=== PATIENT | male | born 1945 | race Caucasian/White ===

== ENCOUNTER → 2023-08-07 12:47 | Outpatient (REF) | payer MEDICARE, SELFPAY ==
[2023-08-07 13:16] LABS: % Basophils 0.2 % (0-2); % Eosinophils 1.9 % (0-6); % Immature Granulocytes 0.6 % (0-0.5); % Lymphocytes 17.3 % (20.5-51.1); % Monocytes 16.7 % (1.7-9.3); % Neutrophils 63.3 % (42.2-75.2); Absolute Eosinophils 0.1 10^3/uL (0-0.7); Absolute Lymphocytes 0.8 10^3/uL (1.2-3.4); Absolute Monocytes 0.8 10^3/uL (0.1-0.6); Hematocrit 38.9 % (39.0-52.0); Hemoglobin 12.4 g/dL (13.0-18.0); Mean Corp Hgb Conc. 31.9 g/dL (33.0-37.0); Mean Corpuscular Hgb 27.9 pg (27.0-31.0); Mean Corpuscular Volume 87.4 fL (80.0-94.0); Mean Platelet Volume 10.9 fL (7.4-10.4); Nucleated Red Blood Cells % 0 % (-); Platelet Count 174 10^3/uL (130-400); Red Blood Cell Count 4.45 10^6/uL (4.70-6.10); Red Cell Dist. Width 15.9 % (11.5-14.5); White Blood Cell Count 4.8 10^3/uL (4.8-10.8)
[2023-08-07 13:26] LABS: INR 4.07; PT 40.2 Sec (11.4-14.6)
[2023-08-07 14:03] LABS: Urine Albumin Negative (Neg - Trace); Urine Bilirubin Negative (Negative); Urine Character Clear (Clear); Urine Color Yellow; Urine Glucose Negative (Negative); Urine Ketone Negative (Negative); Urine Leukocyte Negative (Negative); Urine Nitrite Negative (Negative); Urine Occult Blood Negative (Negative); Urine Urobilinogen Negative (Neg - 1+)
[2023-08-07 14:13] LABS: Urine Mucus Few; Urine Squamous Cell 0-2 /LPF (Few)
[2023-08-07 14:14] LABS: Urine Bacteria Few (Negative); Urine Red Blood Cell 0-2 /HPF (0-2); Urine White Cell 0-2 /HPF (0-5); Urine Yeast Few (Negative)
[2023-08-07 14:50] LABS: Glycohemoglobin (HgbA1c) 6.3 % (4.0-5.6)
[2023-08-07 15:11] LABS: ALT (SGPT) 44 U/L (0-50); AST (SGOT) 74 U/L (17-59); Alkaline Phosphatase 162 U/L (38-126); Blood Urea Nitrogen 11 mg/dl (9-20); Calcium 8.6 mg/dl (8.4-10.2); Carbon Dioxide 29 mmol/L (22-30); Chloride 105 mmol/L (98-107); Glucose 92 mg/dl (70-99); HDL Cholesterol 51 mg/dl; LDL Cholesterol, Calculated 48 mg/dl; Potassium 4.4 mmol/L (3.5-5.1); Sodium 140 mmol/L (135-145); Total Bilirubin 0.5 mg/dl (0.2-1.3); Total Cholesterol 134 mg/dl (50-199); Total Protein 6.9 g/dl (6.3-8.2); Triglyceride 176 mg/dl (10-149); Very Low Density Lipoprotein 35 mg/dl (0-30); eGFR > 60.00
[2023-08-08 17:14] LABS: Syphilis/T. pallidum Ab Reflex Negative (Negative)
[2023-08-09 15:22] LABS: CD4 % of Cells Analyzed 35 % (35-68); CD4 Absolute Count 282 cells/uL (490-1600)
[2023-08-10 00:34] LABS: HIV-1 Quan NAAT Interpretation Not Detected (Not Detected); HIV-1 Quant NAAT (copies/ml) Not Detected cpy/mL; HIV-1 Quant NAAT (log copy/mL) Not Detected log cpy/mL
== END ==
LOC: REG 12:47
PROVIDERS: ATTENDING PHYSICIAN Internal Medicine Cardiovascular Disease; FAMILY PHYSICIAN Family Medicine; OTHER PHYSICIAN Student in an Organized Health Care Education/Training Program
DX: I48.91 Unspecified atrial fibrillation (principal); I48.0 Paroxysmal atrial fibrillation; B20 Human immunodeficiency virus [HIV] disease; Z00.00 Encounter for general adult medical examination without abnormal findings; E78.2 Mixed hyperlipidemia; R73.01 Impaired fasting glucose
CPT/HCPCS: 36415; 80053; 80061; 81003; 81015; 83036; 85025; 85610; 86361; 86780; 87536

== ENCOUNTER → 2023-08-14 09:16 | Outpatient (REF) | payer MEDICARE, SELFPAY ==
[2023-08-14 09:59] LABS: PT 23.8 Sec (11.4-14.6)
[2023-08-16 18:29] LABS: CD4 % of Cells Analyzed 23 % (35-68); CD4 Absolute Count 242 cells/uL (490-1600)
== END ==
LOC: REG 09:16
PROVIDERS: ATTENDING PHYSICIAN Internal Medicine Cardiovascular Disease; FAMILY PHYSICIAN Family Medicine; REFERRING PHYSICIAN Student in an Organized Health Care Education/Training Program
DX: I48.91 Unspecified atrial fibrillation (principal); I48.0 Paroxysmal atrial fibrillation; B20 Human immunodeficiency virus [HIV] disease
CPT/HCPCS: 36415; 85610; 86361

== ENCOUNTER → 2023-08-26 13:54 | Outpatient (REF) | payer MEDICARE, SELFPAY ==
[2023-08-26 14:43] LABS: INR 3.08; PT 31.8 Sec (11.4-14.6)
== END ==
LOC: REG 13:54
PROVIDERS: ATTENDING PHYSICIAN Internal Medicine Cardiovascular Disease; FAMILY PHYSICIAN Family Medicine
DX: I48.91 Unspecified atrial fibrillation (principal); I48.0 Paroxysmal atrial fibrillation
CPT/HCPCS: 36415; 85610

== ENCOUNTER 2023-09-08 21:21 | Inpatient (IN) | payer MEDICARE, SELFPAY ==
[2023-09-08 19:14] VITALS: BP 105/62
[2023-09-08 19:32] VITALS: BMI 18.6
[2023-09-08 19:34] VITALS: BP 111/67
[2023-09-08 20:00] VITALS: BP 106/75
[2023-09-08 20:02] LABS: % Basophils 0.3 % (0-2); % Eosinophils 0.8 % (0-6); % Immature Granulocytes 0.3 % (0-0.5); % Lymphocytes 15.5 % (20.5-51.1); % Monocytes 18.7 % (1.7-9.3); % Neutrophils 64.4 % (42.2-75.2); Absolute Lymphocytes 0.6 10^3/uL (1.2-3.4); Absolute Monocytes 0.7 10^3/uL (0.1-0.6); Absolute Neutrophils 2.4 10^3/uL (1.4-6.5); Hematocrit 34.4 % (39.0-52.0); Mean Corpuscular Hgb 26.8 pg (27.0-31.0); Mean Corpuscular Volume 83.9 fL (80.0-94.0); Mean Platelet Volume 11.2 fL (7.4-10.4); Nucleated Red Blood Cells % 0 % (-); Platelet Count 196 10^3/uL (130-400); Red Cell Dist. Width 16.4 % (11.5-14.5); White Blood Cell Count 3.7 10^3/uL (4.8-10.8)
[2023-09-08 20:18] LABS: COVID-19 Antigen Negative (Negative)
[2023-09-08 20:20] LABS: ALT (SGPT) 37 U/L (0-50); AST (SGOT) 48 U/L (17-59); Albumin 3.4 g/dl (3.5-5.0); Alkaline Phosphatase 151 U/L (38-126); Blood Urea Nitrogen 17 mg/dl (9-20); Calcium 8.5 mg/dl (8.4-10.2); Carbon Dioxide 31 mmol/L (22-30); Chloride 103 mmol/L (98-107); Estimated Creatinine Clearance 92 ml/min; Glucose 97 mg/dl (70-99); Potassium 4.2 mmol/L (3.5-5.1); Sodium 137 mmol/L (135-145); Total Bilirubin 0.4 mg/dl (0.2-1.3); Total Protein 6.5 g/dl (6.3-8.2); eGFR > 60.00
[2023-09-08 20:25] LABS: NT-proBNP 150 pg/ml; Troponin I < 0.012 ng/ml
--- NOTE | 2023-09-08 20:47 | ED.GENMED ---
History of Present Illness
General
Chief Complaint: Breathing Problem
Source: patient
Exam Limitations: none
Time Seen by Provider: 09/08/23 19:28
Nursing documentation reviewed up to this point in time: agreed with
Travel History
Have you had any contact with someone who has COVID-19?: No
Do you have any symptoms of coronavirus? Fever > 100 degrees, chills, cough, shortness of breath, sore throat, loss of taste or smell, muscle aches, or headache?: Yes
Symptoms:: cough and shortness of breath
History of Present Illness
History of Present Illness:
Patient with history of oxygen dependent COPD, presents to ED secondary to increasing shortness of breath with exertion over the past week. Denies chest pain. Denies fever or chills. Denies nausea, vomiting, or diarrhea. Patient also does report
decreased appetite. Denies recent travel. Denies recent surgery. Denies back pain. Denies leg pain or swelling. Patient was admitted to this hospital in June 2023 with similar symptoms, when he improved with treatment including steroids.
Past History
Past History
ED Past Medical History: Arrthythmia (Atrial fibrillation), CAD, COPD, HTN, Hypercholesterolemia and Other (HIV, cavitary pneumonia, AVINASH)
ED Past Surgical History: Cardiac
Social History
Tobacco: Former smoker
Alcohol: None
Drug: None
Living: with roommate
Employment: Retired
Review of Systems
Review of Systems
Allergies reviewed?: Yes
All Other Systems: ROS reviewed and negative except as documented in HPI and ROS
Constitutional: Reports no symptoms; Denies fever
EENT: Reports no symptoms
Respiratory: Reports cough and trouble breathing
Cardiac: Reports no symptoms
ABD/GI: Reports no symptoms
: Reports no symptoms
Musculoskeletal: Reports no symptoms
Skin: Reports no symptoms
Neurological: Reports no symptoms
Phy Exam
Physical Exam
Physical Exam:
Physical Exam
General: mild distress, not acutely ill. afebrile. thin appearing
Head: nc/at. eomi
Neck: supple. no meningeal signs.
Heart: s1/s2 regular rate and rhythm, no murmur. equal radial pulses.
Lungs: mild respiratory distress. diffuse expiratory wheezing bilaterally
Abdomen: normal bowel sounds. not tender.
Neuro: alert and oriented. no focal neurological deficits
Skin: no rash
Psychiatric: well kept. interactive and cooperative
Extremities: no edema. no calf tenderness.
Scores
Heart Failure Risk
Heart Failure Risk Score: Not Applicable
Course
Orders/Labs/Results
Orders:
Orders
09/08/23 Dinner
Cholesterol Lowering
At Your Request: Full Participation
Cholesterol Lowering: Sodium, 2 Gram
09/08/23 19:23
Electrocardiogram (*1) Urgent
Reason for Study: Shortness of Breath
CXR2 [CR Chest - 2 Views ] Urgent
Comment:
Reason For Exam: shortness of breath and cough
09/08/23 19:49
CMP [Comprehensive Metabolic Panel] Urgent
COVID-19 Antigen Urgent
Source: Nasal Swab
Complete Blood Count/With Diff Urgent
Pro-BNP [NT-proBNP] Urgent
Troponin I Urgent
INF RAPID [Influenza A+B Rapid Molecular] Urgent
JESSICA Source: Nasal Swab
Specimen Description:
09/08/23 20:46
0.9% Sodium Chloride 500 ml [Nss] 500 ml IV BOLUS
Albuterol Nebs [Ventolin Nebules] 2.5 mg INH R NOW STA
Dexamethasone Sod Phosphate [Decadron] 10 mg IV NOW STA
Ipratropium/Albuterol Sulfate [Duoneb] 3 ml INH R NOW STA
09/08/23 20:59
Admit/Transfer Patient As Directed
Co-Sign Provider:
Level of Care: Inpatient admission
Assign to:: Medical/Surgical
Physician / Group: haseeb correia
Diagnosis: acute on chronic copd exac
Reason for Hospitalization: acute on chronic copd exac
Expected length of stay greater than two midnights?: Yes
ELOS- Estimated Length of Stay in days: 4
I certify the patient meets the requirements for IP care: Yes
09/08/23 21:36
Acetaminophen [Tylenol] 650 mg PO Q4HPRN PRN
09/08/23 21:36
VTE Contraindication Routine
VTE Mechanical Device Contraindication: Medical Contraindication
Pharmocologic Contraindication: Medical Contraindication
Comment: pt on coumadin
Activity As Directed
Activity Level: As Tolerated
Vital Signs As Directed
Frequency: Per unit guidelines
Xopenex Reason for Use As Directed
Reason for ordering Xopenex instead of Albuterol: tachycardia
Pulse Ox/spot Check [RESP] Routine
Quantity: 1
Ot Eval And Treat Routine
Pt Eval And Treat Routine
Activity Level: As Tolerated
09/09/23 02:00
Dexamethasone Sod Phosphate [Decadron] 4 mg IV Q6H
09/09/23 05:47
Complete Blood Count/With Diff IN AM
Comprehensive Metabolic Panel IN AM
09/09/23 08:00
Albuterol Nebs [Ventolin Nebules] 2.5 mg INH R QID
Aspirin Low Dose EC [Aspir Low (Enteric Coated)] 81 mg PO DAILY
Azithromycin [Zithromax] 250 mg PO DAILY
Dolutegravir Sodium [Tivicay] 50 mg PO DAILY
Emtricitabine/Tenofovir [Truvada Tablet] 1 tablet PO DAILY
Ethambutol [Myambutol] 400 mg PO BID
Ezetimibe [Zetia] 10 mg PO DAILY
Levalbuterol [Xopenex 1.25 mg Inhalant Solution] 1.25 mg INH R QID
Multivitamin [Theragran] 1 tablet PO DAILY
Pantoprazole [Protonix] 40 mg PO DAILY
Rosuvastatin Calcium [Crestor] 20 mg PO DAILY
rifabutin 0 mg PO BID
09/09/23 18:00
Diltiazem Extended Release [Cardizem Cd] 120 mg PO QPM
09/10/23 06:00
Complete Blood Count/With Diff IN AM
Comprehensive Metabolic Panel IN AM
09/11/23 06:00
Complete Blood Count/With Diff IN AM
Comprehensive Metabolic Panel IN AM
09/12/23 06:00
Complete Blood Count/With Diff IN AM
Comprehensive Metabolic Panel IN AM
Abnormal Lab Results
09/08/23
19:49
WBC 3.7 L 10^3/uL
(4.8-10.8)
RBC 4.10 L 10^6/uL
(4.70-6.10)
Hgb 11.0 L g/dL
(13.0-18.0)
Hct 34.4 L %
(39.0-52.0)
MCH 26.8 L pg
(27.0-31.0)
MCHC 32.0 L g/dL
(33.0-37.0)
RDW 16.4 H %
(11.5-14.5)
MPV 11.2 H fL
(7.4-10.4)
Absolute Lymphs (auto) 0.6 L 10^3/uL
(1.2-3.4)
Absolute Monos (auto) 0.7 H 10^3/uL
(0.1-0.6)
Lymphocytes % 15.5 L %
(20.5-51.1)
Monocytes % 18.7 H %
(1.7-9.3)
Carbon Dioxide 31 H mmol/L
(22-30)
Creatinine 0.6 L mg/dL
(0.7-1.3)
Alkaline Phosphatase 151 H U/L
(38-126)
Albumin 3.4 L g/dl
(3.5-5.0)
09/08/23 19:49
09/08/23 19:49
Vital Signs
Initial and Last Documented VS:
Initial Vital Signs
Temp Pulse Resp BP Pulse Ox
97.6 F 98 30 105/62 97
09/08/23 19:14 09/08/23 19:14 09/08/23 19:14 09/08/23 19:14 09/08/23 19:14
Last Documented Vital Signs
Temp Pulse Resp BP Pulse Ox
97.6 F 109 20 139/64 97
09/09/23 16:59 09/09/23 16:59 09/09/23 16:59 09/09/23 16:59 09/09/23 16:59
MDM/Problems Addressed
MDM/Problems Addressed:
History and exam consistent with likely recurrent COPD exacerbation, with significant wheezing with respiratory distress. Patient will be admitted for further evaluation and treatment, including nebulizer treatment along with IV steroids.
*Critical Care Note
Total Time (30-74mins, 75-104mins- exclusive of procedures): Not Applicable
ED Attending Note
-
Portions of this chart may have been created with voice recognition software.� Occasional wrong word or��sound alike� substitutions may have occurred due to the inherent limitations of voice recognition software.
Discharge Plan
Departure
Patient Disposition: Admit
Date of Disposition: 09/08/23
Time of Disposition: 20:51
Admit to: Telemetry
Presentation/result/management discussed w/ accepting MD/DO: Hospitalist
Discharge Problem:
COPD exacerbation
Interventions
Interventions:
*Risk Screen - Suicide Last Done: 09/08/23 19:14
*General Assessment Last Done: 09/08/23 19:14
*Neglect/Abuse Screening Last Done: 09/08/23 19:14
ED- Fall Risk Assessment Last Done: 09/08/23 19:14
*ED COVID-19 Vaccine History Last Done: 09/08/23 19:14
*Nursing Disposition Last Done: 09/09/23 07:20
ED- Cardiac Assessment Last Done: 09/08/23 23:20
ED- Pulmonary Assessment Last Done: 09/08/23 23:20
Discharge Date and Time
Discharge Date/Time: 09/09/23 16:30
[2023-09-08] MEDS: DUONEB 3 ML INH (20:50)
[2023-09-08] MEDS: DECADRON 10 MG IV (20:50)
[2023-09-08] MEDS: VENTOLIN NEBULES 2.5 MG INH ×2 (20:50→23:48)
[2023-09-08] MEDS: NSS 500 IV (20:50)
[2023-09-08 21:00] VITALS: BP 104/66
--- NOTE | 2023-09-08 21:38 | HPS.HSE ---
Family Physician
-
Family Physician: Colton Farah
Chief Complaint
-
Shortness of breath
History of Present Illness
78-year-old male with history of COPD and chronic hypoxic failure on 2 L oxygen continuously, HIV who lives with the family at home, presented to the hospital with the family complaining of progressive shortness of breath over the last couple of
weeks, worse with eating and exertional activity admitted dry cough denies any fever but feels he is chronically cold and chilly, no chest pain, no urinary or GI symptoms, no sick contacts or recent travel.
Admit compliant with medication. Admit walking to the bathroom usually weak, short of breath mildly, also admits some tachycardia with this symptom.
Workup in the ER basically concerning for COPD exacerbation, given breathing treatment and steroid and overall feels some improvement, her daughter at the bedside.
Medical History
Past Medical History
Past Medical History: Reports Other
Additional Past Medical History:
Past medical history reviewed:
Chronic hypoxic failure secondary to COPD on 2 L oxygen continuously
A-fib anticoagulated with warfarin
COPD
HIV
PVD
Spinal stenosis
Chronic back pain
Coronary artery disease status post stent and bypass
Left foot drop
Hypertension
Cataract
Surgical history:
Coronary disease/bypass
R knee
Colonoscopy and polyp removal
Right inguinal hernia repair
Thoracocentesis
EGD removal of food impaction
Social history: Lives at home with the family, no smoking or alcohol use.
Family history: Reviewed and noncontributory
Past Surgical History: Reports Other
Social History
Unable to obtain full social history at this time due to: Other
Family History
Family History: Other
Allergies / Home Medications
Allergies reflects when Allergies were last updated in [facility] [employer].
Home Medications with original date entered in [employer]
Allergy/Medication List:
Allergies
Allergy/AdvReac Type Severity Reaction Status Date / Time
No Known Allergies Allergy Verified 09/08/23 19:12
Home Medications
azithromycin 250 mg tablet 250 mg PO DAILY 04/06/19
dolutegravir 50 mg tablet (Tivicay) 50 mg PO DAILY Infection 12/19/21
ethambutol 400 mg tablet 400 mg PO BID Anti-inflammatory 12/19/21
ezetimibe 10 mg tablet 10 mg PO DAILY High cholesterol 12/19/21
emtricitabine 200 mg-tenofovir disoproxil fumarate 300 mg tablet 1 tab PO DAILY Infection 11/11/22
rosuvastatin 20 mg tablet (Crestor) 20 mg PO DAILY High cholesterol 11/11/22
pantoprazole 40 mg tablet,delayed release 40 mg PO DAILY #30 tabs 11/13/22
albuterol sulfate 90 mcg/actuation aerosol inhaler 2 puff inhalation R Q4HPRN PRN sob 06/20/23
aspirin 81 mg tablet,delayed release 81 mg PO DAILY Blood Clot Prevention/Tx 06/20/23
diltiazem HCl 120 mg capsule,24 hr,extended release 120 mg PO QPM Blood Pressure 06/20/23
fluticasone fur. 100 mcg-umeclid 62.5 mcg-vilant 25 mcg inhalat.powder (Trelegy Ellipta) 1 inh inhalation R DAILY Lung/Breathing Issues 06/20/23
levalbuterol HCl 1.25 mg/3 mL solution for nebulization 1.25 mg inhalation R QID Lung/Breathing Issues 06/20/23
rifabutin 150 mg capsule 150 mg PO BID Infection 06/20/23
therapeutic multivitamin 1 tab PO DAILY Supplement 06/20/23
warfarin 4 mg tablet 4 mg PO QPM 09/08/23
Review of Systems
-
A 12 point ROS was completed and negative except as noted: Yes
Physical Exam
Vital Signs
Vital Signs
Temp Pulse Resp BP Pulse Ox
97.6 F 98 30 105/62 98
09/08/23 19:14 09/08/23 19:14 09/08/23 19:14 09/08/23 19:14 09/08/23 19:52
Physical exam:
General: Awake, alert and oriented x3, not in distress and holds appropriate conversation. Cachectic,
HEENT: On nasal cannula no active discharge, ecchymosis or bruising, moist lips, tongue and mucous membrane.
Eyes: No discharge or red conjunctiva, no nystagmus, pupils are reactive and equal
Neck:Supple, no JVD no bruit no goiter.
Respiratory: Normal AP contour and diameter, normal chest wall movement, normal respiratory effort, no respiratory distress,
Lungs: Diminished air entry bilaterally with bilateral wheezing and rhonchi, no rales or crackles
Heart: S1, S2 regular, normal rate, no added sound.
Gastrointestinal: Positive bowel sounds, soft, nontender, no guarding or rigidity or organomegaly
Musculoskeletal: , no chest wall abnormality or tenderness. All joints and extremities have good range of motion, no muscle tenderness or any joint swelling or tenderness.
Extremities: No pitting edema, good peripheral pulses, good range of motion
Skin: Warm and dry, no ulceration, normal color.
Neurological: Awake, alert and oriented x3, no facial droop, moves extremities freely speech clear and comprehensive, good muscle tone, normal sensory and motor function
Psychiatric: Normal mood, normal thought and judgment, normal affect,
Physical Exam
General: Other
Laboratory Results
-
09/08/23 19:49
09/08/23 19:49
Laboratory Results
Total Bilirubin 0.4 mg/dl (0.2-1.3) 09/08/23 19:49
AST 48 U/L (17-59) 09/08/23 19:49
ALT 37 U/L (0-50) 09/08/23 19:49
Alkaline Phosphatase 151 U/L (38-126) H 09/08/23 19:49
Troponin I < 0.012 ng/ml 09/08/23 19:49
EKG showed normal sinus rhythm Ankita supraventricular complexes
Rate around 89, NH 192, QTc 418, low voltage criteria.
Chest x-ray:Right upper lobe scarring and likely accompanying right apical cavity/bulla, predominantly stable.
Data Reviewed
-
Diagnostic Radiology: Image Personally Visualized and interpreted, Discussed with Patient and Discussed with Family
Medical Tests (Nuc Med, Echo, EKG etc): Image Personally Visualized and interpreted, Discussed with Patient and Discussed with Family
Lab Data: Labs Reviewed by me, Discussed with Patient and Discussed with Family
Old Records: Reviewed
Impression/Plan
-
IMPRESSION:
Chronic hypoxic failure on 2 L oxygen continuously
78-year-old male with history of advanced COPD and hypoxic failure, presented to the hospital complaining of progressive worsening shortness of breath over the last couple of weeks, concerning for COPD exacerbation.
Acute COPD exacerbation
Chronic neutropenia
Chronic anemia
HIV
Moderate protein caloric malnutrition
Cachexia
A-fib and anticoagulated with warfarin
PLAN:
Managed per COPD protocol
DuoNeb 4 times daily Decadron IV
Oxygen on 2 L continue to use home dose
Monitor vital sign
Continue home medication.
Recheck lab
PT/INR ordered and pending and will decide the dosing of warfarin accordingly
All discussed with the patient and the family
CODE STATUS full code
Dispo prophylaxis warfarin
[2023-09-08 23:25] VITALS: BP 136/71
[2023-09-08 23:38] LABS: PT 24.3 Sec (11.4-14.6)
[2023-09-09] MEDS: DECADRON 4 MG IV ×4 (02:25→20:34)
[2023-09-09 02:28] VITALS: BP 133/66
[2023-09-09 06:30] LABS: % Immature Granulocytes 0.4 % (0-0.5); % Monocytes 3.6 % (1.7-9.3); Absolute Lymphocytes 0.2 10^3/uL (1.2-3.4); Absolute Monocytes 0.1 10^3/uL (0.1-0.6); Absolute Neutrophils 2.4 10^3/uL (1.4-6.5); Mean Corp Hgb Conc. 32.3 g/dL (33.0-37.0); Mean Corpuscular Hgb 26.7 pg (27.0-31.0); Mean Corpuscular Volume 82.7 fL (80.0-94.0); Mean Platelet Volume 11.9 fL (7.4-10.4); Nucleated Red Blood Cells % 0 % (-); Platelet Count 195 10^3/uL (130-400); Red Blood Cell Count 3.75 10^6/uL (4.70-6.10); Red Cell Dist. Width 16.4 % (11.5-14.5); White Blood Cell Count 2.7 10^3/uL (4.8-10.8)
[2023-09-09 06:41] LABS: ALT (SGPT) 36 U/L (0-50); AST (SGOT) 41 U/L (17-59); Albumin 3.2 g/dl (3.5-5.0); Alkaline Phosphatase 155 U/L (38-126); Blood Urea Nitrogen 12 mg/dl (9-20); Calcium 8.1 mg/dl (8.4-10.2); Carbon Dioxide 27 mmol/L (22-30); Chloride 106 mmol/L (98-107); Estimated Creatinine Clearance 92 ml/min; Glucose 151 mg/dl (70-99); Potassium 4.1 mmol/L (3.5-5.1); Sodium 138 mmol/L (135-145); Total Bilirubin 0.3 mg/dl (0.2-1.3); Total Protein 6.2 g/dl (6.3-8.2); eGFR > 60.00
[2023-09-09 07:12] LABS: INR 2.18; PT 24.1 Sec (11.4-14.6)
[2023-09-09] MEDS: PROTONIX 40 MG PO (09:01)
[2023-09-09] MEDS: ZETIA 10 MG PO (09:01)
[2023-09-09] MEDS: ASPIR LOW (ENTERIC COATED) 81 MG PO (09:01)
[2023-09-09] MEDS: MYAMBUTOL 400 MG PO ×2 (09:02→20:38)
[2023-09-09] MEDS: THERAGRAN 1 TABLET PO (09:02)
[2023-09-09] MEDS: CRESTOR 20 MG PO (09:02)
[2023-09-09] MEDS: ZITHROMAX 250 MG PO (09:02)
[2023-09-09] MEDS: TRUVADA TABLET 1 TABLET PO (09:02)
[2023-09-09] MEDS: TIVICAY 50 MG PO (09:03)
[2023-09-09] MEDS: XOPENEX 1.25 MG INHALANT SOLUTION INH ×4 (09:03→20:02)
[2023-09-09] MEDS: SYMBICORT 80/4.5 MCG INHALER 2 PUFF INH ×2 (10:04→20:02)
[2023-09-09] MEDS: SPIRIVA RESPIMAT 2.5 MCG 2 PUFF INH (10:04)
[2023-09-09 10:11] VITALS: BP 155/97
[2023-09-09] MEDS: NON-FORMULARY ITEM 150 MG PO (10:20)
--- NOTE | 2023-09-09 10:50 | CON.PUL ---
Consultation
Consultation Request
Date/Time Consultation Requested: 09/09/2023-9 AM
Date/Time Consultation Performed: 09/09/2023-9:30 AM
Requesting Provider: Hospitalist
Performing Provider: Dr. Apple
Reason for Consultation: Shortness of breath
Medical History
-
Chief Complaint: Shortness of breath
History of Present Illness:
78-year-old male with underlying COPD followed by Dr. Mujica on chronic oxygen 2 L well still has HIV, atrial fibrillation, spinal stenosis and CAD who presented with increasing shortness of breath and pulmonary was consulted for COPD exacerbation
09/09/2023. He continues have significant shortness of breath with minimal exertion. He does not complain of any chest congestion, productive cough, pleurisy, mopped assist, abdominal pain, leg swelling or weakness. He is feeling improved after
nebulizers and steroids.
Past Medical History
Past Medical History: None (COPD on chronic oxygen 2 L. Atrial fibrillation. Chronic warfarin. HIV. PAD. Spinal stenosis. Chronic back pain. Coronary artery disease/CABG. L foot drop. Hypertension. Cataract. Right knee surgery.
Colonoscopy/polyp removal. R inguinal hernia repair. Thoracentesis. EGD [employer])
Social History
Tobacco: Former Smoker (04-[facility]-roni quit 1 year)
Drug: None
Living: With Family
Occupational Exposures: No known asbestos exposure
Environmental Exposures: No known tuberculosis exposure
Family History
Family History: Reviewed & Not Pertinent (Father suicide)
Allergies / Home Medications
Allergies
Allergy/AdvReac Type Severity Reaction Status Date / Time
No Known Allergies Allergy Verified 09/08/23 19:12
Home Medications
Medication Instructions Recorded Confirmed Last Taken Type
azithromycin 250 mg tablet 250 mg PO DAILY 04/06/19 09/08/23 09/08/23 Rx
dolutegravir 50 mg tablet (Tivicay) 50 mg PO DAILY Infection 12/19/21 09/08/23 09/08/23 History
ethambutol 400 mg tablet 400 mg PO BID Anti-inflammatory 12/19/21 09/08/23 09/08/23 History
ezetimibe 10 mg tablet 10 mg PO DAILY High cholesterol 12/19/21 09/08/23 09/08/23 History
emtricitabine 200 mg-tenofovir 1 tab PO DAILY Infection 11/11/22 09/08/23 09/08/23 History
disoproxil fumarate 300 mg tablet
rosuvastatin 20 mg tablet (Crestor) 20 mg PO DAILY High cholesterol 11/11/22 09/08/23 09/08/23 History
pantoprazole 40 mg tablet,delayed 40 mg PO DAILY #30 tabs 11/13/22 09/08/23 09/08/23 Rx
release
albuterol sulfate 90 mcg/actuation 2 puff inhalation R Q4HPRN PRN sob 06/20/23 09/08/23 Unknown History
aerosol inhaler
aspirin 81 mg tablet,delayed 81 mg PO DAILY Blood Clot 06/20/23 09/08/23 09/08/23 History
release Prevention/Tx
diltiazem HCl 120 mg capsule,24 120 mg PO QPM Blood Pressure 06/20/23 09/08/23 09/08/23 History
hr,extended release
fluticasone fur. 100 mcg-umeclid 1 inh inhalation R DAILY 06/20/23 09/08/23 09/08/23 History
62.5 mcg-vilant 25 mcg Lung/Breathing Issues
inhalat.powder (Trelegy Ellipta)
levalbuterol HCl 1.25 mg/3 mL 1.25 mg inhalation R QID 06/20/23 09/08/23 09/08/23 History
solution for nebulization Lung/Breathing Issues
rifabutin 150 mg capsule 150 mg PO BID Infection 06/20/23 09/08/23 09/08/23 History
therapeutic multivitamin 1 tab PO DAILY Supplement 06/20/23 09/08/23 09/08/23 History
warfarin 4 mg tablet 4 mg PO QPM 09/08/23 09/08/23 09/08/23 History
Review of Systems
-
Unable to Obtain full review of systems at this time due to: Other (Per HPI)
Vitals / Labs / Diagnostic Testing
Vital Signs
Temp Pulse Resp BP Pulse Ox
97.7 F 102 22 155/97 96
09/09/23 10:11 09/09/23 10:11 09/09/23 10:11 09/09/23 10:11 09/09/23 10:11
Lab Data
09/09/23 05:47
09/09/23 05:47
Laboratory Results
09/08/23 09/09/23
23:17 05:47
PT 24.3 H 24.1 H
INR 2.20 2.18
Microbiology
09/08/23 19:49 Nasal Swab Influenza Types A & B (MARIAH) - Final
Negative for Influenza A & B, NAAT
Negative results must be combined with clinical observations
and patient history.
Nucleic Acid Amplification test (NAAT)performed on the
[employer] platform.
Diagnostic Testing:
Physical Exam
-
Exam:
Well-nourished and well-developed in no apparent distress
HEENT-atraumatic, normocephalic
Neck-supple, no JVD, no bruit
Heart-regular rate and rhythm-no murmurs, rubs or gallops
Chest with diminished breath sounds, prolonged expiratory time, rare basilar crackle and forced wheezes and rhonchi
Abdomen-soft, nontender, nondistended, no hepatosplenomegaly
Extremities-no cyanosis, clubbing, trace lower extremity edema
Integument-intact, no rashes, lesions or ecchymosis
Neurology-alert and oriented, nonfocal motor and sensory exam
Assessment
-
78-year-old male with underlying COPD followed by Dr. Mujica on chronic oxygen 2 L well still has HIV, atrial fibrillation, spinal stenosis and CAD who presented with increasing shortness of breath and pulmonary was consulted for COPD exacerbation
09/09/2023.
Assessment
COPD with acute exacerbation
Leukopenia
[id number] 10.0
Hyponatremia
Moderate protein calorie malnutrition
Cachexia
Mild hyperglycemia
Hypocalcemia
Conditions present prior to admission:
COPD on chronic oxygen 2 L.
Right apical bleb
History of mycobacterial disease-follows infectious disease-Dr. Castillo at [facility] and Dr. Fan locally
Chronic cough
Pulmonary nodules
Atrial fibrillation-follows Dr. Jhonatan Yip
Chronic warfarin.
HIV.
PAD.
Spinal stenosis.
Chronic back pain.
Coronary artery disease/CABG.
L foot drop.
Spinal stenosis
Hypertension.
Cataract.
Right knee surgery.
Colonoscopy/polyp removal.
R inguinal hernia repair.
Thoracentesis.
EGD [employer]
Plan
Patient requires admission for severe COPD exacerbation and respiratory failure
Supplemental oxygen as needed
Previous ABG in 2014 suggestive hypercapnia
BiPAP if needed
High flow oxygen if appropriate
Xopenex initiated
Spiriva continues
Symbicort continues
Pulmicort nebulizers
Mucolytic's
Decadron 4 mg IV every 6 hours
Incentive spirometry
Acapella
Consider vest if difficulties mobilizing secretions
Consider chest physiotherapy if difficulties mobilizing secretions
Check cultures
Antimycobacterial antibiotics continue as well as azithromycin 250 mg daily, rifabutin, ethambutol
Follows locally with infectious disease as well as [facility]
Monitor leukocytosis
Monitor hemoglobin
Transfuse as needed
Monitor electrolytes and replace as needed
Monitor blood sugars
Insulin supplementation as needed
Smoking cessation counseling-reportedly quit 1 year ago
DVT prophylaxis recommended
GI prophylaxis recommended if on steroids for prolonged period
Nutrition especially in light of protein calorie malnutrition and cachexia
Early mobilization
Reviewed with emergency room nursing
Outpatient pulmonary follow-up.
Patient has appointment to see Dr. Mujica with full PFTs/06/29
Diagnostic data:
Chest x-ray 06/20/2023-stable pleural-parenchymal scarring right upper lobe and 8 cm right apical bleb
Chest x-ray 09/08/2023-right upper lobe scarring
CT chest low-dose 12/05/2022-extensive emphysematous changes, small bilateral pulmonary nodules overall slightly decreased in size
Echocardiogram 11/12/2022-EF 60%, no mitral stenosis, trace mitral regurgitation, no change since 2021
PFT 09/29/2020-FEV1 960 mL - 31%, FVC 3.25-75%, TLC 92%, RV 113%, DLCO 26%, DLCO/VA 32%
Data Reviewed
-
PFT: Report reviewed by me
EKG: Report reviewed by me
Radiology: Report reviewed by me
CT Scan: Report reviewed by me
Medical Tests (Nuc Med, Echo etc): Report reviewed by me
Labs: Labs reviewed by me
Old Records: Reviewed
Total Time Spent with Patient (in minutes): 55
[2023-09-09 11:27] VITALS: BP 128/65; PULSE 98; O2SAT 98
--- NOTE | 2023-09-09 11:37 | PTOTSP ---
pt currently demonstrates ability to complete simple ADLs, functional transfers, ambulation with supervision to no assistance. pt tolerated ambulation in room with 3LO2, required time for recovery. no acute OT needs identified at this time, will
sign off.
--- NOTE | 2023-09-09 14:47 | W.PN.HOSP.TC ---
Today's Communication/Plan
-
continue steroids
pulm evaluation
Assessment / Plan
Assessment / Plan
1. COPD flare up
Chronic hypoxic respiratory failure
-CT chest reviewed and patient has severe emphysematous changes
-Follows up with Dr. Garcia for pulmonology issues
-Minimally hypoxic wheezing on exam
-Maintain on IV Decadron
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
-Already on azithromycin as part of AVINASH treatment
-Continue nebulizer therapy
-wean off oxygen as possible
-Have history of Pseudomonas pneumonia, sputum culture ordered
2. History of AVINASH infection
-Follows up with specialist at [facility]
-Currently on azithromycin/ethambutol/rifabutin, continue all meds
3. HIV
-Controlled on antiretroviral therapy of emtricitabine/tenofovir
-f/us with ID group
-Last CD4 count of 242 in 08/14/23 - trend reviewed and has been down trending
4. Paroxysmal A-fib
-Continue home dose of warfarin, follow-up INR
- INR thearputic today
History of peripheral vascular disease
History of coronary disease s/p bypass
Left foot drop
Essential hypertension
History of right inguinal hernia repair
DVT prophylaxis -warfarin
full code
Anticipated Discharge: 24 - 48 hours
Subjective/Interval History
-
Date of Service: September 09, 2023
Denies excessive shortness of breath, subjectively better
Having cough on deep inspiration
afebrile overnight
Objective Data
-
Labs:
Laboratory Results
09/09/23
05:47
WBC 2.7 L
Hgb 10.0 L
Hct 31.0 L
Plt Count 195
PT 24.1 H
INR 2.18
Sodium 138
Potassium 4.1
Chloride 106
Carbon Dioxide 27
BUN 12
Creatinine 0.4 L
Glucose 151 H
Calcium 8.1 L
Total Bilirubin 0.3
AST 41
ALT 36
Alkaline Phosphatase 155 H
Vital Signs:
Vital Signs
Temp Pulse Resp BP Pulse Ox
97.7 F 102 22 155/97 96
09/09/23 10:11 09/09/23 10:11 09/09/23 10:11 09/09/23 10:11 09/09/23 10:11
Review of Systems
-
Respiratory: Reports Cough, Trouble Breathing and Wheezing
Cardiac: Reports No Symptoms
Abdomen/GI: Reports No Symptoms
Physical Exam
-
General: Respiratory Distress and Appears Chronically Ill
HEENT: Moist Mucous Membranes and Oxygen
Respiratory: Wheezes (wheeze resoled, moving air better since admission)
Cardiac: Regular Rhythm and S1/S2; Negative Murmur
GI: Soft, Nontender and Nondistended
Musculoskeletal: No Edema
Neuro: Awake, Alert and Oriented
Psych: Calm
[2023-09-09 15:38] VITALS: BMI 18.1
[2023-09-09 16:30] VITALS: BP 128/65; PULSE 94; O2SAT 94; BMI 18.1
--- NOTE | 2023-09-09 16:32 | PTCARENOTE ---
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
[2023-09-09 16:59] VITALS: BP 139/64
[2023-09-09] MEDS: CARDIZEM CD 120 MG PO (17:32)
[2023-09-09] MEDS: COUMADIN 4 MG PO (17:33)
[2023-09-09 23:00] VITALS: BP 132/60
[2023-09-10] MEDS: DECADRON 4 MG IV ×4 (01:49→20:03)
[2023-09-10 05:06] VITALS: BMI 18.3
[2023-09-10 07:03] LABS: INR 2.09; PT 23.4 Sec (11.4-14.6)
[2023-09-10 07:06] LABS: Hematocrit 33.1 % (39.0-52.0); Hemoglobin 10.7 g/dL (13.0-18.0); Mean Corp Hgb Conc. 32.3 g/dL (33.0-37.0); Mean Corpuscular Hgb 26.9 pg (27.0-31.0); Mean Corpuscular Volume 83.2 fL (80.0-94.0); Mean Platelet Volume 12.2 fL (7.4-10.4); Platelet Count 222 10^3/uL (130-400); Red Blood Cell Count 3.98 10^6/uL (4.70-6.10); Red Cell Dist. Width 16.4 % (11.5-14.5)
[2023-09-10 07:15] LABS: White Blood Cell Count 2.4 10^3/uL (4.8-10.8)
[2023-09-10 07:20] LABS: ALT (SGPT) 34 U/L (0-50); AST (SGOT) 38 U/L (17-59); Albumin 3.3 g/dl (3.5-5.0); Alkaline Phosphatase 145 U/L (38-126); Blood Urea Nitrogen 14 mg/dl (9-20); Calcium 8.2 mg/dl (8.4-10.2); Carbon Dioxide 31 mmol/L (22-30); Chloride 107 mmol/L (98-107); Estimated Creatinine Clearance 90 ml/min; Glucose 132 mg/dl (70-99); Potassium 4.6 mmol/L (3.5-5.1); Sodium 142 mmol/L (135-145); Total Bilirubin 0.4 mg/dl (0.2-1.3); Total Protein 6.3 g/dl (6.3-8.2); eGFR > 60.00
[2023-09-10 07:26] VITALS: BP 126/65
[2023-09-10] MEDS: XOPENEX 1.25 MG INHALANT SOLUTION INH ×4 (08:11→20:11)
[2023-09-10] MEDS: SYMBICORT 80/4.5 MCG INHALER 2 PUFF INH ×2 (08:11→20:08)
[2023-09-10] MEDS: SPIRIVA RESPIMAT 2.5 MCG 2 PUFF INH (08:11)
[2023-09-10 08:29] LABS: Absolute Neutrophils -Man Diff 1.7 10^3/uL (1.4-6.5); Band Neutrophils 1 % (0-3); Lymphocytes 19 % (20-51); Monocytes 8 % (2-9); Platelets Checked Yes; Segmented Neutrophils 72 % (42-75)
[2023-09-10 08:30] LABS: Normal RBC Morphology No; Poikilocytosis 1+; Total Cells Counted 100
--- NOTE | 2023-09-10 08:33 | W.PN.PUL.V3 ---
Today's Communication / Plan
-
.
No change in high-dose intravenous steroids.
Wean oxygen.
Continue antibiotics.
Mucolytic's
Assessment
-
78-year-old male with underlying COPD followed by Dr. Mujica on chronic oxygen 2 L well still has HIV, atrial fibrillation, spinal stenosis and CAD who presented with increasing shortness of breath and pulmonary was consulted for COPD exacerbation
09/09/2023.
Assessment
COPD with acute exacerbation
Leukopenia
Hmddic-sxeaadcqhl-xfgvefzlsw 10.0
Hyponatremia
Moderate protein calorie malnutrition
Cachexia
Mild hyperglycemia
Hypocalcemia
Conditions present prior to admission:
COPD on chronic oxygen 2 L.
Right apical bleb
History of mycobacterial disease-follows infectious disease-Dr. Castillo at [facility] and Dr. Fan locally
Chronic cough
Pulmonary nodules
Atrial fibrillation-follows Dr. Jhonatan Yip
Chronic warfarin.
HIV.
PAD.
Spinal stenosis.
Chronic back pain.
Coronary artery disease/CABG.
L foot drop.
Spinal stenosis
Hypertension.
Cataract.
Right knee surgery.
Colonoscopy/polyp removal.
R inguinal hernia repair.
Thoracentesis.
EGD Food impactio
Plan
Respiratory status remains tenuous but slowly improved
Supplemental oxygen as needed.
Note, his previous ABG in 2015 suggestive hypercapnia
BiPAP if needed
Aspiration precautions
Xopenex initiated
Spiriva continues
Symbicort continues
Pulmicort nebulizers
Continue mucolytic
Decadron 4 mg IV every 6 hours-no change 4 today
Incentive spirometry
Acapella.
We will consider vest if difficulties mobilizing secretions
We will consider chest physiotherapy if difficulties mobilizing secretions
Check cultures
Antimycobacterial antibiotics continue as well as azithromycin 250 mg daily, rifabutin, ethambutol
Follows locally with infectious disease as well as HUP
Monitor leukocytosis
Monitor hemoglobin
Transfuse as needed
Monitor electrolytes and replace as needed
Followr blood sugars
Insulin supplementation as needed
Smoking cessation counseling-reportedly quit 1 year ago
DVT prophylaxis recommended
GI prophylaxis recommended if on steroids for prolonged period
Nutrition especially in light of protein calorie malnutrition and cachexia
Early mobilization
Reviewed with emergency room nursing
Outpatient pulmonary follow-up recommended
Patient has appointment to see Dr. Mujica with full PFTs/06/29
Diagnostic data:
Chest x-ray 06/20/2023-stable pleural-parenchymal scarring right upper lobe and 8 cm right apical bleb
Chest x-ray 09/08/2023-right upper lobe scarring
CT chest low-dose 12/05/2022-extensive emphysematous changes, small bilateral pulmonary nodules overall slightly decreased in size
Echocardiogram 11/12/2022-EF 60%, no mitral stenosis, trace mitral regurgitation, no change since 2021
PFT 09/29/2020-FEV1 960 mL - 31%, FVC 3.25-75%, TLC 92%, RV 113%, DLCO 26%, DLCO/VA 32%
Subjective Data
-
Date of Service:
Date of Service: September 10, 2023
Chief Complaint: Pulmonary Follow Up and Dyspnea Follow Up
Subjective:
Some shortness of breath with minimal exertion, no chest pain, abdominal pain , minimal cough
Review of Systems
General: Other (per HPI)
Objective Data
Data Reviewed
Vital Signs / I&O:
Vital Signs
Temp Pulse Resp BP Pulse Ox
97.6 F 99 20 126/65 98
09/10/23 07:26 09/10/23 08:14 09/10/23 08:14 09/10/23 07:26 09/10/23 08:14
Intake and Output
09/09/23 09/10/23 09/11/23
06:59 06:59 06:59
Intake Total 120 / 120
Output Total 650 / 650
Balance -530 / -530
SaO2: 98
Nasal Cannula flow liters per minute: 3
Physical Exam
General: Respiratory Distress (n) and Comfortable
HEENT: Normocephalic and Anicteric
Cardiovascular: Regular Rhythm
Respiratory: Wheeze (n), Crackles (n), Rhonchi (n), Non-Labored Respirations, Accessory Resp Muscle Use (n) and Stridor (n)
GI: Soft, Non Distended and Non Tender
Neurology: Awake, Alert and No Motor Deficits
Skin: Warm, Good Color, Cyanosis (n) and Jaundice (n)
Labs/Micro/Reports
Lab Data
09/10/23 06:06
09/10/23 06:06
Laboratory Results
09/10/23
06:06
PT 23.4 H
INR 2.09
Microbiology
09/08/23 19:49 Nasal Swab Influenza Types A & B (MARIAH) - Final
Negative for Influenza A & B, NAAT
Negative results must be combined with clinical observations
and patient history.
Nucleic Acid Amplification test (NAAT)performed on the
Re[employer] platform.
[2023-09-10] MEDS: CRESTOR 20 MG PO (08:43)
[2023-09-10] MEDS: ZETIA 10 MG PO (08:43)
[2023-09-10] MEDS: ASPIR LOW (ENTERIC COATED) 81 MG PO (08:43)
[2023-09-10] MEDS: MYAMBUTOL 400 MG PO ×2 (08:43→20:02)
[2023-09-10] MEDS: PROTONIX 40 MG PO (08:43)
[2023-09-10] MEDS: THERAGRAN 1 TABLET PO (08:43)
[2023-09-10] MEDS: ZITHROMAX 250 MG PO (08:43)
[2023-09-10] MEDS: TRUVADA TABLET 1 TABLET PO (08:44)
[2023-09-10] MEDS: NON-FORMULARY ITEM 300 MG PO (08:44)
[2023-09-10] MEDS: TIVICAY 50 MG PO (08:45)
--- NOTE | 2023-09-10 13:30 | W.PN.HOSP.TC ---
Today's Communication/Plan
-
continue iv steroids
continue prophylactic abx
Assessment / Plan
Assessment / Plan
1. COPD flare up
Chronic hypoxic respiratory failure
-CT chest reviewed and patient has severe emphysematous changes
-Follows up with Dr. Garcia for pulmonology issues
-Minimally hypoxic wheezing on exam
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
-Already on azithromycin as part of AVINASH treatment
-Have history of Pseudomonas pneumonia, sputum culture ordered although no phlegm production.
-continues to wheeze and remains dyspnic, continue steroid therapy
2. History of AVINASH infection
-Follows up with specialist at [facility]
-Currently on azithromycin/ethambutol/rifabutin, continue all meds
3. HIV
-Controlled on antiretroviral therapy of emtricitabine/tenofovir
-f/us with ID group
-Last CD4 count of 242 in 08/14/23 - trend reviewed and has been down trending
4. Paroxysmal A-fib
-Continue home dose of warfarin, follow-up INR
- INR therapeutic today, continue monitoring
History of peripheral vascular disease
History of coronary disease s/p bypass
Left foot drop
Essential hypertension
History of right inguinal hernia repair
DVT prophylaxis -warfarin
full code
Patient daughter updated over the phone.
Anticipated Discharge: 24 - 48 hours
Subjective/Interval History
-
Date of Service: September 10, 2023
Continues to have cough and dyspnea
Oxygen requirement stable
Objective Data
-
Labs:
Laboratory Results
09/10/23
06:06
WBC 2.4 L*
Hgb 10.7 L
Hct 33.1 L
Plt Count 222
PT 23.4 H
INR 2.09
Sodium 142
Potassium 4.6
Chloride 107
Carbon Dioxide 31 H
BUN 14
Creatinine 0.6 L
Glucose 132 H
Calcium 8.2 L
Total Bilirubin 0.4
AST 38
ALT 34
Alkaline Phosphatase 145 H
Vital Signs:
Vital Signs
Temp Pulse Resp BP Pulse Ox
97.6 F 103 20 126/65 98
09/10/23 07:26 09/10/23 11:37 09/10/23 11:37 09/10/23 07:26 09/10/23 11:37
I&O
09/09/23 09/10/23 09/11/23
06:59 06:59 06:59
Intake Total 120 / 120
Output Total 650 / 650
Balance -530 / -530
Review of Systems
-
Respiratory: Reports Cough
Cardiac: Reports No Symptoms
Abdomen/GI: Reports No Symptoms
Physical Exam
-
General: Respiratory Distress, Appears Chronically Ill and Cachectic
HEENT: Moist Mucous Membranes and Oxygen
Respiratory: Wheezes (wheeze resoled, moving air better since admission)
Cardiac: Regular Rhythm and S1/S2; Negative Murmur
GI: Soft, Nontender and Nondistended
Musculoskeletal: No Edema
Neuro: Awake, Alert and Oriented
Psych: Calm
--- NOTE | 2023-09-10 14:10 | CM ---
Patient lives with roommate/friend in a multilevel home with 3 steps to enter, patient has bed and bathroom on the 1st floor, patient is independent with adl's and ambulation, patient as home oxygen at 2 liters from [employer]. Patient has
a prescription plan and patient uses [facility].
PCP: Dr. Farah
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
[2023-09-10 15:44] VITALS: BP 116/68
[2023-09-10 16:54] VITALS: BMI 18.3
[2023-09-10] MEDS: COUMADIN 4 MG PO (17:56)
[2023-09-10] MEDS: CARDIZEM CD 120 MG PO (17:56)
[2023-09-10 23:14] VITALS: BP 131/63
[2023-09-11] MEDS: DECADRON 4 MG IV ×4 (02:51→23:48)
[2023-09-11 06:00] VITALS: BMI 17.8
[2023-09-11 06:58] LABS: % Basophils 0.2 % (0-2); % Immature Granulocytes 1.8 % (0-0.5); % Monocytes 15.3 % (1.7-9.3); % Neutrophils 69.7 % (42.2-75.2); Absolute Immature Granulocytes 0.1 10^3/uL (0-0.05); Absolute Lymphocytes 0.6 10^3/uL (1.2-3.4); Absolute Monocytes 0.7 10^3/uL (0.1-0.6); Absolute Neutrophils 3.1 10^3/uL (1.4-6.5); Hematocrit 35.9 % (39.0-52.0); Hemoglobin 11.3 g/dL (13.0-18.0); INR 2.46; Mean Corp Hgb Conc. 31.5 g/dL (33.0-37.0); Mean Corpuscular Hgb 26.2 pg (27.0-31.0); Mean Corpuscular Volume 83.1 fL (80.0-94.0); Mean Platelet Volume 11.9 fL (7.4-10.4); Nucleated Red Blood Cells % 0 % (-); PT 26.9 Sec (11.4-14.6); Platelet Count 253 10^3/uL (130-400); Red Blood Cell Count 4.32 10^6/uL (4.70-6.10); Red Cell Dist. Width 16.5 % (11.5-14.5); White Blood Cell Count 4.4 10^3/uL (4.8-10.8)
[2023-09-11 07:16] LABS: ALT (SGPT) 38 U/L (0-50); AST (SGOT) 45 U/L (17-59); Albumin 3.4 g/dl (3.5-5.0); Alkaline Phosphatase 120 U/L (38-126); Blood Urea Nitrogen 20 mg/dl (9-20); Calcium 8.4 mg/dl (8.4-10.2); Carbon Dioxide 32 mmol/L (22-30); Chloride 103 mmol/L (98-107); Estimated Creatinine Clearance 88 ml/min; Glucose 126 mg/dl (70-99); Potassium 4.8 mmol/L (3.5-5.1); Sodium 141 mmol/L (135-145); Total Bilirubin 0.3 mg/dl (0.2-1.3); Total Protein 6.5 g/dl (6.3-8.2); eGFR > 60.00
[2023-09-11] MEDS: NON-FORMULARY ITEM 300 MG PO (07:49)
[2023-09-11] MEDS: MYAMBUTOL 400 MG PO ×2 (07:52→20:03)
[2023-09-11] MEDS: ZETIA 10 MG PO (07:52)
[2023-09-11] MEDS: THERAGRAN 1 TABLET PO (07:52)
[2023-09-11] MEDS: TRUVADA TABLET 1 TABLET PO (07:52)
[2023-09-11] MEDS: PROTONIX 40 MG PO (07:52)
[2023-09-11] MEDS: ASPIR LOW (ENTERIC COATED) 81 MG PO (07:52)
[2023-09-11] MEDS: ZITHROMAX 250 MG PO (07:52)
[2023-09-11] MEDS: CRESTOR 20 MG PO (07:52)
[2023-09-11] MEDS: TIVICAY 50 MG PO (08:05)
[2023-09-11] MEDS: SYMBICORT 80/4.5 MCG INHALER 2 PUFF INH ×2 (08:17→19:19)
[2023-09-11] MEDS: XOPENEX 1.25 MG INHALANT SOLUTION INH ×4 (08:17→19:19)
[2023-09-11] MEDS: SPIRIVA RESPIMAT 2.5 MCG 2 PUFF INH (08:17)
[2023-09-11 08:41] VITALS: BP 133/82
--- NOTE | 2023-09-11 09:52 | W.PN.PUL.V3 ---
Today's Communication / Plan
-
Wean oxygen.
Decrease Decadron.
Continue inhalers and nebulizers
Assessment
-
78-year-old male with underlying COPD followed by Dr. Mujica on chronic oxygen 2 L well still has HIV, atrial fibrillation, spinal stenosis and CAD who presented with increasing shortness of breath and pulmonary was consulted for COPD exacerbation
09/09/2023.
Assessment
COPD with acute exacerbation
Leukopenia
Vlkmyn-ubvumyzdaf-jucnelmyxx 10.0
Hyponatremia
Moderate protein calorie malnutrition
Cachexia
Mild hyperglycemia
Hypocalcemia
Conditions present prior to admission:
COPD on chronic oxygen 2 L.
Right apical bleb
History of mycobacterial disease-follows infectious disease-Dr. Castillo at [facility] and Dr. Fan locally
Chronic cough
Pulmonary nodules
Atrial fibrillation-follows Dr. Jhonatan Yip
Chronic warfarin.
HIV.
PAD.
Spinal stenosis.
Chronic back pain.
Coronary artery disease/CABG.
L foot drop.
Spinal stenosis
Hypertension.
Cataract.
Right knee surgery.
Colonoscopy/polyp removal.
R inguinal hernia repair.
Thoracentesis.
EGD Food impactio
Plan
Patient pulmonary status slowly improving
Supplemental oxygen as needed.
Note, his previous ABG in 2014 suggestive hypercapnia
BiPAP if needed
Aspiration precautions.
Continue Xopenex as well as Symbicort and Spiriva in addition to budesonide nebulizers
Continue mucolytic
Decadron 4 mg IV every 6 hours--begin to decrease
Incentive spirometry encouraged
Acapella . Encouraged
We will consider vest if difficulties mobilizing secretions
We will consider chest physiotherapy if difficulties mobilizing secretions
Cultures reviewed
Antimycobacterial antibiotics continue as well as azithromycin 250 mg daily, rifabutin, ethambutol
Follows locally with infectious disease as well as HUP
Follow leukocytosis
Hemoglobin stable
Transfuse as needed
Monitor electrolytes and replace as needed
Follow blood sugars
Insulin supplementation as needed
Smoking cessation counseling-reportedly quit 1 year ago
DVT prophylaxis -on warfarin.
GI prophylaxis-on pantoprazole
Nutrition especially in light of protein calorie malnutrition and cachexia
Early mobilization
Outpatient pulmonary follow-up recommended
Patient has appointment to see Dr. Mujica with full PFTs/06/29
Diagnostic data:
Chest x-ray 06/20/2023-stable pleural-parenchymal scarring right upper lobe and 8 cm right apical bleb
Chest x-ray 09/08/2023-right upper lobe scarring
CT chest low-dose 12/05/2022-extensive emphysematous changes, small bilateral pulmonary nodules overall slightly decreased in size
Echocardiogram 11/12/2022-EF 60%, no mitral stenosis, trace mitral regurgitation, no change since 2021
PFT 09/29/2020-FEV1 960 mL - 31%, FVC 3.25-75%, TLC 92%, RV 113%, DLCO 26%, DLCO/VA 32%
Subjective Data
-
Date of Service:
Date of Service: September 11, 2023
Chief Complaint: Pulmonary Follow Up and Dyspnea Follow Up
Subjective:
Still short of breath and difficulties mobilizing secretions, no chest pain, abdominal pain, overall feeling better
Review of Systems
General: Other ( Per HPI)
Objective Data
Data Reviewed
Vital Signs / I&O:
Vital Signs
Temp Pulse Resp BP Pulse Ox
98.6 F 63 18 133/82 99
09/11/23 08:41 09/11/23 08:41 09/11/23 08:21 09/11/23 08:41 09/11/23 08:41
Intake and Output
09/10/23 09/11/23 09/12/23
06:59 06:59 06:59
Intake Total 120 / 120 1260 / 1260
Output Total 650 / 650 1250 / 1250
Balance -530 / -530 10 / 10
SaO2: 99
Nasal Cannula flow liters per minute: 3
Physical Exam
General: Respiratory Distress (n) and Comfortable
HEENT: Normocephalic and Anicteric
Cardiovascular: Regular Rhythm
Respiratory: Wheeze (n), Crackles (n), Rhonchi (n), Non-Labored Respirations, Accessory Resp Muscle Use (n) and Stridor (n)
GI: Soft, Non Distended and Non Tender
Neurology: Awake, Alert and No Motor Deficits
Skin: Warm, Good Color, Cyanosis (n) and Jaundice (n)
Labs/Micro/Reports
Lab Data
09/11/23 06:18
09/11/23 06:18
Laboratory Results
09/11/23
06:18
PT 26.9 H
INR 2.46
Microbiology
09/08/23 19:49 Nasal Swab Influenza Types A & B (MARIAH) - Final
Negative for Influenza A & B, NAAT
Negative results must be combined with clinical observations
and patient history.
Nucleic Acid Amplification test (NAAT)performed on the
PWA platform.
[2023-09-11 13:59] VITALS: BP 135/65; PULSE 108; O2SAT 97
--- NOTE | 2023-09-11 14:16 | CM ---
Addendum entered by Grace Horn 09/11/23 14:32:
Patient is agreeable to VN, [facility] liaison contacted.
Original Note:
Chart reviewed and physical therapy are recommending home health, options will be reviewed with patient.
Plan; Home when stable.
[2023-09-11] MEDS: DECADRON IV (14:21)
--- NOTE | 2023-09-11 14:45 | W.PN.HOSP.TC ---
Today's Communication/Plan
-
continue steroids one more day
continue neb therapy
Assessment / Plan
Assessment / Plan
1. COPD flare up
Chronic hypoxic respiratory failure
-CT chest reviewed and patient has severe emphysematous changes
-Follows up with Dr. Garcia for pulmonology issues
-Minimally hypoxic wheezing on exam
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
-Already on azithromycin as part of AVINASH treatment
-Have history of Pseudomonas pneumonia, sputum culture ordered although no phlegm production.
-Wheezing improved today. Continue 1 more day of IV steroids
2. History of AVINAHS infection
-Follows up with specialist at [facility]
-Currently on azithromycin/ethambutol/rifabutin, continue all meds
3. HIV
-Controlled on antiretroviral therapy of emtricitabine/tenofovir
-f/us with ID group
-Last CD4 count of 242 in 08/14/23 - trend reviewed and has been down trending
4. Paroxysmal A-fib
-Continue home dose of warfarin, follow-up INR
- INR therapeutic today, continue monitoring
History of peripheral vascular disease
History of coronary disease s/p bypass
Left foot drop
Essential hypertension
History of right inguinal hernia repair
DVT prophylaxis -warfarin
full code
09/10 patient daughter at bedside. care plan discussed.
Anticipated Discharge: Within 24 hours
Subjective/Interval History
-
Date of Service: September 11, 2023
subjectively better
remains hypoxic
Objective Data
-
Labs:
Laboratory Results
09/11/23
06:18
WBC 4.4 L
Hgb 11.3 L
Hct 35.9 L
Plt Count 253
PT 26.9 H
INR 2.46
Sodium 141
Potassium 4.8
Chloride 103
Carbon Dioxide 32 H
BUN 20
Creatinine 0.5 L
Glucose 126 H
Calcium 8.4
Total Bilirubin 0.3
AST 45
ALT 38
Alkaline Phosphatase 120
Vital Signs:
Vital Signs
Temp Pulse Resp BP Pulse Ox
98.6 F 89 18 133/82 98
09/11/23 08:41 09/11/23 11:27 09/11/23 11:27 09/11/23 08:41 09/11/23 11:27
I&O
09/10/23 09/11/23 09/12/23
06:59 06:59 06:59
Intake Total 120 / 120 1260 / 1260
Output Total 650 / 650 1250 / 1250
Balance -530 / -530
Review of Systems
-
Respiratory: Reports No Symptoms
Cardiac: Reports No Symptoms
Abdomen/GI: Reports No Symptoms
Physical Exam
-
General: Respiratory Distress, Appears Chronically Ill and Cachectic
HEENT: Moist Mucous Membranes and Oxygen
Respiratory: Wheezes (wheeze resoled, moving air better since admission)
Cardiac: Regular Rhythm and S1/S2; Negative Murmur
GI: Soft, Nontender and Nondistended
Musculoskeletal: No Edema
Neuro: Awake, Alert and Oriented
Psych: Calm
[2023-09-11 15:00] VITALS: BP 109/66
--- NOTE | 2023-09-11 16:03 | VNURNOTE ---
Home Health Liaison met with patient at 1530 to discuss [facility] nurse/therapy, visits, schedule and homebound status. Patient is agreeable and understands that visits at home will be 2-3 x per week to assess and teach medical management.
[facility] brochure provided with contact information. Patient is aware that [facility] will contact him for start of care in 1-2 days after discharge from .
[facility] referral completed in [facility]
[2023-09-11] MEDS: CARDIZEM CD 120 MG PO (17:10)
[2023-09-11] MEDS: COUMADIN 4 MG PO (17:11)
[2023-09-11 23:03] VITALS: BP 129/72
[2023-09-12 05:59] VITALS: BMI 17.8
[2023-09-12 07:30] LABS: % Basophils 0.2 % (0-2); % Immature Granulocytes 1.9 % (0-0.5); % Lymphocytes 12.2 % (20.5-51.1); % Monocytes 13.9 % (1.7-9.3); % Neutrophils 71.8 % (42.2-75.2); Absolute Immature Granulocytes 0.1 10^3/uL (0-0.05); Absolute Lymphocytes 0.6 10^3/uL (1.2-3.4); Absolute Monocytes 0.7 10^3/uL (0.1-0.6); Absolute Neutrophils 3.7 10^3/uL (1.4-6.5); Hematocrit 32.9 % (39.0-52.0); Hemoglobin 10.7 g/dL (13.0-18.0); Mean Corp Hgb Conc. 32.5 g/dL (33.0-37.0); Mean Corpuscular Hgb 26.7 pg (27.0-31.0); Mean Platelet Volume 11.7 fL (7.4-10.4); Nucleated Red Blood Cells % 0 % (-); Platelet Count 247 10^3/uL (130-400); Red Blood Cell Count 4.01 10^6/uL (4.70-6.10); Red Cell Dist. Width 16.5 % (11.5-14.5); White Blood Cell Count 5.2 10^3/uL (4.8-10.8)
[2023-09-12] MEDS: XOPENEX 1.25 MG INHALANT SOLUTION INH ×4 (07:54→20:42)
[2023-09-12] MEDS: SYMBICORT 80/4.5 MCG INHALER 2 PUFF INH ×2 (07:54→20:41)
[2023-09-12] MEDS: SPIRIVA RESPIMAT 2.5 MCG 2 PUFF INH (07:54)
[2023-09-12] MEDS: MYAMBUTOL 400 MG PO ×2 (07:54→20:36)
[2023-09-12] MEDS: ZETIA 10 MG PO (07:54)
[2023-09-12 07:55] VITALS: BP 129/66
[2023-09-12] MEDS: NON-FORMULARY ITEM 300 MG PO (07:55)
[2023-09-12] MEDS: ASPIR LOW (ENTERIC COATED) 81 MG PO (07:57)
[2023-09-12] MEDS: CRESTOR 20 MG PO (07:57)
[2023-09-12] MEDS: ZITHROMAX 250 MG PO (07:57)
[2023-09-12] MEDS: PROTONIX 40 MG PO (07:57)
[2023-09-12 07:58] LABS: INR 3.32; PT 33.7 Sec (11.4-14.6)
[2023-09-12] MEDS: THERAGRAN 1 TABLET PO (07:58)
[2023-09-12] MEDS: DECADRON 4 MG IV ×2 (07:58→16:12)
[2023-09-12] MEDS: TRUVADA TABLET 1 TABLET PO (07:58)
--- NOTE | 2023-09-12 08:07 | W.PN.PUL.V3 ---
Today's Communication / Plan
-
Wean oxygen
Increase activity
Decrease Decadron
Continue antibiotics
Assessment
-
78-year-old male with underlying COPD followed by Dr. Mujica on chronic oxygen 2 L well still has HIV, atrial fibrillation, spinal stenosis and CAD who presented with increasing shortness of breath and pulmonary was consulted for COPD exacerbation
09/09/2023.
Assessment
COPD with acute exacerbation
Leukopenia
Ydghii-cuzkcmenvc-nrehzszrlv 10.0
Hyponatremia
Moderate protein calorie malnutrition
Cachexia
Mild hyperglycemia
Hypocalcemia
Conditions present prior to admission:
COPD on chronic oxygen 2 L.
Right apical bleb
History of mycobacterial disease-follows infectious disease-Dr. Castillo at [facility] and Dr. Fan locally
Chronic cough
Pulmonary nodules
Atrial fibrillation-follows Dr. Jhonatan Yip
Chronic warfarin.
HIV.
PAD.
Spinal stenosis.
Chronic back pain.
Coronary artery disease/CABG.
L foot drop.
Spinal stenosis
Hypertension.
Cataract.
Right knee surgery.
Colonoscopy/polyp removal.
R inguinal hernia repair.
Thoracentesis.
EGD Food impact[employer]
Plan
Pulmonary status very slowly improving
Continue supplemental oxygen as needed-attempt to wean daily and assess oxygen needs with exertion
Note: ABG in 2015 suggestive hypercapnia
BiPAP if needed-has not needed
Aspiration precautions.
Continue Xopenex as well as Symbicort and Spiriva in addition to budesonide nebulizers
Continue mucolytic
Decadron 4 mg IV every 8 hours-May be able to switch to prednisone in the next 24 hours
Incentive spirometry encouraged
Acapella also encouraged
We will consider vest if difficulties mobilizing secretions
Cultures reviewed
Antimycobacterial antibiotics continue as well as azithromycin 250 mg daily, rifabutin, ethambutol
Follows locally with infectious disease as well as HUP
Monitor leukocytosis
Hemoglobin remains stable
Transfuse as needed
Follow electrolytes and replace as needed
Monitor blood sugars
Insulin supplementation as needed
Smoking cessation counseling-reportedly quit 1 year ago
DVT prophylaxis -on warfarin.
GI prophylaxis-on pantoprazole
Nutrition especially in light of protein calorie malnutrition and cachexia
Early mobilization
Dr. Apple reviewed with nursing, Dr. Cr and daughter Izzy-updated 09/12/2023
Outpatient pulmonary follow-up recommended
Patient has appointment to see Dr. Mujica with full PFTs/06/29
Diagnostic data:
Chest x-ray 06/20/2023-stable pleural-parenchymal scarring right upper lobe and 8 cm right apical bleb
Chest x-ray 09/08/2023-right upper lobe scarring
CT chest low-dose 12/05/2022-extensive emphysematous changes, small bilateral pulmonary nodules overall slightly decreased in size
Echocardiogram 11/12/2022-EF 60%, no mitral stenosis, trace mitral regurgitation, no change since 2021
PFT 09/29/2020-FEV1 960 mL - 31%, FVC 3.25-75%, TLC 92%, RV 113%, DLCO 26%, DLCO/VA 32%
Subjective Data
-
Date of Service:
Date of Service: September 12, 2023
Chief Complaint: Pulmonary Follow Up and Dyspnea Follow Up
Subjective:
Still with some wheezing, overall improved, less dyspnea on exertion, recovers faster, no chest pain, productive cough or abdominal pain
Review of Systems
General: Other (Per HPI)
Objective Data
Data Reviewed
Vital Signs / I&O:
Vital Signs
Temp Pulse Resp BP Pulse Ox
97.6 F 83 16 129/66 99
09/12/23 07:55 09/12/23 07:57 09/12/23 07:57 09/12/23 07:55 09/12/23 07:57
Intake and Output
09/11/23 09/12/23 09/13/23
06:59 06:59 06:59
Intake Total 1260 / 1260 840 / 840
Output Total 1250 / 1250 800 / 800
Balance 10 40 / 40
SaO2: 99
Nasal Cannula flow liters per minute: 2
Physical Exam
General: Respiratory Distress (n) and Comfortable
HEENT: Normocephalic and Anicteric
Cardiovascular: Regular Rhythm
Respiratory: Wheeze (n), Crackles (n), Rhonchi (n), Non-Labored Respirations, Accessory Resp Muscle Use (n) and Stridor (n)
GI: Soft, Non Distended and Non Tender
Neurology: Awake, Alert and No Motor Deficits
Skin: Warm, Good Color, Cyanosis (n) and Jaundice (n)
Labs/Micro/Reports
Lab Data
09/12/23 07:13
Laboratory Results
09/12/23
07:13
PT 33.7 H
INR 3.32
Microbiology
09/11/23 17:22 Sputum Gram Stain - Preliminary
[2023-09-12 08:09] LABS: ALT (SGPT) 77 U/L (0-50); AST (SGOT) 64 U/L (17-59); Albumin 3.3 g/dl (3.5-5.0); Alkaline Phosphatase 112 U/L (38-126); Blood Urea Nitrogen 25 mg/dl (9-20); Calcium 8.4 mg/dl (8.4-10.2); Carbon Dioxide 31 mmol/L (22-30); Chloride 104 mmol/L (98-107); Estimated Creatinine Clearance 88 ml/min; Glucose 111 mg/dl (70-99); Sodium 139 mmol/L (135-145); Total Bilirubin 0.4 mg/dl (0.2-1.3); Total Protein 6.2 g/dl (6.3-8.2); eGFR > 60.00
[2023-09-12] MEDS: TIVICAY 50 MG PO (08:18)
[2023-09-12 08:19] LABS: Potassium 4.4 mmol/L (3.5-5.1)
--- NOTE | 2023-09-12 10:40 | W.PN.HOSP.TC ---
Today's Communication/Plan
-
see note
Assessment / Plan
Assessment / Plan
1. COPD flare up
Chronic hypoxic respiratory failure
-CT chest reviewed and patient has severe emphysematous changes
-Follows up with Dr. Garcia for pulmonology issues
-Minimally hypoxic wheezing on exam
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
-Already on azithromycin as part of AVINASH treatment
-Have history of Pseudomonas pneumonia, sputum culture ordered although no phlegm production.
-continues to remain dyspnic with minimum activity, have persistent wheezing on exam. continue steroids
2. History of AVINASH infection
-Follows up with specialist at [facility]
-Currently on azithromycin/ethambutol/rifabutin, continue all meds
3. HIV
-Controlled on antiretroviral therapy of emtricitabine/tenofovir
-f/us with ID group
-Last CD4 count of 242 in 08/14/23 - trend reviewed and has been down trending
4. Paroxysmal A-fib
-Continue home dose of warfarin, follow-up INR
- INR supratherapeutic today, hold warfarin dose.
History of peripheral vascular disease
History of coronary disease s/p bypass
Left foot drop
Essential hypertension
History of right inguinal hernia repair
DVT prophylaxis -warfarin
full code
09/10 patient daughter at bedside. care plan discussed.
09/11 discussed care with pulmonology
Anticipated Discharge: 24 - 48 hours
Subjective/Interval History
-
Date of Service: September 12, 2023
still have ongoing dyspnea and exacerbated by minimum activity
o2 requirement remains stable
Objective Data
-
Labs:
Laboratory Results
09/12/23
07:13
WBC 5.2
Hgb 10.7 L
Hct 32.9 L
Plt Count 247
PT 33.7 H
INR 3.32
Sodium 139
Potassium 4.4
Chloride 104
Carbon Dioxide 31 H
BUN 25 H
Creatinine 0.5 L
Glucose 111 H
Calcium 8.4
Total Bilirubin 0.4
AST 64 H
ALT 77 H
Alkaline Phosphatase 112
Vital Signs:
Vital Signs
Temp Pulse Resp BP Pulse Ox
97.6 F 83 16 129/66 99
09/12/23 07:55 09/12/23 07:57 09/12/23 07:57 09/12/23 07:55 09/12/23 08:07
I&O
09/11/23 09/12/23 09/13/23
06:59 06:59 06:59
Intake Total 1260 / 1260 840 / 840
Output Total 1250 / 1250 800 / 800
Balance 10 40 / 40
Review of Systems
-
Respiratory: Reports Cough and Trouble Breathing; Denies Hemoptysis or Wheezing
Cardiac: Reports No Symptoms
Abdomen/GI: Reports No Symptoms
Physical Exam
-
General: Appears Chronically Ill and Cachectic
HEENT: Moist Mucous Membranes and Oxygen
Respiratory: Wheezes (wheeze resoled, moving air better since admission)
Cardiac: Regular Rhythm and S1/S2; Negative Murmur
GI: Soft, Nontender and Nondistended
Musculoskeletal: No Edema
Neuro: Awake, Alert and Oriented
Psych: Calm
--- NOTE | 2023-09-12 11:44 | CM ---
Home with [facility], [facility] liaison contacted.
Plan; Home no needs.
[2023-09-12 15:00] VITALS: BP 120/68
[2023-09-12] MEDS: CARDIZEM CD 120 MG PO (16:12)
[2023-09-12 22:56] VITALS: BP 114/62
[2023-09-13] MEDS: DECADRON 4 MG IV ×2 (00:22→09:55)
[2023-09-13 06:00] VITALS: BMI 17.6
[2023-09-13 06:25] LABS: INR 2.61; PT 27.9 Sec (11.4-14.6)
[2023-09-13 06:44] LABS: Blood Urea Nitrogen 22 mg/dl (9-20); Calcium 8.7 mg/dl (8.4-10.2); Carbon Dioxide 31 mmol/L (22-30); Chloride 102 mmol/L (98-107); Estimated Creatinine Clearance 87 ml/min; Glucose 129 mg/dl (70-99); Sodium 139 mmol/L (135-145); eGFR > 60.00
[2023-09-13 07:00] VITALS: BP 116/55
[2023-09-13] MEDS: XOPENEX 1.25 MG INHALANT SOLUTION INH ×4 (08:16→20:35)
[2023-09-13] MEDS: SYMBICORT 80/4.5 MCG INHALER 2 PUFF INH ×2 (08:16→20:35)
[2023-09-13] MEDS: SPIRIVA RESPIMAT 2.5 MCG 2 PUFF INH (08:17)
[2023-09-13] MEDS: TIVICAY 50 MG PO (09:53)
[2023-09-13] MEDS: NON-FORMULARY ITEM 300 MG PO (09:53)
[2023-09-13] MEDS: ASPIR LOW (ENTERIC COATED) 81 MG PO (09:54)
[2023-09-13] MEDS: MYAMBUTOL 400 MG PO ×2 (09:54→19:40)
[2023-09-13] MEDS: PROTONIX 40 MG PO (09:54)
[2023-09-13] MEDS: TRUVADA TABLET 1 TABLET PO (09:54)
[2023-09-13] MEDS: ZETIA 10 MG PO (09:54)
[2023-09-13] MEDS: THERAGRAN 1 TABLET PO (09:55)
[2023-09-13] MEDS: CRESTOR 20 MG PO (09:55)
--- NOTE | 2023-09-13 11:32 | W.PN.HOSP.TC ---
Today's Communication/Plan
-
continue steroids
continue IS
Assessment / Plan
Assessment / Plan
1. COPD flare up
Chronic hypoxic respiratory failure
-CT chest reviewed and patient has severe emphysematous changes
-Follows up with Dr. Garcia for pulmonology issues
-Minimally hypoxic wheezing on exam
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
-Already on azithromycin as part of AVINASH treatment
-Have history of Pseudomonas pneumonia, sputum culture ordered although no phlegm production.
-Continues to remain dyspneic with wheezing on exam. Will have to continue IV steroids.
2. History of AVINASH infection
-Follows up with specialist at [facility]
-Currently on azithromycin/ethambutol/rifabutin, continue all meds
3. HIV
-Controlled on antiretroviral therapy of emtricitabine/tenofovir
-f/us with ID group
-Last CD4 count of 242 in 08/14/23 - trend reviewed and has been down trending
4. Paroxysmal A-fib
-Continue home dose of warfarin, follow-up INR
-INR therapeutic again today. Resume back on warfarin 4 mg from evening.
History of peripheral vascular disease
History of coronary disease s/p bypass
Left foot drop
Essential hypertension
History of right inguinal hernia repair
DVT prophylaxis -warfarin
full code
09/10 patient daughter at bedside. care plan discussed.
09/11 discussed care with pulmonology
09/12 Discussed with patient daughter at length with patient have significant Pulmonary pathology and will require longer course of IV steroid.
Anticipated Discharge: 24 - 48 hours
Subjective/Interval History
-
Date of Service: September 13, 2023
Continues to have wheezing and some dyspnea
Oxygen requirement stable
Objective Data
-
Labs:
Laboratory Results
09/13/23
05:11
PT 27.9 H
INR 2.61
Sodium 139
Potassium 5.0
Chloride 102
Carbon Dioxide 31 H
BUN 22 H
Creatinine 0.6 L
Glucose 129 H
Calcium 8.7
Vital Signs:
Vital Signs
Temp Pulse Resp BP Pulse Ox
97.5 F 83 18 116/55 98
09/13/23 07:00 09/13/23 08:21 09/13/23 08:21 09/13/23 07:00 09/13/23 08:21
I&O
09/12/23 09/13/23 09/14/23
06:59 06:59 07:59
Intake Total 840 / 840 1440 / 1440
Output Total 800 / 800 1550 / 1550
Balance 40 / 40 -110 / -110
Review of Systems
-
Respiratory: Reports No Symptoms
Cardiac: Reports No Symptoms
Abdomen/GI: Reports No Symptoms
Physical Exam
-
General: Appears Chronically Ill and Cachectic
HEENT: Moist Mucous Membranes and Oxygen
Respiratory: Wheezes (wheeze resoled, moving air better since admission)
Cardiac: Regular Rhythm and S1/S2; Negative Murmur
GI: Soft, Nontender and Nondistended
Musculoskeletal: No Edema
Neuro: Awake, Alert and Oriented
Psych: Calm
--- NOTE | 2023-09-13 12:23 | W.PN.PUL3 ---
Today's Communication / Plan
-
Wean IV steroids to prednisone
On baseline O2 requirements
PT eval for ambulation by patient request
Outpatient pulmonary FU recommended
Assessment
-
78-year-old male with underlying COPD followed by Dr. Mujica on chronic oxygen 2 L well still has HIV, atrial fibrillation, spinal stenosis and CAD who presented with increasing shortness of breath and pulmonary was consulted for COPD exacerbation
09/09/2023.
COPD with acute exacerbation
Leukopenia
Hawnle-wapcigsidm-innkbyvgao 10.0
Hyponatremia
Moderate protein calorie malnutrition
Cachexia
Mild hyperglycemia
Hypocalcemia
Conditions present prior to admission:
COPD on chronic oxygen 2 L.
Right apical bleb
History of mycobacterial disease-follows infectious disease-Dr. Castillo at [facility] and Dr. Fan locally
Chronic cough
Pulmonary nodules
Atrial fibrillation-follows Dr. Jhonatan Yip
Chronic warfarin.
HIV.
PAD.
Spinal stenosis.
Chronic back pain.
Coronary artery disease/CABG.
L foot drop.
Spinal stenosis
Hypertension.
Cataract.
Right knee surgery.
Colonoscopy/polyp removal.
R inguinal hernia repair.
Thoracentesis.
EGD Food impactio
Plan
98% on 2L, chronic use of 2L with exertion
Pulmonary status very slowly improving
Continue supplemental oxygen as needed-attempt to wean daily and assess oxygen needs with exertion
Note: ABG in 2015 suggestive hypercapnia
BiPAP if needed-has not needed
Aspiration precautions.
Continue Xopenex as well as Symbicort and Spiriva in addition to budesonide nebulizers
Continue mucolytic
Decadron 4 mg IV every 8 hours-transition to PO prednisone today
Incentive spirometry encouraged
Acapella also encouraged
We will consider vest if difficulties mobilizing secretions
Cultures reviewed
Antimycobacterial antibiotics continue as well as azithromycin 250 mg daily, rifabutin, ethambutol
Follows locally with infectious disease as well as [facility]
Monitor leukocytosis
Hemoglobin remains stable
Transfuse as needed
Follow electrolytes and replace as needed
Monitor blood sugars
Insulin supplementation as needed
Smoking cessation counseling-reportedly quit 1 year ago
DVT prophylaxis -on warfarin.
GI prophylaxis-on pantoprazole
Nutrition especially in light of protein calorie malnutrition and cachexia
Early mobilization/PT consulted
Dr. Apple reviewed with nursing, Dr. Cr and daughter Izzy-updated 09/12/2023
Outpatient pulmonary follow-up recommended
Patient has appointment to see Dr. Mujica with full PFTs 10/17/23
Diagnostic data:
Chest x-ray 06/20/2023-stable pleural-parenchymal scarring right upper lobe and 8 cm right apical bleb
Chest x-ray 09/08/2023-right upper lobe scarring
CT chest low-dose 12/05/2022-extensive emphysematous changes, small bilateral pulmonary nodules overall slightly decreased in size
Echocardiogram 11/12/2022-EF 60%, no mitral stenosis, trace mitral regurgitation, no change since 2021
PFT 09/29/2020-FEV1 960 mL - 31%, FVC 3.25-75%, TLC 92%, RV 113%, DLCO 26%, DLCO/VA 32%
Subjective Data
-
Date of Service:
Date of Service: September 13, 2023
Chief Complaint: Pulmonary Follow Up and Dyspnea Follow Up
Subjective:
doing better, unable to walk without difficulty due to balance issue
remains on 2L NC
no new complaints
Objective Data
Data Reviewed
Vital Signs / I&O / Oxygen:
Vital Signs
Temp Pulse Resp BP Pulse Ox
97.5 F 86 16 116/55 98
09/13/23 07:00 09/13/23 11:57 09/13/23 11:57 09/13/23 07:00 09/13/23 08:21
Intake and Output
09/12/23 09/13/23 09/14/23
06:59 06:59 07:59
Intake Total 840 / 840 1440 / 1440
Output Total 800 / 800 1550 / 1550
Balance 40 / 40 -110 / -110
SaO2 98
Nasal Cannula flow liters per 2
minute
Physical Exam
General: Respiratory Distress (n), Comfortable and Other (thin, chronically ill appearing)
HEENT: Normocephalic and Anicteric
Cardiovascular: S1-S2 and Regular Rhythm
Respiratory: Clear, Wheeze (n), Crackles (n), Rhonchi (n), Non-Labored Respirations, Accessory Resp Muscle Use (n) and Stridor (n)
GI: Soft, Non Distended and Non Tender
Neurology: Awake, Alert, Oriented, AO x 3 and No Motor Deficits
Skin: Warm, Good Color, Cyanosis (n), Jaundice (n) and Bruising
Labs/Micro/Reports
Lab Data
09/12/23 07:13
09/13/23 05:11
Laboratory Results
09/13/23
05:11
PT 27.9 H
INR 2.61
Microbiology
09/11/23 17:22 Sputum Respiratory Culture - Final
Klebsiella pneumoniae
09/11/23 17:22 Sputum Gram Stain - Final
[2023-09-13 15:00] VITALS: BP 136/75
[2023-09-13 15:49] VITALS: BP 114/74; PULSE 109; O2SAT 98
[2023-09-13] MEDS: CARDIZEM CD 120 MG PO (18:32)
[2023-09-13] MEDS: COUMADIN 4 MG PO (18:32)
[2023-09-13 23:54] VITALS: BP 115/73
[2023-09-14 06:00] VITALS: BMI 17.7
[2023-09-14 06:22] LABS: INR 2.04; PT 22.9 Sec (11.4-14.6)
[2023-09-14 06:47] LABS: Blood Urea Nitrogen 26 mg/dl (9-20); Calcium 8.2 mg/dl (8.4-10.2); Carbon Dioxide 30 mmol/L (22-30); Chloride 105 mmol/L (98-107); Estimated Creatinine Clearance 87 ml/min; Glucose 86 mg/dl (70-99); Potassium 4.2 mmol/L (3.5-5.1); Sodium 136 mmol/L (135-145); eGFR > 60.00
[2023-09-14 07:00] VITALS: BP 121/80
[2023-09-14] MEDS: SPIRIVA RESPIMAT 2.5 MCG 2 PUFF INH (07:49)
[2023-09-14] MEDS: XOPENEX 1.25 MG INHALANT SOLUTION INH ×4 (07:49→20:02)
[2023-09-14] MEDS: SYMBICORT 80/4.5 MCG INHALER 2 PUFF INH ×2 (07:49→20:02)
[2023-09-14] MEDS: ZETIA 10 MG PO (08:39)
[2023-09-14] MEDS: DELTASONE 50 MG PO (08:39)
[2023-09-14] MEDS: THERAGRAN 1 TABLET PO (08:39)
[2023-09-14] MEDS: CRESTOR 20 MG PO (08:39)
[2023-09-14] MEDS: PROTONIX 40 MG PO (08:39)
[2023-09-14] MEDS: MYAMBUTOL 400 MG PO ×2 (08:39→21:39)
[2023-09-14] MEDS: NON-FORMULARY ITEM 300 MG PO (08:39)
[2023-09-14] MEDS: ASPIR LOW (ENTERIC COATED) 81 MG PO (08:39)
[2023-09-14] MEDS: TRUVADA TABLET 1 TABLET PO (09:25)
[2023-09-14] MEDS: TIVICAY 50 MG PO (09:25)
[2023-09-14] MEDS: ROCEPHIN 1000 MG IV (10:05)
[2023-09-14] MEDS: STERILE WATER FOR INJECTION 10 ML IV (10:05)
--- NOTE | 2023-09-14 12:30 | W.PN.PUL3 ---
Addendum entered and electronically signed by Lucy Rojo, DO 09/14/23 14:17:
Abx added for Kleb in sputum, can continue for 7 days
This can be transitioned to Augmentin
Original Note:
Today's Communication / Plan
-
Transitioned to prednisone, continue taper at discharge
Currently on baseline O2 amounts
He still feels too SOB to move around at home
Hopefully discharge planning in next 24 hours
OP pulm FU recommended
Assessment
-
78-year-old male with underlying COPD followed by Dr. Mujica on chronic oxygen 2 L well still has HIV, atrial fibrillation, spinal stenosis and CAD who presented with increasing shortness of breath and pulmonary was consulted for COPD exacerbation
09/09/2023.
COPD with acute exacerbation
Leukopenia
Dvuneo-pibrjwdyqn-fvfidrgicx 10.0
Hyponatremia
Moderate protein calorie malnutrition
Cachexia
Mild hyperglycemia
Hypocalcemia
Conditions present prior to admission:
COPD on chronic oxygen 2 L.
Right apical bleb
History of mycobacterial disease-follows infectious disease-Dr. Castillo at [facility] and Dr. Fan locally
Chronic cough
Pulmonary nodules
Atrial fibrillation-follows Dr. Jhonatan Yip
Chronic warfarin.
HIV.
PAD.
Spinal stenosis.
Chronic back pain.
Coronary artery disease/CABG.
L foot drop.
Spinal stenosis
Hypertension.
Cataract.
Right knee surgery.
Colonoscopy/polyp removal.
R inguinal hernia repair.
Thoracentesis.
EGD Food impactio
Plan
98% on 2L, chronic use of 2L with exertion
Pulmonary status very slowly improving
Continue supplemental oxygen as needed-attempt to wean daily and assess oxygen needs with exertion
Note: ABG in 2014 suggestive hypercapnia
BiPAP if needed-has not needed
Aspiration precautions.
Continue Xopenex as well as Symbicort and Spiriva in addition to budesonide nebulizers
Continue mucolytic
Decadron 4 mg IV every 8 hours-transition to PO prednisone today
Incentive spirometry encouraged
Acapella also encouraged
We will consider vest if difficulties mobilizing secretions
Cultures reviewed
Antimycobacterial antibiotics continue as well as azithromycin 250 mg daily, rifabutin, ethambutol
Follows locally with infectious disease as well as [facility]
Monitor leukocytosis
Hemoglobin remains stable
Transfuse as needed
Follow electrolytes and replace as needed
Monitor blood sugars
Insulin supplementation as needed
Smoking cessation counseling-reportedly quit 1 year ago
DVT prophylaxis -on warfarin.
GI prophylaxis-on pantoprazole
Nutrition especially in light of protein calorie malnutrition and cachexia
Early mobilization/PT consulted
Dr. Apple reviewed with nursing, Dr. Cr and daughter Izzy-updated 09/12/2023
Outpatient pulmonary follow-up recommended
Patient has appointment to see Dr. Mujica with full PFTs 10/17/23
Diagnostic data:
Chest x-ray 06/20/2023-stable pleural-parenchymal scarring right upper lobe and 8 cm right apical bleb
Chest x-ray 09/08/2023-right upper lobe scarring
CT chest low-dose 12/05/2022-extensive emphysematous changes, small bilateral pulmonary nodules overall slightly decreased in size
Echocardiogram 11/12/2022-EF 60%, no mitral stenosis, trace mitral regurgitation, no change since 2021
PFT 09/29/2020-FEV1 960 mL - 31%, FVC 3.25-75%, TLC 92%, RV 113%, DLCO 26%, DLCO/VA 32%
Subjective Data
-
Date of Service:
Date of Service: September 14, 2023
Chief Complaint: Pulmonary Follow Up and Dyspnea Follow Up
Subjective:
still sob not ready to go home
remains on O2
daughter at bedside
Objective Data
Data Reviewed
Vital Signs / I&O / Oxygen:
Vital Signs
Temp Pulse Resp BP Pulse Ox
97.3 F 90 16 121/80 99
09/14/23 07:00 09/14/23 11:12 09/14/23 11:12 09/14/23 07:00 09/14/23 08:10
Intake and Output
09/13/23 09/14/23 09/15/23
05:59 06:59 06:59
Intake Total
Output Total
Balance
SaO2 99
Nasal Cannula flow liters per 3
minute
Physical Exam
General: Respiratory Distress (n), Comfortable and Other (thin, chronically ill appearing)
HEENT: Normocephalic and Anicteric
Cardiovascular: S1-S2 and Regular Rhythm
Respiratory: Clear, Wheeze (n), Crackles (n), Rhonchi (n), Non-Labored Respirations, Accessory Resp Muscle Use (n) and Stridor (n)
GI: Soft, Non Distended and Non Tender
Neurology: Awake, Alert, Oriented, AO x 3 and No Motor Deficits
Skin: Warm, Good Color, Cyanosis (n), Jaundice (n) and Bruising
Labs/Micro/Reports
Lab Data
09/12/23 07:13
09/14/23 05:17
Laboratory Results
09/14/23
05:17
PT 22.9 H
INR 2.04
Microbiology
09/11/23 17:22 Sputum Respiratory Culture - Final
Klebsiella pneumoniae
09/11/23 17:22 Sputum Gram Stain - Final
--- NOTE | 2023-09-14 12:51 | W.PN.HOSP.TC ---
Today's Communication/Plan
-
add rocpehin for kleb pna
on oral steroids
Assessment / Plan
Assessment / Plan
1. COPD flare up
Chronic hypoxic respiratory failure
-CT chest reviewed and patient has severe emphysematous changes
-Follows up with Dr. Garcia for pulmonology issues
-Minimally hypoxic wheezing on exam
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
-Already on azithromycin as part of AVINASH treatment
-Have history of Pseudomonas pneumonia, sputum culture ordered although no phlegm production.
-Continues to remain dyspneic with wheezing on exam. Will have to continue IV steroids.
2. Klebsiella Pneumonia
-resp culture growing klebsiella pneumonia
-started on rocephin based on susceptibility
3. History of AVINASH infection
-Follows up with specialist at [facility]
-Currently on azithromycin/ethambutol/rifabutin, continue all meds
4. HIV
-Controlled on antiretroviral therapy of emtricitabine/tenofovir
-f/us with ID group
-Last CD4 count of 242 in 08/14/23 - trend reviewed and has been down trending
4. Paroxysmal A-fib
-Continue home dose of warfarin, follow-up INR
-INR therapeutic again today. Resume back on warfarin 4 mg.
History of peripheral vascular disease
History of coronary disease s/p bypass
Left foot drop
Essential hypertension
History of right inguinal hernia repair
DVT prophylaxis -warfarin
full code
09/10 patient daughter at bedside. care plan discussed.
09/11 discussed care with pulmonology
09/12 Discussed with patient daughter at length with patient have significant Pulmonary pathology and will require longer course of IV steroid.
Anticipated Discharge: 24 - 48 hours
Subjective/Interval History
-
Date of Service: September 14, 2023
no complains overnight
no other issues
Objective Data
-
Labs:
Laboratory Results
09/14/23
05:17
PT 22.9 H
INR 2.04
Sodium 136
Potassium 4.2
Chloride 105
Carbon Dioxide 30
BUN 26 H
Creatinine 0.6 L
Glucose 86
Calcium 8.2 L
Vital Signs:
Vital Signs
Temp Pulse Resp BP Pulse Ox
97.3 F 90 16 121/80 99
09/14/23 07:00 09/14/23 11:12 09/14/23 11:12 09/14/23 07:00 09/14/23 08:10
I&O
09/13/23 09/14/23 09/15/23
05:59 06:59 06:59
Intake Total
Output Total
Balance
Review of Systems
-
Respiratory: Reports No Symptoms
Cardiac: Reports No Symptoms
Abdomen/GI: Reports No Symptoms
Physical Exam
-
General: Appears Chronically Ill and Cachectic
HEENT: Moist Mucous Membranes and Oxygen
Respiratory: Wheezes (wheeze resoled, moving air better since admission)
Cardiac: Regular Rhythm and S1/S2; Negative Murmur
GI: Soft, Nontender and Nondistended
Musculoskeletal: No Edema
Neuro: Awake, Alert and Oriented
Psych: Calm
[2023-09-14 15:00] VITALS: BP 119/71
[2023-09-14 17:37] VITALS: BP 121/84
[2023-09-14] MEDS: CARDIZEM CD 120 MG PO (17:47)
[2023-09-14] MEDS: COUMADIN 4 MG PO (18:07)
[2023-09-14 23:33] VITALS: BP 108/63
[2023-09-15 06:00] VITALS: BMI 17.5
[2023-09-15] MEDS: XOPENEX 1.25 MG INHALANT SOLUTION INH ×3 (07:48→15:31)
[2023-09-15] MEDS: SPIRIVA RESPIMAT 2.5 MCG 2 PUFF INH (07:48)
[2023-09-15] MEDS: SYMBICORT 80/4.5 MCG INHALER 2 PUFF INH (07:48)
[2023-09-15 08:20] LABS: INR 2.61; PT 27.8 Sec (11.4-14.6)
[2023-09-15 08:30] VITALS: BP 99/58
--- NOTE | 2023-09-15 08:31 | W.PN.PUL3 ---
Today's Communication / Plan
-
Continue PO prednisone taper - reduce by 10mg every 3rd day until off
DC on home dose of O2
Complete 7-10 day course of ABx
DC home on Trelegy 100mcg with prn levalbuterol
Patient is being prepared for discharge home today. Pulmonary service will now sign off. Pt has outpatient follow up with our office on 10/17/[address] Mujica. Please re-consult if there are any additional questions/concerns, or if respiratory
status deteriorates.
Assessment
-
78-year-old male with underlying COPD followed by Dr. Mujica on chronic oxygen 2 L well still has HIV, atrial fibrillation, spinal stenosis and CAD who presented with increasing shortness of breath and pulmonary was consulted for COPD exacerbation
09/09/2023.
COPD with acute exacerbation
Leukopenia - now resolved
Ohnyjt-rhiwmbyqhd-uidromvfbh 10.0
Hyponatremia - now resolved
Moderate protein calorie malnutrition
Cachexia
Hyperglycemia - now normalized
Hypocalcemia - normal corrected albumin
Conditions present prior to admission:
COPD on chronic oxygen 2 L.
Right apical bullae
History of mycobacterial disease-follows infectious disease-Dr. Castillo at [facility] and Dr. Fan locally
Chronic cough
Pulmonary nodules
Atrial fibrillation-follows Dr. Jhonatan Yip
Chronic warfarin use
HIV.
PAD.
Spinal stenosis.
Chronic back pain.
Coronary artery disease/CABG.
L foot drop.
Spinal stenosis
Hypertension.
Cataract.
Right knee surgery.
Colonoscopy/polyp removal.
R inguinal hernia repair.
Thoracentesis.
Hx of food impaction
Plan
Chronic use of 2L with exertion --> when I walked into his room today his oxygen was off his face and he was breathing comfortably
He has not been walking around much as he 'is not allowed to;' PT is recommending home PT
Pulmonary status continuing to slowly improve
Continue supplemental oxygen as needed and titrate to keep SpO2 >88% and <96%
Note: ABG in 2015 suggestive hypercapnia
BiPAP if needed-has not needed
Aspiration precautions.
Continue Xopenex as well as Symbicort and Spiriva
Continue mucolytic
Decadron 4 mg IV every 8 hours- today is day #2 of PO prednisone --> continue 50mg daily and reduce by 10mg every 3rd day until off
Incentive spirometry encouraged
Acapella also encouraged
We will consider vest if difficulties mobilizing secretions
Cultures reviewed --> SCx grew K pneumonia, R to ampicillin --> unclear if this is colonization vs pathological; considering his initial complaint was worsening SOB with aches and pains, will Tx with ABx - complete 7-10 day course of ABx - today is
day #2 of rocephin. Ok to DC home on either cefdinir vs Augmentin to complete ABx course
Antimycobacterial antibiotics - continue rifabutin & ethambutol --> resume azithromycin 250 mg daily on discharge
Follows locally with infectious disease as well as [facility] - next ID appt is on 09/30/2023.
Trend leukocytosis
Hemoglobin remains stable
Transfuse as needed to keep Hb >7g/dL
Follow electrolytes and replace as needed with K>4, Mg>2
Monitor blood sugars with goal BG 140-180mg/dL
Insulin supplementation as needed
Smoking cessation counseling-reportedly quit 1 year ago
DVT prophylaxis -on warfarin.
GI prophylaxis- n/a (he does take pantoprazole as a home med but this is not for GI ppx)
Nutrition especially in light of protein calorie malnutrition and cachexia
Early mobilization/PT consulted --> rec'd home PT
Outpatient pulmonary follow-up recommended
Patient has appointment to see Dr. Mujica with full PFTs 10/17/23
Patient is being prepared for discharge home today. Pulmonary service will now sign off. Thank you for allowing us to be involved in the care of this patient. Please re-consult if there are any additional questions/concerns, or if respiratory
status deteriorates.
Diagnostic data:
Chest x-ray 06/20/2023-stable pleural-parenchymal scarring right upper lobe and 8 cm right apical bleb
Chest x-ray 09/08/2023-right upper lobe scarring
CT chest low-dose 12/05/2022-extensive emphysematous changes, small bilateral pulmonary nodules overall slightly decreased in size
Echocardiogram 11/12/2022-EF 60%, no mitral stenosis, trace mitral regurgitation, no change since 2021
PFT 09/29/2020-FEV1 960 mL - 31%, FVC 3.25-75%, TLC 92%, RV 113%, DLCO 26%, DLCO/VA 32%
Subjective Data
-
Date of Service:
Date of Service: September 15, 2023
Chief Complaint: Pulmonary Follow Up and Dyspnea Follow Up
Subjective:
Seen this morning. He is doing well, on room air when I walked into the room. Says shortness of breath is same today as yesterday. Denies a cough currently, albeit he does have a chronic cough. He is eager to go home but wants to make sure that
the levalbuterol will be available to him once he is discharged. He denies chest pain, headache, abdominal pain, fevers or chills.
Review of Systems
General: Other (12 point ROS performed and is negative unless mentioned above.)
Objective Data
Data Reviewed
Vital Signs / I&O / Oxygen:
Vital Signs
Temp Pulse Resp BP Pulse Ox
97.5 F 87 20 99/58 98
09/15/23 08:30 09/15/23 08:30 09/15/23 08:30 09/15/23 08:30 09/15/23 08:30
Intake and Output
03/10/24 03/11/24 03/12/24
06:59 06:59 06:59
Intake Total 960 / 960
Output Total 1325 / 1325
Balance -365 / -365
SaO2 98
Nasal Cannula flow liters per 2
minute
Physical Exam
General: Respiratory Distress (n), Comfortable and Other (thin, chronically ill appearing)
HEENT: Normocephalic and Anicteric
Cardiovascular: S1-S2, Peripheral Edema (negative) and Other (Distant heart sounds)
Respiratory: Wheeze (heard faintly in middle lung schrader to uppe rlobes b/l), Crackles (RUL), Rhonchi (n), Non-Labored Respirations and Accessory Resp Muscle Use (n)
GI: Soft, Non Distended and Non Tender
Neurology: AO x 3 and No Motor Deficits
Skin: Warm, Dry, Cyanosis (n) and Jaundice (n)
Labs/Micro/Reports
Lab Data
09/12/23 07:13
09/15/23 06:18
Laboratory Results
09/15/23
06:18
PT 27.8 H
INR 2.61
Microbiology
09/11/23 17:22 Sputum Respiratory Culture - Final
Klebsiella pneumoniae
09/11/23 17:22 Sputum Gram Stain - Final
[2023-09-15 08:54] LABS: Blood Urea Nitrogen 21 mg/dl (9-20); Calcium 8.2 mg/dl (8.4-10.2); Carbon Dioxide 32 mmol/L (22-30); Chloride 105 mmol/L (98-107); Estimated Creatinine Clearance 74 ml/min; Glucose 83 mg/dl (70-99); Potassium 4.1 mmol/L (3.5-5.1); Sodium 137 mmol/L (135-145); eGFR > 60.00
[2023-09-15] MEDS: ZETIA 10 MG PO (09:22)
[2023-09-15] MEDS: ASPIR LOW (ENTERIC COATED) 81 MG PO (09:22)
[2023-09-15] MEDS: TRUVADA TABLET 1 TABLET PO (09:22)
[2023-09-15] MEDS: PROTONIX 40 MG PO (09:23)
[2023-09-15] MEDS: THERAGRAN 1 TABLET PO (09:23)
[2023-09-15] MEDS: CRESTOR 20 MG PO (09:23)
[2023-09-15] MEDS: DELTASONE 50 MG PO (09:23)
[2023-09-15] MEDS: MYAMBUTOL 400 MG PO (09:23)
[2023-09-15] MEDS: NON-FORMULARY ITEM 300 MG PO (09:25)
[2023-09-15] MEDS: STERILE WATER FOR INJECTION 10 ML IV (09:26)
[2023-09-15] MEDS: ROCEPHIN 1000 MG IV (09:26)
[2023-09-15] MEDS: TIVICAY 50 MG PO (10:43)
--- NOTE | 2023-09-15 12:00 | CM ---
Addendum entered by Grace Horn 09/15/23 14:54:
Patient has been provided with contact information to [facility].
Original Note:
assistant manager trainee reviewed patient's chart and met with patient and per respiratory therapy, patient is unable to obtain his Levalbuterol. assistant manager trainee reached out to patient's pharmacy [facility] and spoke with pharmacist and she stated that they were
having difficulty with prescriptions since Medicare was hacked 2 weeks ago but they will be able to provided 1 box which will last patient 6 days, patient will need to follow up again with his pharmacy.
Plan; Patient to return to home with VN, patient has his own oxygen in home.
--- NOTE | 2023-09-15 12:50 | W.PN.HOSP.TC ---
Addendum entered and electronically signed by Erik Mortensen MD 09/16/23 16:31:
[id number]
Original Note:
Today's Communication/Plan
-
Complete course of antibiotics with Augmentin for 5 additional days to complete 7-day course of treatment; can resume azithromycin as was prior already scheduled for AVINASH after completion of Augmentin
Prednisone taper
F/u CBC, BMP, INR outpatient
F/u Pulm, PCP, ID outpatient
Assessment / Plan
Assessment / Plan
1. COPD flare up
Chronic hypoxic respiratory failure
-2/2 to Klebsiella Pneumonia
-CT chest reviewed and patient has severe emphysematous changes
-Follows up with Dr. Mujica for pulmonology issues
-wheezing much improved on exam
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
-Already on azithromycin as part of AVINASH treatment
-Have history of Pseudomonas pneumonia, sputum culture ordered although no phlegm production.
-Continues to remain dyspneic with wheezing on exam. Will have to continue IV steroids.
-Pred taper on DC
-Zopinex already Rxed on dc
-cont Trelegy Ellipta discharge
2. Klebsiella Pneumonia
-resp culture growing klebsiella pneumonia
-Started on Rocephin, transition to Augmentin to complete 7-day antibiotic course
3. History of AVINASH infection
-Follows up with specialist at [facility]
-Currently on azithromycin/ethambutol/rifabutin, continue all meds; resume azithromycin once completed Augmentin course if used everyday for AVINASH
4. HIV
-Controlled on antiretroviral therapy of emtricitabine/tenofovir
-f/us with ID group
-Last CD4 count of 242 in 08/14/23 - trend reviewed and has been down trending
-F/u ID outpatient
4. Paroxysmal A-fib
-Continue home dose of warfarin, follow-up INR
-Resume back on warfarin 4 mg.
-F/u INR outpatient
History of peripheral vascular disease
History of coronary disease s/p bypass
Left foot drop
Essential hypertension
History of right inguinal hernia repair
DVT prophylaxis -warfarin
full code
More than 30 minutes spent in discharge including
Final examination of the patient
Summarizing hospital stay
Instructions for continuing care to all relevant caregivers
Preparation of discharge records, prescriptions, and referral forms
Total time spent (35 in minutes):
Anticipated Discharge: Today
Subjective/Interval History
-
Date of Service: September 15, 2023
Feels better today
Objective Data
-
Labs:
Laboratory Results
09/15/23
06:18
PT 27.8 H
INR 2.61
Sodium 137
Potassium 4.1
Chloride 105
Carbon Dioxide 32 H
BUN 21 H
Creatinine 0.7
Glucose 83
Calcium 8.2 L
Vital Signs:
Vital Signs
Temp Pulse Resp BP Pulse Ox
97.5 F 108 18 99/58 98
09/15/23 08:30 09/15/23 11:18 09/15/23 11:18 09/15/23 08:30 09/15/23 11:18
I&O
09/14/23 09/15/23 09/16/23
06:59 06:59 06:59
Intake Total 960 / 960
Output Total 1325 / 1325
Balance -365 / -365
Review of Systems
-
Respiratory: Reports No Symptoms
Cardiac: Reports No Symptoms
Abdomen/GI: Reports No Symptoms
Physical Exam
-
General: Appears Chronically Ill and Cachectic
HEENT: Moist Mucous Membranes and Oxygen
Respiratory: Wheezes (Mild, back to baseline)
Cardiac: Regular Rhythm and S1/S2; Negative Murmur
GI: Soft, Nontender and Nondistended
Musculoskeletal: No Edema
Neuro: Awake, Alert and Oriented
Psych: Calm
Data Reviewed
-
Total Time Spent with Patient (in minutes): 42
Diagnostic Radiology: Image personally visualized and interpreted and Report Reviewed by me
Labs: Labs Reviewed by me
--- NOTE | 2023-09-15 12:59 | W.DS.TRANS ---
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
-
Discharge Instructions:
Sleep Apnea Risk Intermediate
Discharge Diagnosis/Procedures COPD flare up, Klebsiella pneumonia
Diet Low Cholesterol,Low Fat
Activity As tolerated
Driving Restrictions As prior to admission
Bathing Restrictions OK to Shower
Blood Work INR in 1-2 days and then as scheduled. F/u CBC
and BMP in 5 days with pcp
Instructions:
Stand-Alone Forms:
Changes to Home Medications: Yes
Discharge Medications:
DC Medications w/original date entered in [facility]
azithromycin 250 mg tablet 250 mg PO DAILY 04/06/19
dolutegravir 50 mg tablet (Tivicay) 50 mg PO DAILY Infection 12/19/21
ethambutol 400 mg tablet 400 mg PO BID Anti-inflammatory 12/19/21
ezetimibe 10 mg tablet 10 mg PO DAILY High cholesterol 12/19/21
emtricitabine 200 mg-tenofovir disoproxil fumarate 300 mg tablet 1 tab PO DAILY Infection 11/11/22
rosuvastatin 20 mg tablet (Crestor) 20 mg PO DAILY High cholesterol 11/11/22
pantoprazole 40 mg tablet,delayed release 40 mg PO DAILY #30 tabs 11/13/22
albuterol sulfate 90 mcg/actuation aerosol inhaler 2 puff inhalation R Q4HPRN PRN sob 06/20/23
aspirin 81 mg tablet,delayed release 81 mg PO DAILY Blood Clot Prevention/Tx 06/20/23
diltiazem HCl 120 mg capsule,24 hr,extended release 120 mg PO QPM Blood Pressure 06/20/23
fluticasone fur. 100 mcg-umeclid 62.5 mcg-vilant 25 mcg inhalat.powder (Trelegy Ellipta) 1 inh inhalation R DAILY Lung/Breathing Issues 06/20/23
rifabutin 150 mg capsule 150 mg PO BID Infection 06/20/23
therapeutic multivitamin 1 tab PO DAILY Supplement 06/20/23
warfarin 4 mg tablet 4 mg PO QPM Blood Clot Prevention/Tx 09/08/23
amoxicillin 875 mg-potassium clavulanate 125 mg tablet 1 tab PO BID 5 days #10 tabs 09/15/23
levalbuterol HCl 1.25 mg/3 mL solution for nebulization 1.25 mg (3 mL) inhalation R QID Lung/Breathing Issues #90 mL 09/15/23
prednisone 10 mg tablet See Rx Instructions .Route .COMPLEX #45 tabs 09/15/23
Home Medication Changes
amoxicillin 875 mg-potassium clavulanate 125 mg tablet 1 tab PO BID 5 days #10 tabs 09/15/23
levalbuterol HCl 1.25 mg/3 mL solution for nebulization 1.25 mg (3 mL) inhalation R QID Lung/Breathing Issues #90 mL 09/15/23
prednisone 10 mg tablet See Rx Instructions .Route .COMPLEX #45 tabs 09/15/23
Pending Results: No
[2023-09-15 16:00] VITALS: BP 118/73
== END 2023-09-15 17:22 | disposition home or self-care (01) | DRG 190 ==
LOC: 4 WEST ACU 21:21
PROVIDERS: Clinical Nurse Specialist Family Health; Emergency Medicine; Hospitalist; ADMITTING PHYSICIAN Internal Medicine; ATTENDING PHYSICIAN Internal Medicine; CONSULT PHYSICIAN Internal Medicine Critical Care Medicine; EMERGENCY PHYSICIAN Emergency Medicine; FAMILY PHYSICIAN Family Medicine
DX: J44.1 Chronic obstructive pulmonary disease with (acute) exacerbation (principal); J15.0 Pneumonia due to Klebsiella pneumoniae; B20 Human immunodeficiency virus [HIV] disease; R64 Cachexia; E44.0 Moderate protein-calorie malnutrition; J96.11 Chronic respiratory failure with hypoxia; E87.1 Hypo-osmolality and hyponatremia; Z68.1 Body mass index [BMI] 19.9 or less, adult; Z87.891 Personal history of nicotine dependence; J44.0 Chronic obstructive pulmonary disease with (acute) lower respiratory infection; Z99.81 Dependence on supplemental oxygen; D70.9 Neutropenia, unspecified; D64.9 Anemia, unspecified; Z79.01 Long term (current) use of anticoagulants; I48.91 Unspecified atrial fibrillation; I48.0 Paroxysmal atrial fibrillation; I10 Essential (primary) hypertension; E83.51 Hypocalcemia; Z11.52 Encounter for screening for COVID-19
CPT/HCPCS: 71046; 80048; 80053; 83880; 84484; 85025; 85610; 87070; 87077; 87186; 87205; 87502; 87811; 93005; 94640; 96374; 97116; 97162; 97165; 97530; 99285

== ENCOUNTER → 2023-09-23 14:22 | Outpatient (REF) | payer MEDICARE, SELFPAY ==
[2023-09-23 15:30] LABS: % Basophils 0.1 % (0-2); % Monocytes 5.7 % (1.7-9.3); % Neutrophils 87.2 % (42.2-75.2); Absolute Immature Granulocytes 0.2 10^3/uL (0-0.05); Absolute Lymphocytes 0.5 10^3/uL (1.2-3.4); Absolute Monocytes 0.6 10^3/uL (0.1-0.6); Absolute Neutrophils 8.5 10^3/uL (1.4-6.5); Hematocrit 37.4 % (39.0-52.0); Hemoglobin 11.7 g/dL (13.0-18.0); Mean Corp Hgb Conc. 31.3 g/dL (33.0-37.0); Mean Corpuscular Volume 86.4 fL (80.0-94.0); Mean Platelet Volume 12.1 fL (7.4-10.4); Nucleated Red Blood Cells % 0 % (-); Platelet Count 230 10^3/uL (130-400); Red Blood Cell Count 4.33 10^6/uL (4.70-6.10); Red Cell Dist. Width 18.9 % (11.5-14.5); White Blood Cell Count 9.7 10^3/uL (4.8-10.8)
[2023-09-23 15:40] LABS: Blood Urea Nitrogen 16 mg/dl (9-20); Calcium 8.7 mg/dl (8.4-10.2); Carbon Dioxide 30 mmol/L (22-30); Chloride 98 mmol/L (98-107); Glucose 158 mg/dl (70-99); Potassium 4.3 mmol/L (3.5-5.1); Sodium 138 mmol/L (135-145); eGFR > 60.00
[2023-09-27 04:40] LABS: HIV-1 Quan NAAT Interpretation Not Detected (Not Detected); HIV-1 Quant NAAT (copies/ml) Not Detected cpy/mL; HIV-1 Quant NAAT (log copy/mL) Not Detected log cpy/mL
== END ==
LOC: REG 14:22
PROVIDERS: ATTENDING PHYSICIAN Student in an Organized Health Care Education/Training Program; FAMILY PHYSICIAN Student in an Organized Health Care Education/Training Program
DX: Z00.00 Encounter for general adult medical examination without abnormal findings (principal); R73.9 Hyperglycemia, unspecified; D68.69 Other thrombophilia; Z09 Encounter for follow-up examination after completed treatment for conditions other than malignant neoplasm; B20 Human immunodeficiency virus [HIV] disease
CPT/HCPCS: 36415; 80048; 85025; 86361; 87536

== ENCOUNTER → 2023-09-29 13:22 | Outpatient (REF) | payer MEDICARE, SELFPAY ==
[2023-09-29 14:49] LABS: INR 1.98; PT 22.4 Sec (11.4-14.6)
== END ==
LOC: REG 13:22
PROVIDERS: ATTENDING PHYSICIAN Internal Medicine Cardiovascular Disease; FAMILY PHYSICIAN Family Medicine
DX: I48.91 Unspecified atrial fibrillation (principal); I48.0 Paroxysmal atrial fibrillation
CPT/HCPCS: 36415; 85610

== ENCOUNTER → 2023-10-13 16:13 | Outpatient (REF) | payer MEDICARE, SELFPAY ==
[2023-10-13 17:52] LABS: % Basophils 0.5 % (0-2); % Eosinophils 0.7 % (0-6); % Immature Granulocytes 0.5 % (0-0.5); % Lymphocytes 30.6 % (20.5-51.1); % Monocytes 12.3 % (1.7-9.3); % Neutrophils 55.4 % (42.2-75.2); Absolute Lymphocytes 1.3 10^3/uL (1.2-3.4); Absolute Monocytes 0.5 10^3/uL (0.1-0.6); Absolute Neutrophils 2.4 10^3/uL (1.4-6.5); Hematocrit 36.8 % (39.0-52.0); Hemoglobin 11.5 g/dL (13.0-18.0); Mean Corp Hgb Conc. 31.3 g/dL (33.0-37.0); Mean Corpuscular Hgb 26.9 pg (27.0-31.0); Mean Corpuscular Volume 86.2 fL (80.0-94.0); Mean Platelet Volume 11.1 fL (7.4-10.4); Nucleated Red Blood Cells % 0 % (-); Platelet Count 216 10^3/uL (130-400); Red Blood Cell Count 4.27 10^6/uL (4.70-6.10); Red Cell Dist. Width 18.5 % (11.5-14.5); White Blood Cell Count 4.4 10^3/uL (4.8-10.8)
[2023-10-13 17:59] LABS: INR 1.23; PT 15.3 Sec (11.4-14.6)
[2023-10-13 18:07] LABS: ALT (SGPT) 32 U/L (0-50); AST (SGOT) 49 U/L (17-59); Albumin 3.8 g/dl (3.5-5.0); Alkaline Phosphatase 122 U/L (38-126); Blood Urea Nitrogen 12 mg/dl (9-20); Calcium 8.7 mg/dl (8.4-10.2); Carbon Dioxide 31 mmol/L (22-30); Chloride 99 mmol/L (98-107); Glucose 119 mg/dl (70-99); Potassium 4.1 mmol/L (3.5-5.1); Sodium 138 mmol/L (135-145); Total Bilirubin 0.4 mg/dl (0.2-1.3); Total Protein 6.7 g/dl (6.3-8.2); eGFR > 60.00
[2023-10-16 12:05] LABS: HIV-1 Quan NAAT Interpretation Not Detected (Not Detected); HIV-1 Quant NAAT (copies/ml) Not Detected cpy/mL; HIV-1 Quant NAAT (log copy/mL) Not Detected log cpy/mL
[2023-10-16 17:45] LABS: CD4 % of Cells Analyzed 22 % (35-68); CD4 Absolute Count 294 cells/uL (490-1600)
== END ==
LOC: REG 16:13
PROVIDERS: ATTENDING PHYSICIAN Internal Medicine Cardiovascular Disease; FAMILY PHYSICIAN Family Medicine; OTHER PHYSICIAN Student in an Organized Health Care Education/Training Program
DX: I48.91 Unspecified atrial fibrillation (principal); I48.0 Paroxysmal atrial fibrillation; B20 Human immunodeficiency virus [HIV] disease; Z00.00 Encounter for general adult medical examination without abnormal findings; R73.9 Hyperglycemia, unspecified; D68.69 Other thrombophilia
CPT/HCPCS: 36415; 80053; 85025; 85610; 86361; 87536

== ENCOUNTER → 2023-10-16 11:30 | Outpatient (REF) | payer MEDICARE, SELFPAY ==
[2023-10-16 13:05] LABS: INR 1.53; PT 18.5 Sec (11.4-14.6)
== END ==
LOC: REG 11:30
PROVIDERS: ATTENDING PHYSICIAN Internal Medicine Cardiovascular Disease
DX: I48.91 Unspecified atrial fibrillation (principal); I48.0 Paroxysmal atrial fibrillation
CPT/HCPCS: 36415; 85610

== ENCOUNTER → 2023-10-22 10:54 | Outpatient (REF) | payer MEDICARE, SELFPAY ==
[2023-10-22 11:33] LABS: INR 1.97; PT 22.6 Sec (11.4-14.6)
== END ==
LOC: REG 10:54
PROVIDERS: ATTENDING PHYSICIAN Internal Medicine Cardiovascular Disease
DX: I48.91 Unspecified atrial fibrillation (principal); I48.0 Paroxysmal atrial fibrillation
CPT/HCPCS: 36415; 85610

== ENCOUNTER → 2023-10-28 14:09 | Outpatient (REF) | payer MEDICARE, SELFPAY ==
[2023-10-28 15:03] LABS: B.E. 6.6 mmol/L; HCO3 28.7 mmol/L (21-28); O2 Saturation % 97.5 % (94-98); PCO2 32 mmHg (35-48); PO2 81 mmHg (83-108); pH 7.56 (7.35-7.45)
== END ==
LOC: RSP 14:09
PROVIDERS: ATTENDING PHYSICIAN Internal Medicine Critical Care Medicine
DX: R91.8 Other nonspecific abnormal finding of lung field (principal)
CPT/HCPCS: 36600; 82805

== ENCOUNTER → 2023-10-29 11:32 | Outpatient (REF) | payer MEDICARE, SELFPAY ==
[2023-10-29 12:47] LABS: INR 2.33; PT 25.8 Sec (11.4-14.6)
== END ==
LOC: REG 11:32
PROVIDERS: ATTENDING PHYSICIAN Internal Medicine Cardiovascular Disease; FAMILY PHYSICIAN Family Medicine
DX: I48.91 Unspecified atrial fibrillation (principal); I48.0 Paroxysmal atrial fibrillation
CPT/HCPCS: 36415; 85610

== ENCOUNTER → 2023-11-12 12:56 | Outpatient (REF) | payer MEDICARE, SELFPAY ==
[2023-11-12 14:19] LABS: INR 2.26; PT 25.2 Sec (11.4-14.6)
== END ==
LOC: REG 12:56
PROVIDERS: ATTENDING PHYSICIAN Internal Medicine Cardiovascular Disease; FAMILY PHYSICIAN Family Medicine
DX: I48.91 Unspecified atrial fibrillation (principal); I48.0 Paroxysmal atrial fibrillation
CPT/HCPCS: 36415; 85610

== ENCOUNTER → 2023-12-09 10:54 | Outpatient (REF) | payer MEDICARE, SELFPAY ==
[2023-12-09 11:43] LABS: INR 2.29; PT 25.1 Sec (11.4-14.6)
== END ==
LOC: REG 10:54
PROVIDERS: ATTENDING PHYSICIAN Internal Medicine Cardiovascular Disease; FAMILY PHYSICIAN Family Medicine
DX: I48.91 Unspecified atrial fibrillation (principal); Z79.01 Long term (current) use of anticoagulants
CPT/HCPCS: 36415; 85610

== ENCOUNTER → 2024-01-05 10:16 | Outpatient (REF) | payer MEDICARE, SELFPAY ==
[2024-01-05 11:52] LABS: INR 4.31; PT 41.4 Sec (11.4-14.6)
== END ==
LOC: REG 10:16
PROVIDERS: ATTENDING PHYSICIAN Internal Medicine Cardiovascular Disease
DX: I48.91 Unspecified atrial fibrillation (principal); Z79.01 Long term (current) use of anticoagulants
CPT/HCPCS: 36415; 85610

== ENCOUNTER → 2024-01-16 09:26 | Outpatient (REF) | payer MEDICARE, SELFPAY ==
[2024-01-16 10:41] LABS: % Basophils 0.1 % (0-2); % Eosinophils 0.8 % (0-6); % Immature Granulocytes 0.5 % (0-0.5); % Lymphocytes 5.1 % (20.5-51.1); % Monocytes 9.9 % (1.7-9.3); % Neutrophils 83.6 % (42.2-75.2); Absolute Eosinophils 0.1 10^3/uL (0-0.7); Absolute Lymphocytes 0.4 10^3/uL (1.2-3.4); Absolute Monocytes 0.8 10^3/uL (0.1-0.6); Absolute Neutrophils 6.4 10^3/uL (1.4-6.5); Hematocrit 35.5 % (39.0-52.0); Hemoglobin 11.3 g/dL (13.0-18.0); Mean Corp Hgb Conc. 31.8 g/dL (33.0-37.0); Mean Corpuscular Hgb 26.4 pg (27.0-31.0); Mean Corpuscular Volume 82.9 fL (80.0-94.0); Nucleated Red Blood Cells % 0 % (-); Red Blood Cell Count 4.28 10^6/uL (4.70-6.10); Red Cell Dist. Width 17.8 % (11.5-14.5); White Blood Cell Count 7.6 10^3/uL (4.8-10.8)
[2024-01-16 10:46] LABS: INR 4.43; PT 42.4 Sec (11.4-14.6)
[2024-01-16 11:11] LABS: ALT (SGPT) 37 U/L (0-50); AST (SGOT) 47 U/L (17-59); Albumin 3.9 g/dl (3.5-5.0); Alkaline Phosphatase 185 U/L (38-126); Blood Urea Nitrogen 13 mg/dl (9-20); Calcium 8.4 mg/dl (8.4-10.2); Carbon Dioxide 29 mmol/L (22-30); Chloride 103 mmol/L (98-107); Glucose 107 mg/dl (70-99); Potassium 4.3 mmol/L (3.5-5.1); Sodium 139 mmol/L (135-145); Total Bilirubin 0.4 mg/dl (0.2-1.3); Total Protein 6.8 g/dl (6.3-8.2); eGFR > 60.00
[2024-01-18 15:16] LABS: CD4 % of Cells Analyzed 35 % (35-68); CD4 Absolute Count 133 cells/uL (490-1600)
== END ==
LOC: REG 09:26
PROVIDERS: ATTENDING PHYSICIAN Internal Medicine Cardiovascular Disease; FAMILY PHYSICIAN Family Medicine; REFERRING PHYSICIAN Student in an Organized Health Care Education/Training Program
DX: B20 Human immunodeficiency virus [HIV] disease (principal); I48.91 Unspecified atrial fibrillation; Z79.01 Long term (current) use of anticoagulants
CPT/HCPCS: 36415; 80053; 85025; 85610; 86361; 87536

== ENCOUNTER → 2024-01-20 11:15 | Outpatient (REF) | payer MEDICARE, SELFPAY ==
[2024-01-20 12:11] LABS: INR 2.17
== END ==
LOC: REG 11:15
PROVIDERS: ATTENDING PHYSICIAN Internal Medicine Cardiovascular Disease; FAMILY PHYSICIAN Family Medicine
DX: I48.91 Unspecified atrial fibrillation (principal); Z79.01 Long term (current) use of anticoagulants
CPT/HCPCS: 36415; 85610

== ENCOUNTER 2024-01-29 10:10 | Inpatient (IN) | payer MEDICARE, SELFPAY ==
[2024-01-28] VITALS (7 sets, daily range): BP systolic 118–147; BP diastolic 61–88; BMI 18.9; BMI 18.1
[2024-01-28 14:28] LABS: ALT (SGPT) 32 U/L (0-50); AST (SGOT) 42 U/L (17-59); Albumin 3.5 g/dl (3.5-5.0); Alkaline Phosphatase 150 U/L (38-126); Blood Urea Nitrogen 18 mg/dl (9-20); Calcium 8.6 mg/dl (8.4-10.2); Carbon Dioxide 28 mmol/L (22-30); Chloride 104 mmol/L (98-107); Glucose 145 mg/dl (70-99); Sodium 137 mmol/L (135-145); Total Bilirubin 0.3 mg/dl (0.2-1.3); Total Protein 6.4 g/dl (6.3-8.2); eGFR > 60.00
[2024-01-28 14:37] LABS: Troponin I < 0.012 ng/ml
[2024-01-28 15:39] LABS: % Basophils 0.1 % (0-2); % Immature Granulocytes 0.5 % (0-0.5); % Lymphocytes 4.8 % (20.5-51.1); % Monocytes 9.4 % (1.7-9.3); % Neutrophils 85.2 % (42.2-75.2); Absolute Immature Granulocytes 0.1 10^3/uL (0-0.05); Absolute Lymphocytes 0.5 10^3/uL (1.2-3.4); Absolute Neutrophils 9.4 10^3/uL (1.4-6.5); Hematocrit 34.5 % (39.0-52.0); Hemoglobin 11.2 g/dL (13.0-18.0); Mean Corp Hgb Conc. 32.5 g/dL (33.0-37.0); Mean Corpuscular Hgb 26.8 pg (27.0-31.0); Mean Corpuscular Volume 82.5 fL (80.0-94.0); Nucleated Red Blood Cells % 0 % (-); Red Blood Cell Count 4.18 10^6/uL (4.70-6.10); Red Cell Dist. Width 17.8 % (11.5-14.5)
--- NOTE | 2024-01-28 16:20 | ED.GENMED ---
History of Present Illness
<Marie Montes PA-C - Last Filed: 01/28/24 18:04>
General
Chief Complaint: Heart Rate Problem
Source: patient
Exam Limitations: none
Time Seen by Provider: 01/28/24 16:18
Nursing documentation reviewed up to this point in time: agreed with
History of Present Illness
History of Present Illness:
This is a 78-year-old male with a past medical history of COPD on 2 L chronically, A-fib on warfarin and diltiazem, HIV, diabetes presenting emergency department today with concerns of fluctuating heart rate. Patient present in room with daughter.
Patient reports that with his COPD he will periodically check his pulse ox and recently he noticed that while checking his pulse ox, his heart rate has been higher, at 1 point jumped into the 130s. Patient states that he does not feel any
palpitations and he has no symptoms at that time. Patient states he never feels when he is A-fib. Daughter in room with patient reports that he is appeared to be increasingly more short of breath recently and seems to be breathing more rapidly,
patient denies this. Patient does note that he has had increased coughing recently and did have 1 episode of sharp chest pain last night that lasted a few seconds and resolved. Patient follows with Dr. Jhonatan Yip for cardiology and he sees
lime mixer within [facility]. Patient denies any fevers or chills, any lingering chest pain, new shortness of breath, abdominal pain, nausea, vomiting, constipation, diarrhea.
Past History
<Marie Montes PA-C - Last Filed: 01/28/24 18:04>
Past History
ED Past Medical History: Arrthythmia (Atrial fibrillation), CAD, COPD, HTN, Hypercholesterolemia and Other (HIV, cavitary pneumonia, AVINASH)
ED Past Surgical History: Cardiac
Social History
Tobacco: Former smoker
Alcohol: None
Drug: None
Living: with roommate
Employment: Retired
Review of Systems
<Marie Montes PA-C - Last Filed: 01/28/24 18:04>
Review of Systems
All Other Systems: ROS reviewed and negative except as documented in HPI and ROS
Phy Exam
<Marie Montes PA-C - Last Filed: 01/28/24 18:04>
Physical Exam
Physical Exam:
General: Patient is well appearing and in no acute distress; non-toxic
Skin: Warm and dry, no rashes or lesions
Head: Normocephalic, atraumatic
Eyes: Sclera non-icteric. EOMs intact. PERRLA.
Cardiac: Patient tachycardic otherwise regular rhythm, no murmurs
Peripheral Vascular: Lower extremity swelling or edema
Pulm: No respiratory effort, scattered wheezing heard on exam
Abdomen: No abdominal tenderness
Neuro: CN II-XII intact, no focal neurologic deficits.
Psychiatric: Appropriate mood and affect.
Course
<Marie Montes PA-C - Last Filed: 01/28/24 18:04>
Orders/Labs/Results
Orders:
Orders
01/28/24 13:38
ECG [Electrocardiogram (*1)] Urgent
Reason for Study: Shortness of Breath
EKG- Treatment ONCE
01/28/24 13:50
Complete Blood Count/With Diff Urgent
Comprehensive Metabolic Panel Urgent
Troponin I Urgent
01/28/24 16:31
CR Chest - 2 Views Urgent
Comment:
Reason For Exam: shortness of breath
01/28/24 17:05
ECG [Electrocardiogram (*1)] Urgent
Reason for Study: Chest Pain
01/28/24 17:06
Electrocardiogram (*1) Urgent
Reason for Study: Chest Pain
EKG- Treatment ONCE
01/28/24 17:54
D-Dimer Urgent
Prothrombin Time Urgent
Abnormal Lab Results
01/28/24
13:50
WBC 11.0 H 10^3/uL
(4.8-10.8)
RBC 4.18 L 10^6/uL
(4.70-6.10)
Hgb 11.2 L g/dL
(13.0-18.0)
Hct 34.5 L %
(39.0-52.0)
MCH 26.8 L pg
(27.0-31.0)
MCHC 32.5 L g/dL
(33.0-37.0)
RDW 17.8 H %
(11.5-14.5)
Abs Immat Gran (auto) 0.1 H 10^3/uL
(0-0.05)
Absolute Neuts (auto) 9.4 H 10^3/uL
(1.4-6.5)
Absolute Lymphs (auto) 0.5 L 10^3/uL
(1.2-3.4)
Absolute Monos (auto) 1.0 H 10^3/uL
(0.1-0.6)
Neutrophils % 85.2 H %
(42.2-75.2)
Lymphocytes % 4.8 L %
(20.5-51.1)
Monocytes % 9.4 H %
(1.7-9.3)
Glucose 145 H mg/dl
(70-99)
Alkaline Phosphatase 150 H U/L
(38-126)
01/28/24 13:50
01/28/24 13:50
Vital Signs
Initial and Last Documented VS:
Initial Vital Signs
Temp Pulse Resp BP Pulse Ox
98.3 F 74 20 121/65 98
01/28/24 13:37 01/28/24 13:37 01/28/24 13:37 01/28/24 13:37 01/28/24 13:37
Last Documented Vital Signs
Temp Pulse Resp BP Pulse Ox
98.3 F 102 23 132/61 100
01/28/24 13:37 01/28/24 17:45 01/28/24 17:45 01/28/24 17:45 01/28/24 17:45
<Mike Bright, DO - Last Filed: 01/28/24 17:15>
Orders/Labs/Results
Orders:
Orders
01/28/24 13:38
ECG [Electrocardiogram (*1)] Urgent
Reason for Study: Shortness of Breath
EKG- Treatment ONCE
01/28/24 13:50
Complete Blood Count/With Diff Urgent
Comprehensive Metabolic Panel Urgent
Troponin I Urgent
01/28/24 16:31
CR Chest - 2 Views Urgent
Comment:
Reason For Exam: shortness of breath
01/28/24 17:05
ECG [Electrocardiogram (*1)] Urgent
Reason for Study: Chest Pain
01/28/24 17:06
Electrocardiogram (*1) Urgent
Reason for Study: Chest Pain
EKG- Treatment ONCE
01/28/24 17:54
D-Dimer Urgent
Prothrombin Time Urgent
Abnormal Lab Results
01/28/24
13:50
WBC 11.0 H 10^3/uL
(4.8-10.8)
RBC 4.18 L 10^6/uL
(4.70-6.10)
Hgb 11.2 L g/dL
(13.0-18.0)
Hct 34.5 L %
(39.0-52.0)
MCH 26.8 L pg
(27.0-31.0)
MCHC 32.5 L g/dL
(33.0-37.0)
RDW 17.8 H %
(11.5-14.5)
Abs Immat Gran (auto) 0.1 H 10^3/uL
(0-0.05)
Absolute Neuts (auto) 9.4 H 10^3/uL
(1.4-6.5)
Absolute Lymphs (auto) 0.5 L 10^3/uL
(1.2-3.4)
Absolute Monos (auto) 1.0 H 10^3/uL
(0.1-0.6)
Neutrophils % 85.2 H %
(42.2-75.2)
Lymphocytes % 4.8 L %
(20.5-51.1)
Monocytes % 9.4 H %
(1.7-9.3)
Glucose 145 H mg/dl
(70-99)
Alkaline Phosphatase 150 H U/L
(38-126)
01/28/24 13:50
01/28/24 13:50
Vital Signs
Initial and Last Documented VS:
Initial Vital Signs
Temp Pulse Resp BP Pulse Ox
98.3 F 74 20 121/65 98
01/28/24 13:37 01/28/24 13:37 01/28/24 13:37 01/28/24 13:37 01/28/24 13:37
Last Documented Vital Signs
Temp Pulse Resp BP Pulse Ox
98.3 F 102 23 132/61 100
01/28/24 13:37 01/28/24 17:45 01/28/24 17:45 01/28/24 17:45 01/28/24 17:45
Nayelt;Marie Montes PA-C - Last Filed: 01/28/24 18:04>
MDM/Problems Addressed
Differential Diagnosis Includes:
Atrial fibrillation, a flutter, pneumonia, COPD exacerbation, PE
MDM/Problems Addressed:
Tachycardia:
This is a 78-year-old male with a past medical history of COPD on 2 L chronically, A-fib on warfarin and diltiazem, HIV, diabetes presenting emergency department today with concerns of fluctuating heart rate. Patient present in room with daughter.
Patient reports that with his COPD he will periodically check his pulse ox and recently he noticed that while checking his pulse ox, his heart rate has been higher, at 1 point jumped into the 130s. Patient states that he does not feel any
palpitations and he has no symptoms at that time. Here in the ER, he is well-appearing but does have scattered wheezing on exam. His white blood cell count is slightly elevated, his chest x-ray shows no evidence of pneumonia and remains unchanged
from prior study. Pulmonary embolism is a possibility, however patient is anticoagulated. Will obtain INR and D-dimer. Patient will need to be observed overnight on the monitor and will need to be worked up further. Case reviewed with my
attending Dr. Bright.
Chronic conditions affecting care:
COPD, A-fib on warfarin, hypertension, hyperlipidemia, coronary artery disease, HIV
Acute Exacerbation and/or Progression of Chronic Illness:
COPD, A-fib on warfarin, hypertension,
<Marie Montes PA-C - Last Filed: 01/28/24 18:04>
*Critical Care Note
Total Time (30-74mins, 75-104mins- exclusive of procedures): Not Applicable
<Marie Montes PA-C - Last Filed: 01/28/24 18:04>
Patient Management
Escalation/DeEscalation of care consider admission/obs:
Patient referred by hospitalist for admission.
ED Attending Note
<Marie Montes PA-C - Last Filed: 01/28/24 18:04>
-
Portions of this chart may have been created with voice recognition software.� Occasional wrong word or��sound alike� substitutions may have occurred due to the inherent limitations of voice recognition software.
<Mike Bright DO - Last Filed: 01/28/24 17:15>
ED Attending Note
Patient seen and examined by attending physician: Yes
I performed the substantive portion of visit, reviewed & personally made and approve the management plan that is documented in note by myself or RIVERA.: Yes
ED Attending Note:
I have seen and evaluated the patient with a [id number] encounter. I have spoken to the advance practicer provider and involved in the medical history, the physical exam, medical decision making.
Evaluation and management service: agree unless noted differently below.
Results interpretation: agree unless noted differently below.
Focused HPI: 78-year-old male with HIV and COPD is presenting with worsening shortness of breath. Patient is concerned because he has noted that his heart rate is still in the 130s but goes back to normal on its own.
Physical exam: Frail, expiratory wheezing throughout, heart regular rate and rhythm
Medical Decision Making: Will admit based on COPD exacerbation. Will keep on telemetry to further evaluate the inappropriate tachycardia. Patient is already on daily steroids and daily azithromycin. Chest x-ray shows no new infiltrate
Discharge Plan
Departure
Condition: Fair
Discharge Problem:
Tachycardia, Shortness of breath
Prescriptions:
No Action
ethambutol 400 MG tablet
400 mg PO BID
ezetimibe 10 MG tablet
10 mg PO DAILY
Tivicay 50 MG tablet
50 mg PO DAILY
emtricitabine-tenofovir (TDF) 200-300 mg tablet
1 tab PO DAILY
pantoprazole 40 mg Tablet,Delayed Release (Dr/Ec)
40 mg PO DAILY Qty: 30 0RF
rifabutin 150 mg Capsule
150 mg PO BID
therapeutic multivitamin Tablet
1 tab PO DAILY
aspirin 81 mg Tablet,Delayed Release (Dr/Ec)
81 mg PO DAILY
diltiazem HCl 120 mg Capsule,Extended Release 24 Hr
120 mg PO QPM
albuterol sulfate 90 mcg/actuation Hfa Aerosol Inhaler
2 puff INHALATION R Q4HPRN PRN (Reason: sob)
Trelegy Ellipta 100-62.5-25 mcg Blister With Device
1 inh INHALATION R DAILY
warfarin 5 mg tablet
5 mg PO QPM
warfarin 1 mg Tablet
0.5 mg PO MOWEFR
Patient Comments:
01/28/2024: Take 0.5mg w/ 5mg = 5.5mg on mowefr
rosuvastatin 20 mg tablet
20 mg PO DAILY
levalbuterol HCl 1.25 mg/3 mL solution for nebulization
1.25 mg inhalation R QIDPRN PRN (Reason: Lung/Breathing Issues)
Referrals:
UNKNOWN - PT DOES,NOT KNOW [Family Provider] -
Interventions
Interventions:
ED- Fall Risk Assessment Last Done: 01/28/24 17:47
ED- Cardiac Assessment Last Done: 01/28/24 17:47
ED- Pulmonary Assessment Last Done: 01/28/24 17:47
Discharge Date and Time
Print Language: FILIPINO
[2024-01-28 18:10] LABS: INR 2.65; PT 28.6 Sec (11.4-14.6)
--- NOTE | 2024-01-28 18:12 | HPS.HSE ---
Family Physician
-
Family Physician: Colton Farah
Chief Complaint
-
tachycardia
History of Present Illness
78-year-old male past medical history of HIV, history of AVINASH infection COPD on 2 L at baseline, CAD status post CABG, paroxysmal atrial fibrillation on Coumadin, peripheral vascular disease, essential hypertension, left foot drop, diabetes
presenting to the emergency room for elevated heart rates since today. He noted that his heart rate was as high as 130s. He denies any palpitations or dizziness. He has not had any problems with atrial fibrillation. Yesterday he had a sharp
left-sided chest pain which lasted few seconds and resolved. He has been increasingly short of breath for the past few weeks and he has a slight cough that was productive for the past few days but no longer productive. Denies any fevers or chills.
He denies nausea vomiting or diarrhea. He reports that his roommate had a cough this past week.
Yesterday he also had left foot numbness that lasted for a day and resolved. He has had this numbness before and it usually resolves when he elevates his leg.
He has been on prednisone chronically which was tapered down to 5 mg a few months ago which he is on currently.
He no longer smokes. Denies alcohol use.
Medical History
Past Medical History
Past Medical History: Reports Other (HIV, history of AVINASH infection COPD on 2 L at baseline, CAD status post CABG, paroxysmal atrial fibrillation on Coumadin, peripheral vascular disease, essential hypertension, left foot drop, diabetes)
Past Surgical History: Reports None
Social History
Tobacco: Former Smoker
Alcohol: Former
Drug: None
Family History
Family History: Not pertinent
Allergies / Home Medications
Allergies reflects when Allergies were last updated in [employer].
Home Medications with original date entered in [employer]
Allergy/Medication List:
Allergies
Allergy/AdvReac Type Severity Reaction Status Date / Time
No Known Allergies Allergy Verified 01/28/24 13:37
Home Medications
dolutegravir 50 mg tablet (Tivicay) 50 mg PO DAILY Infection 12/19/21
ethambutol 400 mg tablet 400 mg PO BID Anti-inflammatory 12/19/21
ezetimibe 10 mg tablet 10 mg PO DAILY High cholesterol 12/19/21
emtricitabine 200 mg-tenofovir disoproxil fumarate 300 mg tablet 1 tab PO DAILY Infection 11/11/22
pantoprazole 40 mg tablet,delayed release 40 mg PO DAILY #30 tabs 11/13/22
albuterol sulfate 90 mcg/actuation aerosol inhaler 2 puff inhalation R Q4HPRN PRN sob 06/20/23
aspirin 81 mg tablet,delayed release 81 mg PO DAILY Blood Clot Prevention/Tx 06/20/23
diltiazem HCl 120 mg capsule,24 hr,extended release 120 mg PO QPM Blood Pressure 06/20/23
fluticasone fur. 100 mcg-umeclid 62.5 mcg-vilant 25 mcg inhalat.powder (Trelegy Ellipta) 1 inh inhalation R DAILY Lung/Breathing Issues 06/20/23
rifabutin 150 mg capsule 150 mg PO BID Infection 06/20/23
therapeutic multivitamin 1 tab PO DAILY Supplement 06/20/23
levalbuterol HCl 1.25 mg/3 mL solution for nebulization 1.25 mg inhalation R QIDPRN PRN Lung/Breathing Issues 01/28/24
rosuvastatin 20 mg tablet 20 mg PO DAILY 01/28/24
warfarin 1 mg tablet 0.5 mg PO MOWEFR 01/28/24
warfarin 5 mg tablet 5 mg PO QPM 01/28/24
Review of Systems
-
History Source: Patient
A 12 point ROS was completed and negative except as noted: Yes
Constitutional: Reports No Symptoms
EENT: Reports No Symptoms
Respiratory: Reports See HPI
Cardiac: Reports No Symptoms
Abdomen/GI: Reports No Symptoms
: Reports No Symptoms
Musculoskeletal: Reports No Symptoms
Skin: Reports No Symptoms
Neurological: Reports No Symptoms
Endocrine: Reports No Symptoms
Hematologic/Lymphatic: Reports No Symptoms
Psych: Reports No Symptoms
Physical Exam
Vital Signs
Vital Signs
Temp Pulse Resp BP Pulse Ox
98.3 F 102 23 132/61 100
01/28/24 13:37 01/28/24 17:45 01/28/24 17:45 01/28/24 17:45 01/28/24 17:45
Physical Exam
General: Well Developed, Well Nourished and No Apparent Distress
HEENT: NormoCephalic, Moist mucous membranes and Atraumatic
Respiratory: Clear
Cardiac: S1/S2 and Regular Rhythm; No Murmur or Rub
GI: Soft, Non Tender, Non Distended and Normal Bowel Sounds; No Organomegaly
Rectal: Deferred by Provider
Musculoskeletal: No Clubbing, No Cyanosis and No Edema
Skin: No Rash
Neuro: Nonfocal/grossly intact
Laboratory Results
-
01/28/24 13:50
01/28/24 13:50
Laboratory Results
Total Bilirubin 0.3 mg/dl (0.2-1.3) 01/28/24 13:50
AST 42 U/L (17-59) 01/28/24 13:50
ALT 32 U/L (0-50) 01/28/24 13:50
Alkaline Phosphatase 150 U/L (38-126) H 01/28/24 13:50
Troponin I < 0.012 ng/ml 01/28/24 13:50
Data Reviewed
-
Lab Data: Labs Reviewed by me
Old Records: Reviewed
Impression/Plan
-
IMPRESSION:
PLAN:
# Sinus tachycardia likely secondary to shortness of breath/cough
-Very mildly sinus tachycardia up to 102 here
-Troponin negative
-EKG shows sinus tachycardia without any ischemic changes
-Monitor on telemetry overnight
# Cough/shortness of breath possible URI versus COPD exacerbation
# History of COPD on 2 L baseline
-Not hypoxic on baseline 2 L
-Course breath sounds bilaterally without notable wheezing or crackles
-Chest x-ray shows stable changes
-Check COVID
-Xopenex/ipratropium nebulizers every 6 hours
-Start prednisone 40 mg for presumed COPD exacerbation
-Continue Trelegy
# Resolved left foot numbness likely from spinal stenosis
# Chronic left foot drop
-Resolved
CAD status post CABG
-Continue aspirin
Paroxysmal atrial fibrillation
-Continue diltiazem
-Continue Coumadin
Peripheral vascular disease
HIV
-Continue emtricitabine/tenofovir, Tivicay
-Do not discuss HIV when family is around
Essential hypertension
History of AVINASH infection
-Continue azithromycin, ethambutol, rifabutin which he has been on for years
Type 2 diabetes
-Not on treatment
Hyperlipidemia
-Continue Zetia, statin
Full code
DVT prophylaxis�Coumadin
Regular diet
[2024-01-28 18:15] LABS: D-Dimer < 0.27 ug/mlFEU (0.00-0.50)
[2024-01-28 18:43] LABS: COVID-19 Antigen Negative (Negative)
[2024-01-28] MEDS: ATROVENT NEBULES 0.5 MG INH (19:57)
[2024-01-28] MEDS: MYAMBUTOL 400 MG PO (20:48)
[2024-01-28] MEDS: COUMADIN 0.5 MG PO (20:48)
[2024-01-28] MEDS: COUMADIN 5 MG PO (20:51)
[2024-01-29] VITALS (7 sets, daily range): BP systolic 109–128; BP diastolic 55–73
--- NOTE | 2024-01-29 00:20 | PTCARENOTE ---
Received pt from ED @ 1930. Pt AAOX3. Pt ambulated to bed and stood at the bedside to use urinal. Pt tachycardic and noticeably SOB, 93% on 4L. RT in to give pt treatment. Pt HR down to 90s, less SOB. Pt oriented to room, call nieves and plan of care.
[2024-01-29] MEDS: ATROVENT NEBULES 0.5 MG INH ×4 (07:20→19:27)
[2024-01-29] MEDS: SPIRIVA RESPIMAT 2.5 MCG 2 PUFF INH (07:21)
[2024-01-29] MEDS: SYMBICORT 80/4.5 MCG INHALER 2 PUFF INH ×2 (07:21→19:27)
[2024-01-29] MEDS: CRESTOR 20 MG PO (08:30)
[2024-01-29] MEDS: PROTONIX 40 MG PO (08:30)
[2024-01-29] MEDS: DELTASONE 40 MG PO (08:30)
[2024-01-29] MEDS: THERAGRAN 1 TABLET PO (08:30)
[2024-01-29] MEDS: MYAMBUTOL 400 MG PO ×2 (08:30→20:02)
[2024-01-29] MEDS: ASPIR LOW (ENTERIC COATED) 81 MG PO (08:30)
[2024-01-29] MEDS: TRUVADA TABLET 1 TABLET PO (08:31)
[2024-01-29] MEDS: TIVICAY 50 MG PO (08:31)
[2024-01-29] MEDS: ZETIA 10 MG PO (08:31)
[2024-01-29] MEDS: CARDIZEM CD 120 MG PO ×2 (08:37→20:01)
[2024-01-29 08:46] LABS: % Basophils 0.1 % (0-2); % Immature Granulocytes 0.6 % (0-0.5); % Lymphocytes 7.4 % (20.5-51.1); % Monocytes 11.4 % (1.7-9.3); % Neutrophils 80.5 % (42.2-75.2); Absolute Immature Granulocytes 0.1 10^3/uL (0-0.05); Absolute Lymphocytes 0.8 10^3/uL (1.2-3.4); Absolute Monocytes 1.3 10^3/uL (0.1-0.6); Absolute Neutrophils 9.2 10^3/uL (1.4-6.5); Hematocrit 34.3 % (39.0-52.0); Mean Corp Hgb Conc. 32.1 g/dL (33.0-37.0); Mean Corpuscular Volume 81.1 fL (80.0-94.0); Nucleated Red Blood Cells % 0 % (-); Red Blood Cell Count 4.23 10^6/uL (4.70-6.10); Red Cell Dist. Width 17.8 % (11.5-14.5); White Blood Cell Count 11.4 10^3/uL (4.8-10.8)
[2024-01-29 09:23] LABS: ALT (SGPT) 26 U/L (0-50); AST (SGOT) 36 U/L (17-59); Albumin 3.4 g/dl (3.5-5.0); Alkaline Phosphatase 149 U/L (38-126); Blood Urea Nitrogen 18 mg/dl (9-20); Calcium 8.4 mg/dl (8.4-10.2); Carbon Dioxide 26 mmol/L (22-30); Chloride 104 mmol/L (98-107); Estimated Creatinine Clearance 90 ml/min; Glucose 92 mg/dl (70-99); Potassium 4.2 mmol/L (3.5-5.1); Sodium 137 mmol/L (135-145); Total Bilirubin 0.4 mg/dl (0.2-1.3); Total Protein 6.5 g/dl (6.3-8.2); eGFR > 60.00
--- NOTE | 2024-01-29 10:03 | W.PN.HOSP.TC ---
Today's Communication/Plan
-
Steroid
ABx
Breathing treatments
Increase Cardizem dose
Assessment / Plan
Assessment / Plan
Physical Exam
-
General: Respiratory Distress, Appears Chronically Ill
HEENT: Moist Mucous Membranes and Oxygen
Respiratory: Wheezes (wheeze resoled, moving air better since admission)
Cardiac: Regular Rhythm and S1/S2; Negative Murmur. Tachycardia
GI: Soft, Nontender and Nondistended
Musculoskeletal: No Edema
Neuro: Awake, Alert and Oriented
Psych: Calm
#COPD flare up
Chronic hypoxic respiratory failure/history of mild bacterial infection/
-Chest x ray : Stable radiographic appearance of the chest including chronic obstructive pulmonary disease, and chronic scarring and cavitary/bullous changes in the right upper lobe.
-Follows up with Dr. Garcia for pulmonology issues
-Minimally hypoxic wheezing on exam
-With complex pulmonology history.
-Already on azithromycin as part of AVINASH treatment
-Have history of Pseudomonas pneumonia,
- continue steroid therapy
# History of AVINASH infection
-Follows up with specialist at [facility]
-Currently on ethambutol/rifabutin+ continue all meds
# HIV
-Controlled on antiretroviral therapy of emtricitabine/tenofovir/Tivicay,
-f/us with ID group
#Sinus tachycardia
Known Paroxysmal A-fib
Troponin negative
-EKG shows sinus tachycardia without any ischemic changes
Uncontrolled rate
, increase dose of Cardizem
-Continue home dose of warfarin, follow-up INR
- INR therapeutic today, continue monitoring
History of peripheral vascular disease
History of coronary disease s/p bypass
Left foot drop
Essential hypertension
History of right inguinal hernia repair
DVT prophylaxis -warfarin
full code
Total time spent to see the patient, examine the patient on the floor, review data and lab results, discuss treatment plan with patient, nursing staff around 55 minutes
Anticipated Discharge: 24 - 48 hours
Subjective/Interval History
-
Date of Service: January 29, 2024
No chest pain
Less sob
Objective Data
-
Labs:
Laboratory Results
01/29/24
08:05
WBC 11.4 H
Hgb 11.0 L
Hct 34.3 L
Plt Count
Sodium 137
Potassium 4.2
Chloride 104
Carbon Dioxide 26
BUN 18
Creatinine 0.6 L
Glucose 92
Calcium 8.4
Total Bilirubin 0.4
AST 36
ALT 26
Alkaline Phosphatase 149 H
Vital Signs:
Vital Signs
Temp Pulse Resp BP Pulse Ox
98.2 F 110 20 128/72 98
01/29/24 07:00 01/29/24 08:37 01/29/24 07:26 01/29/24 08:37 01/29/24 07:26
I&O
01/28/24 01/29/24 01/30/24
06:59 06:59 06:59
Output Total 480 / 480
Balance -480 / -480
--- NOTE | 2024-01-29 11:09 | CON.PUL ---
Consultation
Consultation Request
Date/Time Consultation Requested: 01/29/24
Date/Time Consultation Performed: 01/29/24
Performing Provider: Alia
Reason for Consultation: COPD
Medical History
-
History of Present Illness:
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
drop, diabetes presenting to the emergency room for elevated heart rates since today. He noted that his heart rate was as high as 130s. He was placed on increased dose of Diltizem with improvement.
Of ntoe, he has been increasingly short of breath for the past few weeks and he has a slight cough that was productive for the past few days but no longer productive.
He has been on prednisone chronically which was tapered down to 5 mg a few months ago which he is on currently.
Last admission for AECOPD, discharge date 09/16/23.
He no longer smokes. Denies alcohol use.
Past Medical History
Past Medical History: Other (see list below)
Family History
Family History: Reviewed & Not Pertinent
Allergies / Home Medications
Allergies
Allergy/AdvReac Type Severity Reaction Status Date / Time
No Known Allergies Allergy Verified 01/28/24 13:37
Home Medications
�Medication �Instructions �Recorded �Confirmed �Last Taken �Type
dolutegravir 50 mg tablet (Tivicay) 50 mg PO DAILY Infection 12/19/21 01/28/24 01/28/24 History
ethambutol 400 mg tablet 400 mg PO BID Anti-inflammatory 12/19/21 01/28/24 01/28/24 History
ezetimibe 10 mg tablet 10 mg PO DAILY High cholesterol 12/19/21 01/28/24 01/28/24 History
emtricitabine 200 mg-tenofovir 1 tab PO DAILY Infection 11/11/22 01/28/24 01/28/24 History
disoproxil fumarate 300 mg tablet
pantoprazole 40 mg tablet,delayed 40 mg PO DAILY #30 tabs 11/13/22 01/28/24 01/28/24 Rx
release
albuterol sulfate 90 mcg/actuation 2 puff inhalation R Q4HPRN PRN sob 06/20/23 01/28/24 Unknown History
aerosol inhaler
aspirin 81 mg tablet,delayed 81 mg PO DAILY Blood Clot 06/20/23 01/28/24 01/28/24 History
release Prevention/Tx
diltiazem HCl 120 mg capsule,24 120 mg PO QPM Blood Pressure 06/20/23 01/28/24 01/27/24 History
hr,extended release
fluticasone fur. 100 mcg-umeclid 1 inh inhalation R DAILY 06/20/23 01/28/24 01/28/24 History
62.5 mcg-vilant 25 mcg Lung/Breathing Issues
inhalat.powder (Trelegy Ellipta)
rifabutin 150 mg capsule 150 mg PO BID Infection 06/20/23 01/28/24 01/28/24 History
therapeutic multivitamin 1 tab PO DAILY Supplement 06/20/23 01/28/24 01/28/24 History
levalbuterol HCl 1.25 mg/3 mL 1.25 mg inhalation R QIDPRN PRN 01/28/24 01/28/24 Unknown History
solution for nebulization Lung/Breathing Issues
rosuvastatin 20 mg tablet 20 mg PO DAILY High Cholesterol 01/28/24 01/28/24 01/28/24 History
warfarin 1 mg tablet 0.5 mg PO MOWEFR Blood Clot 01/28/24 01/28/24 01/26/24 History
Prevention/Tx
warfarin 5 mg tablet 5 mg PO QPM Blood Clot 01/28/24 01/28/24 01/27/24 History
Prevention/Tx
Review of Systems
-
History Source: Patient
All other systems: Negative unless noted
Vitals / Labs / Diagnostic Testing
Vital Signs
Temp Pulse Resp BP Pulse Ox
98.2 F 110 20 128/72 98
01/29/24 07:00 01/29/24 08:37 01/29/24 07:26 01/29/24 08:37 01/29/24 07:26
Lab Data
01/29/24 08:05
01/29/24 08:05
Laboratory Results
01/28/24
17:54
PT 28.6 H
INR 2.65
Diagnostic Testing:
Physical Exam
-
HEENT: Normocephalic, Anicteric and Moist Mucous Membranes
Cardiovascular: S1/S2 and Regular Rhythm
Respiratory: Wheeze and Non-Labored Respirations
GI: Soft, Non Distended and Non Tender
Neurology: Awake, Alert, Oriented, AO x 3 and No Motor Deficits
Skin: Warm, Dry, Good Color and Other (bruising on face)
General: Comfortable and Other (NAD)
Assessment
-
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
drop, diabetes presenting to the emergency room for elevated heart rates since today. He noted that his heart rate was as high as 130s. He was placed on increased dose of Diltizem with improvement.
Of ntoe, he has been increasingly short of breath for the past few weeks and he has a slight cough that was productive for the past few days but no longer productive. We are consulted for eval 01/29/24.
COPD with acute exacerbation, mild
Tachyarrhythmia, resolved
Conditions present prior to admission:
COPD on chronic oxygen 2 L.
Last AECOPD hospitalization 09/2023
Followed by [facility]
Right apical bleb/cavitary disease/bullous emphysema
History of mycobacterial disease-AVINASH
Follows ID-Dr. Castillo at [facility] and Dr. Fan locally
Chronic cough
Pulmonary nodules
Atrial fibrillation-
Follows Dr. Jhonatan Yip
On Chronic warfarin
HIV.
PAD.
Spinal stenosis.
Chronic back pain.
Coronary artery disease/CABG.
L foot drop.
Spinal stenosis
Hypertension.
Cataract.
Right knee surgery.
Colonoscopy/polyp removal.
R inguinal hernia repair.
Effusion s/p Thoracentesis 04/03/19
EGD Food impaction
Plan
99% on 4L, chronic use of 2L with exertion
Wean back to baseline
Note: ABG in 2014 suggestive hypercapnia
7.35/53, repeat October 2023 -- 7.56/32
BiPAP nightly recommended as OP
Aspiration precautions.
Continue home inhaler regiment
Continue mucolytic
PO prednisone initiated
Incentive spirometry encouraged
Acapella also encouraged
Cultures reviewed--History of AVINASH/pseudomonas
+ kleb on last sputum in 09/2023
Antimycobacterial antibiotics continue as well as azithromycin 250 mg daily, rifabutin, ethambutol
Follows locally with infectious disease as well as [facility]
Monitor leukocytosis
CXR without infiltrate but can repeat sputum if patient is productive
HR elevated, placed on increased Dilt dose
Improved
No cardiac eval needed
Smoking cessation counseling-reportedly quit 1 year ago
DVT prophylaxis -on warfarin.
GI prophylaxis-on pantoprazole
Nutrition especially in light of protein calorie malnutrition and cachexia
Early mobilization/PT consulted
Dr. Apple reviewed with nursing, Dr. Cr and daughter Izzy-updated 09/12/2023
Outpatient pulmonary follow-up recommended, Dr. Mujica
Updated at bedside
Discharge planning if doing well in next 24 hours
Diagnostic data:
CXR 01/29/24- Stable radiographic appearance of the chest including chronic obstructive pulmonary disease, and chronic scarring and cavitary/bullous changes in the right upper lobe.
Chest x-ray 06/20/2023-stable pleural-parenchymal scarring right upper lobe and 8 cm right apical bleb
Chest x-ray 09/08/2023-right upper lobe scarring
CT chest low-dose 12/05/2022-extensive emphysematous changes, small bilateral pulmonary nodules overall slightly decreased in size
Echocardiogram 11/12/2022-EF 60%, no mitral stenosis, trace mitral regurgitation, no change since 2021
PFT 09/29/2020-FEV1 960 mL - 31%, FVC 3.25-75%, TLC 92%, RV 113%, DLCO 26%, DLCO/VA 32%
Total time spent on this consultation __76__ includes review of history, physical exam, medications, laboratory data, personal review of imaging, extensive review of outpatient records and past inpatient admissions, discussion with care team and
respiratory therapy.
--- NOTE | 2024-01-29 12:57 | CM ---
Patient sound asleep; complete initial assessment with daughter/primary contact, Izzy
Pharmacy verified: [facility], [address] [facility], [place]
Daughter reported that her father lives n a multilevel home with his son and [id number]; stays on the 1st floor.
Patient's bedroom on the 1st floor; powder room on the 1st floor; 2nd floor bath has tub/shower; grab bar and shower chair
PLOF: Daughter reported that patient is independent with short distance ambulation; needs assistance with ADLs; some assistance needed w/personal care, i.e., bathing. Patient seldom drives
DME: [employer]; Oxygen at home; 2 liter nasal cannula; Inogen device; portable tanks and compressor (O2 vendor unknown)
No recent SNF history; Home Health with [facility] in September 2023
Transportation: family will provide ride home
Plan: discharge to home when medically stable; CM will monitor for needs; if Home Health services are recommended; [facility] is preference
[2024-01-29] MEDS: COUMADIN 5 MG PO (17:40)
[2024-01-29] MEDS: NON-FORMULARY ITEM 1 UNIT PO (20:10)
[2024-01-30 04:16] VITALS: BP 145/75
[2024-01-30] MEDS: ATROVENT NEBULES 0.5 MG INH ×4 (07:43→20:35)
[2024-01-30] MEDS: SPIRIVA RESPIMAT 2.5 MCG 2 PUFF INH (07:43)
[2024-01-30] MEDS: SYMBICORT 80/4.5 MCG INHALER 2 PUFF INH ×2 (07:43→20:35)
[2024-01-30 08:14] VITALS: BP 113/70
[2024-01-30] MEDS: DELTASONE 40 MG PO (08:29)
[2024-01-30] MEDS: NON-FORMULARY ITEM 1 UNIT PO ×2 (08:29→22:12)
[2024-01-30] MEDS: TIVICAY 50 MG PO ×2 (08:29→22:22)
[2024-01-30] MEDS: TRUVADA TABLET 1 TABLET PO (08:29)
[2024-01-30] MEDS: ASPIR LOW (ENTERIC COATED) 81 MG PO (08:30)
[2024-01-30] MEDS: PROTONIX 40 MG PO (08:30)
[2024-01-30] MEDS: CARDIZEM CD 240 MG PO (08:30)
[2024-01-30] MEDS: THERAGRAN 1 TABLET PO (08:30)
[2024-01-30] MEDS: ZETIA 10 MG PO (08:30)
[2024-01-30] MEDS: CRESTOR 20 MG PO (08:30)
[2024-01-30] MEDS: MYAMBUTOL 400 MG PO ×2 (08:30→22:09)
--- NOTE | 2024-01-30 08:31 | W.PN.HOSP.TC ---
Today's Communication/Plan
-
Pt reports worsening sob
will d/w pulmonary doctor
Assessment / Plan
Assessment / Plan
Physical Exam
-
General: Respiratory Distress, Appears Chronically Ill
HEENT: Moist Mucous Membranes and Oxygen
Respiratory: crackles both sides.
Cardiac: Regular Rhythm and S1/S2; Negative Murmur. Tachycardia
GI: Soft, Nontender and Nondistended
Musculoskeletal: No Edema
Neuro: Awake, Alert and Oriented
Psych: Calm
#COPD flare up
Chronic hypoxic respiratory failure/history of mild bacterial infection/
-Chest x ray : Stable radiographic appearance of the chest including chronic obstructive pulmonary disease, and chronic scarring and cavitary/bullous changes in the right upper lobe.
-Follows up with Dr. Garcia.
He feels more sob with cough, will d/w Dr Rojo
-Already on azithromycin as part of AVINASH treatment
-Have history of Pseudomonas pneumonia, klebsiella
- continue steroid therapy for now
Will follow
# History of AVINASH infection
-Follows up with specialist at [facility]
-Currently on ethambutol/rifabutin+ continue all meds
# HIV
-Controlled on antiretroviral therapy of emtricitabine/tenofovir/Tivicay,
-f/us with ID group
#Sinus tachycardia
Known Paroxysmal A-fib
Troponin negative
-EKG shows sinus tachycardia without any ischemic changes
Uncontrolled rate
, increase dose of Cardizem
-Continue home dose of warfarin, follow-up INR
- INR therapeutic today, continue monitoring
History of peripheral vascular disease
History of coronary disease s/p bypass
Left foot drop
Essential hypertension
History of right inguinal hernia repair
DVT prophylaxis -warfarin
full code
Total time spent to see the patient, examine the patient on the floor, review data and lab results, discuss treatment plan with patient, nursing staff around 55 minutes
Anticipated Discharge: > 48 hours
Subjective/Interval History
-
Date of Service: January 30, 2024
He reports worsening sob and cough
No fevers but feels cold
Objective Data
-
Vital Signs:
Vital Signs
Temp Pulse Resp BP Pulse Ox
98.3 F 108 14 145/75 97
01/30/24 04:16 01/30/24 07:46 01/30/24 07:46 01/30/24 04:16 01/30/24 07:46
I&O
01/29/24 01/30/24 01/31/24
06:59 06:59 06:59
Intake Total 420 / 420
Output Total 480 / 480 625 / 625
Balance -480 / -480 -205 / -205
[2024-01-30] MEDS: ZITHROMAX 250 MG PO (08:56)
--- NOTE | 2024-01-30 09:13 | W.PN.PUL3 ---
Today's Communication / Plan
-
patient is back to baseline o2 use of 2L, he does not complain of new symptoms of cough/sputum/fever/wheeze
insistent he has more RUSSELL than baseline, deconditioning may be a factor
will place PT eval
not sure based on his clinical appearance that further imaging is needed
ID consult placed to evaluate his abx regiment, family aware
could be discharged from our perspective if there is no clinical change from baseline
Assessment
-
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
drop, diabetes presenting to the emergency room for elevated heart rates since today. He noted that his heart rate was as high as 130s. He was placed on increased dose of Diltizem with improvement.
Of ntoe, he has been increasingly short of breath for the past few weeks and he has a slight cough that was productive for the past few days but no longer productive. We are consulted for eval 01/29/24.
COPD with acute exacerbation, mild
Tachyarrhythmia, resolved
Conditions present prior to admission:
COPD on chronic oxygen 2 L.
Last AECOPD hospitalization 09/2023
Followed by [facility]
Right apical bleb/cavitary disease/bullous emphysema
History of mycobacterial disease-AVINASH
Follows ID-Dr. Castillo at [facility] and Dr. Fan locally
Chronic cough
Pulmonary nodules
Atrial fibrillation-
Follows Dr. Jhonatan Yip
On Chronic warfarin
HIV.
PAD.
Spinal stenosis.
Chronic back pain.
Coronary artery disease/CABG.
L foot drop.
Spinal stenosis
Hypertension.
Cataract.
Right knee surgery.
Colonoscopy/polyp removal.
R inguinal hernia repair.
Effusion s/p Thoracentesis 04/03/19
EGD Food impaction
Plan
Back to baseline use of 2L with exertion
RUSSELL noted by
Deconditioning more likely a factor
Note: ABG in 2014 suggestive hypercapnia
7.35/53, repeat October 2023 -- 7.56/32
BiPAP nightly recommended as OP
Aspiration precautions.
Continue home inhaler regiment
Continue mucolytic
PO prednisone initiated
Incentive spirometry encouraged
Acapella also encouraged
Cultures reviewed--History of AVINASH/pseudomonas
+ kleb on last sputum in 09/2023
Antimycobacterial antibiotics continue as well as azithromycin 250 mg daily, rifabutin, ethambutol
Follows locally with infectious disease as well as [facility]
Monitor leukocytosis
CXR without infiltrate but can repeat sputum if patient is productive
HR elevated, placed on increased Dilt dose
Improved
No cardiac eval needed
Smoking cessation counseling-reportedly quit 1 year ago
DVT prophylaxis -on warfarin.
GI prophylaxis-on pantoprazole
Nutrition especially in light of protein calorie malnutrition and cachexia
Early mobilization/PT consulted
Dr. Apple reviewed with nursing, Dr. Cr and daughter Izzy-updated 09/12/2023
Outpatient pulmonary follow-up recommended, Dr. Mujica
Updated at bedside
PT/OT eval
Diagnostic data:
CXR 01/29/24- Stable radiographic appearance of the chest including chronic obstructive pulmonary disease, and chronic scarring and cavitary/bullous changes in the right upper lobe.
Chest x-ray 06/20/2023-stable pleural-parenchymal scarring right upper lobe and 8 cm right apical bleb
Chest x-ray 09/08/2023-right upper lobe scarring
CT chest low-dose 12/05/2022-extensive emphysematous changes, small bilateral pulmonary nodules overall slightly decreased in size
Echocardiogram 11/12/2022-EF 60%, no mitral stenosis, trace mitral regurgitation, no change since 2021
PFT 09/29/2020-FEV1 960 mL - 31%, FVC 3.25-75%, TLC 92%, RV 113%, DLCO 26%, DLCO/VA 32%
Total time spent on this consultation __51__ includes review of history, physical exam, medications, laboratory data, personal review of imaging, extensive review of outpatient records and past inpatient admissions, discussion with care team and
respiratory therapy.
Subjective Data
-
Date of Service:
Date of Service: January 30, 2024
Chief Complaint: Pulmonary Follow Up
Subjective:
remains on 2L NC, reports he feels fine
insisting he is more SOB with exertion than at baseline
concerned of his HR >110
no new complaints of cough, fever, wheezing, etc
Objective Data
Data Reviewed
Vital Signs / I&O / Oxygen:
Vital Signs
Temp Pulse Resp BP Pulse Ox
98.3 F 108 14 145/75 97
01/30/24 04:16 01/30/24 07:46 01/30/24 07:46 01/30/24 04:16 01/30/24 07:46
Intake and Output
01/29/24 01/30/24 01/31/24
06:59 06:59 06:59
Intake Total 420 / 420
Output Total 480 / 480 625 / 625
Balance -480 / -480 -205 / -205
SaO2 97
Nasal Cannula flow liters per 2
minute
Physical Exam
General: Comfortable and Other (NAD)
HEENT: Normocephalic, Anicteric and Moist Mucous Membranes
Cardiovascular: S1-S2 and Regular Rhythm
Respiratory: Crackles and Non-Labored Respirations
GI: Soft, Non Distended and Non Tender
Neurology: Awake, Alert, Oriented and No Motor Deficits
Skin: Warm, Dry and Good Color
Labs/Micro/Reports
Lab Data
01/29/24 08:05
01/29/24 08:05
--- NOTE | 2024-01-30 11:40 | CON.CAR ---
Addendum entered and electronically signed by Colton Wall DO 01/30/24 13:01:
I saw and examined the patient.
The [employer] Salesperson's note was reviewed and I agree with the note.
Comment:
Patient initially presented due to elevated heart rate worsening shortness of breath and admitted with COPD exacerbation concern for infection. Patient reports shaking chills rigors over the last 24 hours. Patient notes this is similar
presentation to prior admissions and when she was diagnosed with a pneumonia/infection additionally with elevated heart rate. Patient noted to be sinus tachycardia on telemetry and has been receiving steroids and breathing treatments/nebulizer
treatments. In discussion with patient, he denies any chest pain, palpitations, lightheadedness, dizziness, syncope, or weakness. He does note some palpitations when walking across the room. Patient notes productive cough and shortness of breath.
General: Other (Cachectic, frail appearing)
HEENT: Normocephalic, Anicteric and Moist Mucous Membranes; no appreciable JVD
Respiratory: Rhonchi and Non Labored Respirations
Cardiac: Regular Rhythm, tachycardic, S1/S2, no murmur, rub, gallop
Musculoskeletal: No Clubbing, No Cyanosis and No Edema
Skin: Warm and Dry
Neuro: AO x 3 and Nonfocal/Grossly Intact
Psych: Calm
Telemetry sinus rhythm/sinus tachycardia occasional PVC
A/P as below
Monitor INR while on Coumadin goal 2�3 for AF
Recommend strongly treating underlying cause as sinus tachycardia may be physiologic response to worsening respiratory condition or infectious etiology in light of leukocytosis and productive cough and recent rigors
Monitor on telemetry
Replete electrolytes as needed goal potassium greater than 4, magnesium greater than 2; patient appears euvolemic on exam
No further cardiac workup at this current time, agree with treatment by pulmonology, hospitalist, infectious disease, will sign off, please call with questions thank you
Original Note:
Consultation
Consultation Request
Date/Time Consultation Requested: 01/30/2024
Date/Time Consultation Performed: 01/30/2024
Requesting Provider: Dr. Medeiros
Performing Provider: Dr. Wall
Reason for Consultation: Tachycardia
Medical History
-
History of Present Illness:
HPI: Benjamin is a 78 year old male with PMH of CAD, AVINASH, paroxysmal atrial fibrillation, hypertension, hyperlipidemia, PAD, COPD, spinal stenosis, and HIV. Presented to [facility] for evaluation of elevated heart rates and increased SOB. He was admitted
with COPD exacerbation and has been started on steroids and has been receiving breathing treatments/nebs. EKG sinus tachycardia. No afib noted on telemetry. He continues to have cough and SOB and feels his heart racing. Diltiazem dose increased
slightly by hospitalist, however HR remains in the 100s to 110s. Cardiology consulted for evaluation.
PMH:
CAD
remote PCI LAD in 1996
remote CABG in 1998
AVINASH
Paroxysmal atrial fibrillation
Chronic warfarin OAC managed by [facility]
HTN
Hyperlipidemia
Peripheral vascular disease without prior intervention
COPD/emphysema
spinal stenosis
History of HIV
Past Medical History
Past Medical History: Other (in HPI)
Past Surgical History: Cardiac (CABG 2002) and Other (hernia)
Social History
Tobacco: Former Smoker (quit again around 07/07/22)
Alcohol: None
Drug: None
Personal:
Living: Alone
Family History
Family History: Other (father committed suicide)
Allergies / Home Medications
Allergy/AdvReac Type Severity Reaction Status Date / Time
No Known Allergies Allergy Verified 01/28/24 13:37
�Medication �Instructions �Recorded �Confirmed �Type
dolutegravir 50 mg tablet (Tivicay) 50 mg PO DAILY Infection 12/19/21 01/28/24 History
ethambutol 400 mg tablet 400 mg PO BID Anti-inflammatory 12/19/21 01/28/24 History
ezetimibe 10 mg tablet 10 mg PO DAILY High cholesterol 12/19/21 01/28/24 History
emtricitabine 200 mg-tenofovir 1 tab PO DAILY Infection 11/11/22 01/28/24 History
disoproxil fumarate 300 mg tablet
pantoprazole 40 mg tablet,delayed 40 mg PO DAILY #30 tabs 11/13/22 01/28/24 Rx
release
albuterol sulfate 90 mcg/actuation 2 puff inhalation R Q4HPRN PRN sob 06/20/23 01/28/24 History
aerosol inhaler
aspirin 81 mg tablet,delayed 81 mg PO DAILY Blood Clot 06/20/23 01/28/24 History
release Prevention/Tx
diltiazem HCl 120 mg capsule,24 120 mg PO QPM Blood Pressure 06/20/23 01/28/24 History
hr,extended release
fluticasone fur. 100 mcg-umeclid 1 inh inhalation R DAILY 06/20/23 01/28/24 History
62.5 mcg-vilant 25 mcg Lung/Breathing Issues
inhalat.powder (Trelegy Ellipta)
rifabutin 150 mg capsule 150 mg PO BID Infection 06/20/23 01/28/24 History
therapeutic multivitamin 1 tab PO DAILY Supplement 06/20/23 01/28/24 History
levalbuterol HCl 1.25 mg/3 mL 1.25 mg inhalation R QIDPRN PRN 01/28/24 01/28/24 History
solution for nebulization Lung/Breathing Issues
rosuvastatin 20 mg tablet 20 mg PO DAILY High Cholesterol 01/28/24 01/28/24 History
warfarin 1 mg tablet 0.5 mg PO MOWEFR Blood Clot 01/28/24 01/28/24 History
Prevention/Tx
warfarin 5 mg tablet 5 mg PO QPM Blood Clot 01/28/24 01/28/24 History
Prevention/Tx
Review of Systems
-
History Source: Patient
All other systems: Negative unless noted
Physical Exam
Vital Signs
Temp Pulse Resp BP Pulse Ox
98.4 F 122 16 113/70 98
01/30/24 08:14 01/30/24 11:21 01/30/24 11:21 01/30/24 08:14 01/30/24 11:21
Lab Results
01/29/24 08:05
Troponin I < 0.012 ng/ml 01/28/24 13:50
Physical Exam
General: Other (Cachectic, frail appearing)
HEENT: Normocephalic, Anicteric and Moist Mucous Membranes
Respiratory: Rhonchi and Non Labored Respirations
Cardiac: Regular Rhythm
Musculoskeletal: No Clubbing, No Cyanosis and No Edema
Skin: Warm and Dry
Neuro: AO x 3 and Nonfocal/Grossly Intact
Psych: Calm
Impression / Plan
-
PCP: Dr. Farah
Sewing Machine Mechanic: Dr. ARIANNA Yip
Impression:
Sinus Tachycardia
COPD w/acute exacerbation
CAD
remote PCI LAD in 1996
remote CABG in 1998
AVINASH
Paroxysmal atrial fibrillation
Chronic warfarin OAC managed by [facility]
HTN
Hyperlipidemia
Peripheral vascular disease without prior intervention
COPD/emphysema
spinal stenosis
History of HIV
Echo 11/12/2022: EF 60%, MAC with trace MR
Plan:
-Presented with SOB, tachycardia. Being treated for COPD exacerbation.
-Sinus tachycardia on EKG and on review of telemetry.
-He has history of paroxysmal atrial fibrillation, however no afib has been noted.
-Continue Cardizem CD at slightly increased dose 240mg daily.
-Suspect tachycardia is likely physiologic response to underlying infection/COPD exacerbation.
-Afebrile, however admits to chills overnight. WBC 11.4. Does have h/o Klebsiella pneumonia. On chronic abx for AVINASH
-Continue Coumadin for anticoagulation. INR stable at 2.65.
-Troponin negative x 1.
-Echo 11/2022 with preserved EF and no significant valvular disease.
-On 2L NC which he reports is his baseline.
-Continue steroids/nebs per pulm. Family questions if alternative antibiotic needed, defer to pulm/hospitalist
HPI: Benjamin is a 78 year old male with PMH of CAD, AVINASH, paroxysmal atrial fibrillation, hypertension, hyperlipidemia, PAD, COPD, spinal stenosis, and HIV. Presented to [facility] for evaluation of elevated heart rates and increased SOB. He was admitted
with COPD exacerbation and has been started on steroids and has been receiving breathing treatments/nebs. EKG sinus tachycardia. No afib noted on telemetry. He continues to have cough and SOB and feels his heart racing. Diltiazem dose increased
slightly by hospitalist, however HR remains in the 100s to 110s. Cardiology consulted for evaluation.
Data Reviewed
-
EKG: Tracing Personally Visualized and interpreted
Radiology: Report Reviewed by me
Labs: Labs Reviewed by me
Old Records: Reviewed
[2024-01-30 12:44] LABS: Blood Urea Nitrogen 21 mg/dl (9-20); Calcium 8.5 mg/dl (8.4-10.2); Carbon Dioxide 29 mmol/L (22-30); Chloride 102 mmol/L (98-107); Estimated Creatinine Clearance 90 ml/min; Glucose 149 mg/dl (70-99); Potassium 4.3 mmol/L (3.5-5.1); Sodium 136 mmol/L (135-145); eGFR > 60.00
--- NOTE | 2024-01-30 14:10 | CON.ID ---
Addendum entered and electronically signed by Jenny Edgar MD 01/31/24 10:52:
after further consideration yesterday, I felt that CT chest was unlikely to change advisor and cancelled the order
Original Note:
Consultation
-
Date/Time Consultation Requested: 01/30/24 8:47
Date/Time Consultation Performed: 01/30/24 14:11
Requesting Provider: Dr Medeiros
Performing Provider: Dr edgar
Reason for Consultation: SOB, possible PNA
Chief Complaint / Past History
Chief Complaint
tachycardia
History of Present Illness
Mr Smiley is a pleasant 78 year old male living with HIV and cavitary AVINASH infection on prolonged treatment (well over a year), COPD - on O2 at 2L at baseline and prednisone 5 mg. He has previously been referred for RUL lobectomy at [facility] CT surgery
however they felt he was too high risk and our pulmonary group Dr Rojo agreed. He is unable to tolerate arykase and that has been stopped but remains on azithromycin, ethambutol and rifabutin. For HIV he is on dolutegravir BID (while on the
rifabutin) and emtricitabine/tenofovir.
He presented here 01/27 for tachycardia to the 130s. He also had transient, sharp L sided chest pain for a few seconds that subsequently resolved. No palpitations, no history of afib. He does report progressive hortness of breath for several weeks
and a cough for several days. It has been intermittently productive - currently nonproductive. No fevers, chills or additional antibiotics from any other providers. Of note his partner also had a cough.
Sine arrival here he has been afebrile, bp stable, saturating 98% on 2L nc, wbc 11.4, hgb 11.0, plt clumped on two evaluations, L shift is noted and improving today, eos are not present, cr 0.6, t bili 0.4, ast 36, alt 26, alk phos 149, troponin
<0.012, CXR: known RUL scarring and bullous changes, last ct chest from a year ago without bronchiectasis. covid ag negative. Currently on [employer] azithromycin, ethambutol. Rifabutin is nonformulary and he will need to have it brought in. On his
ARVs. ID is consulted for assistance with management.
Past History
Additional Past Medical History:
CAD status post CABG, paroxysmal atrial fibrillation on Coumadin, peripheral vascular disease, essential hypertension, left foot drop, diabetes
Past Surgical History: None
Allergy History:
No Known Allergies Allergy (Verified 01/28/24 13:37)
Medications Reviewed: Yes
Social History
Tobacco: Former Smoker
Alcohol: None
Drug: None
Family History
Family History: Not Pertinent
Review of Systems
Review of Systems
General: Negative Fever or Chills
All systems: All other systems were reviewed and were negative
Vital Signs
Temp Pulse Resp BP Pulse Ox
98.4 F 122 16 113/70 98
01/30/24 08:14 01/30/24 11:21 01/30/24 11:21 01/30/24 08:14 01/30/24 11:21
Physical Exam
Physical Exam
Constitutional: No Acute Distress and Cachetic
Cardiovascular: Regular Rate and S1/S2; Negative Murmur or Rub
Pulmonary: Clear, Symmetric, Wheezes (extensive coarse wheezing) and Non Labored; Negative Rales or Rhonchi
Gastrointestinal: Soft, Non Tender, Non Distended and Normal Bowel Sounds
Skin: Warm and Dry; Negative Rash or Jaundice
Neurological: Awake
Lab / Diagnostic Study Results
01/29/24 08:05
01/30/24 11:35
Abs Immat Gran (auto) 0.1 10^3/uL (0-0.05) H 01/29/24 08:05
Absolute Neuts (auto) 9.2 10^3/uL (1.4-6.5) H 01/29/24 08:05
Absolute Lymphs (auto) 0.8 10^3/uL (1.2-3.4) L 01/29/24 08:05
Absolute Monos (auto) 1.3 10^3/uL (0.1-0.6) H 01/29/24 08:05
Absolute Basos (auto) 0.0 10^3/uL (0-0.2) 01/29/24 08:05
Immature Gran % 0.6 % (0-0.5) H 01/29/24 08:05
Neutrophils % 80.5 % (42.2-75.2) H 01/29/24 08:05
Lymphocytes % 7.4 % (20.5-51.1) L 01/29/24 08:05
Monocytes % 11.4 % (1.7-9.3) H 01/29/24 08:05
Eosinophils % 0.0 % (0-6) 01/29/24 08:05
Basophils % 0.1 % (0-2) 01/29/24 08:05
PT 28.6 Sec (11.4-14.6) H 01/28/24 17:54
INR 2.65 01/28/24 17:54
Assessment / Plan
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
COPD on home dose of O2
HIV on ARVs last viral load suppressed, CD4 typically in the 300 range, most recent 150 in context of illness and likely artificially low
- sputum culture if able to produce one, he has acapella - suspect he wont be able to
- would not recommend blood cultures
- covid ag negative, would not do resp viral panel as unlikely to change advisor
- obtain CT chest without contrast
- continue [employer] azithromycin, ethambutol; home rifabutin is nonformulary daughter brought it in
- continue [employer] dolutegravir BID and emtricitabine/tenofovori
- given rigors and night sweats Zamzam added doxycycyline x7 days
- agree with steroids
- would follow patient overnight, if he remains afebrile, otherwise stable he will be stable for dc from ID perspective in the AM. He already has follow up with me in two weeks.
[2024-01-30 14:39] VITALS: BP 136/75; PULSE 116; PULSE 150; O2SAT 95
--- NOTE | 2024-01-30 15:09 | CM ---
Patient seen at bedside.
therapy recommending home health.
Discussed VN with patient & options - stated had [facility] in the past.
TT to [facility] [place] liasion.
PLAN: Discharge to home when stable with home health.
[2024-01-30 15:19] VITALS: BMI 18.1
--- NOTE | 2024-01-30 15:41 | VNURNOTE ---
Home Health Liaison met with patient and family at bedside to discuss [facility] nurse/therapy, visits, schedule and homebound status. Patient is agreeable and understands that visits at home will be 1-3 x per week to assess and teach medical management.
He has had our services before. [facility] brochure provided with contact information. Patient is aware that [facility] will contact them for start of care within a few days after discharge from . [facility] referral completed in [facility]. [facility] Intake dept
notified of high risk diagnosis, tentative DC date.
[2024-01-30 16:00] VITALS: BP 112/75
[2024-01-30] MEDS: COUMADIN 5 MG PO (18:22)
[2024-01-30] MEDS: COUMADIN 0.5 MG PO (18:22)
[2024-01-30 19:00] VITALS: BP 103/69
[2024-01-30] MEDS: VIBRAMYCIN 100 MG PO (22:09)
[2024-01-30 23:00] VITALS: BP 103/62
[2024-01-31] VITALS (8 sets, daily range): BP systolic 112–131; BP diastolic 52–70
[2024-01-31] MEDS: SYMBICORT 80/4.5 MCG INHALER 2 PUFF INH ×2 (07:20→20:15)
[2024-01-31] MEDS: ATROVENT NEBULES 0.5 MG INH ×4 (07:20→20:14)
[2024-01-31] MEDS: SPIRIVA RESPIMAT 2.5 MCG 2 PUFF INH (07:21)
--- NOTE | 2024-01-31 08:30 | W.PN.HOSP.TC ---
Today's Communication/Plan
-
Check INR\\
c/w antibiotics
c/w Steroid
Assessment / Plan
Assessment / Plan
Physical Exam
-
General: Respiratory Distress, Appears Chronically Ill, frail.
HEENT: Moist Mucous Membranes and Oxygen
Respiratory: crackles both sides.
Cardiac: Regular Rhythm and S1/S2; Negative Murmur. Tachycardia
GI: Soft, Nontender and Nondistended
Musculoskeletal: No Edema
Neuro: Awake, Alert and Oriented
Psych: Calm
#COPD flare up
Chronic hypoxic respiratory failure/history of mild bacterial infection/
-Chest x ray : Stable radiographic appearance of the chest including chronic obstructive pulmonary disease, and chronic scarring and cavitary/bullous changes in the right upper lobe.
-Follows up with Dr. Garcia.
He feels the same. Not worsening
-Already on azithromycin as part of AVINASH treatment
-Have history of Pseudomonas pneumonia, klebsiella
- continue steroid therapy for now
Per ID, : given rigors and night sweats, added doxycycline x7 d
# History of AVINASH infection
-Follows up with specialist at [facility]
-Currently on Azithromycin, ethambutol/rifabutin+ continue all meds
# HIV
-Controlled on antiretroviral therapy of emtricitabine/tenofovir/Tivicay,
-f/us with ID group
Appreciate ID help
#Sinus tachycardia
Known Paroxysmal A-fib
Troponin negative
-EKG shows sinus tachycardia without any ischemic changes
Rate is better controlled.
, increased dose of Cardizem
-Continue home dose of warfarin, follow-up INR
- INR therapeutic today, continue monitoring
Per cardiology: sinus tachycardia may be physiologic response to worsening respiratory condition or infectious etiology. card signed off.
History of peripheral vascular disease
History of coronary disease s/p bypass
Left foot drop
Essential hypertension
History of right inguinal hernia repair
DVT prophylaxis -warfarin
full code
Total time spent to see the patient, examine the patient on the floor, review data and lab results, discuss treatment plan with patient, consultants, nursing staff around 55 minutes
Anticipated Discharge: Within 24 hours
Subjective/Interval History
-
Date of Service: January 31, 2024
He denies worsening sob
No fevers
Objective Data
-
Labs:
Laboratory Results
01/31/24
07:38
WBC Pending
Hgb Pending
Hct Pending
Plt Count Pending
Sodium Pending
Potassium Pending
Chloride Pending
Carbon Dioxide Pending
BUN Pending
Creatinine Pending
Glucose Pending
Calcium Pending
Total Bilirubin Pending
AST Pending
ALT Pending
Alkaline Phosphatase Pending
Vital Signs:
Vital Signs
Temp Pulse Resp BP Pulse Ox
98.2 F 107 24 128/55 97
01/31/24 03:00 01/31/24 07:25 01/31/24 07:25 01/31/24 03:00 01/31/24 07:25
I&O
01/30/24 01/31/24 02/01/24
06:59 06:59 06:59
Intake Total 420 / 420 240 / 240
Output Total 625 / 625 510 / 510
Balance -205 / -205 -270 / -270
[2024-01-31] MEDS: VIBRAMYCIN 100 MG PO ×2 (08:51→21:45)
[2024-01-31] MEDS: ZITHROMAX 250 MG PO (08:51)
[2024-01-31] MEDS: CRESTOR 20 MG PO (08:51)
[2024-01-31] MEDS: CARDIZEM CD 240 MG PO (08:52)
[2024-01-31] MEDS: PROTONIX 40 MG PO (08:52)
[2024-01-31] MEDS: ASPIR LOW (ENTERIC COATED) 81 MG PO (08:52)
[2024-01-31] MEDS: ZETIA 10 MG PO (08:52)
[2024-01-31] MEDS: MYAMBUTOL 400 MG PO ×2 (08:52→21:45)
[2024-01-31] MEDS: THERAGRAN 1 TABLET PO (08:52)
[2024-01-31] MEDS: DELTASONE 40 MG PO (08:52)
[2024-01-31] MEDS: NON-FORMULARY ITEM 1 UNIT PO ×2 (08:53→21:43)
[2024-01-31 09:04] LABS: Hematocrit 35.5 % (39.0-52.0); Hemoglobin 11.5 g/dL (13.0-18.0); Mean Corp Hgb Conc. 32.4 g/dL (33.0-37.0); Mean Corpuscular Hgb 26.7 pg (27.0-31.0); Mean Corpuscular Volume 82.4 fL (80.0-94.0); Red Blood Cell Count 4.31 10^6/uL (4.70-6.10); Red Cell Dist. Width 17.2 % (11.5-14.5); White Blood Cell Count 11.7 10^3/uL (4.8-10.8)
[2024-01-31 09:27] LABS: ALT (SGPT) 24 U/L (0-50); AST (SGOT) 37 U/L (17-59); Albumin 3.2 g/dl (3.5-5.0); Alkaline Phosphatase 116 U/L (38-126); Blood Urea Nitrogen 18 mg/dl (9-20); Calcium 8.2 mg/dl (8.4-10.2); Carbon Dioxide 31 mmol/L (22-30); Chloride 100 mmol/L (98-107); Estimated Creatinine Clearance 90 ml/min; Glucose 109 mg/dl (70-99); Potassium 3.9 mmol/L (3.5-5.1); Sodium 137 mmol/L (135-145); Total Bilirubin 0.5 mg/dl (0.2-1.3); Total Protein 6.2 g/dl (6.3-8.2); eGFR > 60.00
[2024-01-31 09:59] LABS: INR 4.65
[2024-01-31] MEDS: TRUVADA TABLET 1 TABLET PO (11:02)
[2024-01-31] MEDS: CARDIZEM CD 120 MG PO (11:02)
[2024-01-31] MEDS: TIVICAY 50 MG PO ×2 (11:02→21:49)
--- NOTE | 2024-01-31 11:29 | W.PN.CARDCBS ---
Addendum entered and electronically signed by Colton Wall DO 01/31/24 12:02:
I saw and examined the patient.
The Pin Drafting Machine Operator's note was reviewed and I agree with the note.
Comment:
Recalled to see patient due to elevated heart rate, atrial fibrillation rapid ventricular spots. Patient noted to be AF with heart rate 90 to 150 bpm. In discussion with patient, he notes palpitations and unchanged redness of breath with
productive cough. Patient denies chest pain, lightheadedness, dizziness, near-syncope, syncope, edema, or weakness.
GEN: No distress, awake, alert, oriented x3. frail, chronically ill appearing. on supp O2
HEENT: supple, anicteric, mmm, eomi
LUNGS: Wheezes, rhonchi, poor air movement
CV: Irreg irreg, S1/S2, no murmur
EXT: No cyanosis, clubbing, edema
NEURO: Gross non-focal
SKIN: Warm, pink, dry. No rash
A/P as below
Agree with increased dose of diltiazem to 360 mg daily
If heart rate remains elevated despite increased oral dose, recommend transition to higher level of service with diltiazem drip for heart rate/symptomatic control
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
Antibiotics and pulmonary care per ID and pulmonology
Check mag and replete as tolerated
Continue remaining goal-directed medical therapy
Coumadin on hold for now given elevated INR, resume when able with goal INR 2�3
Original Note:
Today's Communication / Plan
-
follow HRs. consider placing on IV cardizem gtt if remains rapid
hold coumadin
Impression / Plan
-
PCP: Dr. Farah
Pole Cutter: Dr. ARIANNA Yip
Impression:
Sinus Tachycardia
COPD w/acute exacerbation
CAD
remote PCI LAD in 1996
remote CABG in 1998
AVINASH
Paroxysmal atrial fibrillation
Chronic warfarin OAC managed by [facility]
HTN
Hyperlipidemia
Peripheral vascular disease without prior intervention
COPD/emphysema
spinal stenosis
History of HIV
Echo 11/12/2022: EF 60%, MAC with trace MR
Plan:
-Presented with SOB, tachycardia. Being treated for COPD exacerbation.
-went into atrial fibrillation with RVR overnight. currently HRs in 140s. was given addition 180mg po cardizem for total of 360mg this morning. if remains rapid, will need to place on IV cardizem gtt
-Suspect tachycardia/afib is likely physiologic response to underlying infection/COPD exacerbation.
-continue treatment of COPD/PNA per primary service
-hold coumadin tonight as INR 4.65 on 01/30. also on asa, as last intervention remote, would consider stopping to reduce bleeding risks
-Echo 11/2022 with preserved EF and no significant valvular disease.
-wean supp O2 as able. 2L NC at baseline at home
-d/w patient, nursing, hospitalist, and family at bedside
-currently full code. would consider goals of care discussion if does not improve
-would have low threshold for transfer to higher level of care
HPI: Benjamin is a 78 year old male with PMH of CAD, AVINASH, paroxysmal atrial fibrillation, hypertension, hyperlipidemia, PAD, COPD, spinal stenosis, and HIV. Presented to [facility] for evaluation of elevated heart rates and increased SOB. He was admitted
with COPD exacerbation and has been started on steroids and has been receiving breathing treatments/nebs. EKG sinus tachycardia. No afib noted on telemetry. He continues to have cough and SOB and feels his heart racing. Diltiazem dose increased
slightly by hospitalist, however HR remains in the 100s to 110s. Cardiology consulted for evaluation.
Progress Note - Pole Cutter
Subjective
Date of Service: January 31, 2024
reports SOB and chest tightness. feels palpitations when attempts to take a deep breath
Objective
Labs:
01/31/24 07:38
01/31/24 07:38
Labs
Hgb 11.5 g/dL (13.0-18.0) L 01/31/24 07:38
Hct 35.5 % (39.0-52.0) L 01/31/24 07:38
Plt Count 10^3/uL (130-400) 01/31/24 07:38
PT 44.0 Sec (11.4-14.6) H 01/31/24 09:12
INR 4.65 D 01/31/24 09:12
Sodium 137 mmol/L (135-145) 01/31/24 07:38
Potassium 3.9 mmol/L (3.5-5.1) 01/31/24 07:38
BUN 18 mg/dl (9-20) 01/31/24 07:38
Creatinine 0.6 mg/dL (0.7-1.3) L 01/31/24 07:38
Glucose 109 mg/dl (70-99) H 01/31/24 07:38
Troponins
01/28/24
13:50
Troponin I < 0.012
Vital Signs and I&O:
Vital Signs
Temp Pulse Resp BP Pulse Ox
97.5 F 107 20 123/70 97
01/31/24 07:40 01/31/24 07:40 01/31/24 07:40 01/31/24 07:40 01/31/24 07:40
Vital Signs
Temp Pulse Resp BP Pulse Ox
97.5 F 107 20 123/70 97
01/31/24 07:40 01/31/24 07:40 01/31/24 07:40 01/31/24 07:40 01/31/24 07:40
Intake & Output
01/29/24 01/30/24 01/31/24 02/01/24
07:59 07:59 07:59 07:59
Intake Total 420 / 420 240 / 240
Output Total 480 / 480 625 / 625 510 / 510
Balance -480 / -480 -205 / -205 -270 / -270
Physical Exam
Physical Exam
GEN: No distress, awake, alert, oriented x3. frail, chronically ill appearing. on supp O2
HEENT: supple, anicteric, mmm, eomi
LUNGS: Wheezes, poor air movement
CV: Irreg irreg, S1/S2, no murmur
EXT: No cyanosis, clubbing, edema
NEURO: Gross non-focal
SKIN: Warm, pink, dry. No rash
--- NOTE | 2024-01-31 12:21 | W.PN.PUL.V3 ---
Today's Communication / Plan
-
Oxygen
Atrial fibrillation rate control
Cardizem increase
Prednisone
Inhalers and nebulizers, mucolytic's, mucus clearing devices
Outpatient pulmonary follow-up
Assessment
-
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
drop, diabetes presenting to the emergency room for elevated heart rates since today. He noted that his heart rate was as high as 130s. He was placed on increased dose of Diltizem with improvement.
Of ntoe, he has been increasingly short of breath for the past few weeks and he has a slight cough that was productive for the past few days but no longer productive. We are consulted for eval 01/29/24.
COPD with acute exacerbation, mild
Tachyarrhythmia, resolved
Rapid atrial fibrillation
Leukocytosis
Mild anemia
Hyperglycemia
Conditions present prior to admission:
COPD on chronic oxygen 2 L.
Last AECOPD hospitalization 09/2023
Followed by [facility]
Right apical bleb/cavitary disease/bullous emphysema
History of mycobacterial disease-AVINASH
Follows ID-Dr. Castillo at [facility] and Dr. Fan locally
Chronic cough
Pulmonary nodules
Atrial fibrillation-
Follows Dr. Jhonatan Yip
On Chronic warfarin
HIV.
PAD.
Spinal stenosis.
Chronic back pain.
Coronary artery disease/CABG.
L foot drop.
Spinal stenosis
Hypertension.
Cataract.
Right knee surgery.
Colonoscopy/polyp removal.
R inguinal hernia repair.
Effusion s/p Thoracentesis 04/03/19
EGD Food impaction
Plan
Respiratory status has declined in part related to rapid atrial fibrillation
Supplemental oxygen as needed
Prior ABGs suggest chronic hypercapnia
BiPAP at night
Mucolytic's
Incentive spirometry/Acapella
Prednisone 40 mg daily with slow taper
Symbicort
Spiriva
Nebulizers as needed
Monitor rate
Increase Cardizem
Cardiology evaluation
Check EKG
Anticoagulation-Coumadin on hold due to elevated INR
Cultures reviewed--History of AVINASH/pseudomonas
+ kleb on last sputum in 09/2023
Antimycobacterial antibiotics continue as well as azithromycin 250 mg daily, rifabutin, ethambutol
Follows locally with infectious disease as well as HUP
Monitor leukocytosis
CXR without infiltrate but can repeat sputum if patient is productive
Smoking cessation counseling-reportedly quit 1 year ago
DVT prophylaxis -on warfarin.
GI prophylaxis-on pantoprazole
Nutrition especially in light of protein calorie malnutrition and cachexia
Early mobilization/PT consulted
Outpatient pulmonary follow-up recommended, Dr. Mujica
Diagnostic data:
CXR 01/29/24- Stable radiographic appearance of the chest including chronic obstructive pulmonary disease, and chronic scarring and cavitary/bullous changes in the right upper lobe.
Chest x-ray 06/20/2023-stable pleural-parenchymal scarring right upper lobe and 8 cm right apical bleb
Chest x-ray 09/08/2023-right upper lobe scarring
CT chest low-dose 12/05/2022-extensive emphysematous changes, small bilateral pulmonary nodules overall slightly decreased in size
Echocardiogram 11/12/2022-EF 60%, no mitral stenosis, trace mitral regurgitation, no change since 2021
PFT 09/29/2020-FEV1 960 mL - 31%, FVC 3.25-75%, TLC 92%, RV 113%, DLCO 26%, DLCO/VA 32%
,
Subjective Data
-
Date of Service:
Date of Service: January 31, 2024
Chief Complaint: Pulmonary Follow Up and Dyspnea Follow Up
Subjective:
Complaining of some chest tightness and increased shortness of breath, monitor with tachycardia 140-160, no other chest pain or abdominal pain
Review of Systems
General: Other (Per HPI)
Objective Data
Data Reviewed
Vital Signs / I&O:
Vital Signs
Temp Pulse Resp BP Pulse Ox
98.5 F 77 24 119/70 97
01/31/24 11:59 01/31/24 11:59 01/31/24 11:59 01/31/24 11:59 01/31/24 11:59
Intake and Output
01/30/24 01/31/24 02/01/24
06:59 06:59 06:59
Intake Total 420 / 420 240 / 240
Output Total 625 / 625 510 / 510
Balance -205 / -205 -270 / -270
SaO2: 97
Nasal Cannula flow liters per minute: 2
Physical Exam
General: Comfortable and Other (NAD)
HEENT: Normocephalic, Anicteric and Moist Mucous Membranes
Cardiovascular: S1-S2 and Regular Rhythm
Respiratory: Crackles and Non-Labored Respirations
GI: Soft, Non Distended and Non Tender
Neurology: Awake, Alert, Oriented and No Motor Deficits
Skin: Warm, Dry and Good Color
Labs/Micro/Reports
Lab Data
01/31/24 07:38
01/31/24 07:38
Laboratory Results
01/31/24
09:12
PT 44.0 H
INR 4.65 D
[2024-01-31 12:43] LABS: Magnesium 2.3 mg/dl (1.6-2.3)
--- NOTE | 2024-01-31 14:59 | W.PN.ID1 ---
Date of Service
Date of Service: January 31, 2024
Today's Communication
doxycycline x7 days
Assessment / Plan
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
COPD on home dose of O2
HIV on ARVs last viral load suppressed, CD4 typically in the 300 range, most recent 150 in context of illness and likely artificially low
- sputum culture if able to produce one, he has acapella - suspect he wont be able to
- continue FROG OR [employer] F[employer] azithromycin, ethambutol; home rifabutin is nonformulary daughter brought it in
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
- given rigors and night sweats Zamzam added doxycycyline x7 days
- agree with steroids
- would follow patient overnight, if he remains afebrile, otherwise stable he will be stable for dc from ID perspective in the AM. He already has follow up with me in two weeks.
Chief Complaint
-: Other (bronchitis, AVINASH, HIV)
Subjective / Review of Systems
afebrile
bp stable
with minimal leukocytosis on steroids
cr stable
Vital Signs / Physical Exam
Vital Signs
Vital Signs
Temp Pulse Resp BP Pulse Ox
98.5 F 77 24 119/70 97
01/31/24 11:59 01/31/24 11:59 01/31/24 11:59 01/31/24 11:59 01/31/24 12:27
Physical Exam
Constitutional: No Acute Distress
Cardiovascular: Regular Rate and S1/S2; Negative Murmur or Rub
Pulmonary: Clear and Symmetric; Negative Wheezes or Rales
Gastrointestinal: Soft, Non Tender, Non Distended and Normal Bowel Sounds
Skin: Warm and Dry; Negative Rash or Jaundice
Objective Data
Lab Data
Lab Results
01/31/24 07:38
01/31/24 07:38
PT 44.0 Sec (11.4-14.6) H 01/31/24 09:12
INR 4.65 D 01/31/24 09:12
Estimated Creat Clear 90 ml/min 01/31/24 07:38
Total Bilirubin 0.5 mg/dl (0.2-1.3) 01/31/24 07:38
AST 37 U/L (17-59) 01/31/24 07:38
ALT 24 U/L (0-50) 01/31/24 07:38
Alkaline Phosphatase 116 U/L (38-126) 01/31/24 07:38
Most recent labs reviewed.
Care Review
Plan reviewed with: Physician (Dr Medeiros - [facility])
[2024-01-31] MEDS: XOPENEX 1.25 MG INHALANT SOLUTION INH (20:15)
--- NOTE | 2024-01-31 23:30 | PTCARENOTE ---
Pt. was a-fib and converted to NSR with first degree AVB, PVC, notified CELSO Salamanca, ordered EKG which was done.
[2024-02-01 03:00] VITALS: BP 103/65
[2024-02-01] MEDS: ATROVENT NEBULES 0.5 MG INH ×2 (07:22→11:18)
[2024-02-01] MEDS: SYMBICORT 80/4.5 MCG INHALER 2 PUFF INH (07:23)
[2024-02-01] MEDS: SPIRIVA RESPIMAT 2.5 MCG 2 PUFF INH (07:23)
[2024-02-01 07:35] VITALS: BP 119/63
--- NOTE | 2024-02-01 08:24 | W.PN.HOSP.TC ---
Today's Communication/Plan
-
Discharge today
HR is better controlled
Pt feels ready to go home
Assessment / Plan
Assessment / Plan
Physical Exam
-
General: Respiratory Distress, Appears Chronically Ill, frail.
HEENT: Moist Mucous Membranes and Oxygen
Respiratory: crackles both sides, less .
Cardiac: S1S2, no tachycardia
GI: Soft, Nontender and Nondistended
Musculoskeletal: No Edema
Neuro: Awake, Alert and Oriented
Psych: Calm
#COPD flare up
Chronic hypoxic respiratory failure/history of mild bacterial infection/
-Chest x ray : Stable radiographic appearance of the chest including chronic obstructive pulmonary disease, and chronic scarring and cavitary/bullous changes in the right upper lobe.
-Follows up with Dr. Garcia.
He feels better today, feels ready to go home.
-Already on azithromycin as part of AVINASH treatment. Repeat chest x ray 01/30, no active issues.
-Have history of Pseudomonas pneumonia, klebsiella
- continue steroid therapy for now
Per ID, : given rigors and night sweats, added doxycycline x7 d
# History of AVINASH infection
-Follows up with specialist at [facility]
-Currently on Azithromycin, ethambutol/rifabutin+ continue all meds
# HIV
-Controlled on antiretroviral therapy of emtricitabine/tenofovir/Tivicay,
-f/us with ID group
Appreciate ID help
#Sinus tachycardia, uncontrolled a fib
Known Paroxysmal A-fib
Troponin negative
Rate is better controlled with increased dose of Cardizem
-He takes warfarin, follow-up INR
- INR is supra- therapeutic likely due to steroid use, was held
History of peripheral vascular disease
History of coronary disease s/p bypass
Left foot drop
Essential hypertension
History of right inguinal hernia repair
DVT prophylaxis -warfarin
full code
Total dischareg time spent to see the patient, examine the patient on the floor, review data and lab results, discuss discharge plan with patient, consultants, nursing staff around 67 minutes
Anticipated Discharge: Today
Subjective/Interval History
-
Date of Service: February 01, 2024
He feels better, wants to go home
Objective Data
-
Labs:
Laboratory Results
02/01/24
08:12
PT Pending
INR Pending
Vital Signs:
Vital Signs
Temp Pulse Resp BP Pulse Ox
97.6 F 60 16 119/63 100
02/01/24 07:35 02/01/24 07:35 02/01/24 07:35 02/01/24 07:35 02/01/24 07:35
I&O
01/31/24 02/01/24 02/02/24
06:59 06:59 06:59
Intake Total 240 / 240 1080 / 1080
Output Total 510 / 510 650 / 650
Balance -270 / -270 430 / 430
[2024-02-01 08:56] LABS: INR 4.64
[2024-02-01] MEDS: PROTONIX 40 MG PO (09:07)
[2024-02-01] MEDS: CRESTOR 20 MG PO (09:10)
[2024-02-01] MEDS: ZETIA 10 MG PO (09:10)
[2024-02-01] MEDS: VIBRAMYCIN 100 MG PO (09:10)
[2024-02-01] MEDS: THERAGRAN 1 TABLET PO (09:11)
[2024-02-01] MEDS: DELTASONE 40 MG PO (09:11)
[2024-02-01] MEDS: TRUVADA TABLET 1 TABLET PO (09:11)
[2024-02-01] MEDS: ZITHROMAX 250 MG PO (09:11)
[2024-02-01] MEDS: MYAMBUTOL 400 MG PO (09:12)
[2024-02-01] MEDS: NON-FORMULARY ITEM 1 UNIT PO (09:12)
[2024-02-01] MEDS: ASPIR LOW (ENTERIC COATED) 81 MG PO (09:12)
--- NOTE | 2024-02-01 10:30 | W.PN.CARDCBS ---
Today's Communication / Plan
-
Transition to diltiazem 180 mg daily
Hold coumadin, INR 4.64 today. Continue to monitor; resume when able for goal INR 2-3
ABX per ID/pulm; continue to treat underlying cause
Monitor on telemetry
Impression / Plan
-
PCP: Dr. Farah
Field Tax Auditor: Dr. ARIANNA Yip
Impression:
Sinus Tachycardia, improved
COPD w/acute exacerbation
CAD
remote PCI LAD in 1996
remote CABG in 1998
AVINASH
Paroxysmal atrial fibrillation
Chronic warfarin OAC managed by [facility]
HTN
Hyperlipidemia
Peripheral vascular disease without prior intervention
COPD/emphysema
spinal stenosis
History of HIV
Echo 11/12/2022: EF 60%, MAC with trace MR
Plan:
-Presented with SOB, tachycardia. Being treated for COPD exacerbation.
-went into atrial fibrillation with RVR overnight. currently HRs in 140s. was given addition 180mg po cardizem for total of 360mg this morning. if remains rapid, will need to place on IV cardizem gtt; patient had return of SR now SR 60-80s.; will
resume diltiazem ER at 180 mg daily
-Suspect tachycardia/afib is likely physiologic response to underlying infection/COPD exacerbation.
-continue treatment of COPD/PNA per primary service
-hold coumadin tonight as INR 4.65 on 01/30, 4.64 on 01/31. also on asa, as last intervention remote, would consider stopping to reduce bleeding risks
-Echo 11/2022 with preserved EF and no significant valvular disease.
-wean supp O2 as able. 2L NC at baseline at home
-d/w patient, nursing, hospitalist, and family at bedside
-currently full code. would consider goals of care discussion if does not improve
-would have low threshold for transfer to higher level of care
HPI: Benjamin is a 78 year old male with PMH of CAD, AVINASH, paroxysmal atrial fibrillation, hypertension, hyperlipidemia, PAD, COPD, spinal stenosis, and HIV. Presented to [facility] for evaluation of elevated heart rates and increased SOB. He was admitted
with COPD exacerbation and has been started on steroids and has been receiving breathing treatments/nebs. EKG sinus tachycardia. No afib noted on telemetry. He continues to have cough and SOB and feels his heart racing. Diltiazem dose increased
slightly by hospitalist, however HR remains in the 100s to 110s. Cardiology consulted for evaluation.
Progress Note - Field Tax Auditor
Subjective
Date of Service: February 01, 2024
Patient seen and examined this morning. No acute events overnight. Patient with return to SR spontaneously. Notes improved breathing. Denies cp, palpitations. still notes cough.
Objective
Labs:
01/31/24 07:38
01/31/24 07:38
Labs
Hgb 11.5 g/dL (13.0-18.0) L 01/31/24 07:38
Hct 35.5 % (39.0-52.0) L 01/31/24 07:38
Plt Count 10^3/uL (130-400) 01/31/24 07:38
PT 44.0 Sec (11.4-14.6) H 02/01/24 08:12
INR 4.64 02/01/24 08:12
Sodium 137 mmol/L (135-145) 01/31/24 07:38
Potassium 3.9 mmol/L (3.5-5.1) 01/31/24 07:38
BUN 18 mg/dl (9-20) 01/31/24 07:38
Creatinine 0.6 mg/dL (0.7-1.3) L 01/31/24 07:38
Glucose 109 mg/dl (70-99) H 01/31/24 07:38
Vital Signs and I&O:
Vital Signs
Temp Pulse Resp BP Pulse Ox
97.6 F 60 16 119/63 100
02/01/24 07:35 02/01/24 07:35 02/01/24 07:35 02/01/24 07:35 02/01/24 07:35
Vital Signs
Temp Pulse Resp BP Pulse Ox
97.6 F 60 16 119/63 100
02/01/24 07:35 02/01/24 07:35 02/01/24 07:35 02/01/24 07:35 02/01/24 07:35
Intake & Output
01/30/24 01/31/24 02/01/24 02/02/24
06:59 06:59 06:59 06:59
Intake Total 420 / 420 240 / 240 1080 / 1080
Output Total 625 / 625 510 / 510 650 / 650
Balance -205 / -205 -270 / -270 430 / 430
Physical Exam
Physical Exam
GEN: No distress, awake, alert, oriented x3. frail, chronically ill appearing. on supp O2
HEENT: supple, anicteric, mmm, eomi
LUNGS: Wheezes, rhonchi, poor air movement
CV: regular rate and rhythm, S1/S2, no murmur
EXT: No cyanosis, clubbing, edema
NEURO: Gross non-focal
SKIN: Warm, pink, dry. No rash
--- NOTE | 2024-02-01 10:46 | W.DCSUMMARY ---
Discharge Summary
Discharge Data
Date of Admission: 01/29/24
Date of Discharge: 02/01/24
-
Pending Results: No
Hospital Course
78 years old male presented with increased heart rate. Patient reported shortness of breath and weakness. Patient was diagnosed with sinus tachycardia but was noticed to have uncontrolled atrial fibrillation. Patient had history of paroxysmal
atrial fibrillation. Patient was on Coumadin treatment. His Cardizem oral dose was adjusted. He was followed by learning and development intern. No evidence of cardiac ischemia. Patient was followed by pulmonary doctor. He was started on oral prednisone with a
slow taper. Imaging studies did not show acute process. Patient had history of HIV, mycobacterial disease AI, colonization of bacteria including history of Klebsiella, Pseudomonas and Serratia in the lungs from previous sputum cultures. Patient
did not have fevers. He was evaluated by his primary infectious disease strategic planning consultant Dr. Fan. Because of history of shortness of breath and rigors, he was started on 7 days course of oral doxycycline. Patient was counseled regarding
potential side effects of doxycycline and he verbalized understanding. Patient follows ID-Dr. Castillo at [facility] and Dr. Fan locally. 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 Primary learning and development intern Dr. Jhonatan Yip. Patient remained
hemodynamically stable with oxygen requirement at baseline. Patient was discharged home in a stable condition. His INR was elevated upon discharge, he was advised to hold Coumadin and repeat INR and to finish course of prednisone ( taper and the
resume 5 mg dose). Discharge instructions were discussed with patient and his son at bedside.
Discharge Plan
-
Patient Disposition: Home with Home Care
Discharge Diagnosis/Procedures: Acute COPD exacerbation A fib, increased dose of Cardizem
You were seen by cardiology, pulmonary, infectious disease doctors. Your were given Prednisone with Doxycycline. Increased dose of Cardizem.
Doxycycline can cause photosensitivity, avoid direct sun exposure while taking it. Hold Coumadin and repeat INR as instructed. Finish course of prednisone ( taper and the resume 5 mg dose).
Diet: As tolerated
Others Tests: Repeat INR on 02/01 -02/02
Referrals:
Colton Farah MD [Family Provider] -
Jenny Fan MD [Active] - in two weeks
Prescriptions:
New
diltiazem HCl 180 mg Capsule,Extended Release 24hr
180 mg PO DAILY Qty: 30 0RF
doxycycline hyclate 100 mg Capsule
100 mg PO Q12 Qty: 10 0RF
prednisone 10 mg tablet
10 mg PO DAILY Qty: 18 0RF
Rx Instructions:
30 mg daily X 3 days,20 mg daily X 3 days, 10 mg daily X 3 days
Continued
ethambutol 400 MG tablet
400 mg PO BID
ezetimibe 10 MG tablet
10 mg PO DAILY
Tivicay 50 MG tablet
50 mg PO DAILY
emtricitabine-tenofovir (TDF) 200-300 mg tablet
1 tab PO DAILY
pantoprazole 40 mg Tablet,Delayed Release (Dr/Ec)
40 mg PO DAILY Qty: 30 0RF
rifabutin 150 mg Capsule
150 mg PO BID
therapeutic multivitamin Tablet
1 tab PO DAILY
aspirin 81 mg Tablet,Delayed Release (Dr/Ec)
81 mg PO DAILY
albuterol sulfate 90 mcg/actuation Hfa Aerosol Inhaler
2 puff INHALATION R Q4HPRN PRN (Reason: sob)
Trelegy Ellipta 100-62.5-25 mcg Blister With Device
1 inh INHALATION R DAILY
rosuvastatin 20 mg tablet
20 mg PO DAILY
levalbuterol HCl 1.25 mg/3 mL solution for nebulization
1.25 mg inhalation R QIDPRN PRN (Reason: Lung/Breathing Issues)
azithromycin 250 mg tablet
250 mg PO DAILY
Held
warfarin 5 mg tablet
5 mg PO QPM
Hold Instructions: Resume on 02/03/24.
warfarin 1 mg Tablet
0.5 mg PO MOWEFR
Hold Instructions: Resume on 02/03/24.
Patient Comments:
01/28/2024: Take 0.5mg w/ 5mg = 5.5mg on mowefr
Discontinued
diltiazem HCl 120 mg Capsule,Extended Release 24 Hr
120 mg PO QPM
Discharge Orders:
Discharge Patient (As Directed); Ordered 02/01/24
Ordered By: Cammy Medeiros
Discharge Date and Time
Print Language: KINYARWANDA
--- NOTE | 2024-02-01 11:00 | CM ---
Patient seen bedside, discussed plan for discharge today. Patient confirms he has home O2, has transportation home. Update to [facility] on patients discharge. IMM reviewed, signed, placed in chart. CM will continue to follow for discharge planning needs.
Plan; home with [facility].
[2024-02-01 11:22] VITALS: BP 111/64
[2024-02-01] MEDS: TIVICAY 50 MG PO (11:23)
[2024-02-01] MEDS: CARDIZEM CD 180 MG PO (11:23)
--- NOTE | 2024-02-01 11:46 | W.PN.PUL.V3 ---
Today's Communication / Plan
-
Heart rate control
Hold Coumadin
Prednisone taper
Nebulizers continue
Outpatient pulmonary follow-up
Assessment
-
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
drop, diabetes presenting to the emergency room for elevated heart rates since today. He noted that his heart rate was as high as 130s. He was placed on increased dose of Diltizem with improvement.
Of ntoe, he has been increasingly short of breath for the past few weeks and he has a slight cough that was productive for the past few days but no longer productive. We are consulted for eval 01/29/24.
COPD with acute exacerbation, mild
Tachyarrhythmia, resolved
Rapid atrial fibrillation
Leukocytosis
Mild anemia
Hyperglycemia
Conditions present prior to admission:
COPD on chronic oxygen 2 L.
Last AECOPD hospitalization 09/2023
Followed by [facility]
Right apical bleb/cavitary disease/bullous emphysema
History of mycobacterial disease-AVINASH
Follows ID-Dr. Castillo at [facility] and Dr. Fan locally
Chronic cough
Pulmonary nodules
Atrial fibrillation-
Follows Dr. Jhonatan Yip
On Chronic warfarin
HIV.
PAD.
Spinal stenosis.
Chronic back pain.
Coronary artery disease/CABG.
L foot drop.
Spinal stenosis
Hypertension.
Cataract.
Right knee surgery.
Colonoscopy/polyp removal.
R inguinal hernia repair.
Effusion s/p Thoracentesis 04/03/19
EGD Food impaction
Plan
Respiratory status improved significantly with heart rate control
Supplemental oxygen as needed
Prior ABGs suggest chronic hypercapnia
BiPAP at night
Mucolytic's
Incentive spirometry/Acapella
Prednisone 40 mg daily with slow taper
Symbicort continues
Spiriva continues
Nebulizers as needed
Continue telemetry-heart rate control
Cardizem increased
Cardiology evaluation ongoing-correspondence reviewed
Check EKG
Anticoagulation-Coumadin on hold due to elevated INR
Cultures reviewed--History of AVINASH/pseudomonas
+ kleb on last sputum in 09/2023
Antimycobacterial antibiotics continue as well as azithromycin 250 mg daily, rifabutin, ethambutol
Follows locally with infectious disease as well as HUP
Monitor leukocytosis
CXR without infiltrate but can repeat sputum if patient is productive
Smoking cessation counseling-reportedly quit 1 year ago
DVT prophylaxis -on warfarin.
GI prophylaxis-on pantoprazole
Nutrition especially in light of protein calorie malnutrition and cachexia
Early mobilization/PT consulted
Outpatient pulmonary follow-up recommended, Dr. Mujica
Diagnostic data:
CXR 01/29/24- Stable radiographic appearance of the chest including chronic obstructive pulmonary disease, and chronic scarring and cavitary/bullous changes in the right upper lobe.
Chest x-ray 06/20/2023-stable pleural-parenchymal scarring right upper lobe and 8 cm right apical bleb
Chest x-ray 09/08/2023-right upper lobe scarring
CT chest low-dose 12/05/2022-extensive emphysematous changes, small bilateral pulmonary nodules overall slightly decreased in size
Echocardiogram 11/12/2022-EF 60%, no mitral stenosis, trace mitral regurgitation, no change since 2021
PFT 09/29/2020-FEV1 960 mL - 31%, FVC 3.25-75%, TLC 92%, RV 113%, DLCO 26%, DLCO/VA 32%
,
Subjective Data
-
Date of Service:
Date of Service: February 01, 2024
Chief Complaint: Pulmonary Follow Up and Dyspnea Follow Up
Subjective:
Feels much improved, less short of breath, no chest tightness, productive cough, chest pain or abdominal pain
Review of Systems
General: Other (Per HPI)
Objective Data
Data Reviewed
Vital Signs / I&O:
Vital Signs
Temp Pulse Resp BP Pulse Ox
97.5 F 88 22 111/64 98
02/01/24 11:22 02/01/24 11:23 02/01/24 11:22 02/01/24 11:23 02/01/24 11:22
Intake and Output
01/31/24 02/01/24 02/02/24
06:59 06:59 06:59
Intake Total 240 / 240 1080 / 1080
Output Total 510 / 510 650 / 650
Balance -270 / -270 430 / 430
SaO2: 98
Nasal Cannula flow liters per minute: 1
Physical Exam
General: Comfortable and Other (NAD)
HEENT: Normocephalic, Anicteric and Moist Mucous Membranes
Cardiovascular: S1-S2 and Regular Rhythm
Respiratory: Crackles and Non-Labored Respirations
GI: Soft, Non Distended and Non Tender
Neurology: Awake, Alert, Oriented and No Motor Deficits
Skin: Warm, Dry and Good Color
Labs/Micro/Reports
Lab Data
01/31/24 07:38
01/31/24 07:38
Laboratory Results
02/01/24
08:12
PT 44.0 H
INR 4.64
== END 2024-02-01 13:32 | disposition home health service (06) | DRG 191 ==
LOC: 4 WEST ACU 10:10
PROVIDERS: Emergency Medicine; Physician Assistant; ADMITTING PHYSICIAN Hospitalist; ATTENDING PHYSICIAN Internal Medicine; CONSULT PHYSICIAN Internal Medicine; CONSULT PHYSICIAN Internal Medicine Cardiovascular Disease; CONSULT PHYSICIAN Student in an Organized Health Care Education/Training Program; EMERGENCY PHYSICIAN Student in an Organized Health Care Education/Training Program; FAMILY PHYSICIAN Family Medicine
DX: J44.1 Chronic obstructive pulmonary disease with (acute) exacerbation (principal); E46 Unspecified protein-calorie malnutrition; Z68.1 Body mass index [BMI] 19.9 or less, adult; I48.0 Paroxysmal atrial fibrillation; R00.0 Tachycardia, unspecified; I25.10 Atherosclerotic heart disease of native coronary artery without angina pectoris; I10 Essential (primary) hypertension; E11.51 Type 2 diabetes mellitus with diabetic peripheral angiopathy without gangrene; M21.372 Foot drop, left foot; M54.9 Dorsalgia, unspecified; G89.29 Other chronic pain; Z21 Asymptomatic human immunodeficiency virus [HIV] infection status; Z79.01 Long term (current) use of anticoagulants; Z95.1 Presence of aortocoronary bypass graft
CPT/HCPCS: 71046; 80048; 80053; 83735; 84484; 85025; 85027; 85379; 85610; 87811; 93005; 94640; 97162; 99285

== ENCOUNTER → 2024-02-02 12:15 | Outpatient (REF) | payer MEDICARE, SELFPAY ==
[2024-02-02 14:42] LABS: INR 3.18; PT 32.5 Sec (11.4-14.6)
== END ==
LOC: REG 12:15
PROVIDERS: ATTENDING PHYSICIAN Internal Medicine Cardiovascular Disease; FAMILY PHYSICIAN Family Medicine
DX: I48.91 Unspecified atrial fibrillation (principal); Z79.01 Long term (current) use of anticoagulants
CPT/HCPCS: 36415; 85610

== ENCOUNTER → 2024-02-06 09:48 | Outpatient (REF) | payer MEDICARE, SELFPAY ==
[2024-02-06 11:14] LABS: INR 3.18; PT 32.5 Sec (11.4-14.6)
== END ==
LOC: REG 09:48
PROVIDERS: ATTENDING PHYSICIAN Internal Medicine Cardiovascular Disease; FAMILY PHYSICIAN Family Medicine
DX: I48.91 Unspecified atrial fibrillation (principal); Z79.01 Long term (current) use of anticoagulants
CPT/HCPCS: 36415; 85610

== ENCOUNTER → 2024-02-20 11:45 | Outpatient (REF) | payer MEDICARE, SELFPAY ==
[2024-02-20 13:04] LABS: INR 2.36; PT 25.7 Sec (11.4-14.6)
== END ==
LOC: REG 11:45
PROVIDERS: ATTENDING PHYSICIAN Internal Medicine Cardiovascular Disease; FAMILY PHYSICIAN Family Medicine
DX: I48.0 Paroxysmal atrial fibrillation (principal); Z79.01 Long term (current) use of anticoagulants
CPT/HCPCS: 36415; 85610

== ENCOUNTER 2024-02-26 01:58 | Inpatient (IN) | payer MEDICARE, SELFPAY ==
[2024-02-25 21:33] VITALS: BP 136/63
[2024-02-25 21:42] VITALS: BMI 18.1
[2024-02-25 21:45] VITALS: BP 118/60
--- NOTE | 2024-02-25 21:46 | ED.GENMED ---
History of Present Illness
General
Chief Complaint: Breathing Problem
Source: patient
Exam Limitations: none
Time Seen by Provider: 02/25/24 21:38
Nursing documentation reviewed up to this point in time: agreed with
History of Present Illness
History of Present Illness:
78-year-old male presents the emergency department complaining of shortness of breath and chest pain. He took multiple nebulizer treatments at home. EMS placed him on a nonrebreather. This feels similar to prior COPD exacerbations.
Past History
Past History
ED Past Medical History: Arrthythmia (Atrial fibrillation), CAD, COPD, HTN, Hypercholesterolemia and Other (HIV, cavitary pneumonia, AVINASH)
ED Past Surgical History: Cardiac
Social History
Tobacco: Former smoker
Alcohol: None
Drug: None
Living: with roommate
Employment: Retired
Review of Systems
Review of Systems
Allergies reviewed?: Yes
All Other Systems: Not applicable
Constitutional: Reports no symptoms
EENT: Reports no symptoms
Respiratory: Reports trouble breathing
Cardiac: Reports chest pain
ABD/GI: Reports no symptoms
: Reports no symptoms
Musculoskeletal: Reports no symptoms
Skin: Reports no symptoms
Neurological: Reports no symptoms
Endocrine: Reports no symptoms
Hematologic/Lymphatic: Reports no symptoms
Psychiatric: Reports no symptoms
Phy Exam
Physical Exam
Physical Exam:
Physical Exam
General: Moderate respiratory distress
Neck: supple. no meningeal signs. normal posterior pharynx
Heart: s1/s2 tachycardia, no murmur. equal radial
pulses. Midline sternotomy scar
HEENT: Pupils equal round reactive to light, EOMI
Lungs: Moderate acute respiratory distress. Wheezing bilaterally
Abdomen: normal bowel sounds. not tender. no CVAT
Neuro: alert and oriented. no focal neurological deficits cranial nerves II through XII intact
Skin: no rash
Psychiatric: well kept. interactive and cooperative
Extremities: no edema. no calf tenderness. negative homans. good distal pulses
Scores
Heart Failure Risk
Heart Failure Risk Score: Not Applicable
Course
Orders/Labs/Results
Orders:
Orders
02/25/24 21:41
Electrocardiogram (*1) Urgent
Reason for Study: Other
Other Reason for Exam: Respiratory Distress
Cardiac Monitoring- Treatment ONCE
EKG- Treatment ONCE
IV Insert/Care/Rem.- Treatment PRN
O2 Therapy [RESP] Urgent
Titrate/Wean O2 to maintain O2 sat greater than (%): 93
Special Instructions: TO MAINTAIN CONTINUOUS O2 SATS >/= 93%
Pulse Ox/cont/shift [RESP] Urgent
Quantity: 1
Special Instructions: continuous pulse ox
02/25/24 21:44
Cardiac Monitoring- Treatment ONCE
IV Insert/Care/Rem.- Treatment PRN
Dexamethasone Sod Phosphate [Decadron] 10 mg IV NOW STA
Ipratropium/Albuterol Sulfate [Duoneb] 3 ml INH R NOW STA
Pulse Ox/cont/shift [RESP] Stat
Quantity: 1
02/25/24 21:45
Electrocardiogram (*1) Stat
Reason for Study: Other
Other Reason for Exam: pneumonia
EKG- Treatment ONCE
CR Chest Portable - 1 View Urgent
Comment:
Reason For Exam: short of breath
Reason Study Needs to be Portable: Patient Unstable
02/25/24 21:58
Complete Blood Count/With Diff Urgent
Comprehensive Metabolic Panel Urgent
NT-proBNP Urgent
Prothrombin Time Urgent
Troponin I Urgent
02/26/24 00:34
Admit/Transfer Patient As Directed
Co-Sign Provider:
Level of Care: Inpatient admission
Assign to:: Telemetry
Physician / Group: Jimena Ruelas
Diagnosis: acute COPD exacerbation
Reason for Telemetry: Arrhythmia
Date to Stop Telemetry: 02/29/24
Time to Stop Telemetry: 11:00
Reason for Hospitalization: acute COPD exacerbation
Expected length of stay greater than two midnights?: Yes
ELOS- Estimated Length of Stay in days: 3
I certify the patient meets the requirements for IP care: Yes
02/26/24 00:35
PRN Pain Medication Management As Directed
May give lesser potent ordered pain med per pt: Yes
preference::
Protocol:: Medication orders for pain may be administered in a
manner that supports deferring to patient preference
when the pt is:
- Requesting an ordered lesser potent pain medication.
Least to most potent pain medications are defined
as: acetaminophen < NSAID < tramadol < opioids
(morphine, oxycodone, hydromorphone).
- Requesting a lesser dose of the same medication IF
ORDERED.
- Requesting a less intrusive route of administration
if both routes are prescribed by the provider (PO <
IV).
02/26/24 00:39
Code Status As Directed
Resuscitation Status: Do not resuscitate
Reached after discussion with pt or family/Healthcare POA: Yes
DNR Bracelet Application ONCE
02/26/24 00:55
COVID-19 Antigen Urgent
Source: Nasal Swab
02/29/24 11:00
DC Protocol for Telemetry ONCE
Abnormal Lab Results
02/25/24
21:58
RBC 4.08 L 10^6/uL
(4.70-6.10)
Hgb 10.8 L g/dL
(13.0-18.0)
Hct 33.6 L %
(39.0-52.0)
MCH 26.5 L pg
(27.0-31.0)
MCHC 32.1 L g/dL
(33.0-37.0)
RDW 17.9 H %
(11.5-14.5)
MPV 12.3 H fL
(7.4-10.4)
Abs Immat Gran (auto) 0.1 H 10^3/uL
(0-0.05)
Absolute Lymphs (auto) 0.8 L 10^3/uL
(1.2-3.4)
Absolute Monos (auto) 0.7 H 10^3/uL
(0.1-0.6)
Immature Gran % 1.0 H %
(0-0.5)
Neutrophils % 77.2 H %
(42.2-75.2)
Lymphocytes % 11.4 L %
(20.5-51.1)
Monocytes % 10.2 H %
(1.7-9.3)
PT 42.0 H Sec
(11.4-14.6)
Carbon Dioxide 33 H mmol/L
(22-30)
Creatinine 0.6 L mg/dL
(0.7-1.3)
Glucose 118 H mg/dl
(70-99)
02/25/24 21:58
02/25/24 21:58
Vital Signs
Initial and Last Documented VS:
Initial Vital Signs
Pulse Resp BP Pulse Ox
109 35 136/63 98
02/25/24 21:33 02/25/24 21:33 02/25/24 21:33 02/25/24 21:33
Last Documented Vital Signs
Pulse Resp BP Pulse Ox
90 27 102/48 94
02/26/24 01:00 02/26/24 01:00 02/26/24 01:00 02/26/24 01:00
MDM/Problems Addressed
Differential Diagnosis Includes:
Pneumonia, CHF, COPD exacerbation
MDM/Problems Addressed:
78-year-old male with COPD exacerbation. Admit to hospitalist. Do not suspect ACS or PE.
Chronic conditions affecting care: COPD
Acute Exacerbation and/or Progression of Chronic Illness: COPD
*Radiology
Radiology exam reviewed: radiology read reviewed (Chest x-ray no acute findings)
*Pulse Oximetry
Patient hypoxic: no
*EKG
Interpreted by ED Provider?: Yes
EKG Intrepretation Date: 02/25/24
EKG Intrepretation Time: 21:43
Interpretation: abnormal
Comparison EKG: no comparison EKG present
Heart Rate: 110
Rate: tachycardiac
Rhythm: sinus tachycardia
[place]: normal axis
Interval: normal interval
QRS Pattern: normal QRS
Ischemia: no ischemia
*Agriscience Teacher Interpretation
Rate: tachycardiac
Interpretation: abnormal
Heart Rate: 110
Rhythm: sinus tachycardia
*Critical Care Note
Total Time (30-74mins, 75-104mins- exclusive of procedures): Not Applicable
Data Reviewed
Review of Other/Old Records Reveals: Discharge Summary (Recent discharge on 02/01/2024 for atrial fibrillation, COPD exacerbation)
Source: records
Further Testing Considered But Not Given:
CT chest not indicated
Patient Management
Social determinants of health affecting care: Living situation and Strong social support
Discussion with other providers: Hospitalist
Escalation/DeEscalation of care consider admission/obs:
Admit not indicated
ED Attending Note
-
Portions of this chart may have been created with voice recognition software.� Occasional wrong word or��sound alike� substitutions may have occurred due to the inherent limitations of voice recognition software.
Discharge Plan
Departure
Patient Disposition: Admit
Date of Disposition: 02/25/24
Time of Disposition: 23:28
Admit to: IMU
Presentation/result/management discussed w/ accepting MD/DO: Hospitalist
Patient with high blood pressure during this ER visit?: Yes
Condition: Fair
Discharge Problem:
Acute exacerbation of chronic obstructive pulmonary disease
Prescriptions:
No Action
ethambutol 400 MG tablet
400 mg PO BID
ezetimibe 10 MG tablet
10 mg PO DAILY
Tivicay 50 MG tablet
50 mg PO DAILY
emtricitabine-tenofovir (TDF) 200-300 mg tablet
1 tab PO DAILY
pantoprazole 40 mg Tablet,Delayed Release (Dr/Ec)
40 mg PO DAILY Qty: 30 0RF
rifabutin 150 mg Capsule
150 mg PO BID
therapeutic multivitamin Tablet
1 tab PO DAILY
aspirin 81 mg Tablet,Delayed Release (Dr/Ec)
81 mg PO DAILY
albuterol sulfate 90 mcg/actuation Hfa Aerosol Inhaler
2 puff INHALATION R Q4HPRN PRN (Reason: sob)
Trelegy Ellipta 100-62.5-25 mcg Blister With Device
1 inh INHALATION R DAILY
warfarin 5 mg tablet
5 mg PO QPM
warfarin 1 mg Tablet
0.5 mg PO MOWEFR
Patient Comments:
01/28/2024: Take 0.5mg w/ 5mg = 5.5mg on mowefr
rosuvastatin 20 mg tablet
20 mg PO DAILY
levalbuterol HCl 1.25 mg/3 mL solution for nebulization
1.25 mg inhalation R QIDPRN PRN (Reason: Lung/Breathing Issues)
diltiazem HCl 180 mg Capsule,Extended Release 24hr
180 mg PO DAILY Qty: 30 0RF
azithromycin 250 mg tablet
250 mg PO DAILY
prednisone 10 mg tablet
5 mg PO DAILY
Referrals:
Colton Farah MD [Family Provider] -
Interventions
Interventions:
*Risk Screen - Suicide Last Done: 02/25/24 21:33
*General Assessment Last Done: 02/25/24 21:33
*Neglect/Abuse Screening Last Done: 02/25/24 21:33
*ED COVID-19 Vaccine History Last Done: 02/25/24 22:08
ED- Cardiac Assessment Last Done: 02/25/24 21:46
ED- Pulmonary Assessment Last Done: 02/25/24 21:46
Discharge Date and Time
Print Language: BRAZILIAN
[2024-02-25] MEDS: DUONEB 3 ML INH (21:53)
[2024-02-25] MEDS: DECADRON 10 MG IV (21:53)
[2024-02-25 22:00] VITALS: BP 105/47
[2024-02-25 22:13] LABS: % Basophils 0.1 % (0-2); % Eosinophils 0.1 % (0-6); % Lymphocytes 11.4 % (20.5-51.1); % Monocytes 10.2 % (1.7-9.3); % Neutrophils 77.2 % (42.2-75.2); Absolute Immature Granulocytes 0.1 10^3/uL (0-0.05); Absolute Lymphocytes 0.8 10^3/uL (1.2-3.4); Absolute Monocytes 0.7 10^3/uL (0.1-0.6); Absolute Neutrophils 5.6 10^3/uL (1.4-6.5); Hematocrit 33.6 % (39.0-52.0); Hemoglobin 10.8 g/dL (13.0-18.0); Mean Corp Hgb Conc. 32.1 g/dL (33.0-37.0); Mean Corpuscular Hgb 26.5 pg (27.0-31.0); Mean Corpuscular Volume 82.4 fL (80.0-94.0); Mean Platelet Volume 12.3 fL (7.4-10.4); Nucleated Red Blood Cells % 0 % (-); Platelet Count 234 10^3/uL (130-400); Red Blood Cell Count 4.08 10^6/uL (4.70-6.10); Red Cell Dist. Width 17.9 % (11.5-14.5); White Blood Cell Count 7.2 10^3/uL (4.8-10.8)
[2024-02-25 22:36] LABS: NT-proBNP 361 pg/ml; Troponin I < 0.012 ng/ml
[2024-02-25 23:00] VITALS: BP 122/58
[2024-02-25 23:21] LABS: ALT (SGPT) 17 U/L (0-50); AST (SGOT) 30 U/L (17-59); Albumin 3.5 g/dl (3.5-5.0); Alkaline Phosphatase 83 U/L (38-126); Blood Urea Nitrogen 17 mg/dl (9-20); Calcium 8.6 mg/dl (8.4-10.2); Carbon Dioxide 33 mmol/L (22-30); Chloride 101 mmol/L (98-107); Estimated Creatinine Clearance 90 ml/min; Glucose 118 mg/dl (70-99); Potassium 4.6 mmol/L (3.5-5.1); Sodium 141 mmol/L (135-145); Total Bilirubin 0.3 mg/dl (0.2-1.3); Total Protein 6.5 g/dl (6.3-8.2); eGFR > 60.00
--- NOTE | 2024-02-25 23:59 | HPS.HSE ---
Family Physician
-
Family Physician: Colton Farah
Chief Complaint
-
shortness of breath
History of Present Illness
Mr. Benjamin Smiley is a 78 yo man with hx HIV, cavitary AVINASH on treatment, COPD, paroxysmal atrial fibrillation, recent admission 01/28-01/31 for afib with RVR (he was also seen by Pulmonary and ID and started on a prednisone taper and Doxycycline
course) presents to the ER with worsening shortness of breath.
Over the past 2 days he has been especially fatigued and experienced night sweats. Today he had progressive shortness of breath and experienced pain stretching across his upper chest. He was given an aspirin by EMS, duonebs in the ER and now chest
pain completely resolved. He states he feels significant relief and the Decadron and Duonebs were given. Denies productive cough.
No measured fevers, no abdominal pain, no nausea/vomiting, no LE swelling, no rash.
Medical History
Past Medical History
Past Medical History: Reports Other (HIV, history of AVINASH infection COPD on 2 L at baseline, CAD status post CABG, paroxysmal atrial fibrillation on Coumadin, peripheral vascular disease, essential hypertension, left foot drop, diabetes)
Past Surgical History: Reports None
Social History
Tobacco: Former Smoker
Alcohol: Former
Drug: None
Family History
Family History: Not pertinent
Allergies / Home Medications
Allergies reflects when Allergies were last updated in [facility].
Home Medications with original date entered in [facility]
Allergy/Medication List:
Allergies
Allergy/AdvReac Type Severity Reaction Status Date / Time
No Known Allergies Allergy Verified 02/25/24 21:33
Home Medications
dolutegravir 50 mg tablet (Tivicay) 50 mg PO DAILY Infection 12/19/21
ethambutol 400 mg tablet 400 mg PO BID Anti-inflammatory 12/19/21
ezetimibe 10 mg tablet 10 mg PO DAILY High cholesterol 12/19/21
emtricitabine 200 mg-tenofovir disoproxil fumarate 300 mg tablet 1 tab PO DAILY Infection 11/11/22
pantoprazole 40 mg tablet,delayed release 40 mg PO DAILY #30 tabs 11/13/22
albuterol sulfate 90 mcg/actuation aerosol inhaler 2 puff inhalation R Q4HPRN PRN sob 06/20/23
aspirin 81 mg tablet,delayed release 81 mg PO DAILY Blood Clot Prevention/Tx 06/20/23
fluticasone fur. 100 mcg-umeclid 62.5 mcg-vilant 25 mcg inhalat.powder (Trelegy Ellipta) 1 inh inhalation R DAILY Lung/Breathing Issues 06/20/23
rifabutin 150 mg capsule 150 mg PO BID Infection 06/20/23
therapeutic multivitamin 1 tab PO DAILY Supplement 06/20/23
levalbuterol HCl 1.25 mg/3 mL solution for nebulization 1.25 mg inhalation R QIDPRN PRN Lung/Breathing Issues 01/28/24
rosuvastatin 20 mg tablet 20 mg PO DAILY High Cholesterol 01/28/24
warfarin 1 mg tablet 0.5 mg PO MOWEFR Blood Clot Prevention/Tx 01/28/24
warfarin 5 mg tablet 5 mg PO QPM Blood Clot Prevention/Tx 01/28/24
azithromycin 250 mg tablet 250 mg PO DAILY Infection 02/01/24
diltiazem HCl 180 mg capsule,extended release 24 hr 180 mg PO DAILY #30 caps 02/01/24
prednisone 10 mg tablet 5 mg PO DAILY 02/25/24
Review of Systems
-
History Source: Patient
A 12 point ROS was completed and negative except as noted: Yes
Physical Exam
Vital Signs
Vital Signs
Pulse Resp BP Pulse Ox
103 27 122/58 95
02/25/24 23:15 02/25/24 23:15 02/25/24 23:00 02/25/24 23:15
Physical Exam
General: No Apparent Distress
HEENT: PERRLA
Respiratory: Wheezes
Cardiac: S1/S2 and Tachycardia
GI: Soft and Non Tender
Musculoskeletal: No Edema
Skin: Warm and Dry; No Rash
Neuro: AO x 3
Psych: Calm
Laboratory Results
-
02/25/24 21:58
02/25/24 21:58
Laboratory Results
PT 42.0 Sec (11.4-14.6) H 02/25/24 21:58
INR 4.30 02/25/24 21:58
Total Bilirubin 0.3 mg/dl (0.2-1.3) 02/25/24 21:58
AST 30 U/L (17-59) 02/25/24 21:58
ALT 17 U/L (0-50) 02/25/24 21:58
Alkaline Phosphatase 83 U/L (38-126) 02/25/24 21:58
Troponin I < 0.012 ng/ml 02/25/24 21:58
Troponin I Cancelled 02/25/24 21:58
Data Reviewed
-
Diagnostic Radiology: Report Reviewed by me
Lab Data: Labs Reviewed by me
Impression/Plan
-
Mr. Benjamin Smiley is a 78 yo man with hx HIV, cavitary AVINASH on treatment, COPD, paroxysmal atrial fibrillation, recent admission 01/28-01/31 for afib with RVR (he was also seen by Pulmonary and ID and started on a prednisone taper and Doxycycline
course) presents to the ER with worsening shortness of breath, found to have acute COPD exacerbation. Symptoms improved with duonebs and decadron.
Triage VS: P 109, RR 35, BP 136/63, SpO2 98%
LABS: WBC 7.2, Hg 10.8, PLT 234, INR 4.30, Na 141, K+ 4.6, Cl 101, BUN 17, Cr 0.6, Glucose 118, liver enzymes WNL, Trop < 0.012, BNP 361
EKG with sinus tachycardia
CXR
IMPRESSION:
No acute cardiopulmonary process.
MAR: IV Decadron, Duonebs
COPD, Acute Exacerbation
-hx Pseudomonas, Klebsiella PNA; CXR without acute disease and patient denies increased sputum production, will hold on additional antibiotics for now
-test covid
-admit to telemetry
-IV Decadron
-[employer] Trelegy
-standing levalbuterol given tachycardia
-Pulmonary consult
Chest pain
-Trop negative, likely related to bronchospasm or muscle spasm from work of breathing
-repeat trop in AM
Paroxysmal Atrial Fibrillation
Supratherapeutic INR
-[employer] Diltiazem
-hold [employer] [place] Coumadin
-daily INR
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
-[employer] [place] [employer] Azithromycin, Ethambutol, Rifabutin (patient took all evening medications)
HIV
-controlled on ARV treatment Emtricitabine/Tenofovir/Tivicay
-follows with [facility]
History of peripheral vascular disease
History of coronary disease s/p bypass
Left foot drop
Essential hypertension
History of right inguinal hernia repair
DVT PPx: supratherapeutic INR
DNR - lengthy discussion had on admission. Patient would not want to be intubated. Decision made with family at bedside.
76 minutes spent on patient evaluation, medical decision making, coordination of care
[2024-02-26] VITALS (7 sets, daily range): BP systolic 102–124; BP diastolic 48–70; PULSE 77; BMI 17.7
[2024-02-26 01:19] LABS: COVID-19 Antigen Negative (Negative)
[2024-02-26] MEDS: XOPENEX 1.25 MG INHALANT SOLUTION INH ×2 (02:44→14:12)
--- NOTE | 2024-02-26 03:07 | W.PN.UPDATE ---
Update Note
Progress Note Update
pt admitted with exac of copd
Tele with afib rvr rates 110-130. Pt with hx pafib on cardizem po
Similar episode last admit and cardizem po was increased to 360mg for a short time. He did take his 180mg yesterday. Will give another 180mg now.
[2024-02-26] MEDS: CARDIZEM CD 180 MG PO ×2 (03:09→07:48)
--- NOTE | 2024-02-26 03:30 | PTCARENOTE ---
EKG ordered, showing AFib w/ RVR HR 100s-130s. Pt SOB d/t COPD exacerbation, RT asked to give Xopenex. [employer] notified about HR/rhythm, Cardizem 180mg PO ordered and given (see MAR). Pt 96% on 2L. Plan of care ongoing.
[2024-02-26 05:53] LABS: INR 4.53; PT 43.8 Sec (11.4-14.6)
[2024-02-26 06:11] LABS: Troponin I < 0.012 ng/ml
[2024-02-26 06:58] LABS: % Basophils 0.2 % (0-2); % Immature Granulocytes 1.2 % (0-0.5); % Lymphocytes 5.3 % (20.5-51.1); % Neutrophils 90.3 % (42.2-75.2); Absolute Immature Granulocytes 0.1 10^3/uL (0-0.05); Absolute Lymphocytes 0.4 10^3/uL (1.2-3.4); Absolute Monocytes 0.2 10^3/uL (0.1-0.6); Hematocrit 32.3 % (39.0-52.0); Hemoglobin 10.5 g/dL (13.0-18.0); Mean Corp Hgb Conc. 32.5 g/dL (33.0-37.0); Mean Corpuscular Hgb 26.4 pg (27.0-31.0); Mean Corpuscular Volume 81.2 fL (80.0-94.0); Mean Platelet Volume 12.8 fL (7.4-10.4); Nucleated Red Blood Cells % 0 % (-); Platelet Count 190 10^3/uL (130-400); Red Blood Cell Count 3.98 10^6/uL (4.70-6.10); Red Cell Dist. Width 17.5 % (11.5-14.5); White Blood Cell Count 6.6 10^3/uL (4.8-10.8)
[2024-02-26 07:21] LABS: Blood Urea Nitrogen 14 mg/dl (9-20); Calcium 8.6 mg/dl (8.4-10.2); Carbon Dioxide 33 mmol/L (22-30); Chloride 102 mmol/L (98-107); Estimated Creatinine Clearance 87 ml/min; Glucose 190 mg/dl (70-99); Potassium 4.7 mmol/L (3.5-5.1); Sodium 138 mmol/L (135-145); eGFR > 60.00
[2024-02-26] MEDS: DECADRON 4 MG IV ×2 (07:48→15:32)
[2024-02-26] MEDS: ASPIR LOW (ENTERIC COATED) 81 MG PO (07:48)
[2024-02-26] MEDS: CRESTOR 20 MG PO (07:48)
[2024-02-26] MEDS: PROTONIX 40 MG PO (07:48)
[2024-02-26] MEDS: ZITHROMAX 250 MG PO (07:48)
[2024-02-26] MEDS: ZETIA 10 MG PO (07:48)
[2024-02-26] MEDS: TIVICAY 50 MG PO ×2 (07:49→22:17)
[2024-02-26] MEDS: MYAMBUTOL 400 MG PO ×2 (07:50→20:45)
[2024-02-26] MEDS: TRUVADA TABLET 1 TABLET PO (07:50)
[2024-02-26] MEDS: SYMBICORT 80/4.5 MCG INHALER 2 PUFF INH ×2 (08:13→19:54)
[2024-02-26] MEDS: XOPENEX 0.63 MG INHALANT SOLUTION INH ×3 (08:13→19:53)
--- NOTE | 2024-02-26 08:30 | VNURNOTE ---
Chart reviewed. Patient is current with VN nurses. Will continue to monitor hospital course for DC planning.
--- NOTE | 2024-02-26 09:29 | W.PN.HOSP.TC ---
Today's Communication/Plan
-
Pulmonary consult
CPAP at bedtime
Acapella, I-S
Ambulate
Assessment / Plan
Assessment / Plan
Gen-AAOx3, NAD
HEENT-NC, AT, anicteric, clear oral mm
Neck-supple
CV-reg, no M, +S1/S2
Lungs-decreased breath sounds bilaterally, no audible wheezes
Abd-soft, NT, ND
Ext-no edema
Musculoskeletal-no cyanosis, clubbing
Skin-warm and dry
Neuro-grossly non-focal
Psych-calm, cooperative
Acute on chronic hypoxic respiratory failure -presumed acute COPD exacerbation. Chest x-ray clear. Baseline uses 2 L of nasal cannula oxygen continuously at home. Currently on 2 L nasal cannula oxygen.
Patient states he was recently started on nightly CPAP about [address] Mujcia.
Acute COPD exacerbation -symptoms improving. Continue Decadron IV, inhalers. Pulmonary consulted. Add Acapella, I-S.
Oxygen dependent COPD, uses 2 L nasal cannula oxygen continuously at home. Steroid-dependent as well, baseline uses 5 mg prednisone daily.
Atypical chest pain -suspect due to COPD exacerbation, bronchospasm. Troponins negative. Monitor for now. Chest pain resolved.
Cavitary AVINASH -continue chronic antibiotic therapy.
Paroxysmal atrial fibrillation -warfarin on hold for elevated INR, 4.53 today. Followed by Coumadin clinic, Dr. Yip's office. Last dose of warfarin was yesterday. Suspect drug interaction versus excess warfarin dose explaining the elevated INR.
Patient states recently his warfarin dose was increased 1 week ago to 5.5 mg Friday and 5 mg all other days.
Rapid rates noted overnight. Given extra dose of Cardizem 180 mg by covering HELP DESK REP.
HIV -continue HAART.
Chronic normocytic anemia -hemoglobin at baseline. Monitor for now.
CAD/CABG -stable.
PAD
Essential hypertension
Impaired fasting glucose -glucose 190 this morning. Suspect steroid-induced hyperglycemia contributing. Patient denies history of diabetes. Hemoglobin A1c 6.3% in August this year.
Hyperlipidemia -on rosuvastatin.
Chronic left foot drop
DNR
Anticipated Discharge: Within 24 hours
Subjective/Interval History
-
Date of Service: February 26, 2024
Patient seen and examined. Overall feeling better today. Denies shortness of breath. Has not gotten out of bed so far today. Minimal cough.
Objective Data
-
Labs:
Laboratory Results
02/25/24 02/26/24
21:58 05:17
WBC 7.2 6.6
Hgb 10.8 L 10.5 L
Hct 33.6 L 32.3 L
Plt Count 234 190
PT 42.0 H 43.8 H
INR 4.30 4.53
Sodium 141 138
Potassium 4.6 4.7
Chloride 101 102
Carbon Dioxide 33 H 33 H
BUN 17 14
Creatinine 0.6 L 0.6 L
Glucose 118 H 190 H
Calcium 8.6 8.6
Total Bilirubin 0.3
AST 30
ALT 17
Alkaline Phosphatase 83
Vital Signs:
Vital Signs
Temp Pulse Resp BP Pulse Ox
97.6 F 90 16 110/60 97
02/26/24 07:00 02/26/24 08:18 02/26/24 08:18 02/26/24 07:48 02/26/24 08:18
I&O
02/25/24 02/26/24 02/27/24
06:59 06:59 06:59
Intake Total 240 / 240
Output Total 700 / 700
Balance -460 / -460
Review of Systems
-
History Source: Patient
All other systems: Reviewed and negative
--- NOTE | 2024-02-26 10:11 | CON.PUL ---
Consultation
Consultation Request
Date/Time Consultation Requested: 02/26/2024-8 AM
Date/Time Consultation Performed: 02/26/2024-8:30 AM
Requesting Provider: Hospitalist
Performing Provider: Dr. Apple
Reason for Consultation: COPD exacerbation
Medical History
-
Chief Complaint: shortness of breath
History of Present Illness:
78-year-old male former smoker with underlying COPD, HIV, cavitary AVINASH on therapy with recurrent hospitalizations including recent admission January 2024 for atrial fibrillation and presented with increasing shortness of breath and COPD
exacerbation-pulmonary was consulted for COPD exacerbation 02/26/2024. He feels much improved today over the left last 24 hours. He has less shortness of breath,. He still has significant dyspnea exertion but denies any chest pain, chest
tightness, productive cough, mopped assist, anorexia, further unintentional weight loss, abdominal pain, nausea, weakness or lower extremity swelling.
Past Medical History
Past Medical History: None (COPD. Right apical leg/cavitary disease/bullous emphysema. AVINASH. Chronic cough. Pulmonary nodules. Atrial fibrillation on warfarin. HIV. PAD. Spinal stenosis. Chronic back pain. CAD/CABG. Left foot drop. Spinal
stenosis. Hypertension.)
Past Surgical History: None (Cataract. Right knee surgery. Polyp removal. Right inguinal hernia repair. Thoracentesis 2019. EGD Food impaction.)
Social History
Tobacco: Former Smoker
Alcohol: None
Drug: None
Living: With Family
Occupational Exposures: No known asbestos exposure
Family History
Family History: Reviewed & Not Pertinent
Allergies / Home Medications
Allergies
Allergy/AdvReac Type Severity Reaction Status Date / Time
No Known Allergies Allergy Verified 02/25/24 21:33
Home Medications
�Medication �Instructions �Recorded �Confirmed �Last Taken �Type
dolutegravir 50 mg tablet (Tivicay) 50 mg PO DAILY HIV 12/19/21 02/25/24 02/25/24 History
ethambutol 400 mg tablet 400 mg PO BID mycobacterium avium 06/15/22 08/21/24 08/21/24 History
ezetimibe 10 mg tablet 10 mg PO DAILY High cholesterol 12/19/21 02/25/24 02/25/24 History
emtricitabine 200 mg-tenofovir 1 tab PO DAILY HIV 11/11/22 02/25/24 02/25/24 History
disoproxil fumarate 300 mg tablet
pantoprazole 40 mg tablet,delayed 40 mg PO DAILY #30 tabs 11/13/22 02/25/24 02/25/24 Rx
release
albuterol sulfate 90 mcg/actuation 2 puff inhalation R Q4HPRN PRN sob 06/20/23 02/25/24 Unknown History
aerosol inhaler
aspirin 81 mg tablet,delayed 81 mg PO DAILY Blood Clot 06/20/23 02/25/24 02/25/24 History
release Prevention/Tx
fluticasone fur. 100 mcg-umeclid 1 inh inhalation R DAILY 06/20/23 02/25/24 02/25/24 History
62.5 mcg-vilant 25 mcg Lung/Breathing Issues
inhalat.powder (Trelegy Ellipta)
rifabutin 150 mg capsule 150 mg PO BID mycobacterium avium 06/20/23 02/25/24 02/25/24 History
therapeutic multivitamin 1 tab PO DAILY Supplement 06/20/23 02/25/24 02/25/24 History
levalbuterol HCl 1.25 mg/3 mL 1.25 mg inhalation R QIDPRN PRN 01/28/24 02/25/24 Unknown History
solution for nebulization Lung/Breathing Issues
rosuvastatin 20 mg tablet 20 mg PO DAILY High Cholesterol 01/28/24 02/25/24 02/25/24 History
warfarin 1 mg tablet 0.5 mg PO MOWEFR Blood Clot 01/28/24 02/25/24 02/25/24 History
Prevention/Tx
warfarin 5 mg tablet 5 mg PO QPM Blood Clot 01/28/24 02/25/24 02/25/24 History
Prevention/Tx
azithromycin 250 mg tablet 250 mg PO DAILY COPD prophylaxis 02/01/24 02/25/24 02/25/24 History
diltiazem HCl 180 mg 180 mg PO DAILY #30 caps 02/01/24 02/25/24 02/25/24 Rx
capsule,extended release 24 hr
prednisone 10 mg tablet 5 mg PO DAILY Anti-Inflammatory 02/25/24 02/25/24 02/25/24 History
Review of Systems
-
Unable to Obtain full review of systems at this time due to: Other (Per HPI)
Vitals / Labs / Diagnostic Testing
Vital Signs
Temp Pulse Resp BP Pulse Ox
97.6 F 90 16 110/60 97
02/26/24 07:00 02/26/24 08:18 02/26/24 08:18 02/26/24 07:48 02/26/24 08:18
Lab Data
02/26/24 05:17
02/26/24 05:17
Laboratory Results
02/25/24 02/26/24
21:58 05:17
PT 42.0 H 43.8 H
INR 4.30 4.53
Diagnostic Testing:
Physical Exam
-
Exam:
Well-nourished and well-developed in no apparent distress
HEENT-atraumatic, normocephalic
Neck-supple, no JVD, no bruit
Heart-regular rate and rhythm-no murmurs, rubs or gallops
Chest with diminished breath sounds, prolonged expiratory time, hyperinflation, forced end expiratory wheezes and no crackles
Abdomen-soft, nontender, nondistended, no hepatosplenomegaly
Extremities-no cyanosis, clubbing, edema and good peripheral pulses
Integument-intact, no rashes, lesions or ecchymosis
Neurology-alert and oriented, nonfocal motor and sensory exam
Assessment
-
78-year-old male former smoker with underlying COPD, HIV, cavitary AVINASH on therapy with recurrent hospitalizations including recent admission January 2024 for atrial fibrillation and presented with increasing shortness of breath and COPD
exacerbation-pulmonary was consulted for COPD exacerbation 02/26/2024.
COPD with acute exacerbation, mild
History of recent rapid atrial fibrillation
Leukocytosis
Mild anemia
Hyperglycemia
Conditions present prior to admission:
COPD on chronic oxygen 2 L.
Last AECOPD hospitalization 09/2023
Followed by [facility]
Right apical bleb/cavitary disease/bullous emphysema
History of mycobacterial disease-AVINASH
Follows ID-Dr. Castillo at [facility] and Dr. Fan locally
Chronic cough
Pulmonary nodules
Atrial fibrillation-
Follows Dr. Jhonatan Yip
On Chronic warfarin
HIV.
PAD.
Spinal stenosis.
Chronic back pain.
Coronary artery disease/CABG.
L foot drop.
Spinal stenosis
Hypertension.
Cataract.
Right knee surgery.
Colonoscopy/polyp removal.
R inguinal hernia repair.
Effusion s/p Thoracentesis 04/03/19
EGD Food impaction
Plan
Respiratory status has declined due to mild COPD exacerbation
Supplemental oxygen as needed
Prior ABGs suggest chronic hypercapnia
BiPAP at night
Mucolytic's
Incentive spirometry/Acapella
Decadron with fairly rapid conversion to prednisone 40 mg with slow taper
Symbicort continues
Spiriva
Nebulizers as needed
Monitor atrial fibrillation
Monitor rate
Rate control with Cardizem
Anticoagulation-Coumadin on hold due to elevated INR
Recent cultures reviewed--History of AVINASH/pseudomonas
+ kleb on last sputum in 09/2023
Antimycobacterial antibiotics continue as well as azithromycin 250 mg daily, rifabutin, ethambutol
Follows locally with infectious disease as well as [facility]
Monitor leukocytosis
CXR without infiltrate but can repeat sputum if patient is productive
Smoking cessation counseling-reportedly quit 1 year ago
DVT prophylaxis -on warfarin.
GI prophylaxis-on pantoprazole
Nutrition especially in light of protein calorie malnutrition and cachexia
Early mobilization/PT consulted
Reviewed with nursing and primary team
Outpatient pulmonary follow-up recommended, Dr. Mujica
Diagnostic data:
CXR 01/29/24- Stable radiographic appearance of the chest including chronic obstructive pulmonary disease, and chronic scarring and cavitary/bullous changes in the right upper lobe.
Chest x-ray 06/20/2023-stable pleural-parenchymal scarring right upper lobe and 8 cm right apical bleb
Chest x-ray 09/08/2023-right upper lobe scarring
CT chest low-dose 12/05/2022-extensive emphysematous changes, small bilateral pulmonary nodules overall slightly decreased in size
Echocardiogram 11/12/2022-EF 60%, no mitral stenosis, trace mitral regurgitation, no change since 2021
PFT 09/29/2020-FEV1 960 mL - 31%, FVC 3.25-75%, TLC 92%, RV 113%, DLCO 26%, DLCO/VA 32%
Data Reviewed
-
PFT: Report reviewed by me
EKG: Report reviewed by me
Radiology: Image personally visualized and interpreted and Report reviewed by me
CT Scan: Image personally visualized and interpreted and Report reviewed by me
Medical Tests (Nuc Med, Echo etc): Report reviewed by me
Labs: Labs reviewed by me
Old Records: Reviewed
Total Time Spent with Patient (in minutes): 55
--- NOTE | 2024-02-26 12:51 | PTCARENOTE ---
pt ambulated from bed to doorway with one person assist. pt become sob and hot returned to bed. pt shortly able to return to baseline breathing.
[2024-02-26] MEDS: NON-FORMULARY ITEM 150 MG PO ×2 (13:36→20:45)
--- NOTE | 2024-02-26 14:42 | CM ---
Met with pt at bedside
Pt reports he lives is a 2 story home with a room mate, his son and daughter in law, 3 steps to enter, chair lift to 2nd fl. Has FF set-up, goes to 2nd fl for shower. Daughter in law does cooking, cleaning, assists as needed. Performs ADL's on own.
Ambulates without assist. No longer drives.
DME - chair lift, oxygen - 2L at baseline,[employer], Nebulizer, CPAP - 4hrs/day thru [employer]
SNF - denies past hx
HH - Current with [facility]
Has ride at discharge
PCP - Dr Colton Farah
Pharm - [facility]
CM will follow for d/c needs
Plan - anticipate home with [facility] when medically ready
[2024-02-27] VITALS (8 sets, daily range): BP systolic 120–137; BP diastolic 61–67; PULSE 65–90; O2SAT 97
[2024-02-27] MEDS: DECADRON 4 MG IV ×2 (00:16→08:03)
[2024-02-27 07:13] LABS: INR 4.94; PT 46.9 Sec (11.4-14.6)
[2024-02-27] MEDS: XOPENEX 0.63 MG INHALANT SOLUTION INH ×3 (07:27→19:46)
[2024-02-27] MEDS: SYMBICORT 80/4.5 MCG INHALER 2 PUFF INH ×2 (07:28→19:33)
[2024-02-27] MEDS: PROTONIX 40 MG PO (08:02)
[2024-02-27] MEDS: ZITHROMAX 250 MG PO (08:02)
[2024-02-27] MEDS: CARDIZEM CD 180 MG PO (08:03)
[2024-02-27] MEDS: ASPIR LOW (ENTERIC COATED) 81 MG PO (08:03)
[2024-02-27] MEDS: MYAMBUTOL 400 MG PO ×2 (08:03→20:54)
[2024-02-27] MEDS: CRESTOR 20 MG PO (08:03)
[2024-02-27] MEDS: ZETIA 10 MG PO (08:05)
[2024-02-27] MEDS: NON-FORMULARY ITEM 150 MG PO ×2 (08:52→20:54)
[2024-02-27] MEDS: TIVICAY 50 MG PO ×2 (08:52→20:54)
[2024-02-27] MEDS: TRUVADA TABLET 1 TABLET PO (09:23)
--- NOTE | 2024-02-27 09:45 | VNURNOTE ---
Chart reviewed. Spoke with patient over the phone. He confirms he would like to resume [facility] services upon DC. Resumption referral in [facility].
--- NOTE | 2024-02-27 09:54 | W.PN.PUL.V3 ---
Today's Communication / Plan
-
Continue antibiotics
Decadron with change to prednisone 40 mg
Continue nebulizers
PT/OT-unsteady with ambulation
Assessment
-
78-year-old male former smoker with underlying COPD, HIV, cavitary AVINASH on therapy with recurrent hospitalizations including recent admission January 2024 for atrial fibrillation and presented with increasing shortness of breath and COPD
exacerbation-pulmonary was consulted for COPD exacerbation 02/26/2024.
COPD with acute exacerbation, mild
History of recent rapid atrial fibrillation
Leukocytosis
Mild anemia
Hyperglycemia
Conditions present prior to admission:
COPD on chronic oxygen 2 L.
Last AECOPD hospitalization 09/2023
Followed by [facility]
Right apical bleb/cavitary disease/bullous emphysema
History of mycobacterial disease-AVINASH
Follows ID-Dr. Castillo at [facility] and Dr. Fan locally
Chronic cough
Pulmonary nodules
Atrial fibrillation-
Follows Dr. Jhonatan Yip
On Chronic warfarin
HIV.
PAD.
Spinal stenosis.
Chronic back pain.
Coronary artery disease/CABG.
L foot drop.
Spinal stenosis
Hypertension.
Cataract.
Right knee surgery.
Colonoscopy/polyp removal.
R inguinal hernia repair.
Effusion s/p Thoracentesis 04/03/19
EGD Food impaction
Plan
Respiratory status has declined due to mild to moderate COPD exacerbation
Supplemental oxygen as needed
Prior ABGs suggest chronic hypercapnia
BiPAP at night
Mucolytic's
Incentive spirometry/Acapella
Decadron with fairly rapid conversion to prednisone 40 mg with slow taper
Symbicort continues
Spiriva
Nebulizers as needed
Monitor atrial fibrillation
Monitor rate
Rate control with Cardizem
Anticoagulation-Coumadin on hold due to elevated INR
Recent cultures reviewed--History of AVINASH/pseudomonas
Also + kleb on last sputum in 09/2023
Antimycobacterial antibiotics continue as well as azithromycin 250 mg daily, rifabutin, ethambutol
Follows locally with infectious disease as well as [facility]
Monitor leukocytosis
CXR without infiltrate but can repeat sputum if patient is productive
Smoking cessation counseling-reportedly quit 1 year ago
DVT prophylaxis -on warfarin.
GI prophylaxis-on pantoprazole
Nutrition especially in light of protein calorie malnutrition and cachexia
Early mobilization
PT/OT consult-unsteady with ambulation
Reviewed with nursing and primary team
Outpatient pulmonary follow-up recommended, Dr. Mujica
Diagnostic data:
CXR 01/29/24- Stable radiographic appearance of the chest including chronic obstructive pulmonary disease, and chronic scarring and cavitary/bullous changes in the right upper lobe.
Chest x-ray 06/20/2023-stable pleural-parenchymal scarring right upper lobe and 8 cm right apical bleb
Chest x-ray 09/08/2023-right upper lobe scarring
CT chest low-dose 12/05/2022-extensive emphysematous changes, small bilateral pulmonary nodules overall slightly decreased in size
Echocardiogram 11/12/2022-EF 60%, no mitral stenosis, trace mitral regurgitation, no change since 2021
PFT 09/29/2020-FEV1 960 mL - 31%, FVC 3.25-75%, TLC 92%, RV 113%, DLCO 26%, DLCO/VA 32%
Subjective Data
-
Date of Service:
Date of Service: February 27, 2024
Chief Complaint: Pulmonary Follow Up and Dyspnea Follow Up
Subjective:
Feels better, still has some dyspnea on exertion, nonproductive cough, no chest pain or abdominal pain
Review of Systems
General: Other (Per HPI)
Objective Data
Data Reviewed
Vital Signs / I&O:
Vital Signs
Temp Pulse Resp BP Pulse Ox
97.9 F 73 18 124/61 97
02/27/24 07:56 02/27/24 07:56 02/27/24 07:56 02/27/24 07:56 02/27/24 07:56
Intake and Output
02/26/24 02/27/24 02/28/24
06:59 06:59 06:59
Intake Total 240 / 240 480 / 480
Output Total 700 / 700 560 / 560
Balance -460 / -460 -80 / -80
SaO2: 97
Nasal Cannula flow liters per minute: 2
Physical Exam
General: Respiratory Distress (n) and Comfortable
HEENT: Normocephalic, Anicteric, Moist Mucous Membranes and Other (Mild temporal wasting)
Cardiovascular: Irregular Rhythm
Respiratory: Wheeze (Diffuse expiratory), Crackles (Rare basilar), Rhonchi (n), Non-Labored Respirations, Accessory Resp Muscle Use (n) and Stridor (n)
GI: Soft, Non Distended and Non Tender
Neurology: Awake, Alert and No Motor Deficits
Skin: Warm, Good Color, Cyanosis (n), Jaundice (n) and Rash (n)
Labs/Micro/Reports
Lab Data
02/26/24 05:17
02/26/24 05:17
Laboratory Results
02/27/24
06:50
PT 46.9 H
INR 4.94
[2024-02-27] MEDS: DELTASONE 40 MG PO (12:04)
--- NOTE | 2024-02-27 12:13 | W.PN.HOSP.TC ---
Today's Communication/Plan
-
PT/OT
Oral vitamin K
Labs in the morning
Assessment / Plan
Assessment / Plan
Gen-AAOx3, NAD
HEENT-NC, AT, anicteric, clear oral mm
Neck-supple
CV-reg, no M, +S1/S2
Lungs-bilateral expiratory wheezing
Abd-soft, NT, ND
Ext-no edema
Musculoskeletal-no cyanosis, clubbing
Skin-warm and dry
Neuro-grossly non-focal
Psych-calm, cooperative
Acute on chronic hypoxic respiratory failure - presumed acute COPD exacerbation. Chest x-ray clear. Baseline uses 2 L of nasal cannula oxygen continuously at home. Currently on 2 L nasal cannula oxygen.
Patient states he was recently started on nightly CPAP about [address] Mujica.
Acute COPD exacerbation -still with significant shortness of breath, wheezing on exam. Steroids changed to prednisone by pulmonary. Continue inhalers.
Oxygen dependent COPD, uses 2 L nasal cannula oxygen continuously at home. Steroid-dependent as well, baseline uses 5 mg prednisone daily.
Atypical chest pain -suspect due to COPD exacerbation, bronchospasm. Troponins negative. Monitor for now. Chest pain resolved.
Cavitary AVINASH -continue chronic antibiotic therapy.
Paroxysmal atrial fibrillation -warfarin on hold for elevated INR, 4.94 today. Given rising INR we will give a low dose of oral vitamin K today.
Followed by Coumadin clinic, Dr. Yip's office. Last dose of warfarin was yesterday. Suspect drug interaction versus excess warfarin dose explaining the elevated INR. Patient states recently his warfarin dose was increased 1 week ago to 5.5 mg
Friday and 5 mg all other days.
Rates are controlled on current dose of Cardizem.
HIV -continue HAART.
Chronic normocytic anemia -hemoglobin at baseline. Monitor for now.
CAD/CABG -stable.
PAD
Essential hypertension
Impaired fasting glucose - Suspect steroid-induced hyperglycemia contributing. Patient denies history of diabetes. Hemoglobin A1c 6.3% in August this year.
Hyperlipidemia -on rosuvastatin.
Chronic left foot drop
DNR
PT/OT
Anticipated Discharge: 24 - 48 hours
Subjective/Interval History
-
Date of Service: February 27, 2024
Patient seen and examined. Still complaining of shortness of breath, dyspnea on exertion. Wheezing.
Objective Data
-
Labs:
Laboratory Results
02/27/24
06:50
PT 46.9 H
INR 4.94
Vital Signs:
Vital Signs
Temp Pulse Resp BP Pulse Ox
97.7 F 93 19 130/64 95
02/27/24 11:16 02/27/24 11:16 02/27/24 11:16 02/27/24 11:16 02/27/24 11:16
I&O
02/26/24 02/27/24 02/28/24
06:59 06:59 06:59
Intake Total 240 / 240 480 / 480
Output Total 700 / 700 560 / 560
Balance -460 / -460 -80 / -80
Review of Systems
-
History Source: Patient
All other systems: Reviewed and negative
--- NOTE | 2024-02-27 12:36 | CM ---
education and development manager following for discharge planning
Chart reviewed, spoke with pt
PT recs - HH
Requesting [facility] with [facility]
Liaison aware
Plan - anticipate home with [facility]
[2024-02-27] MEDS: MEPHYTON 2.5 MG PO (14:21)
[2024-02-27] MEDS: XOPENEX 1.25 MG INHALANT SOLUTION INH (19:33)
[2024-02-28 03:00] VITALS: BP 125/64
[2024-02-28] MEDS: XOPENEX 0.63 MG INHALANT SOLUTION INH (07:04)
[2024-02-28] MEDS: SYMBICORT 80/4.5 MCG INHALER 2 PUFF INH (07:04)
[2024-02-28 07:24] LABS: PT 19.3 Sec (11.4-14.6)
[2024-02-28 07:31] LABS: INR 1.64
[2024-02-28 07:49] VITALS: BP 138/59
[2024-02-28] MEDS: CRESTOR 20 MG PO (08:25)
[2024-02-28] MEDS: CARDIZEM CD 180 MG PO (08:25)
[2024-02-28] MEDS: DELTASONE 40 MG PO (08:25)
[2024-02-28] MEDS: PROTONIX 40 MG PO (08:25)
[2024-02-28] MEDS: ZITHROMAX 250 MG PO (08:26)
[2024-02-28] MEDS: MYAMBUTOL 400 MG PO (08:26)
[2024-02-28] MEDS: ASPIR LOW (ENTERIC COATED) 81 MG PO (08:26)
[2024-02-28] MEDS: NON-FORMULARY ITEM 150 MG PO (08:26)
[2024-02-28] MEDS: ZETIA 10 MG PO (08:27)
[2024-02-28] MEDS: TIVICAY 50 MG PO (09:09)
--- NOTE | 2024-02-28 09:15 | W.PN.HOSP.TC ---
Today's Communication/Plan
-
Discharge
Assessment / Plan
Assessment / Plan
Gen-AAOx3, NAD
HEENT-NC, AT, anicteric, clear oral mm
Neck-supple
CV-reg, no M, +S1/S2
Lungs-bilateral expiratory wheezing, improved
Abd-soft, NT, ND
Ext-no edema
Musculoskeletal-no cyanosis, clubbing
Skin-warm and dry
Neuro-grossly non-focal
Psych-calm, cooperative
Acute on chronic hypoxic respiratory failure - presumed acute COPD exacerbation. Chest x-ray clear. Baseline uses 2 L of nasal cannula oxygen continuously at home. Currently on 2 L nasal cannula oxygen.
Patient states he was recently started on nightly CPAP about [address] Mujica.
Acute COPD exacerbation -wheezing much improved. Steroids changed to prednisone by pulmonary. Continue inhalers.
Oxygen dependent COPD, uses 2 L nasal cannula oxygen continuously at home. Steroid-dependent as well, baseline uses 5 mg prednisone daily.
Atypical chest pain -suspect due to COPD exacerbation, bronchospasm. Troponins negative. Monitor for now. Chest pain resolved.
Cavitary AVINASH -continue chronic antibiotic therapy.
Paroxysmal atrial fibrillation -warfarin on hold for elevated INR, 4.94 today. Given rising INR we will give a low dose of oral vitamin K today.
Followed by Coumadin clinic, Dr. Yip's office. Last dose of warfarin was yesterday. Suspect drug interaction versus excess warfarin dose explaining the elevated INR. Patient states recently his warfarin dose was increased 1 week ago to 5.5 mg
Friday and 5 mg all other days.
Rates are controlled on current dose of Cardizem.
HIV -continue HAART.
Chronic normocytic anemia -hemoglobin at baseline. Monitor for now.
CAD/CABG -stable.
PAD
Essential hypertension
Impaired fasting glucose - Suspect steroid-induced hyperglycemia contributing. Patient denies history of diabetes. Hemoglobin A1c 6.3% in August this year.
Hyperlipidemia -on rosuvastatin.
Chronic left foot drop
DNR
PT/OT -Home health recommended with rolling walker.
Dispo -medically stable for discharge home today with VN. Case management aware. Follow-up with PCP and pulmonary.
32-minute spent in discharge process.
Anticipated Discharge: Today
Subjective/Interval History
-
Date of Service: February 28, 2024
Patient seen and examined. Feeling better overall. No complaints.
Objective Data
-
Labs:
Laboratory Results
02/28/24
06:20
PT 19.3 H
INR 1.64 D
Vital Signs:
Vital Signs
Temp Pulse Resp BP Pulse Ox
97.6 F 86 18 138/59 97
02/28/24 07:49 02/28/24 07:49 02/28/24 07:49 02/28/24 07:49 02/28/24 07:49
I&O
02/27/24 02/28/24 02/29/24
06:59 06:59 06:59
Intake Total 480 / 480 1020 / 1020
Output Total 560 / 560 1750 / 1750
Balance -80 / -80 -730 / -730
Review of Systems
-
History Source: Patient
All other systems: Reviewed and negative
--- NOTE | 2024-02-28 09:22 | W.DS.TRANS ---
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
-
Discharge Instructions:
Sleep Apnea Risk Intermediate
Discharge Diagnosis/Procedures COPD exacerbation
Diet Regular
Activity With assistance,As tolerated
Driving Restrictions As prior to admission
Bathing Restrictions None
Blood Work INR next week
Other Services VN
Instructions:
Stand-Alone Forms:
Changes to Home Medications: No
Discharge Medications:
DC Medications w/original date entered in [facility]
dolutegravir 50 mg tablet (Tivicay) 50 mg PO BID HIV 12/19/21
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
ezetimibe 10 mg tablet 10 mg PO DAILY High cholesterol 12/19/21
emtricitabine 200 mg-tenofovir disoproxil fumarate 300 mg tablet 1 tab PO DAILY HIV 11/11/22
pantoprazole 40 mg tablet,delayed release 40 mg PO DAILY #30 tabs 11/13/22
albuterol sulfate 90 mcg/actuation aerosol inhaler 2 puff inhalation R Q4HPRN PRN sob 06/20/23
aspirin 81 mg tablet,delayed release 81 mg PO DAILY Blood Clot Prevention/Tx 06/20/23
fluticasone fur. 100 mcg-umeclid 62.5 mcg-vilant 25 mcg inhalat.powder (Trelegy Ellipta) 1 inh inhalation R DAILY Lung/Breathing Issues 06/20/23
rifabutin 150 mg capsule 150 mg PO BID mycobacterium avium 06/20/23
therapeutic multivitamin 1 tab PO DAILY Supplement 06/20/23
levalbuterol HCl 1.25 mg/3 mL solution for nebulization 1.25 mg inhalation R QIDPRN PRN Lung/Breathing Issues 01/28/24
rosuvastatin 20 mg tablet 20 mg PO DAILY High Cholesterol 01/28/24
warfarin 1 mg tablet 0.5 mg PO MOWEFR Blood Clot Prevention/Tx 01/28/24
warfarin 5 mg tablet 5 mg PO QPM Blood Clot Prevention/Tx 01/28/24
azithromycin 250 mg tablet 250 mg PO DAILY COPD prophylaxis 02/01/24
diltiazem HCl 180 mg capsule,extended release 24 hr 180 mg PO DAILY #30 caps 02/01/24
prednisone 10 mg tablet 5 mg PO DAILY Anti-Inflammatory 02/25/24
prednisone 10 mg tablet 10 mg PO DIRECTED #60 tabs 02/28/24
Home Medication Changes
Pending Results: No
[2024-02-28] MEDS: TRUVADA TABLET 1 TABLET PO (10:03)
--- NOTE | 2024-02-28 10:55 | CM ---
Received notification from attending that patient is medically cleared for discharge. Script for walker on chart. Patient has VN. Met with patient who signed IMM and confirmed that he has a ride home.
Plan: Case management will continue to follow and assist with discharge planning. Patient will return home.
[2024-02-28 11:02] VITALS: BP 116/60
--- NOTE | 2024-02-28 11:06 | W.PN.PUL3 ---
Today's Communication / Plan
-
Steroid taper
O2 with goal SpO2 88-95%
PT/OT
Inhalers with nebs
Being prepared for discharge today. Pulmonary service will now sign off. We will arrange for outpatient follow-up with our office with Dr. Mujica. Please reconsult if there are any additional questions/concerns, or if patient's respiratory
status deteriorates.
Assessment
-
78-year-old male former smoker with underlying COPD, HIV, cavitary AVINASH on therapy with recurrent hospitalizations including recent admission January 2024 for atrial fibrillation and presented with increasing shortness of breath and COPD
exacerbation-pulmonary was consulted for COPD exacerbation 02/26/2024.
Impression:
COPD with acute exacerbation, mild
History of recent rapid atrial fibrillation
Leukocytosis
Mild anemia
Hyperglycemia
Conditions present prior to admission:
COPD on chronic oxygen 2 L.
Last AECOPD hospitalization 09/2023
Followed by [facility] [place]
Right apical bleb/cavitary disease/bullous emphysema
History of mycobacterial disease-AVINASH
Follows [facility]-Dr. Castillo at [facility] and Dr. Fan locally
Chronic cough
Pulmonary nodules
Atrial fibrillation-
Follows Dr. Jhonatan Yip
On Chronic warfarin
HIV.
PAD.
Spinal stenosis.
Chronic back pain.
Coronary artery disease/CABG.
L foot drop.
Spinal stenosis
Hypertension.
Cataract.
Right knee surgery.
Colonoscopy/polyp removal.
R inguinal hernia repair.
Effusion s/p Thoracentesis 04/03/19
EGD Food impaction
Plan
Respiratory status currently stable on 2 L/min which is his home dose
Keep SpO2 88% - 95%
Prior ABGs suggest chronic hypercapnia
CPAP at night
Mucolytics
Incentive spirometry/Acapella
Decadron with fairly rapid conversion to prednisone 40 mg with slow taper
Symbicort continues
Spiriva
Nebulizers as needed
Monitor atrial fibrillation
Monitor rate with goal <110bpm
Rate control with Cardizem
Anticoagulation-Coumadin on hold due to elevated INR --> INR now 1.64, ok to resume coumadin
Recent cultures reviewed--History of AVINASH/pseudomonas
Also + kleb on last sputum in 09/2023
Antimycobacterial antibiotics continue as well as azithromycin 250 mg daily, rifabutin, ethambutol
Follows locally with infectious disease as well as [facility]
Monitor leukocytosis
CXR without infiltrate but can repeat sputum if patient is productive
Smoking cessation counseling-reportedly quit 1 year ago
DVT prophylaxis -resume coumadin
GI prophylaxis-on pantoprazole
Nutrition especially in light of protein calorie malnutrition and cachexia
Early mobilization
PT/OT consult-unsteady with ambulation
Reviewed with nursing and primary team
Outpatient pulmonary follow-up recommended, Dr. Mujica
Patient being prepared for discharge home today. Pulmonary service will now sign off. Thank you for allowing us to be involved in the care of this patient. Please reconsult if there are any additional questions/concerns, or if patient's
respiratory status deteriorates.
Total time spent today was 35 minutes for this encounter. Time includes reviewing laboratory test/imaging results, reviewing pertinent medical records, obtaining and reviewing medical history, performing an appropriate exam, ordering medications,
tests and procedures. Time also includes documentation of this encounter, coordinating patient care and communicating with other healthcare professionals. Total time does not include separately billed tests performed on this date of service.
Diagnostic data:
CXR 01/29/24- Stable radiographic appearance of the chest including chronic obstructive pulmonary disease, and chronic scarring and cavitary/bullous changes in the right upper lobe.
Chest x-ray 06/20/2023-stable pleural-parenchymal scarring right upper lobe and 8 cm right apical bleb
Chest x-ray 09/08/2023-right upper lobe scarring
CT chest low-dose 12/05/2022-extensive emphysematous changes, small bilateral pulmonary nodules overall slightly decreased in size
Echocardiogram 11/12/2022-EF 60%, no mitral stenosis, trace mitral regurgitation, no change since 2021
PFT 09/29/2020-FEV1 960 mL - 31%, FVC 3.25-75%, TLC 92%, RV 113%, DLCO 26%, DLCO/VA 32%
Subjective Data
-
Date of Service:
Date of Service: February 28, 2024
Chief Complaint: Pulmonary Follow Up and Dyspnea Follow Up
Subjective:
Patient seen and evaluated today at bedside. Wore CPAP overnight at 7 cmH2O, bled with 2 L/min. Feels good today, no shortness of breath, chest pain, fevers or chills. Being prepared for discharge today.
Review of Systems
General: Other (Negative unless mentioned above)
Objective Data
Data Reviewed
Vital Signs / I&O / Oxygen:
Vital Signs
Temp Pulse Resp BP Pulse Ox
97.7 F 92 19 116/60 97
02/28/24 11:02 02/28/24 11:02 02/28/24 11:02 02/28/24 11:02 02/28/24 11:02
Intake and Output
02/27/24 02/28/24 02/29/24
06:59 06:59 06:59
Intake Total 480 / 480 1020 / 1020
Output Total 560 / 560 1750 / 1750 300 / 300
Balance -80 / -80 -730 / -730 -300 / -300
SaO2 97
Nasal Cannula flow liters per 2
minute
Physical Exam
General: Respiratory Distress (n) and Comfortable
HEENT: Normocephalic, Anicteric, Moist Mucous Membranes and Other (Mild temporal wasting)
Cardiovascular: Irregular Rhythm
Respiratory: Wheeze (Faint expiratory wheezing heard bilaterally), Crackles (Rare basilar), Rhonchi (n), Non-Labored Respirations, Accessory Resp Muscle Use (n) and Stridor (n)
GI: Soft, Non Distended and Non Tender
Neurology: Awake, Alert and No Motor Deficits
Skin: Warm, Good Color, Cyanosis (n), Jaundice (n) and Rash (n)
Labs/Micro/Reports
Lab Data
02/26/24 05:17
02/26/24 05:17
Laboratory Results
02/28/24
06:20
PT 19.3 H
INR 1.64 D
[2024-02-28 12:56] LABS: Glycohemoglobin (HgbA1c) 5.8 % (4.0-5.6)
== END 2024-02-28 13:55 | disposition home health service (06) | DRG 190 ==
LOC: 3 WEST ACU 01:58
PROVIDERS: ADMITTING PHYSICIAN Student in an Organized Health Care Education/Training Program; ATTENDING PHYSICIAN Hospitalist; EMERGENCY PHYSICIAN Emergency Medicine; FAMILY PHYSICIAN Family Medicine; OTHER PHYSICIAN Internal Medicine Critical Care Medicine
DX: J44.1 Chronic obstructive pulmonary disease with (acute) exacerbation (principal); J96.21 Acute and chronic respiratory failure with hypoxia; E46 Unspecified protein-calorie malnutrition; R64 Cachexia; B20 Human immunodeficiency virus [HIV] disease; Z68.1 Body mass index [BMI] 19.9 or less, adult; E11.51 Type 2 diabetes mellitus with diabetic peripheral angiopathy without gangrene; I10 Essential (primary) hypertension; E11.65 Type 2 diabetes mellitus with hyperglycemia; Z66 Do not resuscitate; D64.9 Anemia, unspecified; J43.9 Emphysema, unspecified; Z99.81 Dependence on supplemental oxygen; I48.0 Paroxysmal atrial fibrillation; R79.1 Abnormal coagulation profile; E78.00 Pure hypercholesterolemia, unspecified; I25.10 Atherosclerotic heart disease of native coronary artery without angina pectoris; Z95.1 Presence of aortocoronary bypass graft; M21.372 Foot drop, left foot; G89.29 Other chronic pain; M54.9 Dorsalgia, unspecified; M48.00 Spinal stenosis, site unspecified; R07.89 Other chest pain; Z79.01 Long term (current) use of anticoagulants; Z79.82 Long term (current) use of aspirin; Z79.899 Other long term (current) drug therapy; Z87.01 Personal history of pneumonia (recurrent); Z86.19 Personal history of other infectious and parasitic diseases; Z87.19 Personal history of other diseases of the digestive system; Z87.891 Personal history of nicotine dependence
CPT/HCPCS: 71045; 80048; 80053; 83036; 83880; 84484; 85025; 85610; 87811; 93005; 94640; 94660; 96374; 97162; 99285

== ENCOUNTER → 2024-03-03 10:58 | Outpatient (REF) | payer MEDICARE, SELFPAY ==
[2024-03-03 12:30] LABS: INR 2.25; PT 25.1 Sec (11.4-14.6)
== END ==
LOC: REG 10:58
PROVIDERS: ATTENDING PHYSICIAN Internal Medicine Cardiovascular Disease; FAMILY PHYSICIAN Family Medicine
DX: I48.91 Unspecified atrial fibrillation (principal); Z79.01 Long term (current) use of anticoagulants
CPT/HCPCS: 36415; 85610

== ENCOUNTER → 2024-03-11 10:24 | Outpatient (REF) | payer MEDICARE, SELFPAY ==
[2024-03-11 12:20] LABS: INR 2.94; PT 31.1 Sec (11.4-14.6)
== END ==
LOC: REG 10:24
PROVIDERS: ATTENDING PHYSICIAN Internal Medicine Cardiovascular Disease; FAMILY PHYSICIAN Family Medicine
DX: I48.0 Paroxysmal atrial fibrillation (principal); Z79.01 Long term (current) use of anticoagulants
CPT/HCPCS: 36415; 85610

== ENCOUNTER → 2024-04-07 08:55 | Outpatient (REF) | payer MEDICARE, SELFPAY ==
[2024-04-07 10:13] LABS: INR 2.82; PT 30.1 Sec (11.4-14.6)
== END ==
LOC: REG 08:55
PROVIDERS: ATTENDING PHYSICIAN Internal Medicine Cardiovascular Disease; FAMILY PHYSICIAN Family Medicine
DX: I48.0 Paroxysmal atrial fibrillation (principal); Z79.01 Long term (current) use of anticoagulants
CPT/HCPCS: 36415; 85610

== ENCOUNTER → 2024-05-05 09:22 | Outpatient (REF) | payer MEDICARE, SELFPAY ==
[2024-05-05 10:24] LABS: INR 3.63; PT 36.7 Sec (11.4-14.6)
== END ==
LOC: REG 09:22
PROVIDERS: ATTENDING PHYSICIAN Internal Medicine Cardiovascular Disease; FAMILY PHYSICIAN Family Medicine
DX: R73.01 Impaired fasting glucose (principal); I48.0 Paroxysmal atrial fibrillation; Z79.01 Long term (current) use of anticoagulants
CPT/HCPCS: 36415; 83036; 85610

== ENCOUNTER → 2024-05-10 12:37 | Outpatient (REF) | payer MEDICARE, SELFPAY | LOC: RAD 12:37 | PROVIDERS: ATTENDING PHYSICIAN Internal Medicine Critical Care Medicine; FAMILY PHYSICIAN Family Medicine | DX: R91.8 Other nonspecific abnormal finding of lung field (principal) | CPT/HCPCS: 71250 ==

== ENCOUNTER → 2024-05-13 09:58 | Outpatient (REF) | payer MEDICARE, SELFPAY ==
[2024-05-13 11:24] LABS: INR 2.44; PT 26.9 Sec (11.4-14.6)
== END ==
LOC: RAD 09:58
PROVIDERS: ATTENDING PHYSICIAN Internal Medicine Cardiovascular Disease; FAMILY PHYSICIAN Family Medicine
DX: I48.0 Paroxysmal atrial fibrillation (principal); Z79.01 Long term (current) use of anticoagulants
CPT/HCPCS: 36415; 85610

== ENCOUNTER → 2024-06-09 11:47 | Outpatient (REF) | payer MEDICARE, SELFPAY ==
[2024-06-09 13:22] LABS: PT 35.4 Sec (11.4-14.6)
== END ==
LOC: REG 11:47
PROVIDERS: ATTENDING PHYSICIAN Internal Medicine Cardiovascular Disease; FAMILY PHYSICIAN Family Medicine
DX: I48.0 Paroxysmal atrial fibrillation (principal); Z79.01 Long term (current) use of anticoagulants
CPT/HCPCS: 36415; 85610

== ENCOUNTER → 2024-06-16 10:07 | Outpatient (REF) | payer MEDICARE, SELFPAY ==
[2024-06-16 11:29] LABS: INR 2.24; PT 25.2 Sec (11.4-14.6)
== END ==
LOC: REG 10:07
PROVIDERS: ATTENDING PHYSICIAN Internal Medicine Cardiovascular Disease; FAMILY PHYSICIAN Family Medicine
DX: I48.0 Paroxysmal atrial fibrillation (principal); Z79.01 Long term (current) use of anticoagulants
CPT/HCPCS: 36415; 85610

== ENCOUNTER → 2024-07-14 12:12 | Outpatient (REF) | payer MEDICARE, SELFPAY ==
[2024-07-14 13:18] LABS: INR 2.06; PT 23.7 Sec (11.4-14.6)
== END ==
LOC: REG 12:12
PROVIDERS: ATTENDING PHYSICIAN Internal Medicine Cardiovascular Disease; FAMILY PHYSICIAN Family Medicine
DX: I48.0 Paroxysmal atrial fibrillation (principal); Z79.01 Long term (current) use of anticoagulants
CPT/HCPCS: 36415; 85610

== ENCOUNTER → 2024-08-06 11:41 | Outpatient (REF) | payer MEDICARE, SELFPAY ==
[2024-08-06 13:03] LABS: % Basophils 0.3 % (0-2); % Eosinophils 0.8 % (0-6); % Immature Granulocytes 0.8 % (0-0.5); % Lymphocytes 7.9 % (20.5-51.1); % Monocytes 7.6 % (1.7-9.3); % Neutrophils 83.6 % (42.2-75.2); Absolute Eosinophils 0.1 10^3/uL (0-0.7); Absolute Immature Granulocytes 0.1 10^3/uL (0-0.05); Absolute Lymphocytes 0.5 10^3/uL (1.2-3.4); Absolute Monocytes 0.5 10^3/uL (0.1-0.6); Absolute Neutrophils 5.2 10^3/uL (1.4-6.5); Hematocrit 36.7 % (39.0-52.0); Hemoglobin 11.6 g/dL (13.0-18.0); Mean Corp Hgb Conc. 31.1 g/dL (33.0-37.0); Mean Corpuscular Hgb 26.3 pg (27.0-31.0); Mean Corpuscular Volume 84.8 fL (80.0-94.0); Mean Platelet Volume 11.8 fL (7.4-10.4); Nucleated Red Blood Cells % 0 % (-); Platelet Count 172 10^3/uL (130-400); Red Blood Cell Count 4.39 10^6/uL (4.70-6.10); Red Cell Dist. Width 17.4 % (11.5-14.5); White Blood Cell Count 6.3 10^3/uL (4.8-10.8)
[2024-08-06 13:10] LABS: INR 2.42; PT 26.3 Sec (11.4-14.6)
[2024-08-06 13:23] LABS: ALT (SGPT) 18 U/L (0-50); AST (SGOT) 29 U/L (17-59); Alkaline Phosphatase 89 U/L (38-126); Blood Urea Nitrogen 14 mg/dl (9-20); Calcium 8.6 mg/dl (8.4-10.2); Carbon Dioxide 29 mmol/L (22-30); Chloride 105 mmol/L (98-107); Glucose 112 mg/dl (70-99); Potassium 3.9 mmol/L (3.5-5.1); Sodium 143 mmol/L (135-145); Total Bilirubin 0.5 mg/dl (0.2-1.3); Total Protein 6.5 g/dl (6.3-8.2); eGFR > 60.00
[2024-08-08 13:00] LABS: CD4 % of Cells Analyzed 30 % (35-68); CD4 Absolute Count 147 cells/uL
== END ==
LOC: REG 11:41
PROVIDERS: ATTENDING PHYSICIAN Student in an Organized Health Care Education/Training Program; FAMILY PHYSICIAN Family Medicine; REFERRING PHYSICIAN Internal Medicine Cardiovascular Disease
DX: I48.0 Paroxysmal atrial fibrillation (principal); I25.10 Atherosclerotic heart disease of native coronary artery without angina pectoris; B20 Human immunodeficiency virus [HIV] disease
CPT/HCPCS: 36415; 80053; 85025; 85610; 86361; 87536

== ENCOUNTER → 2024-08-10 14:19 | Outpatient (REF) | payer MEDICARE, SELFPAY ==
[2024-08-12 22:56] LABS: HIV-1 Quan NAAT Interpretation Not Detected (Not Detected); HIV-1 Quant NAAT (copies/ml) Not Detected cpy/mL; HIV-1 Quant NAAT (log copy/mL) Not Detected log cpy/mL
== END ==
LOC: RAD 14:19
PROVIDERS: ATTENDING PHYSICIAN Student in an Organized Health Care Education/Training Program; FAMILY PHYSICIAN Family Medicine
DX: B20 Human immunodeficiency virus [HIV] disease (principal); A31.0 Pulmonary mycobacterial infection
CPT/HCPCS: 36415; 71046; 87536

== ENCOUNTER → 2024-09-03 12:07 | Outpatient (REF) | payer MEDICARE, SELFPAY ==
[2024-09-03 12:53] LABS: INR 3.65
== END ==
LOC: REG 12:07
PROVIDERS: ATTENDING PHYSICIAN Internal Medicine Cardiovascular Disease; FAMILY PHYSICIAN Family Medicine
DX: I48.0 Paroxysmal atrial fibrillation (principal); Z79.01 Long term (current) use of anticoagulants
CPT/HCPCS: 36415; 85610

== ENCOUNTER → 2024-09-06 11:32 | Outpatient (REF) | payer MEDICARE, SELFPAY ==
[2024-09-06 13:14] LABS: INR 1.77; PT 20.8 Sec (11.4-14.6)
== END ==
LOC: REG 11:32
PROVIDERS: ATTENDING PHYSICIAN Internal Medicine Cardiovascular Disease; FAMILY PHYSICIAN Family Medicine
DX: I48.0 Paroxysmal atrial fibrillation (principal); Z79.01 Long term (current) use of anticoagulants
CPT/HCPCS: 36415; 85610

== ENCOUNTER → 2024-09-16 16:17 | Outpatient (REF) | payer MEDICARE, SELFPAY ==
[2024-09-16 16:56] LABS: INR 1.98
[2024-09-16 16:58] LABS: HDL Cholesterol 72 mg/dl; LDL Cholesterol, Calculated 54 mg/dl; Total Cholesterol 153 mg/dl (50-199); Triglyceride 137 mg/dl (10-149); Very Low Density Lipoprotein 27 mg/dl (0-30)
== END ==
LOC: REG 16:17
PROVIDERS: ATTENDING PHYSICIAN Internal Medicine Cardiovascular Disease; FAMILY PHYSICIAN Family Medicine
DX: E78.00 Pure hypercholesterolemia, unspecified (principal); I48.0 Paroxysmal atrial fibrillation; Z79.01 Long term (current) use of anticoagulants
CPT/HCPCS: 36415; 80061; 85610

== ENCOUNTER 2024-09-19 14:38 | Emergency (ER) | payer MEDICARE, SELFPAY ==
[2024-09-19 14:40] VITALS: BP 111/66
[2024-09-19 14:58] VITALS: BP 119/62
--- NOTE | 2024-09-19 15:04 | ED.GENMED ---
History of Present Illness
General
Chief Complaint: Breathing Problem
Time Seen by Provider: 09/19/24 14:52
History of Present Illness
History of Present Illness:
79-year-old male with history of advanced COPD, pulmonary AVINASH, prior HIV, paroxysmal A-fib on anticoagulants, and chronic hypercapnic respiratory failure on supplemental oxygen presents to the emergency department for evaluation of right lung
discomfort and coughing. Has been coughing over the past several days but seem to have increased coughing overnight. Generally dry with no sputum production. No fevers or chills.
Past History
Past History
ED Past Medical History: Arrthythmia (Atrial fibrillation), CAD, COPD, HTN, Hypercholesterolemia and Other (HIV, cavitary pneumonia, AVINASH)
ED Past Surgical History: Cardiac
Social History
Tobacco: Former smoker
Alcohol: None
Drug: None
Living: with roommate
Employment: Retired
Review of Systems
Review of Systems
Allergies reviewed?: Yes
All Other Systems: ROS reviewed and negative except as documented in HPI and ROS
Phy Exam
Physical Exam
Physical Exam:
GEN: Well appearing, NAD, WDWN
HEENT: Oral mucosa moist, no scleral icterus
Cardiac: Regular rate and rhythm, no murmurs
Lung: No respiratory distress, no tachypnea, expiratory wheezes heard throughout all lung schrader
MSK: No gross deformity or injuries
Skin: Good color, no pallor or jaundice, no rashes
Neuro: AO x3, moves all extremities freely
Psych: Calm, cooperative
Scores
Heart Failure Risk
Heart Failure Risk Score: Not Applicable
Sepsis
Sepsis Screening
Sepsis Assessment: Sepsis Ruled Out
Sepsis Screen
Sepsis Screen: Sepsis Ruled Out
Date: 09/19/24
Time: 17:37
Course
Orders/Labs/Results
Orders:
Orders
09/19/24 14:43
EKG [Electrocardiogram (*1)] Urgent
Reason for Study: Shortness of Breath
EKG- Treatment ONCE
09/19/24 15:03
Ipratropium/Albuterol Sulfate [Duoneb] 3 ml INH R NOW STA
CR Chest - 2 Views Urgent
Comment:
Reason For Exam: SOB
09/19/24 15:10
COVID-19 Antigen Urgent
Source: Nasal Swab
Complete Blood Count/With Diff Urgent
Comprehensive Metabolic Panel Urgent
Influenza A+B Rapid Molecular Urgent
JESSICA Source: Nasal Swab
Specimen Description:
09/19/24 15:15
Prothrombin Time Urgent
09/19/24 16:38
Piperacillin/Tazo 3.375 Gram [Zosyn] 3.375 gram in 50 ml IV NOW
09/19/24 16:39
Dexamethasone Sod Phosphate [Decadron] 6 mg IV NOW STA
09/19/24 17:22
Sputum Culture [Respiratory Culture/Gram Stain] Urgent
JESSICA Source: Mouth/Oral Cavity
Specimen Description:
Date Specimen was Collected: 09/19/24
Time Specimen was Collected: 17:21
Abnormal Lab Results
09/19/24 09/19/24
15:10 15:15
RBC 4.17 L 10^6/uL
(4.70-6.10)
Hgb 11.1 L g/dL
(13.0-18.0)
Hct 34.4 L %
(39.0-52.0)
MCH 26.6 L pg
(27.0-31.0)
MCHC 32.3 L g/dL
(33.0-37.0)
RDW 16.8 H %
(11.5-14.5)
MPV 11.8 H fL
(7.4-10.4)
Absolute Neuts (auto) 7.0 H 10^3/uL
(1.4-6.5)
Absolute Lymphs (auto) 0.3 L 10^3/uL
(1.2-3.4)
Neutrophils % 87.6 H %
(42.2-75.2)
Lymphocytes % 3.9 L %
(20.5-51.1)
PT 30.4 H Sec
(11.4-14.6)
Glucose 129 H mg/dl
(70-99)
09/19/24 15:10
09/19/24 15:10
Vital Signs
Initial and Last Documented VS:
Initial Vital Signs
Temp Pulse Resp BP Pulse Ox
98.8 F 113 24 111/66 97
09/19/24 14:40 09/19/24 14:40 09/19/24 14:40 09/19/24 14:40 09/19/24 14:40
Last Documented Vital Signs
Temp Pulse Resp BP Pulse Ox
98.8 F 85 20 106/59 96
09/19/24 14:40 09/19/24 17:24 09/19/24 17:24 09/19/24 17:24 09/19/24 17:24
MDM/Problems Addressed
MDM/Problems Addressed:
Chest x-ray suggestive of a right middle lobe infiltrate that is new compared to past chest x-ray. This is compatible with his site of pain. Do not suspect PE given that he is anticoagulated. Will start him on broad-spectrum antibiotics and
tapering dose steroids, I did offer admission however the patient would prefer discharge home, at this time he is stable with no increased work of breathing and minimal increased oxygen demand which is makes this a reasonable decision
*Critical Care Note
Total Time (30-74mins, 75-104mins- exclusive of procedures): Not Applicable
ED Attending Note
-
Portions of this chart may have been created with voice recognition software.� Occasional wrong word or��sound alike� substitutions may have occurred due to the inherent limitations of voice recognition software.
Discharge Plan
Departure
Patient Disposition: Home (Routine Discharge)
Date of Disposition: 09/19/24
Time of Disposition: 17:13
Patient with high blood pressure during this ER visit?: No
Discharge Problem:
Right middle lobe pneumonia
Instructions: Pneumonia in adults
Prescriptions:
New
amoxicillin-pot clavulanate 875-125 mg tablet
1 tab PO BID 5 Days Qty: 10 0RF
doxycycline hyclate 100 mg capsule
100 mg PO BID 5 Days Qty: 10 0RF
prednisone 20 mg tablet
40 mg PO DAILY Qty: 9 0RF
Rx Instructions:
40mg PO qd x 3d, then 20mg PO qd x 3d
No Action
ethambutol 400 MG tablet
400 mg PO BID
ezetimibe 10 MG tablet
10 mg PO DAILY
Tivicay 50 MG tablet
50 mg PO BID
emtricitabine-tenofovir (TDF) 200-300 mg tablet
1 tab PO DAILY
pantoprazole 40 mg Tablet,Delayed Release (Dr/Ec)
40 mg PO DAILY Qty: 30 0RF
rifabutin 150 mg Capsule
150 mg PO BID
therapeutic multivitamin Tablet
1 tab PO DAILY
aspirin 81 mg Tablet,Delayed Release (Dr/Ec)
81 mg PO DAILY
albuterol sulfate 90 mcg/actuation Hfa Aerosol Inhaler
2 puff INHALATION R Q4HPRN PRN (Reason: sob)
Trelegy Ellipta 100-62.5-25 mcg Blister With Device
1 inh INHALATION R DAILY
warfarin 5 mg tablet
5 mg PO QPM
warfarin 1 mg Tablet
0.5 mg PO MOWEFR
Patient Comments:
01/28/2024: Take 0.5mg w/ 5mg = 5.5mg on mowefr
rosuvastatin 20 mg tablet
20 mg PO DAILY
levalbuterol HCl 1.25 mg/3 mL solution for nebulization
1.25 mg inhalation R QIDPRN PRN (Reason: Lung/Breathing Issues)
diltiazem HCl 180 mg Capsule,Extended Release 24hr
180 mg PO DAILY Qty: 30 0RF
azithromycin 250 mg tablet
250 mg PO DAILY
prednisone 10 mg tablet
5 mg PO DAILY
prednisone 10 mg tablet
10 mg PO DIRECTED Qty: 60 0RF
Rx Instructions:
4 tabs daily x3 days, 3 tabs daily x5 days, 2 tabs daily x5 days, 1 tab daily x5 days, then 1/2 tab daily.
Activity Restrictions/Additional Instructions:
We are starting you on a combination of 2 new antibiotics as well as a tapering dose of steroid. You should continue all your other antibiotics however do not take your daily steroids until my prescription is complete. Antibiotics can typically
adversely affect your INR levels, please have your INR rechecked on Friday and adjust warfarin dosing as appropriate. Follow-up with your mental health orderly later this week
Interventions
Interventions:
*Risk Screen - Suicide Last Done: 09/19/24 14:42
*General Assessment Last Done: 09/19/24 14:42
*Neglect/Abuse Screening Last Done: 09/19/24 14:42
*ED COVID-19 Vaccine History Last Done: 09/19/24 14:42
*Nursing Disposition Last Done: 09/19/24 17:32
ED- Pulmonary Assessment Last Done: 09/19/24 15:15
ED- Cardiac Assessment Last Done: 09/19/24 15:15
Discharge Date and Time
Discharge Date/Time: 09/19/24 17:33
Print Language: VIETNAMESE
[2024-09-19] MEDS: DUONEB 3 ML INH (15:18)
[2024-09-19 15:33] LABS: INR 2.92; PT 30.4 Sec (11.4-14.6)
[2024-09-19 15:37] LABS: % Basophils 0.3 % (0-2); % Eosinophils 0.4 % (0-6); % Immature Granulocytes 0.4 % (0-0.5); % Lymphocytes 3.9 % (20.5-51.1); % Monocytes 7.4 % (1.7-9.3); % Neutrophils 87.6 % (42.2-75.2); Absolute Lymphocytes 0.3 10^3/uL (1.2-3.4); Absolute Monocytes 0.6 10^3/uL (0.1-0.6); Hematocrit 34.4 % (39.0-52.0); Hemoglobin 11.1 g/dL (13.0-18.0); Mean Corp Hgb Conc. 32.3 g/dL (33.0-37.0); Mean Corpuscular Hgb 26.6 pg (27.0-31.0); Mean Corpuscular Volume 82.5 fL (80.0-94.0); Mean Platelet Volume 11.8 fL (7.4-10.4); Nucleated Red Blood Cells % 0 % (-); Platelet Count 165 10^3/uL (130-400); Red Blood Cell Count 4.17 10^6/uL (4.70-6.10); Red Cell Dist. Width 16.8 % (11.5-14.5)
[2024-09-19 15:38] LABS: COVID-19 Antigen Negative (Negative)
[2024-09-19 15:54] LABS: ALT (SGPT) 15 U/L (0-50); AST (SGOT) 22 U/L (17-59); Albumin 3.6 g/dl (3.5-5.0); Alkaline Phosphatase 94 U/L (38-126); Blood Urea Nitrogen 13 mg/dl (9-20); Calcium 8.4 mg/dl (8.4-10.2); Carbon Dioxide 23 mmol/L (22-30); Chloride 107 mmol/L (98-107); Glucose 129 mg/dl (70-99); Potassium 4.3 mmol/L (3.5-5.1); Sodium 138 mmol/L (135-145); Total Bilirubin 0.4 mg/dl (0.2-1.3); Total Protein 6.3 g/dl (6.3-8.2); eGFR > 60.00
[2024-09-19 16:00] VITALS: BP 124/72
[2024-09-19] MEDS: ZOSYN 50 IV (16:46)
[2024-09-19] MEDS: DECADRON 6 MG IV (16:46)
[2024-09-19 17:24] VITALS: BP 106/59
== END 2024-09-19 17:33 | disposition home or self-care (01) ==
LOC: EMR 14:38
PROVIDERS: Physician Assistant; EMERGENCY PHYSICIAN Emergency Medicine; FAMILY PHYSICIAN Family Medicine
DX: J18.9 Pneumonia, unspecified organism (principal); Z11.52 Encounter for screening for COVID-19; J44.0 Chronic obstructive pulmonary disease with (acute) lower respiratory infection; I25.10 Atherosclerotic heart disease of native coronary artery without angina pectoris; I10 Essential (primary) hypertension; E78.00 Pure hypercholesterolemia, unspecified; Z21 Asymptomatic human immunodeficiency virus [HIV] infection status; I48.0 Paroxysmal atrial fibrillation; Z99.81 Dependence on supplemental oxygen; Z79.01 Long term (current) use of anticoagulants; Z87.891 Personal history of nicotine dependence
CPT/HCPCS: 99284; 96365; 94640; 71046; 80053; 85025; 85610; 87070; 87205; 87502; 87811; 93005

== ENCOUNTER → 2024-09-21 12:09 | Outpatient (REF) | payer MEDICARE, SELFPAY ==
[2024-09-21 13:00] LABS: INR 4.41; PT 41.5 Sec (11.4-14.6)
== END ==
LOC: REG 12:09
PROVIDERS: ATTENDING PHYSICIAN Internal Medicine Cardiovascular Disease; FAMILY PHYSICIAN Family Medicine
DX: Z79.01 Long term (current) use of anticoagulants (principal)
CPT/HCPCS: 36415; 85610

== ENCOUNTER 2024-09-21 19:48 | Observation (INO) | payer MEDICARE, SELFPAY ==
[2024-09-21 16:15] VITALS: BP 135/92
[2024-09-21 16:57] VITALS: BMI 19.6
[2024-09-21 17:16] LABS: % Basophils 0.1 % (0-2); % Immature Granulocytes 0.7 % (0-0.5); % Lymphocytes 6.4 % (20.5-51.1); % Monocytes 7.9 % (1.7-9.3); % Neutrophils 84.9 % (42.2-75.2); Absolute Immature Granulocytes 0.1 10^3/uL (0-0.05); Absolute Lymphocytes 0.4 10^3/uL (1.2-3.4); Absolute Monocytes 0.5 10^3/uL (0.1-0.6); Absolute Neutrophils 5.8 10^3/uL (1.4-6.5); Hematocrit 40.2 % (39.0-52.0); Hemoglobin 12.7 g/dL (13.0-18.0); Mean Corp Hgb Conc. 31.6 g/dL (33.0-37.0); Mean Corpuscular Hgb 26.7 pg (27.0-31.0); Mean Corpuscular Volume 84.5 fL (80.0-94.0); Mean Platelet Volume 11.1 fL (7.4-10.4); Nucleated Red Blood Cells % 0 % (-); Platelet Count 220 10^3/uL (130-400); Red Blood Cell Count 4.76 10^6/uL (4.70-6.10); Red Cell Dist. Width 17.2 % (11.5-14.5); White Blood Cell Count 6.9 10^3/uL (4.8-10.8)
[2024-09-21 17:26] LABS: INR 4.32; PT 40.9 Sec (11.4-14.6)
[2024-09-21 17:31] LABS: ALT (SGPT) 17 U/L (0-50); AST (SGOT) 26 U/L (17-59); Albumin 4.6 g/dl (3.5-5.0); Alkaline Phosphatase 83 U/L (38-126); Blood Urea Nitrogen 14 mg/dl (9-20); Carbon Dioxide 26 mmol/L (22-30); Chloride 105 mmol/L (98-107); Estimated Creatinine Clearance 82 ml/min; Glucose 112 mg/dl (70-99); Potassium 4.5 mmol/L (3.5-5.1); Sodium 141 mmol/L (135-145); Total Bilirubin 0.5 mg/dl (0.2-1.3); Total Protein 7.5 g/dl (6.3-8.2); eGFR > 60.00
[2024-09-21 17:43] LABS: Troponin I < 0.012 ng/ml
[2024-09-21 17:48] VITALS: BP 129/65
--- NOTE | 2024-09-21 17:54 | ED.GENMED ---
History of Present Illness
General
Chief Complaint: Pneumonia Symptoms
Time Seen by Provider: 09/21/24 16:40
History of Present Illness
History of Present Illness:
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 Patient was seen by me in this emergency department 2 days ago and found to have a right
middle lobe infiltrate, he was offered admission but preferred to be discharged home. He was given Augmentin and doxycycline as well as a tapering dose of steroids. Returns today with worsening symptoms.
Past History
Past History
ED Past Medical History: Arrthythmia (Atrial fibrillation), CAD, COPD, HTN, Hypercholesterolemia and Other (HIV, cavitary pneumonia, AVINASH)
ED Past Surgical History: Cardiac
Social History
Tobacco: Former smoker
Alcohol: None
Drug: None
Living: with roommate
Employment: Retired
Review of Systems
Review of Systems
Allergies reviewed?: Yes
All Other Systems: ROS reviewed and negative except as documented in HPI and ROS
Phy Exam
Physical Exam
Physical Exam:
GEN: Thin and frail, mildly tachypneic
HEENT: Oral mucosa moist, no scleral icterus
Cardiac: Regular rate
Lung: Tachypneic on supplemental oxygen expiratory wheezes heard throughout all lung schrader
MSK: No gross deformity or injuries
Skin: Good color, no pallor or jaundice, no rashes
Neuro: AO x3, moves all extremities freely
Psych: Calm, cooperative
Sepsis
Sepsis Screening
Sepsis Assessment: Sepsis Ruled Out
Sepsis Screen
Sepsis Screen: Sepsis Ruled Out
Date: 09/21/24
Time: 17:59
Course
Orders/Labs/Results
Orders:
Orders
09/21/24 16:07
ECG [Electrocardiogram (*1)] Urgent
Reason for Study: Shortness of Breath
EKG- Treatment ONCE
09/21/24 16:20
Electrocardiogram (*1) Urgent
Reason for Study: Chest Pain
EKG- Treatment ONCE
09/21/24 16:40
CR Chest - 2 Views Urgent
Comment:
Reason For Exam: coughSOB
09/21/24 17:02
Complete Blood Count/With Diff Urgent
Comprehensive Metabolic Panel Urgent
Prothrombin Time Urgent
Troponin I Urgent
09/21/24 17:56
Piperacillin/Tazo 3.375 Gram [Zosyn] 3.375 gram in 50 ml IV NOW
Abnormal Lab Results
09/21/24
17:02
Hgb 12.7 L g/dL
(13.0-18.0)
MCH 26.7 L pg
(27.0-31.0)
MCHC 31.6 L g/dL
(33.0-37.0)
RDW 17.2 H %
(11.5-14.5)
MPV 11.1 H fL
(7.4-10.4)
Abs Immat Gran (auto) 0.1 H 10^3/uL
(0-0.05)
Absolute Lymphs (auto) 0.4 L 10^3/uL
(1.2-3.4)
Immature Gran % 0.7 H %
(0-0.5)
Neutrophils % 84.9 H %
(42.2-75.2)
Lymphocytes % 6.4 L %
(20.5-51.1)
PT 40.9 H Sec
(11.4-14.6)
Glucose 112 H mg/dl
(70-99)
09/21/24 17:02
09/21/24 17:02
Vital Signs
Initial and Last Documented VS:
Initial Vital Signs
Temp Pulse Resp BP Pulse Ox
97.4 F 97 22 135/92 98
09/21/24 16:15 09/21/24 16:15 09/21/24 16:15 09/21/24 16:15 09/21/24 16:15
Last Documented Vital Signs
Temp Pulse Resp BP Pulse Ox
97.4 F 97 22 135/92 98
09/21/24 16:15 09/21/24 16:15 09/21/24 16:15 09/21/24 16:15 09/21/24 16:15
MDM/Problems Addressed
MDM/Problems Addressed:
Patient returns with worsening symptoms, although chest x-ray is marginally improved given his brittle baseline lung health for antibiotics, IV steroids withheld in the ED as he took his dose of higher dose prednisone this morning. PE not
considered due to supratherapeutic INR
*Critical Care Note
Total Time (30-74mins, 75-104mins- exclusive of procedures): Not Applicable
ED Attending Note
-
Portions of this chart may have been created with voice recognition software.� Occasional wrong word or��sound alike� substitutions may have occurred due to the inherent limitations of voice recognition software.
Discharge Plan
Departure
Patient Disposition: Admit
Date of Disposition: 09/21/24
Time of Disposition: 17:57
Admit to: Med/Surg
Presentation/result/management discussed w/ accepting MD/DO: Hospitalist
Discharge Problem:
Right middle lobe pneumonia, Supratherapeutic INR
Prescriptions:
No Action
ethambutol 400 MG tablet
400 mg PO BID
ezetimibe 10 MG tablet
10 mg PO DAILY
Tivicay 50 MG tablet
50 mg PO BID
emtricitabine-tenofovir (TDF) 200-300 mg tablet
1 tab PO DAILY
pantoprazole 40 mg Tablet,Delayed Release (Dr/Ec)
40 mg PO DAILY Qty: 30 0RF
rifabutin 150 mg Capsule
150 mg PO BID
albuterol sulfate 90 mcg/actuation Hfa Aerosol Inhaler
2 puff INHALATION R Q4HPRN PRN (Reason: sob)
Trelegy Ellipta 100-62.5-25 mcg Blister With Device
1 inh INHALATION R DAILY
rosuvastatin 20 mg tablet
20 mg PO DAILY
levalbuterol HCl 1.25 mg/3 mL solution for nebulization
1.25 mg inhalation R QID
azithromycin 250 mg tablet
250 mg PO DAILY
acetaminophen 325 mg Tablet
650 mg PO DAILYPRN PRN (Reason: mild pain/headache)
prednisone 10 mg Tablet
10 mg PO DAILY
sulfamethoxazole-trimethoprim 400-80 mg Tablet
1 tab PO DAILY
warfarin 4 mg Tablet
4 mg PO HS
diltiazem HCl 120 mg Capsule,Extended Release 24hr
120 mg PO DAILY
warfarin 1 mg Tablet
0.5 mg PO HS
amoxicillin-pot clavulanate 875-125 mg tablet
1 tab PO BID 5 Days Qty: 10 0RF
doxycycline hyclate 100 mg capsule
100 mg PO BID 5 Days Qty: 10 0RF
prednisone 20 mg tablet
40 mg PO DAILY Qty: 9 0RF
Rx Instructions:
40mg PO qd x 3d, then 20mg PO qd x 3d
Referrals:
Colton Farah MD [Family Provider] -
Interventions
Interventions:
*Risk Screen - Suicide Last Done: 09/21/24 16:15
*General Assessment Last Done: 09/21/24 16:15
*Neglect/Abuse Screening Last Done: 09/21/24 16:15
*ED- Fall Risk Assessment Last Done: 09/21/24 16:57
*ED COVID-19 Vaccine History Last Done: 09/21/24 16:57
Discharge Date and Time
Print Language: ARABIC
[2024-09-21 18:00] VITALS: BP 112/64
--- NOTE | 2024-09-21 18:00 | HPS.HSE ---
Family Physician
-
Family Physician: Colton Farah
Chief Complaint
-
Right rib pain with deep breath and cough
History of Present Illness
79-year-old male who was seen in the emergency department 2 days ago found to have a right middle lobe infiltrate was offered admission but preferred to be discharged to home. He was started on Augmentin and doxycycline as well as a tapering dose
of steroids. He reports the pharmacy was closed on Friday so he started medications yesterday he has taken 3 tablets of Augmentin, 3 capsules of doxycycline and prednisone 40 mg x 3 days then 20 mg x 2 days then return to 10 mg daily. He reports
he has taken 40 mg x 2 doses so far. He returns today to the hospital because the pain in his right rib area when he coughs hurts more and he coughed up a large amount of white sputum today. He normally coughs every single morning on a standard
basis. He wears oxygen 2 L nasal cannula only with activity and sleeping but will take it off when sitting. He follows with Dr. Mujica pulmonology at [facility]. He denies fever, chills, chest pain, palpitations, abdominal pain, nausea,
vomiting, diarrhea, urinary symptoms. He has history of COPD, chronic hypoxemic respiratory failure on chronic 2 L nasal cannula with activity and sleeping,AVINASH, HIV, former smoker 2 pack a day x 50 years quit 2021, CAD/ID 1999/CABG unknown vessels,
paroxysmal A-fib on Coumadin, HTN, HLD, urinary incontinence postvoid suspect enlarged prostate.
Medical History
Past Medical History
Past Medical History: Reports Other
Additional Past Medical History:
Chronic hypoxic failure secondary to COPD on 2 L oxygen with activity and sleeping
A-fib anticoagulated with warfarin
COPD
HIV
AVINASH
PVD
Spinal stenosis
Chronic back pain
Coronary artery disease status post stent and bypass
Left foot drop
Hypertension
Cataract
Past Surgical History: Reports Other
Additional Past Surgical History:
Coronary disease/bypass
R knee
Colonoscopy and polyp removal
Right inguinal hernia repair
Thoracocentesis
EGD removal of food impaction
Social History
Unable to obtain full social history at this time due to: Other
Tobacco: Former Smoker (50-year tobacco day quit 2021)
Alcohol: None
Employment: Retired
Family History
Family History: Other
Allergies / Home Medications
Allergies reflects when Allergies were last updated in [facility].
Home Medications with original date entered in [facility]
Allergy/Medication List:
Allergies
Allergy/AdvReac Type Severity Reaction Status Date / Time
No Known Allergies Allergy Verified 09/21/24 16:19
Home Medications
dolutegravir 50 mg tablet (Tivicay) 50 mg PO BID HIV 12/19/21
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
ezetimibe 10 mg tablet 10 mg PO DAILY High cholesterol 12/19/21
emtricitabine 200 mg-tenofovir disoproxil fumarate 300 mg tablet 1 tab PO DAILY HIV 11/11/22
pantoprazole 40 mg tablet,delayed release 40 mg PO DAILY #30 tabs 11/13/22
albuterol sulfate 90 mcg/actuation aerosol inhaler 2 puff inhalation R Q4HPRN PRN sob 06/20/23
fluticasone fur. 100 mcg-umeclid 62.5 mcg-vilant 25 mcg inhalat.powder (Trelegy Ellipta) 1 inh inhalation R DAILY Lung/Breathing Issues 06/20/23
rifabutin 150 mg capsule 150 mg PO BID mycobacterium avium 06/20/23
levalbuterol HCl 1.25 mg/3 mL solution for nebulization 1.25 mg inhalation R QID 01/28/24
rosuvastatin 20 mg tablet 20 mg PO DAILY High Cholesterol 01/28/24
azithromycin 250 mg tablet 250 mg PO DAILY COPD prophylaxis 02/01/24
acetaminophen 325 mg tablet 650 mg PO DAILYPRN PRN mild pain/headache 09/19/24
amoxicillin 875 mg-potassium clavulanate 125 mg tablet 1 tab PO BID 5 days #10 tabs 09/19/24
diltiazem HCl 120 mg capsule,24 hr,extended release 120 mg PO DAILY 09/19/24
doxycycline hyclate 100 mg capsule 100 mg PO BID 5 days #10 caps 09/19/24
prednisone 10 mg tablet 10 mg PO DAILY 09/19/24
prednisone 20 mg tablet 40 mg (2 x 20 mg) PO DAILY #9 tabs 09/19/24
sulfamethoxazole 400 mg-trimethoprim 80 mg tablet 1 tab PO DAILY 09/19/24
warfarin 1 mg tablet 0.5 mg PO HS 09/19/24
warfarin 4 mg tablet 4 mg PO HS 09/19/24
Review of Systems
-
History Source: Patient
A 12 point ROS was completed and negative except as noted: Yes
Constitutional: Denies Fever or Chills
EENT: Denies Sore Throat or Runny Nose
Respiratory: Reports Cough (1 productive cough white in color) and Other (Pain right rib with deep breath and cough area of pneumonia)
Cardiac: Denies Chest Pain, Diaphoresis, Palpitations or Syncope
Abdomen/GI: Denies Abdominal Pain, Nausea, Vomiting, Diarrhea, Constipated, Bloody Stools or Black Stools
: Denies Dysuria, Frequency, Flank Pain, Incontinence, Difficulty Voiding or Urgency
Musculoskeletal: Denies Joint Pain or Edema
Skin: Denies Itching or Rash
Neurological: Denies Dizzy, Headache or Weakness
Endocrine: Reports No Symptoms
Hematologic/Lymphatic: Reports No Symptoms
Psych: Reports Calm
Physical Exam
Vital Signs
Vital Signs
Temp Pulse Resp BP Pulse Ox
97.4 F 97 22 135/92 98
09/21/24 16:15 09/21/24 16:15 09/21/24 16:15 09/21/24 16:15 09/21/24 16:15
Physical Exam
General: Comfortable and Conversant; No Fever or Chills
HEENT: NormoCephalic, Anicteric, Moist mucous membranes, PERRLA, [place] Conjunctivae, No Ptosis and Oxygen (2 L nasal cannula)
Respiratory: Wheezes (Expiratory bilaterally throughout both lung schrader); No Rales or Rhonchi
Cardiac: S1/S2 and Regular Rhythm; No Murmur, Rub, Gallop or Peripheral Edema
Breast: Deferred by me
GI: Non Tender, Non Distended, Normal Bowel Sounds and No Hepatosplenomegaly
Rectal: Deferred by Provider
Genito-urinary: Deferred by me
Musculoskeletal: No Clubbing, No Cyanosis and No Edema
Skin: Warm and Dry; No Rash or Jaundice
Neuro: AO x 3, No Motor Deficits, Nonfocal/grossly intact, Cranial Nerves Intact and No Sensory Deficits; No Slurred Speech, Facial Droop or Tremors
Psych: Calm
Laboratory Results
-
09/21/24 17:02
09/21/24 17:02
Laboratory Results
PT 40.9 Sec (11.4-14.6) H 09/21/24 17:02
INR 4.32 09/21/24 17:02
Total Bilirubin 0.5 mg/dl (0.2-1.3) 09/21/24 17:02
AST 26 U/L (17-59) 09/21/24 17:02
ALT 17 U/L (0-50) 09/21/24 17:02
Alkaline Phosphatase 83 U/L (38-126) 09/21/24 17:02
Troponin I < 0.012 ng/ml 09/21/24 17:02
Data Reviewed
-
Diagnostic Radiology: Report Reviewed by me
Lab Data: Labs Reviewed by me
Impression/Plan
-
Impression/plan:
Observation Med Surg
#Right middle lobe PNA with right rib pleuritic pain
Has completed 2 days of Augmentin, doxycycline as well as steroid taper
-98% RA
-Continue Augmentin 875/125 mg 1 tab twice daily 4 more days , doxycycline twice daily x 4 more days
Finish prednisone 40 mg tomorrow then 20 mg x 2 days then return to prednisone 10 mg daily baseline on 09/24/2024
-Lidoderm patch over right rib area
- Consult ID
-Tylenol as needed pain
-Follow CBC, BMP
CXR: Patchy parenchymal opacity involving the right mid to lower lung, subtly improved from recent radiograph of September 19, 2024, suggesting slight improvement in pneumonia.
Chronic scarring in the right upper lung. Air density in the apical region of the right hemithorax, stable, compatible with bulla or loculated pneumothorax.
Emphysema of both lungs. The left lung appears clear.
'
#Supratherapeutic INR on Coumadin
#Paroxysmal A-fib on Coumadin
INR 4.32 on Coumadin, will hold Coumadin this evening 09/21/2024
-Repeat INR level in a.m.
-Continue diltiazem 120 mg daily with hold parameters
#COPD on chronic prednisone 10 mg daily-no acute exacerbation
#Former smoker 2 pack a day x 50 years quit 2021
#Chronic hypoxemic respiratory failure on chronic 2 L nasal cannula
98% 2 L nasal cannula�patient states he is 95% on room air when sitting
-Patient follows with Dr. Mujica pulmonary
-Continue Trelegy Ellipta
-Patient advised to hold his azithromycin 250 mg and Bactrim 1 tab daily while on Augmentin and doxycycline
#AVINASH hx
-Continue Rifabutin 150 mg p.o. twice daily, ethambutol 400 mg p.o. twice daily
#HIV
-Continue Tivicay 50 mg p.o. twice daily, emtricitabine tenofovir 1 tab p.o. daily
#CAD/ID 2000/CABG unknown vessels
-Continue Crestor 20 mg at bedtime, Zetia 10 mg daily
#HTN�benign
BP 135/92
-Continue Cardizem
#HLD
Continue Crestor and Zetia
#Urinary incontinence postvoid suspect enlarged prostate on previous admission
-Bladder scan protocol
Other PMH:
Spinal stenosis
Chronic back pain
History left foot drop
DVT prophylaxis
SCDs as INR 4.32 on Coumadin
Full code
[2024-09-21] MEDS: ZOSYN 50 IV (18:44)
--- NOTE | 2024-09-21 18:56 | W.PN.UPDATE ---
Update Note
Progress Note Update
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
HPI
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
- worsening cough and shortness of breath
- he was seen at ER 2 days ago- CXR noted Rt ML infiltrate - he opted to go home on PO Augmentin & PO Doxy and tapering dose of PO Prednisone
PHX: see above
Reviewed VS:
Selected Entries
09/21/24
16:15 09/21/24
18:13
Temp 97.4 F
Temp route: Oral
Pulse 97
Resp Rate 22
Blood pressure 135/92
SaO2 98
Oxygen Mode of Delivery Room air
Nasal Cannula flow liters per minute 2
PE
Gen: frail but not toxic
HEENT: anicteric , moist OM
Neck: supple
Lungs: tachypneic on NC O2 with expiratory wheezes heard throughout all lung schrader
Cor: RRR S1 S2
Abdomen: soft benign
HOST: AAO3
MS: no edema
Psych: nl mood and affect
09/19/24 09/21/24
15:10 17:02
WBC 6.9
Hgb 11.1 L 12.7 L
Plt Count 220 D
INR 4.32
Creatinine 0.7
eGFR > 60.00
Glucose 112 H
Troponin I < 0.012
CXR
- parenchymal opacity involving the right mid to lower lung, subtly improved from recent radiograph of September 19, 2024, suggesting slight improvement in pneumonia.
- Chronic scarring in the right upper lung. Air density in the apical region of the right hemithorax, stable, compatible with bulla or loculated pneumothorax.
- Emphysema of both lungs. The left lung appears clear.
EKG
SINUS RHYTHM
RIGHT ATRIAL ENLARGEMENT
PULMONARY DISEASE PATTERN
INFERIOR INFARCT (CITED ON OR BEFORE 26-FEB-2024)
ABNORMAL ECG
WHEN COMPARED WITH ECG OF 19-SEP-2024 14:55,
NO SIGNIFICANT CHANGE WAS FOUND
Confirmed by LISA JESUS MD, YENNIFER ([id number]) on 09/21/2024 5:53:17 PM
Last hospitalist admission: 02/26/2024 - 02/28/2024
DISCHARGE DIAGNOSES:
1. Acute on chronic hypoxic respiratory failure.
2. Acute chronic obstructive pulmonary disease exacerbation.
3. Atypical chest pain.
4. History of cavitary Mycobacterium avium-intracellulare.
5. Human immunodeficiency virus.
6. Paroxysmal atrial fibrillation.
ASSESSMENT & PLAN
RML PNA : Bacterial vs AVINASH
Rt chest pain: suspect pleuritic pain ? Pneumonic origin
- INR 4s is unlike acute PE
- To cont. D2 of X PO Augmentin, PO doxycycline
- ID consult
Paroxysmal AF on Coumadin
- Over Rx- tic INR 4.32 due to current ABx
- will hold Coumadin this evening 09/21/2024
- f/u INR
- c/w PO diltiazem 120 mg daily with hold parameters
HX Home O2 and chr prednisone dependent COPD
Chronic hypoxemic RF on chronic 2 L nasal cannula
- f/u Dr. Mujica pulmonary
- cont to taper PO prednisone to 10 daily
- cont. Trelegy Ellipta
AVINASH HX ( MAC )
HX HIV - unknown CD4 and VL
- on Rifabutin 150 mg BID ethambutol 400 mg BID
- on Tivicay 50 mg BID emtricitabine tenofovir 1 daily
HX CAD/NM
HX CABG
HX HLD
- c/w Crestor and Zetia
Essentia HTN
- c/w Cardizem
'
Other PMH:
Spinal stenosis
Chronic back pain
HX left foot drop
DVT Px: current INR 4.3
Full code
Obs MS
[2024-09-21 20:17] VITALS: BMI 18.7
--- NOTE | 2024-09-21 20:20 | PTCARENOTE ---
Patient arrived to unit from ED via stretcher. Patient ambulated to bed from stretcher. A&Ox3. Patient oriented to unit. Call light within reach. Care ongoing.
[2024-09-21 20:30] VITALS: BP 137/68
[2024-09-21 20:33] VITALS: BMI 18.7
[2024-09-21] MEDS: XOPENEX 1.25 MG INHALANT SOLUTION INH (21:18)
[2024-09-21] MEDS: DELTASONE 40 MG PO (21:19)
[2024-09-21] MEDS: VIBRAMYCIN 100 MG PO (21:20)
[2024-09-21] MEDS: AUGMENTIN 875 MG/125 MG 1 TABLET PO (21:20)
[2024-09-21] MEDS: TIVICAY 50 MG PO (22:07)
[2024-09-21] MEDS: MYAMBUTOL 400 MG PO (22:07)
[2024-09-21 23:05] VITALS: BP 109/51
--- NOTE | 2024-09-22 04:52 | DOWNTIME ---
There was a [employer] Downtime on 09/22/2024 from 0100 to 09/23/2023 at 0420 . Downtime documentation of patient's care, including medication administrations, has been reconciled in the electronic record per guidelines. Refer to the
patient's paper chart under the miscellaneous tab to see printed paper medication records and downtime forms.
[2024-09-22] MEDS: XOPENEX 1.25 MG INHALANT SOLUTION INH ×2 (07:25→11:24)
[2024-09-22] MEDS: SPIRIVA RESPIMAT 2.5 MCG 2 PUFF INH (07:26)
[2024-09-22] MEDS: SYMBICORT 80/4.5 MCG INHALER 2 PUFF INH (07:26)
[2024-09-22 07:36] VITALS: BP 111/60
[2024-09-22 07:40] LABS: % Immature Granulocytes 0.8 % (0-0.5); % Monocytes 7.5 % (1.7-9.3); % Neutrophils 84.7 % (42.2-75.2); Absolute Immature Granulocytes 0.1 10^3/uL (0-0.05); Absolute Lymphocytes 0.4 10^3/uL (1.2-3.4); Absolute Monocytes 0.5 10^3/uL (0.1-0.6); Absolute Neutrophils 5.1 10^3/uL (1.4-6.5); Hematocrit 34.9 % (39.0-52.0); Mean Corp Hgb Conc. 31.5 g/dL (33.0-37.0); Mean Corpuscular Hgb 26.5 pg (27.0-31.0); Mean Corpuscular Volume 84.1 fL (80.0-94.0); Mean Platelet Volume 11.1 fL (7.4-10.4); Nucleated Red Blood Cells % 0 % (-); Platelet Count 198 10^3/uL (130-400); Red Blood Cell Count 4.15 10^6/uL (4.70-6.10); Red Cell Dist. Width 17.1 % (11.5-14.5)
[2024-09-22 07:54] LABS: AST (SGOT) 21 U/L (17-59); Alkaline Phosphatase 71 U/L (38-126); Blood Urea Nitrogen 17 mg/dl (9-20); Carbon Dioxide 30 mmol/L (22-30); Estimated Creatinine Clearance 68 ml/min; Glucose 132 mg/dl (70-99); Total Bilirubin 0.4 mg/dl (0.2-1.3); eGFR > 60.00
[2024-09-22 08:12] LABS: ALT (SGPT) 14 U/L (0-50); Albumin 3.4 g/dl (3.5-5.0); Calcium 8.5 mg/dl (8.4-10.2); Chloride 106 mmol/L (98-107); Potassium 4.6 mmol/L (3.5-5.1); Sodium 141 mmol/L (135-145)
[2024-09-22 08:29] LABS: INR 3.96; PT 38.8 Sec (11.4-14.6)
[2024-09-22] MEDS: LIDOCAINE 4% PATCH 1 PATCH TOPICAL (09:00)
[2024-09-22] MEDS: CRESTOR 20 MG PO (09:00)
[2024-09-22] MEDS: VIBRAMYCIN 100 MG PO (09:01)
[2024-09-22] MEDS: PROTONIX 40 MG PO (09:01)
[2024-09-22] MEDS: ZETIA 10 MG PO (09:01)
[2024-09-22] MEDS: AUGMENTIN 875 MG/125 MG 1 TABLET PO (09:02)
[2024-09-22] MEDS: MYAMBUTOL 400 MG PO (09:02)
[2024-09-22] MEDS: CARDIZEM CD 120 MG PO (09:02)
[2024-09-22] MEDS: TRUVADA TABLET 1 TABLET PO (09:02)
[2024-09-22] MEDS: DELTASONE 20 MG PO (09:02)
[2024-09-22] MEDS: TIVICAY 50 MG PO (09:28)
--- NOTE | 2024-09-22 11:13 | CON.ID ---
Consultation
-
Date/Time Consultation Requested: 09/21/24 22:40
Date/Time Consultation Performed: 09/22/24 12:51
Requesting Provider: Maria Isabel RICHARDSON
Performing Provider: Dr Fan
Reason for Consultation: rml pna , hiv
Chief Complaint / Past History
Chief Complaint
pleuritic chest pain
History of Present Illness
Mr Smiley is a pleasant 79 year old male living with HIV on dolutegravir/truvada, last CD4 count 140 on bactrim PJP prophylaxis, AVINASH on chronic azithromycin/ethambutol/rifabutin, COPD on 2L NC, who represented here last night at the urging of his
adult daughter for increasing pleuritic chest pain, increasing cough of productive sputum. He was first seen in the ER on 09/19 found to have RML pneumonia he has taken 3 tablets of Augmentin, 3 capsules of doxycycline and prednisone 40 mg x 3 days
then 20 mg x 2 days then return to 10 mg daily. He reports he has taken 40 mg x 2 doses so far. He denies fever, chills, chest pain, palpitations, abdominal pain, nausea, vomiting, diarrhea, urinary symptoms
Since arrival this visit he has been afebrile, bp stable, now back to 2L NC, wbc 6.9, hgb 12.7, plt 220, L shift noted, cr 0.7, lfts WNL, INR 4.3 on arrival, 09/21 CXR: Patchy parenchymal opacity involving the right mid to lower lung, subtly improved
from recent radiograph of September 19, 2024, suggesting slight improvement in pneumonia, sputum culture contaminated, influenza negative, currently on doxycycline/augmentin. Azithromycin and bactrim were held at arrival. Ethambutol and rifabutin
continued. dolutegravir/truvada continued
Past History
Additional Past Medical History:
A-fib anticoagulated with warfarin
COPD
HIV
AVINASH
PVD
Spinal stenosis
Chronic back pain
Coronary artery disease status post stent and bypass
Left foot drop
Hypertension
Cataract
Additional Past Surgical History:
Coronary disease/bypass
R knee
Colonoscopy and polyp removal
Right inguinal hernia repair
Thoracocentesis
EGD removal of food impaction
Allergy History:
No Known Allergies Allergy (Verified 09/21/24 16:19)
Medications Reviewed: Yes
Social History
Tobacco: Former Smoker
Alcohol: None
Living: With Family
Family History
Family History: Not Pertinent
Review of Systems
Review of Systems
General: Negative Fever or Chills
All systems: All other systems were reviewed and were negative
Vital Signs
Temp Pulse Resp BP Pulse Ox
97.7 F 79 18 111/60 95
09/22/24 07:36 09/22/24 07:36 09/22/24 07:36 09/22/24 07:36 09/22/24 07:36
Physical Exam
Physical Exam
Constitutional: No Acute Distress and Chronically Ill
Cardiovascular: Regular Rate and S1/S2; Negative Murmur or Rub
Pulmonary: Clear, Symmetric, Coarse and Non Labored; Negative Wheezes, Rales or Rhonchi
Gastrointestinal: Soft, Non Tender, Non Distended and Normal Bowel Sounds
Skin: Warm and Dry; Negative Rash or Jaundice
Neurological: Awake
Psychological: Calm
Lab / Diagnostic Study Results
09/22/24 07:08
09/22/24 07:08
Abs Immat Gran (auto) 0.1 10^3/uL (0-0.05) H 09/22/24 07:08
Absolute Neuts (auto) 5.1 10^3/uL (1.4-6.5) 09/22/24 07:08
Absolute Lymphs (auto) 0.4 10^3/uL (1.2-3.4) L 09/22/24 07:08
Absolute Monos (auto) 0.5 10^3/uL (0.1-0.6) 09/22/24 07:08
Absolute Basos (auto) 0.0 10^3/uL (0-0.2) 09/22/24 07:08
Immature Gran % 0.8 % (0-0.5) H 09/22/24 07:08
Neutrophils % 84.7 % (42.2-75.2) H 09/22/24 07:08
Lymphocytes % 7.0 % (20.5-51.1) L 09/22/24 07:08
Monocytes % 7.5 % (1.7-9.3) 09/22/24 07:08
Eosinophils % 0.0 % (0-6) 09/22/24 07:08
Basophils % 0.0 % (0-2) 09/22/24 07:08
PT 38.8 Sec (11.4-14.6) H 09/22/24 07:08
INR 3.96 09/22/24 07:08
Microbiology Results
Micro:
Respiratory Culture Final 09/20/24-1446
Test not performed
Gram Stain Final 09/20/24-1446
Gram stain indicates over-contamination with oropharyngeal
codi. Sputum is not acceptable for culture. Please repeat
culture if clinically relevant.
Many Squamous Epithelial Cells
Few WBC
Many Mixed Bacterial Morphotypes
Assessment / Plan
RML Pneumonia
COPD on 2L at baseline
AVINASH on chronic therapy
AIDS, suppressed viral load
On PJP prophylaxis outpatient
- agree with augmentin and doxycycline - would extend to a 7 day course
- restart bactrim 1 SS tab qday (PJP ppx); note that patient warfarin was previously calibrated while on warfarin
- can hold azithromycin while on augmentin and doxycycline, restart after completion
- continue rifabutin and ethambutol
- continue dolutegravir and truvada
- will need a plan for follow up of warfarin given interactions with augmentin and doxycycline, if that is in place, stable for dc from ID perspective
- follow up in my clinic in about 2 weeks
Care Review
Plan reviewed with: Physician (Dr Medeiros - antibiotic management)
--- NOTE | 2024-09-22 11:59 | W.PN.HOSP.TC ---
Addendum entered and electronically signed by Cammy Medeiros MD 09/22/24 14:04:
Addendum
Treatment plan at discharge plan were discussed with ID doctor, recommend to discharge home finish the course of Augmentin and doxycycline.
Total discharge time spent to see the patient, examine the patient, review data and lab results, discuss discharge plan with patient and nursing staff around 65 minutes
Original Note:
Today's Communication/Plan
-
.
Assessment / Plan
Assessment / Plan
Physical Exam
General: Comfortable and Conversant; No Fever or Chills
HEENT: Normocephalic, Anicteric, Moist mucous membranes, and Oxygen (2 L nasal cannula)
Respiratory: + rhonchi ( not severe)
Cardiac: S1/S2
GI: Non Tender, Non Distended, Normal Bowel Sounds and No Hepatosplenomegaly
Rectal: No bleeding.
Genito-urinary: No hematuria
Musculoskeletal: No Clubbing, No Cyanosis and No Edema
Skin: Warm and Dry; No Rash or Jaundice
Neuro: AO x 3, followed commands.
Psych: Calm
#RML PNA : Bacterial vs AVINASH
Rt chest pain: suspect pleuritic pain ? Pneumonic origin but seems to resolve
-INR 4.3, unlikely PE
- To cont. D2 of X PO Augmentin, PO doxycycline
-Follows up with Dr. Garcia.
He feels better today.
Appreciate ID help
# History of AVINASH infection
-Follows up with specialist at [facility] and locally
CD4 level of 147 in August 2024
-Currently on ethambutol/rifabutin
# HIV
-Reported, controlled on antiretroviral therapy of emtricitabine/tenofovir/Tivicay,
-f/us with ID group
Appreciate ID help
#Paroxysmal atrial fibrillation
No chest pain.
Rate is better controlled with increased dose of Cardizem
-He takes warfarin, follow-up INR
- INR is supra- therapeutic likely due to steroid use, continue with Cardizem
# Anemia of chronic disease
History of peripheral vascular disease
History of coronary disease s/p bypass
Left foot drop
Essential hypertension
History of right inguinal hernia repair
DVT prophylaxis -warfarin
full code
Total time spent to see the patient, examine the patient on the floor, review data and lab results, discuss treatment plan with patient, daughter, nursing staff around 55 minutes
Anticipated Discharge: 24 - 48 hours
Subjective/Interval History
-
Date of Service: September 22, 2024
Objective Data
-
Labs:
Laboratory Results
09/22/24
07:08
WBC 6.0
Hgb 11.0 L
Hct 34.9 L
Plt Count 198
PT 38.8 H
INR 3.96
Sodium 141
Potassium 4.6
Chloride 106
Carbon Dioxide 30
BUN 17
Creatinine 0.8
Glucose 132 H
Calcium 8.5
Total Bilirubin 0.4
AST 21
ALT 14
Alkaline Phosphatase 71
Vital Signs:
Vital Signs
Temp Pulse Resp BP Pulse Ox
97.7 F 90 16 111/60 95
09/22/24 07:36 09/22/24 11:27 09/22/24 11:27 09/22/24 07:36 09/22/24 07:36
I&O
09/21/24 09/22/24 09/23/24
06:59 06:59 06:59
Output Total 300 / 300
Balance -300 / -300
[2024-09-22] MEDS: NON-FORMULARY ITEM 1 UNIT PO (12:18)
[2024-09-22] MEDS: BACTRIM 400 MG/80 MG 1 TABLET PO (13:19)
[2024-09-22 15:16] VITALS: BP 92/62
--- NOTE | 2024-09-22 15:20 | CM ---
Met with patient to obtain information for assessment. Patient stated that he lives with his partner, Jhonatan, his son, and daughter in law in a two story house with two steps to enter. Patient stated that his son assists with ADLs, personal care,
dressing and bathing. His family does all the child care coordinator, cooking, cleaning and laundry. Patient has o2, a stair glide, a w/c, walker and a cane. Patient has transportation to his appointments and can help with the shopping.
Patient has had VN services in the past.
She has a prescription plan and uses, [facility]
Patient's PCP is, Vitaliy Farah.
Patient stated that he is agreeable to d/c and his s.o will pick him up. Reviewed IMM. He signed and it is now on chart.
Plan: Case management will continue to follow and assist with discharge planning. Home no needs.
--- NOTE | 2024-09-23 06:36 | W.DCSUMMARY ---
Discharge Summary
Discharge Data
Date of Admission: 09/21/24
Date of Discharge: 09/22/24
-
Pending Results: No
Hospital Course
79 years old male with history of HIV on dolutegravir/truvada, last CD4 count 140 on bactrim PJP prophylaxis, AVINASH on chronic azithromycin/ethambutol/rifabutin, COPD on 2L NC presented with pleuritic chest pain. Chest radiography showed possible
right middle lobe pneumonia. Patient was taking oral antibiotic with tapering prednisone from an earlier ER visit. Patient felt that his symptoms were not controlled with continued continued cough and pleuritic chest pain. Patient was admitted to
the hospital. He was evaluated by infectious disease therapeutic consultant. Repeat chest radiography showed slight improvement in pneumonia. Sputum culture was contaminated. He had negative influenza screen. Patient was noted to have elevated INR and his
Coumadin dose was reduced while using prednisone and antibiotics. ID doctor recommended to continue course of Augmentin and doxycycline, to hold azithromycin while on Augmentin and doxycycline. Patient remained hemodynamically stable. He did not
have worsening hypoxia. Patient was discharged home in a stable condition.
Discharge Plan
-
Patient Disposition: Home (Routine Discharge)
Discharge Diagnosis/Procedures: Pneumonia
You were seen by infectious diseases therapeutic consultant. Finish the course of doxycycline and Augmentin. Continue taking Bactrim.
We reduced Coumadin dose
For a few days, recheck your INR on Wednesday 09/27.
Diet: As tolerated
Referrals:
Colton Farah MD [Family Provider] -
Prescriptions:
New
doxycycline hyclate 100 mg Capsule
100 mg PO BID Qty: 6 0RF
amoxicillin-pot clavulanate 875-125 mg Tablet
1 tab PO BID Qty: 6 0RF
Continued
ethambutol 400 MG tablet
400 mg PO BID
ezetimibe 10 MG tablet
10 mg PO DAILY
Tivicay 50 MG tablet
50 mg PO BID
emtricitabine-tenofovir (TDF) 200-300 mg tablet
1 tab PO DAILY
pantoprazole 40 mg Tablet,Delayed Release (Dr/Ec)
40 mg PO DAILY Qty: 30 0RF
rifabutin 150 mg Capsule
150 mg PO BID
albuterol sulfate 90 mcg/actuation Hfa Aerosol Inhaler
2 puff INHALATION R Q4HPRN PRN (Reason: sob)
Trelegy Ellipta 100-62.5-25 mcg Blister With Device
1 inh INHALATION R DAILY
rosuvastatin 20 mg tablet
20 mg PO DAILY
levalbuterol HCl 1.25 mg/3 mL solution for nebulization
1.25 mg inhalation R QID
acetaminophen 325 mg Tablet
650 mg PO DAILYPRN PRN (Reason: mild pain/headache)
sulfamethoxazole-trimethoprim 400-80 mg Tablet
1 tab PO DAILY
diltiazem HCl 120 mg Capsule,Extended Release 24hr
120 mg PO DAILY
warfarin 1 mg Tablet
0.5 mg PO HS
prednisone 20 mg tablet
40 mg PO DAILY Qty: 9 0RF
Patient Comments:
Patient has 1 more day of 40 mg tomorrow 09/22/2024 then 20 mg x 3 days then resume 10 mg chronic daily
Rx Instructions:
40mg PO qd x 3d, then 20mg PO qd x 3d
Held
warfarin 4 mg Tablet
4 mg PO HS
Hold Instructions: Resume on 09/26/24.
Discontinued
azithromycin 250 mg tablet
250 mg PO DAILY
prednisone 10 mg Tablet
10 mg PO DAILY
amoxicillin-pot clavulanate 875-125 mg tablet
1 tab PO BID 5 Days Qty: 10 0RF
doxycycline hyclate 100 mg capsule
100 mg PO BID 5 Days Qty: 10 0RF
Discharge Orders:
Discharge Patient (As Directed); Ordered 09/22/24
Ordered By: Cammy Medeiros
Discharge Date and Time
Discharge Date/Time: 09/22/24 15:24
Print Language: PORTUGUESE
== END 2024-09-22 15:24 | disposition home or self-care (01) ==
LOC: 3 WEST ACU 19:48
PROVIDERS: Clinical Nurse Specialist Family Health; Physician Assistant; ADMITTING PHYSICIAN Internal Medicine; ATTENDING PHYSICIAN Internal Medicine; CONSULT PHYSICIAN Student in an Organized Health Care Education/Training Program; EMERGENCY PHYSICIAN Emergency Medicine; FAMILY PHYSICIAN Family Medicine
DX: J15.9 Unspecified bacterial pneumonia (principal); Z87.891 Personal history of nicotine dependence; Z79.01 Long term (current) use of anticoagulants; R79.1 Abnormal coagulation profile; Z21 Asymptomatic human immunodeficiency virus [HIV] infection status; Z95.1 Presence of aortocoronary bypass graft; I25.10 Atherosclerotic heart disease of native coronary artery without angina pectoris; I11.9 Hypertensive heart disease without heart failure; R32 Unspecified urinary incontinence; M48.00 Spinal stenosis, site unspecified; G89.29 Other chronic pain; M54.9 Dorsalgia, unspecified; J96.21 Acute and chronic respiratory failure with hypoxia; J44.1 Chronic obstructive pulmonary disease with (acute) exacerbation; J44.0 Chronic obstructive pulmonary disease with (acute) lower respiratory infection; I48.0 Paroxysmal atrial fibrillation; D63.8 Anemia in other chronic diseases classified elsewhere; I25.2 Old myocardial infarction; J43.9 Emphysema, unspecified; J98.4 Other disorders of lung; T45.515A Adverse effect of anticoagulants, initial encounter; Z79.624 Long term (current) use of inhibitors of nucleotide synthesis; Z79.899 Other long term (current) drug therapy; Z99.81 Dependence on supplemental oxygen
CPT/HCPCS: 71046; 80053; 84484; 85025; 85610; 93005; 94640; 96365; 99285; G0378

== ENCOUNTER → 2024-09-27 10:36 | Outpatient (REF) | payer MEDICARE, SELFPAY ==
[2024-09-27 11:42] LABS: INR 1.08; PT 14.3 Sec (11.4-14.6)
== END ==
LOC: REG 10:36
PROVIDERS: ATTENDING PHYSICIAN Internal Medicine Cardiovascular Disease; FAMILY PHYSICIAN Family Medicine
DX: I48.0 Paroxysmal atrial fibrillation (principal); Z79.01 Long term (current) use of anticoagulants
CPT/HCPCS: 36415; 85610

== ENCOUNTER → 2024-10-01 11:26 | Outpatient (REF) | payer MEDICARE, SELFPAY ==
[2024-10-01 12:51] LABS: Glycohemoglobin (HgbA1c) 5.9 % (4.0-5.6)
[2024-10-01 12:53] LABS: INR 1.42; PT 17.6 Sec (11.4-14.6)
[2024-10-01 14:27] LABS: Microalbumin, Random Urine <0.6 mg/dl (0.6-1.7)
== END ==
LOC: REG 11:26
PROVIDERS: ATTENDING PHYSICIAN Internal Medicine Cardiovascular Disease; FAMILY PHYSICIAN Family Medicine
DX: I48.0 Paroxysmal atrial fibrillation (principal); Z79.01 Long term (current) use of anticoagulants; Z51.81 Encounter for therapeutic drug level monitoring; J18.9 Pneumonia, unspecified organism; B20 Human immunodeficiency virus [HIV] disease; J44.9 Chronic obstructive pulmonary disease, unspecified; A31.2 Disseminated mycobacterium avium-intracellulare complex (DMAC); I27.20 Pulmonary hypertension, unspecified; I25.10 Atherosclerotic heart disease of native coronary artery without angina pectoris; I10 Essential (primary) hypertension; J96.10 Chronic respiratory failure, unspecified whether with hypoxia or hypercapnia; E11.69 Type 2 diabetes mellitus with other specified complication
CPT/HCPCS: 36415; 82043; 82570; 83036; 85610

== ENCOUNTER → 2024-10-08 11:14 | Outpatient (REF) | payer MEDICARE, SELFPAY ==
[2024-10-08 12:16] LABS: INR 1.61; PT 19.3 Sec (11.4-14.6)
== END ==
LOC: REG 11:14
PROVIDERS: ATTENDING PHYSICIAN Internal Medicine Cardiovascular Disease; FAMILY PHYSICIAN Family Medicine
DX: I48.0 Paroxysmal atrial fibrillation (principal); Z79.01 Long term (current) use of anticoagulants
CPT/HCPCS: 36415; 85610

== ENCOUNTER → 2024-10-15 11:30 | Outpatient (REF) | payer MEDICARE, SELFPAY ==
[2024-10-15 12:35] LABS: INR 2.22; PT 24.7 Sec (11.4-14.6)
== END ==
LOC: REG 11:30
PROVIDERS: ATTENDING PHYSICIAN Internal Medicine Cardiovascular Disease; FAMILY PHYSICIAN Family Medicine
DX: I48.0 Paroxysmal atrial fibrillation (principal); Z79.01 Long term (current) use of anticoagulants; Z51.81 Encounter for therapeutic drug level monitoring
CPT/HCPCS: 36415; 85610

== ENCOUNTER → 2024-10-29 11:49 | Outpatient (REF) | payer MEDICARE, SELFPAY ==
[2024-10-29 13:10] LABS: INR 3.11; PT 31.9 Sec (11.4-14.6)
== END ==
LOC: RAD 11:49
PROVIDERS: ATTENDING PHYSICIAN Nurse Practitioner Family; FAMILY PHYSICIAN Family Medicine; REFERRING PHYSICIAN Internal Medicine Cardiovascular Disease
DX: Z87.01 Personal history of pneumonia (recurrent) (principal); I48.0 Paroxysmal atrial fibrillation; Z79.01 Long term (current) use of anticoagulants
CPT/HCPCS: 36415; 71046; 85610

== ENCOUNTER → 2024-11-19 10:41 | Outpatient (REF) | payer MEDICARE, SELFPAY ==
[2024-11-19 11:37] LABS: INR 4.91; PT 45.1 Sec (11.4-14.6)
== END ==
LOC: REG 10:41
PROVIDERS: ATTENDING PHYSICIAN Internal Medicine Cardiovascular Disease; FAMILY PHYSICIAN Family Medicine
DX: I48.0 Paroxysmal atrial fibrillation (principal); Z79.01 Long term (current) use of anticoagulants; Z51.81 Encounter for therapeutic drug level monitoring
CPT/HCPCS: 36415; 85610

== ENCOUNTER → 2024-11-22 09:49 | Outpatient (REF) | payer MEDICARE, SELFPAY ==
[2024-11-22 11:03] LABS: INR 1.35; PT 16.9 Sec (11.4-14.6)
== END ==
LOC: REG 09:49
PROVIDERS: ATTENDING PHYSICIAN Internal Medicine Cardiovascular Disease; FAMILY PHYSICIAN Family Medicine
DX: I48.0 Paroxysmal atrial fibrillation (principal); Z79.01 Long term (current) use of anticoagulants
CPT/HCPCS: 36415; 85610

== ENCOUNTER → 2024-11-26 09:50 | Outpatient (REF) | payer MEDICARE, SELFPAY ==
[2024-11-26 10:34] LABS: PT 22.9 Sec (11.4-14.6)
== END ==
LOC: REG 09:50
PROVIDERS: ATTENDING PHYSICIAN Internal Medicine Cardiovascular Disease; FAMILY PHYSICIAN Family Medicine
DX: I48.0 Paroxysmal atrial fibrillation (principal); Z79.01 Long term (current) use of anticoagulants
CPT/HCPCS: 36415; 85610

== ENCOUNTER → 2024-12-10 09:38 | Outpatient (REF) | payer MEDICARE, SELFPAY ==
[2024-12-10 10:47] LABS: INR 2.29; PT 25.3 Sec (11.4-14.6)
== END ==
LOC: REG 09:38
PROVIDERS: ATTENDING PHYSICIAN Internal Medicine Cardiovascular Disease; FAMILY PHYSICIAN Family Medicine
DX: I48.0 Paroxysmal atrial fibrillation (principal); Z79.01 Long term (current) use of anticoagulants
CPT/HCPCS: 36415; 85610

== ENCOUNTER 2024-12-15 22:03 | Inpatient (IN) | payer MEDICARE, SELFPAY ==
[2024-12-15 19:27] VITALS: BP 122/69
[2024-12-15 19:45] VITALS: BP 116/66
[2024-12-15 20:00] VITALS: BP 121/88
[2024-12-15 20:02] VITALS: BMI 19.7
--- NOTE | 2024-12-15 20:07 | ED.GENMED ---
History of Present Illness
General
Chief Complaint: Breathing Problem
Source: patient, records and spouse
Exam Limitations: none
Time Seen by Provider: 12/15/24 19:49
Nursing documentation reviewed up to this point in time: agreed with
History of Present Illness
History of Present Illness:
79-year-old male with a past medical history of COPD, chronic respiratory failure on 2 L home oxygen, hypertension, hyperlipidemia, atrial fibrillation on Coumadin, CAD, CHF who presents to the emergency with his for evaluation of shortness of
breath. Patient reports that symptoms have been ongoing for the past 10 days or so generally worsening over that period of time. He reports shortness of breath worse with exertion. He reports cough productive of clear sputum. He has been using
his inhalers as well as his home BiPAP machine but symptoms still worsening. He has not had any swelling in the legs. He has had some positional chest pain�he says that when he lays down at night he gets a pressure in his chest. He denies any
chest pain presently. He has not noted any fever or chills. He has had multiple hospitalizations for COPD/pneumonia in the past with similar presentation.
Past History
Past History
ED Past Medical History: Arrthythmia (Atrial fibrillation), CAD, COPD, HTN, Hypercholesterolemia and Other (HIV, cavitary pneumonia, AVINASH)
ED Past Surgical History: Cardiac
Social History
Tobacco: Former smoker
Alcohol: None
Drug: None
Living: with roommate
Employment: Retired
Review of Systems
Review of Systems
All Other Systems: ROS reviewed and negative except as documented in HPI and ROS
Constitutional: Denies fever or chills
Respiratory: Reports cough and trouble breathing
Cardiac: Reports chest pain; Denies palpitations
ABD/GI: Denies abdominal pain
Musculoskeletal: Denies edema, neck pain or back pain
Neurological: Denies dizzy or headache
Phy Exam
Physical Exam
Physical Exam:
General: Awake, alert, oriented x3; frequent coughing
Head: Normocephalic, atraumatic
Eyes: Conjunctiva normal, sclera anicteric
Throat: Airway intact, handling secretions
Neck: Trachea midline, no JVD
Lungs: Patient has frequent coughing, he is saturating appropriately on his normal 2 L of oxygen, has mild tachypnea with a respiratory rate 24-26 during my assessment; he has diffuse bilateral expiratory wheezing with prolonged expiratory phase
Heart: Tachycardia with regular rhythm, no murmurs, gallops, or rubs
Abd: Soft, non distended, nontender
Neuro: No gross deficits
Skin: no rash
Extremities: No edema in extremities, warm well-perfused
Scores
Heart Failure Risk
Heart Failure Risk Score: Not Applicable
Heart Score for Chest Pain Patients
STEMI patient?: Not applicable
Withdrawal Assessment of Alcohol
Withdrawal Assessment Completed?: Not applicable
Course
Orders/Labs/Results
Orders:
Orders
12/15/24 19:21
Electrocardiogram (*1) Urgent
Reason for Study: Chest Pain
EKG- Treatment ONCE
12/15/24 19:51
CR Chest Portable - 1 View Urgent
Comment:
Reason For Exam: sob
Reason Study Needs to be Portable: Unable to Transport
12/15/24 20:04
Doxycycline [Vibramycin] 100 mg PO NOW STA
Ipratropium/Albuterol Sulfate [Duoneb] 3 ml INH R NOW STA
MethylPREDNISolone PF [Solu-Medrol Pf] 125 mg IV NOW STA
12/15/24 20:12
CefTRIAXone [Rocephin] 1,000 mg IV NOW STA
12/15/24 20:16
Complete Blood Count/With Diff Urgent
Comprehensive Metabolic Panel Urgent
NT-proBNP Urgent
Prothrombin Time Urgent
Troponin I Urgent
Blood Culture Q30M
JESSICA Source: Blood/Venous
Specimen Description:
12/15/24 20:45
Blood Culture Q30M
JESSICA Source: Blood/Venous
Specimen Description:
Abnormal Lab Results
12/15/24
20:16
WBC 4.2 L 10^3/uL
(4.8-10.8)
RBC 4.15 L 10^6/uL
(4.70-6.10)
Hgb 11.1 L g/dL
(13.0-18.0)
Hct 34.3 L %
(39.0-52.0)
MCH 26.7 L pg
(27.0-31.0)
MCHC 32.4 L g/dL
(33.0-37.0)
RDW 16.4 H %
(11.5-14.5)
MPV 11.9 H fL
(7.4-10.4)
Absolute Lymphs (auto) 0.7 L 10^3/uL
(1.2-3.4)
Absolute Monos (auto) 0.7 H 10^3/uL
(0.1-0.6)
Lymphocytes % 17.3 L %
(20.5-51.1)
Monocytes % 15.8 H %
(1.7-9.3)
PT 21.9 H Sec
(11.4-14.6)
Chloride 108 H mmol/L
(98-107)
12/15/24 20:16
12/15/24 20:16
Vital Signs
Initial and Last Documented VS:
Initial Vital Signs
Temp Pulse Resp BP Pulse Ox
36.5 C 105 28 122/69 97
12/15/24 19:27 12/15/24 19:27 12/15/24 19:27 12/15/24 19:27 12/15/24 19:27
Last Documented Vital Signs
Temp Pulse Resp BP Pulse Ox
36.5 C 90 19 121/88 98
12/15/24 19:27 12/15/24 20:00 12/15/24 20:00 12/15/24 20:00 12/15/24 20:00
MDM/Problems Addressed
Differential Diagnosis Includes:
COPD exacerbation, CHF exacerbation, pneumonia; much lower suspicion for PE clinically
MDM/Problems Addressed:
79-year-old male presents for evaluation of shortness of breath and cough productive of clear sputum worsening over the past 10 days or so. Also having positional chest pain but currently chest pain-free. Normotensive, tachycardic, tachypneic,
oxygenating appropriately. Afebrile. Physical exam as above. Suspect acute COPD exacerbation. Will treat with DuoNeb and steroids. Chest x-ray, EKG. Send labs including a CBC and a CMP, proBNP. Check troponin but low suspicion for ACS as
cause for his positional chest pain. Will monitor closely reassess after the above.
Chest x-ray reviewed by me shows some scarring in the right upper lobe and some hyperinflation of the lungs but no findings to suggest pneumonia or CHF. Nevertheless given change in sputum will cover empirically with antibiotics.
Labs reviewed: CBC shows marginal neutropenia, marginal anemia; CMP no clinically significant abnormalities. proBNP not elevated, troponin undetectable. Clinical reassessment after steroid and nebs marginal improvement in wheezing still has
tachypnea. Will plan to admit for acute COPD exacerbation�case discussed with hospitalist for admission.
Chronic conditions affecting care:
COPD, chronic respiratory failure, CHF
*Pulse Oximetry
Patient hypoxic: no (97 on his normal home oxygen 2 L)
*EKG
Interpreted by ED Provider?: Yes
Heart Rate: 102
Rate: tachycardiac
Rhythm: sinus and sinus tachycardia
Lapaz: normal axis
Interval: normal interval
QRS Pattern: normal QRS
Ischemia: other (Septal infarct age indeterminant)
*Critical Care Note
Total Time (30-74mins, 75-104mins- exclusive of procedures): Not Applicable
Data Reviewed
Review of Other/Old Records Reveals: Labs, Records and Discharge Summary
Source: patient, records and spouse
Patient Management
Discussion with other providers: Hospitalist (Discussed with hospitalist)
Escalation/DeEscalation of care consider admission/obs:
Admission indicated
ED Attending Note
-
Portions of this chart may have been created with voice recognition software.� Occasional wrong word or��sound alike� substitutions may have occurred due to the inherent limitations of voice recognition software.
Discharge Plan
Departure
Patient Disposition: Admit
Date of Disposition: 12/15/24
Time of Disposition: 20:56
Admit to doctor: Mirta
Presentation/result/management discussed w/ accepting MD/DO: Hospitalist
Discharge Problem:
Acute exacerbation of chronic obstructive pulmonary disease
Prescriptions:
No Action
ethambutol 400 MG tablet
400 mg PO BID
ezetimibe 10 MG tablet
10 mg PO DAILY
Tivicay 50 MG tablet
50 mg PO BID
emtricitabine-tenofovir (TDF) 200-300 mg tablet
1 tab PO DAILY
pantoprazole 40 mg Tablet,Delayed Release (Dr/Ec)
40 mg PO DAILY Qty: 30 0RF
rifabutin 150 mg Capsule
150 mg PO BID
albuterol sulfate 90 mcg/actuation Hfa Aerosol Inhaler
2 puff INHALATION R Q4HPRN PRN (Reason: sob)
Trelegy Ellipta 100-62.5-25 mcg Blister With Device
1 inh INHALATION R DAILY
rosuvastatin 20 mg tablet
20 mg PO DAILY
levalbuterol HCl 1.25 mg/3 mL solution for nebulization
1.25 mg inhalation R QID
acetaminophen 325 mg Tablet
650 mg PO DAILYPRN PRN (Reason: mild pain/headache)
sulfamethoxazole-trimethoprim 400-80 mg Tablet
1 tab PO DAILY
warfarin 4 mg Tablet
4 mg PO HS
diltiazem HCl 120 mg Capsule,Extended Release 24hr
120 mg PO DAILY
warfarin 1 mg Tablet
0.5 mg PO HS
prednisone 20 mg tablet
40 mg PO DAILY Qty: 9 0RF
Patient Comments:
Patient has 1 more day of 40 mg tomorrow 09/22/2024 then 20 mg x 3 days then resume 10 mg chronic daily
Rx Instructions:
40mg PO qd x 3d, then 20mg PO qd x 3d
doxycycline hyclate 100 mg Capsule
100 mg PO BID Qty: 6 0RF
amoxicillin-pot clavulanate 875-125 mg Tablet
1 tab PO BID Qty: 6 0RF
Referrals:
Colton Farah MD [Family Provider, Family Practice]
Interventions
Interventions:
*Risk Screen - Suicide Last Done: 12/15/24 19:33
*General Assessment Last Done: 12/15/24 20:14
*Neglect/Abuse Screening Last Done: 12/15/24 19:33
*ED COVID-19 Vaccine History Last Done: 12/15/24 20:14
ED- Cardiac Assessment Last Done: 12/15/24 20:01
ED- Pulmonary Assessment Last Done: 12/15/24 20:01
Discharge Date and Time
Print Language: GRENADIAN
[2024-12-15 20:24] LABS: % Basophils 0.5 % (0-2); % Eosinophils 0.5 % (0-6); % Immature Granulocytes 0.5 % (0-0.5); % Lymphocytes 17.3 % (20.5-51.1); % Monocytes 15.8 % (1.7-9.3); % Neutrophils 65.4 % (42.2-75.2); Absolute Lymphocytes 0.7 10^3/uL (1.2-3.4); Absolute Monocytes 0.7 10^3/uL (0.1-0.6); Absolute Neutrophils 2.8 10^3/uL (1.4-6.5); Hematocrit 34.3 % (39.0-52.0); Hemoglobin 11.1 g/dL (13.0-18.0); Mean Corp Hgb Conc. 32.4 g/dL (33.0-37.0); Mean Corpuscular Hgb 26.7 pg (27.0-31.0); Mean Corpuscular Volume 82.7 fL (80.0-94.0); Mean Platelet Volume 11.9 fL (7.4-10.4); Nucleated Red Blood Cells % 0 % (-); Platelet Count 196 10^3/uL (130-400); Red Blood Cell Count 4.15 10^6/uL (4.70-6.10); Red Cell Dist. Width 16.4 % (11.5-14.5); White Blood Cell Count 4.2 10^3/uL (4.8-10.8)
[2024-12-15] MEDS: SOLU-MEDROL PF 125 MG IV (20:25)
[2024-12-15] MEDS: DUONEB 3 ML INH (20:25)
[2024-12-15 20:37] LABS: ALT (SGPT) 13 U/L (0-50); AST (SGOT) 21 U/L (17-59); Albumin 3.8 g/dl (3.5-5.0); Alkaline Phosphatase 71 U/L (38-126); Blood Urea Nitrogen 16 mg/dl (9-20); Calcium 8.8 mg/dl (8.4-10.2); Carbon Dioxide 28 mmol/L (22-30); Chloride 108 mmol/L (98-107); Estimated Creatinine Clearance 80 ml/min; Glucose 97 mg/dl (70-99); Potassium 4.5 mmol/L (3.5-5.1); Sodium 141 mmol/L (135-145); Total Bilirubin 0.4 mg/dl (0.2-1.3); Total Protein 6.6 g/dl (6.3-8.2); eGFR > 60.00
[2024-12-15 20:39] LABS: INR 1.86; PT 21.9 Sec (11.4-14.6)
[2024-12-15] MEDS: ROCEPHIN 1000 MG IV (20:45)
[2024-12-15] MEDS: VIBRAMYCIN 100 MG PO (20:46)
[2024-12-15 20:50] LABS: NT-proBNP 156 pg/ml; Troponin I < 0.012 ng/ml
[2024-12-15 21:00] VITALS: BP 122/66
--- NOTE | 2024-12-15 21:01 | HPS.HSE ---
Family Physician
-
Family Physician: Colton Farah
Chief Complaint
-
Shortness of breath
History of Present Illness
This is a 79-year-old male with past medical history of COPD on 2 L home O2, HIV on ART, prior AVINASH infection, atrial fibrillation on Coumadin, CAD status PCI and hypertension presenting to the emergency department with shortness of breath.
Patient brought to the emergency department by spouse for evaluation of shortness of breath that appears to have been going on for 10 days. Reports cough that is productive with clear phlegm.. He reports worsening dyspnea on exertion. Denies any
fevers or chills. Denies lower extremity swelling.
He has been using inhalers at home as well as his BiPAP machine but symptoms persisted. Denies change any changes in oxygen requirements and has remained with 2 L satting above 90% typically. He reports some positional chest pain that occurs when
he lays down at night. Currently denies any chest pain.
Was last admitted in September for right middle lobe pneumonia with a similar presentation. Since then the patient has had about a 5 pound weight loss. No recent travel. No sick contacts. He is on chronic antibiotic suppression for AVINASH on chronic
azithromycin, rifabutin and also on chronic prednisone.
In the emergency department he was afebrile, was satting 98% on 4 L. Blood pressure was stable at 121/88 with a pulse rate of 90 and regular.
Chest x-ray shows no acute infiltrates, old scarring observed. ECG with sinus tach at a rate of 102 right atrial enlargement consistent with a pulmonary department but no acute ST or T wave changes. Troponin was negative. BNP was negative.
CBC was unremarkable. Electrolytes were normal. BUN and creatinine were also normal.
Medical History
Past Medical History
Past Medical History: Reports Other
Additional Past Medical History:
Chronic hypoxic failure secondary to COPD on 2 L oxygen with activity and sleeping
A-fib anticoagulated with warfarin
COPD
HIV
AVINASH
PVD
Spinal stenosis
Chronic back pain
Coronary artery disease status post stent and bypass
Left foot drop
Hypertension
Cataract
Past Surgical History: Reports Other
Additional Past Surgical History:
Coronary disease/bypass
R knee
Colonoscopy and polyp removal
Right inguinal hernia repair
Thoracocentesis
EGD removal of food impaction
Social History
Unable to obtain full social history at this time due to: Other
Tobacco: Former Smoker (50-year tobacco day quit 2021)
Alcohol: None
Employment: Retired
Family History
Family History: Other
Allergies / Home Medications
Allergies reflects when Allergies were last updated in [facility].
Home Medications with original date entered in [facility]
Allergy/Medication List:
Allergies
Allergy/AdvReac Type Severity Reaction Status Date / Time
No Known Allergies Allergy Verified 09/21/24 16:19
Home Medications
dolutegravir 50 mg tablet (Tivicay) 50 mg PO BID HIV 12/19/21
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
ezetimibe 10 mg tablet 10 mg PO DAILY High cholesterol 12/19/21
emtricitabine 200 mg-tenofovir disoproxil fumarate 300 mg tablet 1 tab PO DAILY HIV 11/11/22
pantoprazole 40 mg tablet,delayed release 40 mg PO DAILY #30 tabs 11/13/22
albuterol sulfate 90 mcg/actuation aerosol inhaler 2 puff inhalation R Q4HPRN PRN sob 06/20/23
fluticasone fur. 100 mcg-umeclid 62.5 mcg-vilant 25 mcg inhalat.powder (Trelegy Ellipta) 1 inh inhalation R DAILY Lung/Breathing Issues 06/20/23
rifabutin 150 mg capsule 150 mg PO BID mycobacterium avium 06/20/23
levalbuterol HCl 1.25 mg/3 mL solution for nebulization 1.25 mg inhalation R QID 01/28/24
rosuvastatin 20 mg tablet 20 mg PO DAILY High Cholesterol 01/28/24
azithromycin 250 mg tablet 250 mg PO DAILY COPD prophylaxis 02/01/24
acetaminophen 325 mg tablet 650 mg PO DAILYPRN PRN mild pain/headache 09/19/24
amoxicillin 875 mg-potassium clavulanate 125 mg tablet 1 tab PO BID 5 days #10 tabs 09/19/24
diltiazem HCl 120 mg capsule,24 hr,extended release 120 mg PO DAILY 09/19/24
doxycycline hyclate 100 mg capsule 100 mg PO BID 5 days #10 caps 09/19/24
prednisone 10 mg tablet 10 mg PO DAILY 09/19/24
prednisone 20 mg tablet 40 mg (2 x 20 mg) PO DAILY #9 tabs 09/19/24
sulfamethoxazole 400 mg-trimethoprim 80 mg tablet 1 tab PO DAILY 09/19/24
warfarin 1 mg tablet 0.5 mg PO HS 09/19/24
warfarin 4 mg tablet 4 mg PO HS 09/19/24
Review of Systems
-
History Source: Patient
A 12 point ROS was completed and negative except as noted: Yes
Constitutional: Denies Fever or Chills
EENT: Denies Sore Throat or Runny Nose
Respiratory: Reports Cough (1 productive cough white in color), Trouble Breathing and Other (Pain right rib with deep breath and cough area of pneumonia)
Cardiac: Denies Chest Pain, Diaphoresis, Palpitations or Syncope
Abdomen/GI: Denies Abdominal Pain, Nausea, Vomiting, Diarrhea, Constipated, Bloody Stools or Black Stools
: Denies Dysuria, Frequency, Flank Pain, Incontinence, Difficulty Voiding or Urgency
Musculoskeletal: Denies Joint Pain or Edema
Skin: Denies Itching or Rash
Neurological: Denies Dizzy, Headache or Weakness
Endocrine: Reports No Symptoms
Hematologic/Lymphatic: Reports No Symptoms
Psych: Reports Calm
Physical Exam
Vital Signs
Vital Signs
Temp Pulse Resp BP Pulse Ox
97.7 F 90 19 121/88 98
12/15/24 19:27 12/15/24 20:00 12/15/24 20:00 12/15/24 20:00 12/15/24 20:00
Physical Exam
General: Well Developed, Well Nourished and No Apparent Distress
HEENT: NormoCephalic, Moist mucous membranes, Atraumatic and Oxygen
Respiratory: Wheezes (Coarse wheezes throughout the lung schrader more prominent on the right upper and lower lobes. No crackles.) and Non Labored Respirations; No Crackles or Accessory Resp Muscle Use
Cardiac: S1/S2 and Regular Rhythm; No Murmur or Rub
GI: Soft, Non Tender, Non Distended and Normal Bowel Sounds; No Organomegaly
Rectal: Deferred by Provider
Musculoskeletal: No Clubbing, No Cyanosis and No Edema
Skin: No Rash
Neuro: AO x 3 and Nonfocal/grossly intact
Laboratory Results
-
12/15/24 20:16
12/15/24 20:16
Laboratory Results
PT 21.9 Sec (11.4-14.6) H 12/15/24 20:16
INR 1.86 12/15/24 20:16
Total Bilirubin 0.4 mg/dl (0.2-1.3) 12/15/24 20:16
AST 21 U/L (17-59) 12/15/24 20:16
ALT 13 U/L (0-50) 12/15/24 20:16
Alkaline Phosphatase 71 U/L (38-126) 12/15/24 20:16
Troponin I < 0.012 ng/ml 12/15/24 20:16
Data Reviewed
-
Diagnostic Radiology: Image Personally Visualized and interpreted
Medical Tests (Nuc Med, Echo, EKG etc): Image Personally Visualized and interpreted
Lab Data: Labs Reviewed by me
Old Records: Reviewed
Impression/Plan
-
IMPRESSION:
79-year-old with history of COPD on 2 L home O2, chronic prednisone, HIV on ART and bactrim ppx, AVINASH on chronic azithromycin, ethambutol and rifabutin, atrial fibrillation on anticoagulation with warfarin, CAD without history of CHF, HIV on [place]
presenting to the emergency department with progressive decline in respiratory status over the last 10 days compared to his baseline. He has a cough that is productive of clearish phlegm which is more than usual. Still using this amount of oxygen
but reports dyspnea on exertion and mild chest pressure with laying down. No evidence of congestive heart failure, ECG is nonischemic, troponin is negative and BNP is negative he is afebrile here, chest x-ray shows no acute infiltrates. He has
extensive wheezing throughout the lung schrader. Most notable on the right upper and lower field. He has ongoing cachexia. Hemodynamically stable.
PLAN:
Suspect COPD exacerbation -mild to moderate, no focal consolidation, pior middle lobe opacities resolved
[facility]
-Giving chronic antibiotics, started on doxycycline and ceftriaxone which we will continue for now
-Solu-Medrol IV every 12
-Will hold the azithromycin, continue Bactrim, ethambutol and rifabutin
-Names RTC in as needed
-Continue 2 L of oxygen
-BiPAP 4 hours during the day
-Pulmonary consult
Atrial fibrillation�currently sinus tach at 102. INR slightly subtherapeutic at 1.86.
-Continue Coumadin 4 mg in the evening
-PT/INR in the morning, if remains subtherapeutic can adjust coumadin
-Continue diltiazem
HIV
-Continue Tivicay/TDF
DVT PPX - on coumadin
Code Status - Full Code at this time.
[2024-12-15 22:04] LABS: COVID-19 Antigen Negative (Negative)
[2024-12-15 22:44] VITALS: BP 152/76; BMI 18.5
--- NOTE | 2024-12-15 22:50 | PTCARENOTE ---
Received patient from ED via stretcher. Patient ambulated from stretcher to bed x1 assist. AAOx3, denies pain. Oriented patient to room and placed call nieves within reach.
[2024-12-15 22:53] VITALS: BMI 18.5
[2024-12-15] MEDS: COUMADIN PO (23:05)
[2024-12-16 06:57] LABS: INR 2.01; PT 23.3 Sec (11.4-14.6)
[2024-12-16 07:10] VITALS: BP 103/58
[2024-12-16 07:12] LABS: Blood Urea Nitrogen 16 mg/dl (9-20); Calcium 8.5 mg/dl (8.4-10.2); Carbon Dioxide 28 mmol/L (22-30); Chloride 109 mmol/L (98-107); Estimated Creatinine Clearance 90 ml/min; Glucose 128 mg/dl (70-99); Potassium 4.6 mmol/L (3.5-5.1); Sodium 142 mmol/L (135-145); eGFR > 60.00
[2024-12-16 07:25] LABS: Hematocrit 32.7 % (39.0-52.0); Hemoglobin 10.4 g/dL (13.0-18.0); Mean Corp Hgb Conc. 31.8 g/dL (33.0-37.0); Mean Corpuscular Hgb 26.3 pg (27.0-31.0); Mean Corpuscular Volume 82.8 fL (80.0-94.0); Mean Platelet Volume 11.1 fL (7.4-10.4); Platelet Count 163 10^3/uL (130-400); Red Blood Cell Count 3.95 10^6/uL (4.70-6.10); Red Cell Dist. Width 16.2 % (11.5-14.5); White Blood Cell Count 3.1 10^3/uL (4.8-10.8)
[2024-12-16] MEDS: VENTOLIN NEBULES 2.5 MG INH ×4 (07:50→19:23)
[2024-12-16] MEDS: ZETIA 10 MG PO (08:08)
[2024-12-16] MEDS: CRESTOR 20 MG PO (08:08)
[2024-12-16] MEDS: VIBRAMYCIN 100 MG PO ×2 (08:08→22:09)
[2024-12-16] MEDS: MUCINEX 600 MG PO ×2 (08:08→22:09)
[2024-12-16] MEDS: MYAMBUTOL 400 MG PO ×2 (08:09→22:09)
[2024-12-16] MEDS: TRUVADA TABLET 1 TABLET PO (08:09)
[2024-12-16] MEDS: SOLU-MEDROL PF 40 MG IV ×2 (08:09→22:12)
[2024-12-16] MEDS: BACTRIM 400 MG/80 MG 1 TABLET PO (08:09)
[2024-12-16] MEDS: CARDIZEM CD 120 MG PO (08:09)
[2024-12-16] MEDS: PROTONIX 40 MG PO (08:09)
[2024-12-16] MEDS: SYMBICORT 80/4.5 MCG INHALER 2 PUFF INH ×2 (08:10→19:24)
[2024-12-16] MEDS: NON-FORMULARY ITEM 1 UNIT PO (08:10)
[2024-12-16] MEDS: SPIRIVA RESPIMAT 2.5 MCG 2 PUFF INH (08:10)
[2024-12-16] MEDS: TIVICAY 50 MG PO ×2 (08:30→22:30)
[2024-12-16 09:57] VITALS: BP 123/62
[2024-12-16 11:16] VITALS: BMI 18.5
--- NOTE | 2024-12-16 11:19 | CON.PUL ---
Consultation
Consultation Request
Date/Time Consultation Requested: 12/16/24
Date/Time Consultation Performed: 12/16/24
Performing Provider: Alia
Reason for Consultation: SOB
Medical History
-
History of Present Illness:
This is a 79-year-old male with past medical history of COPD on 2 L home O2, HIV on ART, prior AVINASH infection, atrial fibrillation on Coumadin, CAD status PCI and hypertension presenting to the emergency department with shortness of breath. Has been
going on for 10 days. Reports cough that is productive with clear phlegm.. He reports worsening dyspnea on exertion. Denies any fevers or chills. Denies lower extremity swelling.
Was admitted in September for right middle lobe pneumonia with a similar presentation. Since then the patient has had about a 5 pound weight loss. No recent travel. No sick contacts. He is on chronic antibiotic suppression for AVINASH on chronic
azithromycin, rifabutin and also on chronic prednisone.
In the emergency department he was afebrile, was satting 98% on 4 L. Blood pressure was stable at 121/88 with a pulse rate of 90 and regular.
Chest x-ray shows no acute infiltrates, old scarring observed. Troponin was negative. BNP was negative.
Past Medical History
Past Medical History: Other (see list below)
Social History
Tobacco: Former Smoker
Alcohol: None
Drug: None
Family History
Family History: Reviewed & Not Pertinent
Allergies / Home Medications
Allergies
Allergy/AdvReac Type Severity Reaction Status Date / Time
No Known Allergies Allergy Verified 09/21/24 16:19
Home Medications
�Medication �Instructions �Recorded �Confirmed �Last Taken �Type
dolutegravir 50 mg tablet (Tivicay) 50 mg PO BID HIV 12/19/21 12/15/24 12/15/24 19:00 History
ethambutol 400 mg tablet 400 mg PO BID mycobacterium avium 12/19/21 12/15/24 12/15/24 19:00 History
ezetimibe 10 mg tablet 10 mg PO DAILY High cholesterol 12/19/21 12/15/24 12/15/24 08:00 History
emtricitabine 200 mg-tenofovir 1 tab PO DAILY HIV 11/11/22 12/15/24 12/15/24 08:00 History
disoproxil fumarate 300 mg tablet
pantoprazole 40 mg tablet,delayed 40 mg PO DAILY #30 tabs 11/13/22 12/15/24 12/15/24 08:00 Rx
release
albuterol sulfate 90 mcg/actuation 2 puff inhalation R Q4HPRN PRN sob 06/20/23 12/15/24 Unknown History
aerosol inhaler
fluticasone fur. 100 mcg-umeclid 1 inh inhalation R DAILY 06/20/23 12/15/24 12/15/24 08:00 History
62.5 mcg-vilant 25 mcg Lung/Breathing Issues
inhalat.powder (Trelegy Ellipta)
rifabutin 150 mg capsule 150 mg PO BID mycobacterium avium 06/20/23 12/15/24 12/15/24 19:00 History
levalbuterol HCl 1.25 mg/3 mL 1.25 mg inhalation R QID 01/28/24 12/15/24 09/21/24 07:00 History
solution for nebulization Lung/Breathing Issues
rosuvastatin 20 mg tablet 20 mg PO DAILY High Cholesterol 01/28/24 12/15/24 12/15/24 19:00 History
acetaminophen 325 mg tablet 650 mg PO DAILYPRN PRN mild 09/19/24 12/15/24 09/19/24 History
pain/headache
diltiazem HCl 120 mg capsule,24 120 mg PO DAILY Heart 09/19/24 12/15/24 12/15/24 08:00 History
hr,extended release Disease/Condition
sulfamethoxazole 400 1 tab PO DAILY Infection 09/19/24 12/15/24 12/15/24 08:00 History
mg-trimethoprim 80 mg tablet
warfarin 1 mg tablet 0.5 mg PO PRN PRN per coumadin 09/19/24 12/15/24 09/20/24 22:30 History
clinic orders
warfarin 4 mg tablet 4 mg PO HS Blood Clot Prevention/Tx 09/19/24 12/15/24 12/15/24 19:00 History
Held on 09/22/24.
Instructions: Resume on
09/26/24.
Review of Systems
-
History Source: Patient
All other systems: Negative unless noted
Vitals / Labs / Diagnostic Testing
Vital Signs
Temp Pulse Resp BP Pulse Ox
97.7 F 79 20 103/58 99
12/16/24 07:10 12/16/24 07:52 12/16/24 07:52 12/16/24 07:10 12/16/24 08:20
Lab Data
12/16/24 06:27
12/16/24 06:27
Laboratory Results
12/15/24 12/16/24
20:16 06:27
PT 21.9 H 23.3 H
INR 1.86 2.01
Microbiology
12/16/24 06:15 Nasal Swab Influenza Types A & B (MARIAH) - Final
Negative for Influenza A & B, NAAT
Negative results must be combined with clinical observations
and patient history.
Nucleic Acid Amplification test (NAAT)performed on the
[employer] platform.
Diagnostic Testing:
Physical Exam
-
HEENT: Normocephalic, Anicteric and Moist Mucous Membranes
Cardiovascular: S1/S2 and Regular Rhythm
Respiratory: Clear (diminished BS BL) and Non-Labored Respirations
GI: Soft, Non Distended and Non Tender
Neurology: Awake, Alert, Oriented and No Motor Deficits
Skin: Warm, Dry and Good Color
General: Comfortable and Other (NAD)
Assessment
-
This is a 79-year-old male with past medical history of COPD on 2 L home O2, HIV on ART, prior AVINASH infection, atrial fibrillation on Coumadin, CAD status PCI and hypertension presenting to the emergency department with shortness of breath x 10 days,
cough productive with clear phlegm. Was admitted in September for right middle lobe pneumonia with a similar presentation. Since then the patient has had about a 5 pound weight loss. He is on chronic antibiotic suppression for AVINASH on chronic
azithromycin, rifabutin and also on chronic prednisone. Chest x-ray shows no acute infiltrates, old scarring observed. We are consulted for evaluation 12/16/24.
Severe COPD with acute exacerbation
Productive sputum, cough
Leukopenia
Mild anemia
Recurrent admissions for AECOPD
Conditions present prior to admission:
COPD on chronic oxygen 2 L-stage IV, maintained on chronic prednisone 10mg
Last AECOPD hospitalizations/Admissions to : 09/2024, 02/29/24, 02/01/24, 09/16/23, 06/25/23, 11/13/22, 12/21/21
Followed by [facility]
Right apical bleb/cavitary disease/bullous emphysema
History of mycobacterial disease-AVINASH
Follows ID-Dr. Castillo at [facility] and Dr. Fan locally
Chronic cough
Pulmonary nodules
Atrial fibrillation-Follows Dr. Jhonatan Yip; On Chronic warfarin
HIV.
PAD.
Spinal stenosis.
Chronic back pain.
Coronary artery disease/CABG.
L foot drop.
Hypertension.
Cataract.
Right knee surgery.
Colonoscopy/polyp removal.
R inguinal hernia repair.
Effusion s/p Thoracentesis 04/03/19
EGD Food impaction
Plan
Respiratory status has declined due to COPD exacerbation
He is stage IV copd, severe obstruction, frequent exacerbations--this is his 7th admission since 2022
Inpatient and outpatient records reviewed
Supplemental oxygen as needed/baseline use of 2L
He is 99% on 2L NC
Prior ABGs suggest chronic hypercapnia
BiPAP at night
Mucolytic's
Incentive spirometry/Acapella
Decadron with fairly rapid conversion to prednisone 40 mg with slow taper
He is maintained on 10mg prednisone daily
Resume home inhalers
Nebulizers as needed
Can consider Ohtuvayre set up as OP
CXR negative, no PNA noted
Prior cultures reviewed--History of AVINASH/pseudomonas
Also + kleb on last sputum in 09/2023
Maintained on azithromycin 250 mg daily, rifabutin, ethambutol
Follows locally with infectious disease as well as HUP
Monitor leukocytosis
CXR without infiltrate but can repeat sputum if patient is productive
Smoking cessation counseling-reportedly quit 1 year ago
DVT prophylaxis -on warfarin.
GI prophylaxis-on pantoprazole
Nutrition especially in light of protein calorie malnutrition and cachexia
Early mobilization
PT/OT consult-unsteady with ambulation
Reviewed with nursing and primary team
Outpatient pulmonary follow-up recommended, Dr. Mujica
He understands his disease is severe/end stage
We will follow
Diagnostic Data:
CXR 12/15/24- No acute cardiopulmonary process.
CXR 01/29/24- Stable radiographic appearance of the chest including chronic obstructive pulmonary disease, and chronic scarring and cavitary/bullous changes in the right upper lobe.
Chest x-ray 06/20/2023-stable pleural-parenchymal scarring right upper lobe and 8 cm right apical bleb
Chest x-ray 09/08/2023-right upper lobe scarring
CT chest low-dose 12/05/2022-extensive emphysematous changes, small bilateral pulmonary nodules overall slightly decreased in size
Echocardiogram 11/12/2022-EF 60%, no mitral stenosis, trace mitral regurgitation, no change since 2021
PFT 10/17/23: FEV1 0.88L 29%, FVC 2.88L 69%, ratio 31. Post FEV1 0.93L 31%, no BD response. TLC 7.48L 105%, DLCO 15% (severe obstruction, severe diffusion impairment)
PFT 09/29/2020-FEV1 960 mL - 31%, FVC 3.25-75%, TLC 92%, RV 113%, DLCO 26%, DLCO/VA 32%
Total time spent on this consultation _75__ minutes which includes review of history, physical exam, medications, llaboratory data, personal review of imaging, extensive review of outpatient records, and discussions with care team.
--- NOTE | 2024-12-16 11:30 | W.PN.HOSP.TC ---
Today's Communication/Plan
-
see PN
Assessment / Plan
Assessment / Plan
79yo M with HIV on HAART, COPD with chronic hypoxic respiratory failure on 2L home O2, HTN, HLD, MAC, Afib on warfarin came with worsening SOB and wheezing and RLE radiculopathy. Radiculopathy resolved. SOB much improved. XR without overt CAP, but
was started on Ceftriaxone/DOxy on admisison due to high suspiscion for superimposed infection.
A/P:
#Chronic hypoxic respiratory failure on 2L home O2 2/2 COPD with exacerbation and concern for bronchitis
#MAC
Rocephin/DOxy
Steroids taper
Bronchodilators
pulm follow up
#HIV on HAART
#Leukopenia
#Mild anemia
Anemia w/u
follow CBC
check CD4 and viral load
#Afib, paroxysmal
cont rate control, Coumadin
Follow INR
#CAD s/p PCI
#HLD
#Essential HTN
cont home meds
DVT ppx on coumadin
Full code
I have spent at least 58min reviewing chart, test results, communication with consultants and providing direct patient care
Anticipated Discharge: > 48 hours
Subjective/Interval History
-
Date of Service: December 16, 2024
Objective Data
-
Labs:
Laboratory Results
12/16/24
06:27
WBC 3.1 L
Hgb 10.4 L
Hct 32.7 L
Plt Count 163
PT 23.3 H
INR 2.01
Sodium 142
Potassium 4.6
Chloride 109 H
Carbon Dioxide 28
BUN 16
Creatinine 0.6 L
Glucose 128 H
Calcium 8.5
Vital Signs:
Vital Signs
Temp Pulse Resp BP Pulse Ox
97.7 F 82 18 103/58 99
12/16/24 07:10 12/16/24 11:28 12/16/24 11:28 12/16/24 07:10 12/16/24 11:28
I&O
12/15/24 12/16/24 12/17/24
06:59 06:59 06:59
Output Total 725 / 725
Balance -725 / -725
Review of Systems
-
History Source: Patient
All other systems: Reviewed and negative
Physical Exam
-
General: Well Developed
HEENT: Moist Mucous Membranes
Respiratory: Wheezes and Rales
GI: Soft, Nontender and Nondistended
Musculoskeletal: No Clubbing, No Cyanosis and No Edema
Neuro: Awake, Alert, Oriented and AO x 3
Psych: Calm
--- NOTE | 2024-12-16 11:38 | CM ---
ecommerce marketing manager reviewed patient's chart and met with patient and patient states that he lives with his spouse, son and daughter in law, in a 2 story home with 2 steps to enter and stair glide to 2nd floor, Patient is independent with adl's and uses a
walker, cane, w/c, with ambulation, patient has home oxygen from [employer], and Nebulizer.
PCP: Dr Farah
Pharmacy: [facility].
Plan; Home when stable.
[2024-12-16 15:10] VITALS: BP 115/51
[2024-12-16] MEDS: COUMADIN 4 MG PO (22:10)
[2024-12-16] MEDS: STERILE WATER FOR INJECTION 10 ML IV (22:10)
[2024-12-16] MEDS: ROCEPHIN 1000 MG IV (22:11)
[2024-12-16] MEDS: NON-FORMULARY ITEM 150 UNIT PO (22:29)
[2024-12-16 23:34] VITALS: BP 126/69
[2024-12-17 07:22] LABS: % Immature Granulocytes 0.8 % (0-0.5); % Lymphocytes 9.8 % (20.5-51.1); % Monocytes 12.3 % (1.7-9.3); % Neutrophils 77.1 % (42.2-75.2); Absolute Lymphocytes 0.5 10^3/uL (1.2-3.4); Absolute Monocytes 0.6 10^3/uL (0.1-0.6); Absolute Neutrophils 3.6 10^3/uL (1.4-6.5); Hematocrit 33.5 % (39.0-52.0); Hemoglobin 10.6 g/dL (13.0-18.0); Mean Corp Hgb Conc. 31.6 g/dL (33.0-37.0); Mean Corpuscular Hgb 26.2 pg (27.0-31.0); Mean Corpuscular Volume 82.9 fL (80.0-94.0); Mean Platelet Volume 11.3 fL (7.4-10.4); Nucleated Red Blood Cells % 0 % (-); Platelet Count 197 10^3/uL (130-400); Red Blood Cell Count 4.04 10^6/uL (4.70-6.10); Red Cell Dist. Width 16.4 % (11.5-14.5); Reticulocyte Count 0.9 % (0.4-2.8); White Blood Cell Count 4.7 10^3/uL (4.8-10.8)
[2024-12-17 07:24] LABS: INR 2.16; PT 24.6 Sec (11.4-14.6)
[2024-12-17 07:34] LABS: ALT (SGPT) 13 U/L (0-50); AST (SGOT) 19 U/L (17-59); Albumin 3.7 g/dl (3.5-5.0); Alkaline Phosphatase 71 U/L (38-126); Blood Urea Nitrogen 20 mg/dl (9-20); Calcium 8.7 mg/dl (8.4-10.2); Carbon Dioxide 27 mmol/L (22-30); Chloride 107 mmol/L (98-107); Estimated Creatinine Clearance 77 ml/min; Glucose 108 mg/dl (70-99); Iron 45 ug/dl (49-181); LDH 143 U/L (120-246); Potassium 4.6 mmol/L (3.5-5.1); Sodium 142 mmol/L (135-145); Total Bilirubin 0.3 mg/dl (0.2-1.3); Total Protein 6.4 g/dl (6.3-8.2); eGFR > 60.00
[2024-12-17 07:44] LABS: Percent Saturation 15 % (20-50); Total Iron Binding Capacity 297 ug/dl (261-462)
[2024-12-17 08:00] VITALS: BP 102/65
[2024-12-17] MEDS: SYMBICORT 80/4.5 MCG INHALER 2 PUFF INH ×2 (08:02→20:23)
[2024-12-17] MEDS: SPIRIVA RESPIMAT 2.5 MCG 2 PUFF INH (08:02)
[2024-12-17] MEDS: VENTOLIN NEBULES 2.5 MG INH ×4 (08:02→20:23)
[2024-12-17] MEDS: CARDIZEM CD 120 MG PO (08:56)
[2024-12-17] MEDS: ZETIA 10 MG PO (08:56)
[2024-12-17] MEDS: VIBRAMYCIN 100 MG PO (08:56)
[2024-12-17] MEDS: PROTONIX 40 MG PO (08:56)
[2024-12-17] MEDS: MUCINEX 600 MG PO ×2 (08:56→20:39)
[2024-12-17] MEDS: CRESTOR 20 MG PO (08:56)
[2024-12-17] MEDS: BACTRIM 400 MG/80 MG 1 TABLET PO (08:56)
[2024-12-17] MEDS: DELTASONE 40 MG PO (08:56)
[2024-12-17] MEDS: NON-FORMULARY ITEM 1 UNIT PO ×2 (08:57→20:40)
[2024-12-17] MEDS: MYAMBUTOL 400 MG PO ×2 (08:57→20:40)
--- NOTE | 2024-12-17 09:09 | W.PN.HOSP.TC ---
Today's Communication/Plan
-
Repeat Bcx, stop Doxy, start Vanco
oral prednisone
Assessment / Plan
Assessment / Plan
79yo M with HIV on HAART, COPD with chronic hypoxic respiratory failure on 2L home O2, HTN, HLD, MAC, Afib on warfarin came with worsening SOB and wheezing and RLE radiculopathy. Radiculopathy resolved. SOB much improved. XR without overt CAP, but
was started on Ceftriaxone/DOxy on admission due to high suspicion for superimposed infection. Single set of Bcx positive for GPC
A/P:
#Chronic hypoxic respiratory failure on 2L home O2 2/2 COPD with exacerbation and concern for bronchitis
#MAC
#Bacteremia
Bcx - one set with GPC in clusters - Vanco and repeat Bcx, but suspect contamination
Rocephin/Vanco
Steroids taper
Bronchodilators
pulm follow up
#HIV on HAART
#Leukopenia
#Mild anemia
Anemia w/u
follow CBC
check CD4 and viral load
#Afib, paroxysmal
cont rate control, Coumadin
Follow INR
#CAD s/p PCI
#HLD
#Essential HTN
cont home meds
DVT ppx on coumadin
Full code
I have spent at least 38min reviewing chart, test results, communication with consultants and providing direct patient care
Anticipated Discharge: > 48 hours
Subjective/Interval History
-
Date of Service: December 17, 2024
Objective Data
-
Labs:
Laboratory Results
12/17/24
06:54
WBC 4.7 L
Hgb 10.6 L
Hct 33.5 L
Plt Count 197 D
PT 24.6 H
INR 2.16
Sodium 142
Potassium 4.6
Chloride 107
Carbon Dioxide 27
BUN 20
Creatinine 0.7
Glucose 108 H
Calcium 8.7
Total Bilirubin 0.3
AST 19
ALT 13
Alkaline Phosphatase 71
Vital Signs:
Vital Signs
Temp Pulse Resp BP Pulse Ox
98.2 F 80 18 102/65 99
12/17/24 08:00 12/17/24 08:08 12/17/24 08:08 12/17/24 08:00 12/17/24 08:08
I&O
12/16/24 12/17/24 12/18/24
06:59 06:59 06:59
Intake Total 1050 / 1050
Output Total 725 / 725 1575 / 1575
Balance -725 / -725 -525 / -525
Review of Systems
-
History Source: Patient
All other systems: Reviewed and negative
Physical Exam
-
General: No Apparent Distress
HEENT: Normocephalic
Respiratory: Clear to Auscultation
Cardiac: Regular Rhythm
GI: Soft, Nontender and Nondistended
Musculoskeletal: No Clubbing, No Cyanosis and No Edema
Neuro: Awake, Alert, Oriented and AO x 3
Psych: Calm
--- NOTE | 2024-12-17 09:14 | W.PN.PUL3 ---
Today's Communication / Plan
-
Doing well, improving today
Blood culture likely contaminant, unlikely infection noted
Check PCT, if negative would stop abx
Prednisone taper
OP FU recommended
Can d/c plan if no further treatment indicated
Assessment
-
This is a 79-year-old male with past medical history of COPD on 2 L home O2, HIV on ART, prior AVINASH infection, atrial fibrillation on Coumadin, CAD status PCI and hypertension presenting to the emergency department with shortness of breath x 10 days,
cough productive with clear phlegm. Was admitted in September for right middle lobe pneumonia with a similar presentation. Since then the patient has had about a 5 pound weight loss. He is on chronic antibiotic suppression for AVINASH on chronic
azithromycin, rifabutin and also on chronic prednisone. Chest x-ray shows no acute infiltrates, old scarring observed. We are consulted for evaluation 12/16/24.
Severe COPD with acute exacerbation
Productive sputum, cough
Leukopenia
Mild anemia
Recurrent admissions for AECOPD
Conditions present prior to admission:
COPD on chronic oxygen 2 L-stage IV, maintained on chronic prednisone 10mg
Last AECOPD hospitalizations/Admissions to : 09/2024, 02/29/24, 02/01/24, 09/16/23, 06/25/23, 11/13/22, 12/21/21
[place] [facility]
Right apical bleb/cavitary disease/bullous emphysema
History of mycobacterial disease-AVINASH
Follows ID-Dr. Castillo at [facility] and Dr. Fan locally
Chronic cough
Pulmonary nodules
Atrial fibrillation-Follows Dr. Jhonatan Yip; On Chronic warfarin
HIV.
PAD.
Spinal stenosis.
Chronic back pain.
Coronary artery disease/CABG.
L foot drop.
Hypertension.
Cataract.
Right knee surgery.
Colonoscopy/polyp removal.
R inguinal hernia repair.
Effusion s/p Thoracentesis 04/03/19
EGD Food impaction
Plan
Respiratory status has declined due to COPD exacerbation
He is stage IV copd, severe obstruction, frequent exacerbations--this is his 7th admission since 2022
Inpatient and outpatient records reviewed
Supplemental oxygen as needed/baseline use of 2L
He is 99% on 2L NC
Prior ABGs suggest chronic hypercapnia
BiPAP at night
Mucolytic's
Incentive spirometry/Acapella
Decadron with fairly rapid conversion to prednisone 40 mg with slow taper
He is maintained on 10mg prednisone daily
Resume home inhalers
Nebulizers as needed
Can consider Ohtuvayre set up as OP
CXR negative, no PNA noted
Prior cultures reviewed--History of AVINASH/pseudomonas
Also + kleb on last sputum in 09/2023
Maintained on azithromycin 250 mg daily, rifabutin, ethambutol
Follows locally with infectious disease as well as HUP
Monitor leukocytosis
CXR without infiltrate but can repeat sputum if patient is productive
Transition to PO course per team
Smoking cessation counseling-reportedly quit 1 year ago
DVT prophylaxis -on warfarin.
GI prophylaxis-on pantoprazole
Nutrition especially in light of protein calorie malnutrition and cachexia
Early mobilization
PT/OT consult-unsteady with ambulation
Reviewed with nursing and primary team
Outpatient pulmonary follow-up recommended, Dr. Mujica
He understands his disease is severe/end stage
Discharge planning per team
Diagnostic Data:
CXR 12/15/24- No acute cardiopulmonary process.
CXR 01/29/24- Stable radiographic appearance of the chest including chronic obstructive pulmonary disease, and chronic scarring and cavitary/bullous changes in the right upper lobe.
Chest x-ray 06/20/2023-stable pleural-parenchymal scarring right upper lobe and 8 cm right apical bleb
Chest x-ray 09/08/2023-right upper lobe scarring
CT chest low-dose 12/05/2022-extensive emphysematous changes, small bilateral pulmonary nodules overall slightly decreased in size
Echocardiogram 11/12/2022-EF 60%, no mitral stenosis, trace mitral regurgitation, no change since 2021
PFT 10/17/23: FEV1 0.88L 29%, FVC 2.88L 69%, ratio 31. Post FEV1 0.93L 31%, no BD response. TLC 7.48L 105%, DLCO 15% (severe obstruction, severe diffusion impairment)
PFT 09/29/2020-FEV1 960 mL - 31%, FVC 3.25-75%, TLC 92%, RV 113%, DLCO 26%, DLCO/VA 32%
Total time spent on this consultation _51__ minutes which includes review of history, physical exam, medications, llaboratory data, personal review of imaging, extensive review of outpatient records, and discussions with care team.
Subjective Data
-
Date of Service:
Date of Service: December 17, 2024
Chief Complaint: Pulmonary Follow Up
Subjective:
Feeling better today, no new complaints
Sitting in chair with bipap in place
Objective Data
Data Reviewed
Vital Signs / I&O / Oxygen:
Vital Signs
Temp Pulse Resp BP Pulse Ox
98.2 F 80 18 102/65 99
12/17/24 08:00 12/17/24 08:08 12/17/24 08:08 12/17/24 08:00 12/17/24 08:08
Intake and Output
12/16/24 12/17/24 12/18/24
06:59 06:59 06:59
Intake Total 1050 / 1050
Output Total 725 / 725 1575 / 1575
Balance -725 / -725 -525 / -525
SaO2 99
Nasal Cannula flow liters per 2
minute
Physical Exam
General: Comfortable and Other (NAD)
HEENT: Normocephalic, Anicteric and Moist Mucous Membranes
Cardiovascular: S1-S2 and Regular Rhythm
Respiratory: Clear (decreased BS BL) and Non-Labored Respirations
GI: Soft, Non Distended and Non Tender
Neurology: Awake, Alert, Oriented and No Motor Deficits
Skin: Warm, Dry and Good Color
Labs/Micro/Reports
Lab Data
12/17/24 06:54
12/17/24 06:54
Laboratory Results
12/17/24
06:54
PT 24.6 H
INR 2.16
Microbiology
12/15/24 20:16 Blood/Venous Blood Culture - Preliminary
Positive culture in progress
12/15/24 20:16 Blood/Venous Gram Stain - Final
12/15/24 20:45 Blood/Venous Blood Culture - Preliminary
No Growth in 24 hours- Final report to follow
12/16/24 06:15 Nasal Swab Influenza Types A & B (MARIAH) - Final
Negative for Influenza A & B, NAAT
Negative results must be combined with clinical observations
and patient history.
Nucleic Acid Amplification test (NAAT)performed on the
[employer] platform.
--- NOTE | 2024-12-17 09:33 | PHA.VAN.IN ---
Assessment
- Assessment
Renal Function: Appears similar to baseline
Maximum Temperature: 98.2
Concomitant Antimicrobials: ceftriaxone
AUC Dosing Plan
- Dosing Variables
Dosing Weight (kg): 61.7 and 77([place] body weight)
Dosing CrCl (ml/min): 77
Vd coefficient (L/kg): 0.7
- Empiric Dosing
Initial / Loading Dose: vanc 1500 mg x 1
Maintenance Regimen: vanc 750 mg q12h
Estimated AUC (mcg*h/mL): 421 - 526
Estimated Peak (mcg*h/mL): 24.9 - 31
Estimated Trough (mcg/ml): 11.7- 14.6
Estimated Half Life (H): 10.1
- Monitoring
No levels ordered at this time: consider in the upcoming days
Pharmacokinetics Vancomycin I
- -
Patient Age: 79
Patient Sex: Male
Vancomycin Day #: 1
Indication: Bacteremia
Requesting Provider: Dr Coleman
Pertinent Antimicrobial Allergies:
no known allergies
Height / Weight:
Height 6 ft
Actual Weight 61.745 kg
IBW in k kg
Pertinent Past Medical History: BMI ~18
- Vital Signs / Lab Results
Temp Pulse Resp BP Pulse Ox
98.2 F 80 18 102/65 99
12/17/24 08:00 12/17/24 08:08 12/17/24 08:08 12/17/24 08:00 12/17/24 08:08
Lab Results - Hematology
12/15/24 12/16/24 12/17/24
20:16 06:27 06:54
WBC 4.2 L 3.1 L 4.7 L
Lab Results - Chemistry
12/15/24 12/16/24 12/17/24
20:16 06:27 06:54
BUN 16 16 20
Creatinine 0.7 0.6 L 0.7
Estimated Creat Clear 80 90 77
Albumin 3.8 3.7
Microbiology Results
12/15/24 20:16 Blood Culture - Preliminary
Blood/Venous Positive culture in progress
Gram Stain - Final
12/15/24 20:45 Blood Culture - Preliminary
Blood/Venous No Growth in 24 hours- Final report to follow
12/16/24 06:15 Influenza Types A & B (MARIAH) - Final
Nasal Swab Negative for Influenza A & B, NAAT
Negative results must be combined with clinical observations
and patient history.
Nucleic Acid Amplification test (NAAT)performed on the
[employer] platform.
[2024-12-17] MEDS: TRUVADA TABLET 1 TABLET PO (09:46)
[2024-12-17] MEDS: TIVICAY 50 MG PO ×2 (09:46→20:38)
[2024-12-17] MEDS: VANCOCIN 530 MG IV (10:04)
[2024-12-17 10:19] VITALS: PULSE 2; PULSE 98
[2024-12-17 14:25] LABS: Procalcitonin < 0.05 ng/ml (0.0-0.25)
[2024-12-17 15:48] VITALS: BP 123/59
[2024-12-17] MEDS: VANCOCIN 150 IV (17:53)
[2024-12-17 19:54] LABS: CD4 % of Cells Analyzed 24 % (35-68); CD4 Absolute Count 97 cells/uL (490-1600)
[2024-12-17 20:04] LABS: Folate 3.3 ng/ml (2.76-20)
[2024-12-17 20:35] LABS: Ferritin 27.1 ng/ml (17.9-464.0)
[2024-12-17] MEDS: STERILE WATER FOR INJECTION 10 ML IV (20:39)
[2024-12-17] MEDS: ROCEPHIN 1000 MG IV (20:39)
[2024-12-17] MEDS: COUMADIN 4 MG PO (20:41)
[2024-12-17 21:34] VITALS: PULSE 2; PULSE 97
[2024-12-17 22:20] LABS: Vitamin B12 194 pg/ml (239-931)
[2024-12-17 23:11] VITALS: BP 110/52
[2024-12-18] MEDS: VANCOCIN 150 IV (05:18)
[2024-12-18 05:20] LABS: Hematocrit 32.3 % (39.0-52.0); Hemoglobin 10.3 g/dL (13.0-18.0); Mean Corp Hgb Conc. 31.9 g/dL (33.0-37.0); Mean Corpuscular Hgb 26.5 pg (27.0-31.0); Mean Platelet Volume 11.8 fL (7.4-10.4); Platelet Count 184 10^3/uL (130-400); Red Blood Cell Count 3.89 10^6/uL (4.70-6.10); Red Cell Dist. Width 16.5 % (11.5-14.5)
[2024-12-18 05:24] LABS: INR 2.28; PT 25.2 Sec (11.4-14.6)
[2024-12-18 05:44] LABS: ALT (SGPT) 13 U/L (0-50); AST (SGOT) 18 U/L (17-59); Albumin 3.4 g/dl (3.5-5.0); Alkaline Phosphatase 79 U/L (38-126); Blood Urea Nitrogen 22 mg/dl (9-20); Calcium 8.6 mg/dl (8.4-10.2); Carbon Dioxide 29 mmol/L (22-30); Chloride 109 mmol/L (98-107); Estimated Creatinine Clearance 68 ml/min; Glucose 92 mg/dl (70-99); Potassium 4.5 mmol/L (3.5-5.1); Sodium 141 mmol/L (135-145); Total Bilirubin 0.2 mg/dl (0.2-1.3); Total Protein 5.8 g/dl (6.3-8.2); eGFR > 60.00
[2024-12-18 06:46] LABS: Absolute Neutrophils -Man Diff 2.6 10^3/uL (1.4-6.5); Anisocytosis 1+; Band Neutrophils 0 % (0-3); Lymphocytes 26 % (20-51); Monocytes 8 % (2-9); Normal RBC Morphology No; Platelets Checked Yes; Segmented Neutrophils 66 % (42-75); Total Cells Counted 100
[2024-12-18 07:00] VITALS: BP 103/87
[2024-12-18] MEDS: SPIRIVA RESPIMAT 2.5 MCG 2 PUFF INH (07:15)
[2024-12-18] MEDS: SYMBICORT 80/4.5 MCG INHALER 2 PUFF INH (07:16)
[2024-12-18] MEDS: VENTOLIN NEBULES 2.5 MG INH ×2 (07:16→10:33)
[2024-12-18] MEDS: DELTASONE 40 MG PO (08:02)
[2024-12-18] MEDS: TIVICAY 50 MG PO (08:02)
[2024-12-18] MEDS: BACTRIM 400 MG/80 MG 1 TABLET PO (08:02)
[2024-12-18] MEDS: TRUVADA TABLET 1 TABLET PO (08:02)
[2024-12-18] MEDS: ZETIA 10 MG PO (08:02)
[2024-12-18] MEDS: PROTONIX 40 MG PO (08:02)
[2024-12-18] MEDS: MUCINEX 600 MG PO (08:02)
[2024-12-18] MEDS: CARDIZEM CD 120 MG PO (08:02)
[2024-12-18] MEDS: CRESTOR 20 MG PO (08:03)
[2024-12-18] MEDS: MYAMBUTOL 400 MG PO (08:03)
[2024-12-18] MEDS: NON-FORMULARY ITEM 1 UNIT PO (08:03)
--- NOTE | 2024-12-18 09:12 | W.PN.HOSP.TC ---
Today's Communication/Plan
-
dc
Assessment / Plan
Assessment / Plan
79yo M with HIV on HAART, COPD with chronic hypoxic respiratory failure on 2L home O2 and cronic Prednisone 10mg, HTN, HLD, MAC, Afib on warfarin came with worsening SOB and wheezing and RLE radiculopathy. Radiculopathy resolved. SOB much improved.
XR without overt CAP, but was started on Ceftriaxone/DOxy on admission due to high suspicion for superimposed infection. Single set of Bcx positive for coag neg staph with repeated Bcx NTD and normal procalcitonin without bandemia - so most likely
contamination. Safe to stop Abx, breathing back to baseline. Pulmonary recommended outpatient follow up with and agreeable with D/C. can consider Ohtuvayre as outpatient. Medically stable for d/c home
A/P:
#Chronic hypoxic respiratory failure on 2L home O2 2/2 COPD with exacerbation and concern for bronchitis
#MAC
#Bacteremia
Bcx - one set with GPC in clusters - Vanco and repeat Bcx, but suspect contamination
Rocephin/Vanco
Steroids taper
Bronchodilators
pulm follow up
cont Azithromycin/rifabutin/ethambutol for MAC
#HIV on HAART
#Leukopenia
#Mild anemia with B12 and folate deficiency
follow CBC
CD4 97 - outaptient ID
cont HAART
cont bactrim PPx
#Afib, paroxysmal
cont rate control, Coumadin
Follow INR
#CAD s/p PCI
#HLD
#Essential HTN
cont home meds
DVT ppx on Coumadin
Full code
I have spent at least 38min reviewing chart, test results, communication with consultants and providing direct patient care
Anticipated Discharge: Today
Subjective/Interval History
-
Date of Service: December 18, 2024
Objective Data
-
Labs:
Laboratory Results
12/18/24
04:46
WBC 4.0 L
Hgb 10.3 L
Hct 32.3 L
Plt Count 184
PT 25.2 H
INR 2.28
Sodium 141
Potassium 4.5
Chloride 109 H
Carbon Dioxide 29
BUN 22 H
Creatinine 0.8
Glucose 92
Calcium 8.6
Total Bilirubin 0.2
AST 18
ALT 13
Alkaline Phosphatase 79
Vital Signs:
Vital Signs
Temp Pulse Resp BP Pulse Ox
97.8 F 78 14 103/87 98
12/18/24 07:00 12/18/24 08:02 12/18/24 07:19 12/18/24 08:02 12/18/24 07:19
I&O
12/17/24 12/18/24 12/19/24
06:59 06:59 06:59
Intake Total 1050 / 1050 390 / 390
Output Total 1575 / 1575 1750 / 1750
Balance -525 / -525 -1360 / -1360
Review of Systems
-
History Source: Patient
All other systems: Reviewed and negative
Physical Exam
-
General: No Apparent Distress
HEENT: Normocephalic
Respiratory: Wheezes (expiratory)
GI: Soft, Nontender and Nondistended
Skin: Warm
Neuro: Awake, Alert, Oriented and AO x 3
Psych: Calm
--- NOTE | 2024-12-18 09:23 | W.DCSUMMARY ---
Discharge Summary
Discharge Data
Date of Admission: 12/15/24
Date of Discharge: 12/18/24
-
Pending Results: No
Hospital Course
79yo M with HIV on HAART, COPD with chronic hypoxic respiratory failure on 2L home O2 and cronic Prednisone 10mg, HTN, HLD, MAC, Afib on warfarin came with worsening SOB and wheezing and RLE radiculopathy. Radiculopathy resolved. SOB much improved.
XR without overt CAP, but was started on Ceftriaxone/DOxy on admission due to high suspicion for superimposed infection. Single set of Bcx positive for coag neg staph with repeated Bcx NTD and normal procalcitonin without bandemia - so most likely
contamination. Safe to stop Abx, breathing back to baseline. Pulmonary recommended outpatient follow up with and agreeable with D/C. can consider [facility] as outpatient. Medically stable for d/c home
I have spent at least 38min reviewing chart, test results, communication with consultants and providing direct patient care
Patient was managed for:
#Chronic hypoxic hypercapnic respiratory failure on 2L home O2 2/2 COPD with exacerbation and concern for bronchitis
#MAC
#Bacteremia
#HIV on HAART
#Leukopenia
#Mild anemia with B12 and folate deficiency
#Afib, paroxysmal
#CAD s/p PCI
#HLD
#Essential HTN
Discharge Plan
-
Patient Disposition: Home (Routine Discharge)
Discharge Diagnosis/Procedures: COPD exacerbation
Diet: No added salt
Activity: As tolerated
Referrals:
Juaquin Christian MD [Active, Pulmonary Medicine] - in two to four weeks
Referral Note: PFT, ok w/ AIRFRAME TECHNICIAN
Benjamin Williamson DO [Active, Infectious Diseases] - in two to three weeks
Referral Note: low CD4
Colton Farah MD [Family Provider, [facility]]
Prescriptions:
New
prednisone 10 mg tablet
10 mg PO DIRECTED Qty: 60 0RF
Rx Instructions:
take 40mg x2 days, 30mg x3 days, 20mg x3 days then 10mg daily until told to stop by doctor
cyanocobalamin (vitamin B-12) [Vitamin B-12] 1,000 mcg Tablet
1,000 mcg PO DAILY Qty: 30 0RF
folic acid 1 mg Tablet
1 mg PO DAILY Qty: 30 0RF
azithromycin 250 mg Tablet
250 mg PO DAILY Qty: 0 0RF
Continued
ethambutol 400 MG tablet
400 mg PO BID
ezetimibe 10 MG tablet
10 mg PO DAILY
Tivicay 50 MG tablet
50 mg PO BID
emtricitabine-tenofovir (TDF) 200-300 mg tablet
1 tab PO DAILY
pantoprazole 40 mg Tablet,Delayed Release (Dr/Ec)
40 mg PO DAILY Qty: 30 0RF
rifabutin 150 mg Capsule
150 mg PO BID
albuterol sulfate 90 mcg/actuation Hfa Aerosol Inhaler
2 puff INHALATION R Q4HPRN PRN (Reason: sob)
Trelegy Ellipta 100-62.5-25 mcg Blister With Device
1 inh INHALATION R DAILY
rosuvastatin 20 mg tablet
20 mg PO DAILY
levalbuterol HCl 1.25 mg/3 mL solution for nebulization
1.25 mg inhalation R QID
acetaminophen 325 mg Tablet
650 mg PO DAILYPRN PRN (Reason: mild pain/headache)
sulfamethoxazole-trimethoprim 400-80 mg Tablet
1 tab PO DAILY
warfarin 4 mg Tablet
4 mg PO HS
diltiazem HCl 120 mg Capsule,Extended Release 24hr
120 mg PO DAILY
warfarin 1 mg Tablet
0.5 mg PO PRN PRN (Reason: per coumadin clinic orders)
Discharge Orders:
Discharge Patient (As Directed); Ordered 06/14/25
Ordered By: Ty Coleman
Discharge Date and Time
Print Language: GHANAIAN
[2024-12-18] MEDS: FOLVITE 1 MG PO (09:41)
[2024-12-18] MEDS: CYANOCOBALAMIN 1000 MCG IM (09:42)
[2024-12-18] MEDS: ZITHROMAX 250 MG PO (09:43)
== END 2024-12-18 11:01 | disposition home or self-care (01) | DRG 191 ==
LOC: 4 EAST ACU 22:03
PROVIDERS: Emergency Medicine; ADMITTING PHYSICIAN Internal Medicine; ATTENDING PHYSICIAN Internal Medicine; EMERGENCY PHYSICIAN Emergency Medicine; FAMILY PHYSICIAN Family Medicine; OTHER PHYSICIAN Internal Medicine
DX: J44.1 Chronic obstructive pulmonary disease with (acute) exacerbation (principal); B20 Human immunodeficiency virus [HIV] disease; J96.11 Chronic respiratory failure with hypoxia; E46 Unspecified protein-calorie malnutrition; R64 Cachexia; Z68.1 Body mass index [BMI] 19.9 or less, adult; Z87.891 Personal history of nicotine dependence; I48.0 Paroxysmal atrial fibrillation; Z79.01 Long term (current) use of anticoagulants; Z79.899 Other long term (current) drug therapy; Z99.81 Dependence on supplemental oxygen; I11.0 Hypertensive heart disease with heart failure; I50.9 Heart failure, unspecified; E78.00 Pure hypercholesterolemia, unspecified; D72.819 Decreased white blood cell count, unspecified; Z11.52 Encounter for screening for COVID-19
CPT/HCPCS: 71045; 80048; 80053; 82607; 82728; 82746; 83540; 83550; 83615; 83880; 84145; 84484; 85025; 85027; 85045; 85610; 86361; 87040; 87070; 87150; 87205; 87502; 87536; 87811; 93005; 94640; 94660; 96374; 96375; 97116; 97162; 97530; 99285

== ENCOUNTER → 2024-12-24 10:52 | Outpatient (REF) | payer MEDICARE, SELFPAY ==
[2024-12-24 12:04] LABS: INR 2.27; PT 25.1 Sec (11.4-14.6)
== END ==
LOC: REG 10:52
PROVIDERS: ATTENDING PHYSICIAN Internal Medicine Cardiovascular Disease; FAMILY PHYSICIAN Family Medicine
DX: I48.0 Paroxysmal atrial fibrillation (principal); Z79.01 Long term (current) use of anticoagulants
CPT/HCPCS: 36415; 85610

== ENCOUNTER → 2025-01-21 10:46 | Outpatient (REF) | payer MEDICARE, SELFPAY ==
[2025-01-21 11:30] LABS: INR 2.42; PT 26.4 Sec (11.4-14.6)
== END ==
LOC: REG 10:46
PROVIDERS: ATTENDING PHYSICIAN Internal Medicine Cardiovascular Disease; FAMILY PHYSICIAN Family Medicine
DX: I48.0 Paroxysmal atrial fibrillation (principal); Z79.01 Long term (current) use of anticoagulants
CPT/HCPCS: 36415; 85610

== ENCOUNTER → 2025-02-21 11:26 | Outpatient (REF) | payer MEDICARE, SELFPAY ==
[2025-02-21 12:21] LABS: INR 1.69; PT 20.1 Sec (11.4-14.6)
[2025-02-21 12:27] LABS: Hematocrit 36.5 % (39.0-52.0); Hemoglobin 11.4 g/dL (13.0-18.0); Mean Corp Hgb Conc. 31.2 g/dL (33.0-37.0); Mean Corpuscular Volume 83.3 fL (80.0-94.0); Nucleated Red Blood Cells % 0 % (-); Platelet Count 186 10^3/uL (130-400); Red Cell Dist. Width 17.0 % (11.5-14.5)
[2025-02-21 12:44] LABS: ALT (SGPT) 14 U/L (0-50); AST (SGOT) 22 U/L (17-59); Albumin 4.1 g/dl (3.5-5.0); Alkaline Phosphatase 85 U/L (38-126); Blood Urea Nitrogen 12 mg/dl (9-20); Calcium 8.4 mg/dl (8.4-10.2); Carbon Dioxide 28 mmol/L (22-30); Chloride 106 mmol/L (98-107); Glucose 110 mg/dl (70-99); Potassium 4.5 mmol/L (3.5-5.1); Sodium 139 mmol/L (135-145); Total Protein 6.7 g/dl (6.3-8.2); eGFR > 60.00
[2025-02-22 19:04] LABS: CD4 % of Cells Analyzed 20 % (35-68); CD4 Absolute Count 69 cells/uL
[2025-02-24 02:33] LABS: HIV-1 Quan NAAT Interpretation Not Detected (Not Detected); HIV-1 Quant NAAT (copies/ml) <20 cpy/mL; HIV-1 Quant NAAT (log copy/mL) <1.30 log cpy/mL
== END ==
LOC: RAD 11:26
PROVIDERS: ATTENDING PHYSICIAN Internal Medicine Critical Care Medicine; FAMILY PHYSICIAN Family Medicine; OTHER PHYSICIAN Internal Medicine Cardiovascular Disease; OTHER PHYSICIAN Student in an Organized Health Care Education/Training Program
DX: R06.02 Shortness of breath (principal); R91.8 Other nonspecific abnormal finding of lung field; B20 Human immunodeficiency virus [HIV] disease; A31.0 Pulmonary mycobacterial infection; I48.0 Paroxysmal atrial fibrillation; Z79.01 Long term (current) use of anticoagulants
CPT/HCPCS: 36415; 71250; 80053; 85025; 85610; 86361; 87536

== ENCOUNTER → 2025-02-28 10:35 | Outpatient (REF) | payer MEDICARE, SELFPAY ==
[2025-02-28 12:11] LABS: INR 2.03; PT 23.1 Sec (11.4-14.6)
== END ==
LOC: REG 10:35
PROVIDERS: ATTENDING PHYSICIAN Internal Medicine Cardiovascular Disease; FAMILY PHYSICIAN Family Medicine
DX: I48.0 Paroxysmal atrial fibrillation (principal); Z79.01 Long term (current) use of anticoagulants
CPT/HCPCS: 36415; 85610

== ENCOUNTER → 2025-03-11 10:05 | Outpatient (REF) | payer MEDICARE, SELFPAY ==
[2025-03-11 11:28] LABS: INR 2.94; PT 30.6 Sec (11.4-14.6)
== END ==
LOC: REG 10:05
PROVIDERS: ATTENDING PHYSICIAN Internal Medicine Cardiovascular Disease; FAMILY PHYSICIAN Family Medicine
DX: I48.0 Paroxysmal atrial fibrillation (principal); Z79.01 Long term (current) use of anticoagulants
CPT/HCPCS: 36415; 85610

== ENCOUNTER 2025-03-14 18:20 | Inpatient (IN) | payer MEDICARE, SELFPAY ==
[2025-03-14] VITALS (20 sets, daily range): BP systolic 0–139; BP diastolic 61–95; BMI 18.9; BMI 18.1
[2025-03-14] MEDS: DUONEB 9 ML INH (14:23)
--- NOTE | 2025-03-14 14:29 | ED.GENMED ---
History of Present Illness
General
Chief Complaint: Breathing Problem
Time Seen by Provider: 03/14/25 13:41
History of Present Illness
History of Present Illness:
79-year-old male with history of COPD and emphysema on 2 L O2, CAD status post CABG, A-fib on Coumadin, HIV on medical therapy with reported undetectable viral load, hypertension, hyperlipidemia presenting to the emergency department for shortness
of breath. Patient reports increased shortness of breath since yesterday. Also reports pain to the left side of his chest. Pain is worse when he lays flat, resolves when he lays on his left side. Denies any significant cough, however does feel
like he has mucus that he cannot get up. Denies fever. Denies abdominal pain or GI symptoms. He had to increase his O2 to 4 L to get here. Notes compliance with the medications. He did try his regular albuterol treatments without relief.
Denies additional acute medical complaints
Past History
Past History
ED Past Medical History: Arrthythmia (Atrial fibrillation), CAD, COPD, HTN, Hypercholesterolemia and Other (HIV, cavitary pneumonia, AVINASH)
ED Past Surgical History: Cardiac
Social History
Tobacco: Former smoker
Alcohol: None
Drug: None
Living: with roommate
Employment: Retired
Phy Exam
Physical Exam
Physical Exam:
General: Well-appearing, no clinical signs of dehydration, nontoxic and in no acute distress
HEENT: protecting airway
Neck: appears supple
CV: Normal heart rate, regular rhythm
Resp: Mild tachypnea with bilateral wheezing and rhonchorous breath sounds
Abd: No distention
Extremities: No deformities, no swelling
Neuro: alert, no focal neurologic deficit
: deferred
Rectal: deferred
Psych: Normal affect
Skin: Intact
Scores
Heart Failure Risk
Heart Failure Risk Score: Not Applicable
Course
Orders/Labs/Results
Orders:
Orders
03/14/25
Electrocardiogram (*1) Stat
Comment: DONE
03/14/25 Breakfast
Regular
At Your Request: Full Participation
Does patient need a safe tray?: No
03/14/25 14:10
Ipratropium/Albuterol Sulfate [Duoneb] 9 ml INH R NOW STA
MethylPREDNISolone PF [Solu-Medrol Pf] 125 mg IV NOW STA
CR Chest - 2 Views Urgent
Comment:
Reason For Exam: SOB, L-sided pain
03/14/25 14:41
COVID-19 Antigen Urgent
Source: Nasal Swab
Complete Blood Count/With Diff Urgent
Comprehensive Metabolic Panel Urgent
PTT Urgent
Prothrombin Time Urgent
Troponin I Urgent
Influenza A+B Rapid Molecular Urgent
JESSICA Source: Nasal Swab
Specimen Description:
03/14/25 15:32
IRAD CONSULT Urgent
Consulting Provider: Albino Weaver
Was physician already notified: Yes
Procedure being ordered, including laterality if applicable: L-chest tube for pneumothorax
Acknowledgement that appropriate orders are entered: Yes
03/14/25 16:47
Chest Tube As Directed
Location: left
To suction: Yes
Suction to __ centimeters of water: -20
May ambulate with suction off?: Yes
Comment: RECORD OUTPUT FROM CHEST TUBE EVERY SHIFT
03/14/25 17:34
Morphine Sulfate 2 mg IV NOW STA
03/14/25 17:44
Admit/Transfer Patient As Directed
Co-Sign Provider:
Level of Care: Inpatient admission
Assign to:: Telemetry
Physician / Group: Adama
Diagnosis: Pnuemothorax
Reason for Telemetry: Arrhythmia
Date to Stop Telemetry: 03/17/25
Time to Stop Telemetry: 11:00
Reason for Hospitalization: Chest Tube
Expected length of stay greater than two midnights?: Yes
ELOS- Estimated Length of Stay in days: 3
I certify the patient meets the requirements for IP care: Yes
PRN Pain Medication Management As Directed
May give lesser potent ordered pain med per pt: Yes
preference::
Protocol:: Medication orders for pain may be administered in a
manner that supports deferring to patient preference
when the pt is:
- Requesting an ordered lesser potent pain medication.
Least to most potent pain medications are defined
as: acetaminophen < NSAID < tramadol < opioids
(morphine, oxycodone, hydromorphone).
- Requesting a lesser dose of the same medication IF
ORDERED.
- Requesting a less intrusive route of administration
if both routes are prescribed by the provider (PO <
IV).
03/14/25 17:48
Code Status As Directed
Resuscitation Status: Full Code
03/14/25 19:42
Acetaminophen [Tylenol] 650 mg PO Q4HPRN PRN
Ipratropium/Albuterol Sulfate [Duoneb] 3 ml INH R Q4HPRN PRN
Morphine Sulfate 2 mg IV Q4HPRN PRN
03/14/25 19:42
Activity As Directed
Activity Level: Out of Bed-Early Mobility
Bedside Commode
Vital Signs As Directed
Frequency: Per unit guidelines
Oxygen Therapy [O2 Therapy] [RESP] Routine
Titrate/Wean O2 to maintain O2 sat greater than (%): 92
Wean Oxygen to Pre Admission Baseline Therapy-if applicable: Yes
Pulse Ox/cont/shift [RESP] Routine
Quantity: 1
03/14/25 20:00
Budesonide [Pulmicort] 0.5 mg INH R BID
Dolutegravir Sodium [Tivicay] 50 mg PO BID
Ethambutol [Myambutol] 400 mg PO BID
Ipratropium/Albuterol Sulfate [Duoneb] 3 ml INH R QID
03/14/25 20:15
Rifabutin [Mycobutin] 150 mg PO BID
03/14/25 22:00
Warfarin [Coumadin] 0.5 mg PO HS
Warfarin [Coumadin] 4 mg PO HS
03/15/25 06:00
Basic Metabolic Panel IN AM
Complete Blood Count/No Diff IN AM
Magnesium IN AM
Prothrombin Time IN AM
03/15/25 08:00
Azithromycin [Zithromax] 250 mg PO DAILY
Cyanocobalamin [Vitamin B-12] 1,000 mcg PO DAILY
Dexamethasone Sod Phosphate [Decadron] 4 mg IV Q8H
Diltiazem Extended Release [Cardizem Cd] 120 mg PO DAILY
Emtricitabine/Tenofovir [Truvada Tablet] 1 tablet PO DAILY
Ezetimibe [Zetia] 10 mg PO DAILY
FOLic ACID [Folvite] 1 mg PO DAILY
Pantoprazole [Protonix] 40 mg PO DAILY
Rosuvastatin Calcium [Crestor] 20 mg PO DAILY
Sulfamethoxazole/Trimethoprim [Bactrim 400 mg/80 mg] 1 tablet PO DAILY
03/16/25 06:00
Prothrombin Time IN AM
03/17/25 06:00
Prothrombin Time IN AM
03/17/25 11:00
DC Protocol for Telemetry ONCE
03/18/25 06:00
Prothrombin Time IN AM
03/19/25 06:00
Prothrombin Time IN AM
Abnormal Lab Results
03/14/25
14:41
RBC 4.44 L 10^6/uL
(4.70-6.10)
Hgb 11.4 L g/dL
(13.0-18.0)
Hct 36.4 L %
(39.0-52.0)
MCH 25.7 L pg
(27.0-31.0)
MCHC 31.3 L g/dL
(33.0-37.0)
RDW 17.2 H %
(11.5-14.5)
MPV 11.5 H fL
(7.4-10.4)
Absolute Lymphs (auto) 0.4 L 10^3/uL
(1.2-3.4)
Neutrophils % 84.9 H %
(42.2-75.2)
Lymphocytes % 6.5 L %
(20.5-51.1)
PT 30.2 H Sec
(11.4-14.6)
APTT 62.3 H Sec
(23.4-35.0)
Chloride 109 H mmol/L
(98-107)
Creatinine 0.6 L mg/dL
(0.7-1.3)
Glucose 110 H mg/dl
(70-99)
03/14/25 14:41
03/14/25 14:41
Vital Signs
Initial and Last Documented VS:
Initial Vital Signs
Temp Pulse Resp BP Pulse Ox
97.7 F 110 20 136/68 93
03/14/25 13:28 03/14/25 13:28 03/14/25 13:28 03/14/25 13:28 03/14/25 13:28
Last Documented Vital Signs
Temp Pulse Resp BP Pulse Ox
99 F 88 16 139/70 97
03/14/25 19:57 03/14/25 19:57 03/14/25 19:57 03/14/25 19:57 03/14/25 19:57
MDM/Problems Addressed
MDM/Problems Addressed:
79-year-old male with history of COPD and emphysema on 2 L O2, CAD status post CABG, A-fib on Coumadin, HIV on medical therapy with reported undetectable viral load, hypertension, hyperlipidemia presenting for shortness of breath. Vital signs on
arrival are significant for tachycardia.
On exam patient is in no significant respiratory distress, mild tachypnea with rhonchorous breath sounds and diffuse wheezing. Suspect possible COPD exacerbation. However, patient also notes focal pain to the left chest wall along the mid axillary
region. Pneumothorax is a consideration, however equal breath sounds bilaterally. Pneumonia is a consideration. Will plan for chest x-ray imaging. PE is a consideration, however is anticoagulated. Will check INR. EKG is sinus rhythm without
acute ischemic abnormality with lower suspicion for ACS. Plan for laboratory analysis, and DuoNeb/steroids for therapeutics
15:30 -chest x-ray is consistent with left basilar pneumothorax. In consultation with IR, will plan for chest tube. Plan for admission. Patient otherwise hemodynamically stable
17:20 - Status post chest tube placement, remains stable from respiratory standpoint. Plan for admission
*Pulse Oximetry
SaO2: 93
Nasal Cannula flow liters per minute: 4
Patient hypoxic: no
*EKG
Interpreted by ED Provider?: Yes
EKG Intrepretation Date: 03/14/25
EKG Intrepretation Time: 14:35
Interpretation: normal
Comparison EKG: no changes (12/05/24)
Heart Rate: 102
Rate: tachycardiac
Rhythm: sinus
Mather: normal axis
Interval: normal interval
QRS Pattern: normal QRS
Ischemia: no ischemia
*Critical Care Note
Total Time (30-74mins, 75-104mins- exclusive of procedures): Not Applicable
ED Attending Note
-
Portions of this chart may have been created with voice recognition software.� Occasional wrong word or��sound alike� substitutions may have occurred due to the inherent limitations of voice recognition software.
Discharge Plan
Departure
Patient Disposition: Admit
Date of Disposition: 03/14/25
Time of Disposition: 17:25
Presentation/result/management discussed w/ accepting MD/DO: Hospitalist
Patient with high blood pressure during this ER visit?: No
Condition: Fair
Discharge Problem:
Spontaneous pneumothorax, COPD (chronic obstructive pulmonary disease)
Interventions
Interventions:
*Risk Screen - Suicide Last Done: 03/14/25 13:28
*General Assessment Last Done: 03/14/25 14:44
*Neglect/Abuse Screening Last Done: 03/14/25 13:28
*ED- Fall Risk Assessment Last Done: 03/14/25 14:44
*ED COVID-19 Vaccine History Last Done: 03/14/25 14:44
*Nursing Disposition Last Done: 03/14/25 19:35
ED- Cardiac Assessment Last Done: 03/14/25 14:38
ED- Pulmonary Assessment Last Done: 03/14/25 14:38
Discharge Date and Time
Discharge Date/Time: 03/14/25 19:35
[2025-03-14] MEDS: SOLU-MEDROL PF 125 MG IV (14:43)
[2025-03-14 14:54] LABS: Hematocrit 36.4 % (39.0-52.0); Hemoglobin 11.4 g/dL (13.0-18.0); Mean Corp Hgb Conc. 31.3 g/dL (33.0-37.0); Mean Corpuscular Volume 82.0 fL (80.0-94.0); Nucleated Red Blood Cells % 0 % (-); Platelet Count 195 10^3/uL (130-400); Red Cell Dist. Width 17.2 % (11.5-14.5)
[2025-03-14 15:05] LABS: INR 2.90; PT 30.2 Sec (11.4-14.6)
[2025-03-14 15:06] LABS: APTT 62.3 Sec (23.4-35.0)
[2025-03-14 15:14] LABS: COVID-19 Antigen Negative (Negative)
[2025-03-14 15:18] LABS: ALT (SGPT) 14 U/L (0-50); AST (SGOT) 23 U/L (17-59); Albumin 3.8 g/dl (3.5-5.0); Alkaline Phosphatase 71 U/L (38-126); Blood Urea Nitrogen 11 mg/dl (9-20); Calcium 8.8 mg/dl (8.4-10.2); Carbon Dioxide 27 mmol/L (22-30); Chloride 109 mmol/L (98-107); Estimated Creatinine Clearance 92 ml/min; Glucose 110 mg/dl (70-99); Potassium 4.8 mmol/L (3.5-5.1); Sodium 141 mmol/L (135-145); Total Protein 6.4 g/dl (6.3-8.2); eGFR > 60.00
[2025-03-14 15:28] LABS: Troponin I < 0.012 ng/ml
--- NOTE | 2025-03-14 16:46 | W.PN.UPDATE ---
Update Note
Progress Note Update
Left chest tube placed, with near complete reexpansion of left lung. Patient tolerated well, no sedation or analgesia given.
--- NOTE | 2025-03-14 17:25 | HPS.HSE ---
Addendum entered and electronically signed by Ivonne Galan MD 03/14/25 21:16:
This is an addendum to H&P written by Jodi Nicole on 03/14/2025. �Patient seen and examined independently with PA.
79-year-old male past medical history of HIV on HAART, COPD on 2 L baseline, CAD status post CABG, hypertension, hyperlipidemia, MAC infection, paroxysmal atrial fibrillation Coumadin, anemia, leukopenia, presenting with increasing shortness of
breath yesterday with left-sided chest pain when bending down. �Today oxygen increased from 2 to 4 L.
Vital signs normal. �Bilateral wheezing on examination
Labs show stable anemia of 11.4.
Chest x-ray shows small left basilar pneumothorax.
Left chest tube was placed.
Patient with spontaneous small left basilar pneumothorax status post chest tube. �Will need chest tube management per IR and repeat CXR. �Also with concern for acute COPD exacerbation. �ty Fang.
Original Note:
Family Physician
-
Family Physician: INTERVIEWE UNKNOWN - PT NOT
Chief Complaint
-
Chest Pain and Shortness of Breath
History of Present Illness
Patient is a 79 y/o male past medical history of chronic hypoxic on 2L nasal cannula, COPD/Emphysema, CAD, A-Fib on anticoagulation, HIV on HAART and AVINASH who presents with chest pain and shortness of breath. Patient reports he was bending over
getting something out of a side table when he developed left sided pain. He initially attributed the pain to a pulled muscle. Today he was more short of breath and had to increase his oxygen from 2L to 4L nasal cannula. Work-up in the emergency
department revealed a small left pneumothorax for which a chest tube has been placed.
Medical History
Past Medical History
Past Medical History: Reports Other
Additional Past Medical History:
Chronic Hypoxic Respiratory Failure
COPD / Emphysema
Coronary Artery Disease s/p CABG and Stents
Paroxysmal Atrial Fibrillation
Essential Hypertension
Hyperlipidemia
HIV
AVINASH Infection
Past Surgical History: Reports Other
Additional Past Surgical History:
CABG
Right Inguinal Hernia Repair
Social History
Tobacco: Former Smoker (Quit 2021)
Alcohol: None
Employment: Retired
Family History
Family History: Not pertinent
Allergies / Home Medications
Allergies reflects when Allergies were last updated in [employer].
Home Medications with original date entered in [employer]
Allergy/Medication List:
Allergies
Allergy/AdvReac Type Severity Reaction Status Date / Time
No Known Allergies Allergy Verified 03/14/25 13:31
Home Medications
dolutegravir 50 mg tablet (Tivicay) 50 mg PO BID HIV 12/19/21
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
ezetimibe 10 mg tablet 10 mg PO DAILY High cholesterol 12/19/21
emtricitabine 200 mg-tenofovir disoproxil fumarate 300 mg tablet 1 tab PO DAILY HIV 11/11/22
pantoprazole 40 mg tablet,delayed release 40 mg PO DAILY #30 tabs 11/13/22
albuterol sulfate 90 mcg/actuation aerosol inhaler 2 puff inhalation R Q4HPRN PRN sob 06/20/23
fluticasone fur. 100 mcg-umeclid 62.5 mcg-vilant 25 mcg inhalat.powder (Trelegy Ellipta) 1 inh inhalation R DAILY Lung/Breathing Issues 06/20/23
rifabutin 150 mg capsule 150 mg PO BID mycobacterium avium 06/20/23
levalbuterol HCl 1.25 mg/3 mL solution for nebulization 1.25 mg inhalation R QID Lung/Breathing Issues 01/28/24
rosuvastatin 20 mg tablet 20 mg PO DAILY High Cholesterol 01/28/24
acetaminophen 325 mg tablet 650 mg PO DAILYPRN PRN mild pain/headache 09/19/24
diltiazem HCl 120 mg capsule,24 hr,extended release 120 mg PO DAILY Heart Disease/Condition 09/19/24
sulfamethoxazole 400 mg-trimethoprim 80 mg tablet 1 tab PO DAILY Infection 09/19/24
warfarin 1 mg tablet 0.5 mg PO HS 09/19/24
warfarin 4 mg tablet 4 mg PO HS Blood Clot Prevention/Tx 09/19/24
azithromycin 250 mg tablet 250 mg PO DAILY #0 tabs 12/18/24
cyanocobalamin (vitamin B-12) 1,000 mcg tablet (Vitamin B-12) 1,000 mcg PO DAILY #30 tabs 12/18/24
folic acid 1 mg tablet 1 mg PO DAILY #30 tabs 12/18/24
Review of Systems
-
History Source: Patient
A 12 point ROS was completed and negative except as noted: Yes
Constitutional: Denies Fever or Chills
Respiratory: Reports Cough and Trouble Breathing
Cardiac: Denies Chest Pain or Palpitations
Abdomen/GI: Denies Abdominal Pain, Nausea, Vomiting, Diarrhea or Constipated
Physical Exam
Vital Signs
Vital Signs
Temp Pulse Resp BP Pulse Ox
98 F 92 23 121/84 97
03/14/25 15:50 03/14/25 17:07 03/14/25 17:07 03/14/25 17:07 03/14/25 17:07
Physical Exam
General: Comfortable and Conversant
HEENT: Anicteric, Moist mucous membranes and Oxygen (Nasal Cannula)
Respiratory: Wheezes (Anteriorly), Non Labored Respirations and Chest Tube (Left)
Cardiac: S1/S2 and Regular Rhythm
GI: Soft and Non Tender
Rectal: Deferred by Provider
Musculoskeletal: No Clubbing, No Cyanosis and No Edema
Skin: Warm and Dry
Neuro: Awake, Alert, Oriented and Nonfocal/grossly intact
Psych: Calm
Laboratory Results
-
03/14/25 14:41
03/14/25 14:41
Laboratory Results
PT 30.2 Sec (11.4-14.6) H 03/14/25 14:41
INR 2.90 03/14/25 14:41
APTT 62.3 Sec (23.4-35.0) H 03/14/25 14:41
Total Bilirubin 0.3 mg/dl (0.2-1.3) 03/14/25 14:41
AST 23 U/L (17-59) 03/14/25 14:41
ALT 14 U/L (0-50) 03/14/25 14:41
Alkaline Phosphatase 71 U/L (38-126) 03/14/25 14:41
Troponin I < 0.012 ng/ml 03/14/25 14:41
Data Reviewed
-
Diagnostic Radiology: Report Reviewed by me
Lab Data: Labs Reviewed by me
Impression/Plan
-
Spontaneous Left Pneumothorax s/p Chest Tube
-Consult Interventional Radiology
-Chest tube currently to wall suction
Acute COPD Exacerbation
-Transition home inhalers to nebulizers
-Continue Pulmicort Neb and DuoNeb QID and PRN
-Continue Decadron 4mg q8H
Chronic Hypoxic Respiratory Failure
-Continue supplemental oxygen via nasal cannula
Coronary Artery Disease s/p CABG and Stents
-Stable
Paroxysmal Atrial Fibrillation
-Continue Coumadin - INR currently in range
-Continue Cardizem for rate control
Essential Hypertension
-Continue Cardizem
Hyperlipidemia
-Continue ezetimibe and rosuvastatin
HIV
-Continue emtricitabine/tenofovir, and Tivicay
-Continue Bactrim
AVINASH Infection
-Continue azithromycin, ethambutol and rifabutin
DVT proph: Coumadin
Code Status: Full Code
[2025-03-14] MEDS: MORPHINE SULFATE 2 MG IV ×2 (17:42→21:44)
[2025-03-14] MEDS: DUONEB 3 ML INH (19:48)
[2025-03-14] MEDS: PULMICORT 0.5 MG INH (19:48)
--- NOTE | 2025-03-14 20:12 | PTCARENOTE ---
Patient arrived from the ER via stretcher. Patient pulled over from stretcher to bed, chest tube remains intact. Chest tube connected to continuous wall suction per order, no crepitus felt. Tidaling noted on chest tube, pleurevac at -20. Patient
connected to telemetry, bed alarm plugged into the wall. Patient is on 2L of O2. Call nieves and urinal remain within reach.
[2025-03-14] MEDS: TIVICAY 50 MG PO (21:40)
[2025-03-14] MEDS: COUMADIN 0.5 MG PO (21:40)
[2025-03-14] MEDS: MYAMBUTOL 400 MG PO (21:40)
[2025-03-14] MEDS: NON-FORMULARY ITEM 1 UNIT PO (21:40)
[2025-03-14] MEDS: COUMADIN 4 MG PO (21:40)
[2025-03-15 03:29] VITALS: BP 122/66
[2025-03-15] MEDS: DUONEB 3 ML INH ×4 (07:29→19:13)
[2025-03-15] MEDS: PULMICORT 0.5 MG INH ×2 (07:29→19:13)
[2025-03-15 07:35] VITALS: BP 139/69
--- NOTE | 2025-03-15 08:00 | W.PN.HOSP.TC ---
Today's Communication/Plan
-
See plan
Assessment / Plan
Assessment / Plan
Physical Exam
General: Comfortable and Conversant
HEENT: Anicteric, Moist mucous membranes and Oxygen (Nasal Cannula)
Respiratory: Wheezes
Cardiac: S1/S2 and Regular Rhythm
GI: Soft and Non Tender. Positive bowel sounds.
Musculoskeletal: No Cyanosis and No Edema
Skin: Warm and Dry
Neuro: Awake, Alert, Oriented and Nonfocal/grossly intact
Psych: Calm
Assessment/Plan
79-year-old male with past medical history of HIV on HAART, COPD on 2 L baseline, CAD status post CABG, hypertension, hyperlipidemia, AVINASH/MAC infection, paroxysmal atrial fibrillation on Coumadin, anemia, leukopenia, who presented with increasing
shortness of breath with left-sided chest pain after when bending down. On the day of presentation, his oxygen requirements increased from 2 to 4 L. Vital signs normal. Bilateral wheezing on examination. Labs show stable anemia of 11.4. Chest x-ray
shows small left basilar pneumothorax. Left chest tube was placed. Patient with spontaneous small left basilar pneumothorax status post chest tube. Will need chest tube management per IR and repeat CXR. Also with concern for acute COPD
exacerbation. DuoNebs, dexamethasone.
Spontaneous Left Pneumothorax s/p Chest Tube -- likely from changes with her COPD, possibly from BiPAP as well
-Consult Interventional Radiology
-IR on 03/14/25 placed left-sided chest tube, with near complete reexpansion of left lung.
-Chest tube clamping trial today
-Patient does not want chemical pleurodesis, and he is okay with being off BiPAP for now
Acute COPD Exacerbation
-Transition home inhalers to nebulizers
-Continue Pulmicort Neb and DuoNeb QID and PRN
-Continue IV steroids
-He is not able to tolerate nightly BiPAP therapy, also has a history of claustrophobia
Chronic Hypoxic Respiratory Failure
-Continue supplemental oxygen via nasal cannula
Coronary Artery Disease s/p CABG and Stents
-Stable
-Continue Ezetimibe, Rosuvastatin and Coumadin
Paroxysmal Atrial Fibrillation
Supratherapeutic INR
-Hold Coumadin given supratherapeutic INR
-Continue Cardizem for rate control
-Monitor INR
Essential Hypertension
-Continue Cardizem
Hyperlipidemia
-Continue ezetimibe and rosuvastatin
HIV
-Continue emtricitabine/tenofovir, and Tivicay
-Continue Bactrim
AVINASH Infection
-Continue azithromycin, ethambutol and rifabutin
Pulmonary Nodules
-Outpatient pulmonary follow-up
Underweight
DVT Prophylaxis: Coumadin
Code Status: Full Code
Anticipated Discharge: 24 - 48 hours
Subjective/Interval History
-
Date of Service: March 15, 2025
Patient was seen and examined. He reported that after chest tube placement yesterday, he is feeling much better.
Objective Data
-
Labs:
Laboratory Results
03/15/25
07:24
WBC Pending
Hgb Pending
Hct Pending
Plt Count Pending
PT Pending
INR Pending
Sodium Pending
Potassium Pending
Chloride Pending
Carbon Dioxide Pending
BUN Pending
Creatinine Pending
Glucose Pending
Calcium Pending
Vital Signs:
Vital Signs
Temp Pulse Resp BP Pulse Ox
97.5 F 82 16 122/66 97
03/15/25 03:29 03/15/25 07:32 03/15/25 07:32 03/15/25 03:29 03/15/25 07:32
I&O
03/14/25 03/15/25 03/16/25
06:59 06:59 06:59
Intake Total 75 / 75
Output Total 275 / 275
Balance -200 / -200
[2025-03-15 08:02] LABS: INR 3.27; PT 33.2 Sec (11.4-14.6)
[2025-03-15 08:17] LABS: Hematocrit 34.7 % (39.0-52.0); Hemoglobin 11.0 g/dL (13.0-18.0); Mean Corp Hgb Conc. 31.7 g/dL (33.0-37.0); Mean Corpuscular Volume 82.2 fL (80.0-94.0); Platelet Count 197 10^3/uL (130-400); Red Cell Dist. Width 17.2 % (11.5-14.5)
[2025-03-15] MEDS: FOLVITE 1 MG PO (08:19)
[2025-03-15] MEDS: ZETIA 10 MG PO (08:19)
[2025-03-15] MEDS: ZITHROMAX 250 MG PO (08:19)
[2025-03-15] MEDS: BACTRIM 400 MG/80 MG 1 TABLET PO (08:19)
[2025-03-15] MEDS: VITAMIN B-12 1000 MCG PO (08:20)
[2025-03-15] MEDS: MYAMBUTOL 400 MG PO ×2 (08:20→20:40)
[2025-03-15] MEDS: PROTONIX 40 MG PO (08:20)
[2025-03-15] MEDS: TRUVADA TABLET 1 TABLET PO (08:20)
[2025-03-15] MEDS: CRESTOR 20 MG PO (08:20)
[2025-03-15] MEDS: CARDIZEM CD 120 MG PO (08:20)
[2025-03-15] MEDS: DECADRON 4 MG IV ×3 (08:21→23:34)
[2025-03-15] MEDS: NON-FORMULARY ITEM 1 UNIT PO ×2 (08:21→20:40)
[2025-03-15] MEDS: TIVICAY 50 MG PO ×2 (08:26→20:51)
--- NOTE | 2025-03-15 09:06 | CON.PUL ---
Consultation
Consultation Request
Date/Time Consultation Requested: 03/15/2025
Date/Time Consultation Performed: 03/15/2025
Medical History
-
Chief Complaint: Shortnerss of breath
History of Present Illness:
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
left-sided pain and shortness of breath. Imaging was suggestive of a left-sided pneumothorax. Patient had an IR guided chest tube placement and was admitted to the hospitalist service. Pulmonary consultation was requested for further input. No
reported trauma, patient reports that he first noticed pain/pressure in his left chest after he kneeled to get something from the side table. Does not recall any trauma or fall. No prior history of pneumothorax.
Of note, patient has known history of very severe COPD as well as pulmonary MAC infection for which right upper lobectomy was recommended but patient was felt to be a very high risk hence surgery was not pursued. Also patient is not interested in
pursuing any surgical interventions. Patient has been on triple therapy for MAC infection as well as triple inhaler therapy for COPD in addition to chronic steroid use as well as home oxygen and home BiPAP therapy.
Past Medical History
Past Medical History: Reports Other
Additional Past Medical History:
Chronic Hypoxic Respiratory Failure
COPD / Emphysema
Coronary Artery Disease s/p CABG and Stents
Paroxysmal Atrial Fibrillation
Essential Hypertension
Hyperlipidemia
HIV
AVINASH Infection
Past Surgical History: Reports Other
Additional Past Surgical History:
CABG
Right Inguinal Hernia Repair
Social History
Tobacco: Former Smoker (Quit 2021)
Alcohol: None
Employment: Retired
Family History
Family History: Not pertinent
Allergies / Home Medications
Allergies
Allergy/AdvReac Type Severity Reaction Status Date / Time
No Known Allergies Allergy Verified 03/14/25 13:31
Home Medications
�Medication �Instructions �Recorded �Confirmed �Last Taken �Type
dolutegravir 50 mg tablet (Tivicay) 50 mg PO BID HIV 12/19/21 03/14/25 03/14/25 History
ethambutol 400 mg tablet 400 mg PO BID mycobacterium avium 12/19/21 03/14/25 03/14/25 History
ezetimibe 10 mg tablet 10 mg PO DAILY High cholesterol 12/19/21 03/14/25 03/14/25 History
emtricitabine 200 mg-tenofovir 1 tab PO DAILY HIV 11/11/22 03/14/25 03/14/25 History
disoproxil fumarate 300 mg tablet
pantoprazole 40 mg tablet,delayed 40 mg PO DAILY #30 tabs 11/13/22 03/14/25 03/14/25 Rx
release
albuterol sulfate 90 mcg/actuation 2 puff inhalation R Q4HPRN PRN sob 06/20/23 03/14/25 Unknown History
aerosol inhaler
fluticasone fur. 100 mcg-umeclid 1 inh inhalation R DAILY 06/20/23 03/14/25 03/14/25 History
62.5 mcg-vilant 25 mcg Lung/Breathing Issues
inhalat.powder (Trelegy Ellipta)
rifabutin 150 mg capsule 150 mg PO BID mycobacterium avium 06/20/23 03/14/25 03/14/25 History
levalbuterol HCl 1.25 mg/3 mL 1.25 mg inhalation R QID 01/28/24 03/14/25 03/14/25 History
solution for nebulization Lung/Breathing Issues
rosuvastatin 20 mg tablet 20 mg PO DAILY High Cholesterol 01/28/24 03/14/25 03/14/25 History
acetaminophen 325 mg tablet 650 mg PO DAILYPRN PRN mild 09/19/24 03/14/25 03/14/25 History
pain/headache
diltiazem HCl 120 mg capsule,24 120 mg PO DAILY Heart 09/19/24 03/14/25 03/14/25 History
hr,extended release Disease/Condition
sulfamethoxazole 400 1 tab PO DAILY Infection 09/19/24 03/14/25 03/14/25 History
mg-trimethoprim 80 mg tablet
warfarin 1 mg tablet 0.5 mg PO HS 09/19/24 03/14/25 03/13/25 History
warfarin 4 mg tablet 4 mg PO HS Blood Clot Prevention/Tx 09/19/24 03/14/25 03/13/25 History
azithromycin 250 mg tablet 250 mg PO DAILY #0 tabs 12/18/24 03/14/25 03/14/25 Rx
cyanocobalamin (vitamin B-12) 1,000 mcg PO DAILY #30 tabs 12/18/24 03/14/25 03/14/25 Rx
1,000 mcg tablet (Vitamin B-12)
folic acid 1 mg tablet 1 mg PO DAILY #30 tabs 12/18/24 03/14/25 03/14/25 Rx
Review of Systems
Vitals / Labs / Diagnostic Testing
Vital Signs
Temp Pulse Resp BP Pulse Ox
98.1 F 82 16 139/69 99
03/15/25 07:35 03/15/25 07:35 03/15/25 07:35 03/15/25 07:35 03/15/25 07:35
Lab Data
03/15/25 07:24
Laboratory Results
03/14/25 03/15/25
14:41 07:24
PT 30.2 H 33.2 H
INR 2.90 3.27
APTT 62.3 H
Microbiology
03/14/25 14:41 Nasal Swab Influenza Types A & B (MARIAH) - Final
Negative for Influenza A & B, NAAT
Negative results must be combined with clinical observations
and patient history.
Nucleic Acid Amplification test (NAAT)performed on the
[id number] platform.
Diagnostic Testing:
Physical Exam
-
HEENT: Normocephalic
Cardiovascular: S1/S2
Respiratory: Wheeze
GI: Soft and Non Distended
Neurology: Awake and Alert
Skin: Warm
General: Comfortable
Assessment
-
#1. Pneumothorax, spontaneous secondary.
- Suspect this is in the setting of underlying severe emphysematous changes on imaging with advanced COPD
- Patient uses BiPAP at home which could also contribute
- No further air leak noted. Stat chest x-ray ordered and reviewed, lung fully expanded. Clamp chest tube for 4 hours and then repeat x-ray. If tolerates well, anticipate chest tube removal within next 24 hours
- Patient has very severe underlying COPD and at this point might not be a surgical candidate for mechanical pleurodesis, patient also not interested in pursuing any surgical intervention. We discussed regarding risk of recurrence considering
severe underlying emphysematous disease. We discussed the option of pursuing chemical pleurodesis, we went over the success rate with chemical produces and also updated that the process can be painful. Patient at this point wants to hold off on
pursuing chemical pleurodesis and wants to see how he does off BiPAP therapy.
#2. Severe baseline COPD/emphysema with acute exacerbation
- Pulmonary function testing (10/17/2023 ): FEV1:0.93 L -31%, FVC:3.01 L-72%, FEV1/FVC ratio:�31% T.48 L-105%, RV:155%, RV/TLC ratio:58%, DLCO: 15%DLCO/VA: 20%�Summary: Very severe airflow obstruction with air trapping and hyperinflation.�
Severely decreased diffusion capacity.�
- At baseline patient is on Trelegy daily along with as needed albuterol, prednisone 10 mg daily. Has not been able to tolerate nightly BiPAP therapy.
- Continue scheduled DuoNeb, budesonide and IV steroids in view of ongoing wheezing
#3. Chronic hypoxic and hypercapnic respiratory failure.
- Patient unable to tolerate nightly noninvasive ventilation. Reported history of claustrophobia. During daytime he has been able to use intermittently.
- At baseline, patient is home oxygen dependent at 2 L
- In view of pneumothorax, hold off BiPAP therapy going forward
#4. History of pulmonary MAC infection.
- Patient has followed up with [facility] and was recommended right upper lobe lobectomy, but was felt to be too high risk.
- Patient did not tolerate nebulized amikacin in the past, continue oral antibiotics, currently on azithromycin, ethambutol and Rifater Butin.
#4. History of HIV
- Continue antiretroviral therapy. Also on PCP prophylaxis with Bactrim
#5. Pulmonary nodules
- Serial CT scan has shown stability, continue follow-up with [facility] pulmonary clinic
Other medical diagnoses:
- Paroxysmal atrial fibrillation. On chronic anticoagulation
- Hypertension, hyperlipidemia
- Coronary artery disease, s/p coronary artery bypass graft
Patient follows up with Dr. Garcia at [facility] pulmonary clinic and will resume follow-up as outpatient.
Total time spent on this consultation/encounter __82__ minutes which includes review of history, physical exam, medications, laboratory data, personal review of imaging, extensive review of outpatient records, discussion with care team and
respiratory therapy.
Data:
CT Chest 03/2025: 1. Re-demonstration of advanced centrilobular emphysema throughout the lungs, similar to prior. Re-demonstration of bronchiectasis, volume loss and thick-walled cystic lesions in the right upper lobe, grossly stable. Grossly stable
tiny bilateral pulmonary nodules. Findings may reflect sequelae of chronic atypical infection.
ECHO 11/2022: Normal left ventricular size, wall thickness and systolic function. No
regional wall motion abnormalities noted. LV ejection fraction is 60% by
volumetric assessment. Normal diastolic function.
Mitral valve opens normally. Thickened mitral valve leaflets. Mitral annular
calcification. No mitral stenosis. Trace mitral regurgitation is seen.
Since echocardiogram April 2022, there is no significant change.
[2025-03-15 09:21] LABS: Blood Urea Nitrogen 14 mg/dl (9-20); Calcium 8.3 mg/dl (8.4-10.2); Carbon Dioxide 28 mmol/L (22-30); Chloride 108 mmol/L (98-107); Estimated Creatinine Clearance 88 ml/min; Glucose 89 mg/dl (70-99); Magnesium 2.6 mg/dl (1.6-2.3); Potassium 4.2 mmol/L (3.5-5.1); Sodium 139 mmol/L (135-145); eGFR > 60.00
[2025-03-15 11:34] VITALS: BP 119/69
--- NOTE | 2025-03-15 12:18 | CM ---
Patient seen at bedside
IA completed
Dx: pneumothorax
patient with chest tube clamp currently, cxr at 3PM
PMH: HIV on HAART, COPD on 2 L baseline, CAD status post CABG, hypertension, hyperlipidemia, MAC infection, paroxysmal atrial fibrillation Coumadin, anemia, leukopenia
Patient lives with significant other [place]'s son & DIL in a 2 story home, [address], 1st floor set up, full bath on 2nd floor uses stair glide
PLOF: independent
needs help bathing
DME: Walker, wheelchair, nebulizer, home oxygen 2L N/C continuous,([employer]) chair lift, stair glide
Has had [facility] in past, denies Rehab
PCP: Colton Mota
Pharmacy: [facility], [address] [place] [address], [id number]
Plan; anticipate home, when stable, CM to follow for needs
--- NOTE | 2025-03-15 15:00 | VNURNOTE ---
Addendum entered by Bere Pan RN 03/16/25 09:25:
[facility] referral sent in [facility].
Original Note:
Chart reviewed. Patient currently w/chest tube. He has had [facility] services in the past. Met with patient at bedside. If HH recommended, pt is agreeable to [facility]. Noted no physical therapy or occ therapy evals yet.
Watching for final DC dispo.
[facility] referral in [facility] status in [facility].
--- NOTE | 2025-03-15 15:42 | PN.CDI ---
CDI
- -
CDI:
Physician Documentation Request
Admit Date: 03/14/25 18:20
Dear Doctor Tu,
Please review the following and provide your response in the progress notes.
Clinical Indicators:
Chemical Supervisor, 03/15
#Current BW: (03/14) 133 lbs 2 oz BMI: 18.1 (underweight). Weight history (09/21/24) 137 lbs
Based on the above and your clinical assessment,please provide an associated diagnosis related to the BMI:
BMI, 18.1 underweight
BMI is not significant
Other(please specify)
BMI < or = to 19
Underweight
Weight Loss
Cachectic
Anorexia
Use of terms such as suspected, likely, concern for, or probable (associated with a specific diagnosis that is being evaluated, monitored, or treated as if it exists) are acceptable and can be coded in the inpatient setting, when documented at the
time of discharge.
Thank you,
Qiana Benavides RN BSN CCDS
CDI Specialist
Please contact via tiger text
Please use your independent medical judgment in providing your response.
[2025-03-15 15:52] VITALS: BP 113/62
[2025-03-15 19:48] VITALS: BP 132/61
[2025-03-15 23:13] VITALS: BP 127/74
[2025-03-15] MEDS: TYLENOL 650 MG PO (23:48)
[2025-03-16] VITALS (8 sets, daily range): BP systolic 106–154; BP diastolic 66–105; PULSE 118; O2SAT 98
[2025-03-16 06:40] LABS: INR 4.13; PT 39.6 Sec (11.4-14.6)
[2025-03-16 07:00] LABS: Blood Urea Nitrogen 15 mg/dl (9-20); Calcium 8.3 mg/dl (8.4-10.2); Carbon Dioxide 30 mmol/L (22-30); Chloride 109 mmol/L (98-107); Estimated Creatinine Clearance 88 ml/min; Glucose 115 mg/dl (70-99); Potassium 4.5 mmol/L (3.5-5.1); Sodium 141 mmol/L (135-145); eGFR > 60.00
[2025-03-16 07:15] LABS: Hematocrit 32.3 % (39.0-52.0); Hemoglobin 10.2 g/dL (13.0-18.0); Mean Corp Hgb Conc. 31.6 g/dL (33.0-37.0); Mean Corpuscular Volume 81.4 fL (80.0-94.0); Platelet Count 187 10^3/uL (130-400); Red Cell Dist. Width 16.9 % (11.5-14.5)
[2025-03-16] MEDS: PULMICORT 0.5 MG INH ×2 (07:15→19:16)
[2025-03-16] MEDS: DUONEB 3 ML INH ×4 (07:15→19:16)
[2025-03-16] MEDS: ZITHROMAX 250 MG PO (08:35)
[2025-03-16] MEDS: ZETIA 10 MG PO (08:35)
[2025-03-16] MEDS: PROTONIX 40 MG PO (08:35)
[2025-03-16] MEDS: CRESTOR 20 MG PO (08:35)
[2025-03-16] MEDS: BACTRIM 400 MG/80 MG 1 TABLET PO (08:35)
[2025-03-16] MEDS: CARDIZEM CD PO (08:36)
[2025-03-16] MEDS: DECADRON 4 MG IV ×2 (08:37→16:14)
[2025-03-16] MEDS: NON-FORMULARY ITEM 1 UNIT PO ×2 (08:37→20:05)
[2025-03-16] MEDS: MYAMBUTOL 400 MG PO ×2 (08:37→20:04)
[2025-03-16] MEDS: FOLVITE 1 MG PO (08:37)
[2025-03-16] MEDS: VITAMIN B-12 1000 MCG PO (08:37)
[2025-03-16] MEDS: TRUVADA TABLET 1 TABLET PO (08:44)
[2025-03-16] MEDS: TIVICAY 50 MG PO ×2 (08:52→20:38)
--- NOTE | 2025-03-16 09:09 | W.PN.HOSP.TC ---
Today's Communication/Plan
-
Discharge today
Assessment / Plan
Assessment / Plan
Physical Exam
General: Comfortable and Conversant
HEENT: Anicteric, Moist mucous membranes and Oxygen (Nasal Cannula)
Respiratory: Wheezes
Cardiac: S1/S2 and Regular Rhythm
GI: Soft and Non Tender. Positive bowel sounds.
Musculoskeletal: No Cyanosis and No Edema
Skin: Warm and Dry
Neuro: Awake, Alert, Oriented and Nonfocal/grossly intact
Psych: Calm
Assessment/Plan
79-year-old male with past medical history of HIV on HAART, COPD on 2 L baseline, CAD status post CABG, hypertension, hyperlipidemia, AVINASH/MAC infection, paroxysmal atrial fibrillation on Coumadin, anemia, leukopenia, who presented with increasing
shortness of breath with left-sided chest pain after when bending down. On the day of presentation, his oxygen requirements increased from 2 to 4 L. Vital signs normal. Bilateral wheezing on examination. Labs show stable anemia of 11.4. Chest x-ray
shows small left basilar pneumothorax. Left chest tube was placed. Patient with spontaneous small left basilar pneumothorax status post chest tube. Will need chest tube management per IR and repeat CXR. Also with concern for acute COPD
exacerbation. DuoNebs, dexamethasone.
Spontaneous Left Pneumothorax s/p Chest Tube -- likely from changes with her COPD, possibly from BiPAP as well
-Consult Interventional Radiology
-IR on 03/14/25 placed left-sided chest tube, with near complete reexpansion of left lung.
-Chest tube removed this morning -- chest x-ray after chest tube removal shows no pneumothorax
-Patient does not want chemical pleurodesis, and he is okay with being off BiPAP for now
-BIPAP is not to be used at home given risk of Pneumothorax.
-Outpatient follow-up with pulmonary.
Acute COPD Exacerbation
-Transition home inhalers to nebulizers
-Continue Pulmicort Neb and DuoNeb QID and PRN
-Continue home Trelegy at discharge
-Steroid regimen on discharge: Prednisone 40 mg daily x3 days then 30 mg daily x3 days, then 20 mg daily x3 days, then back to his baseline 10 mg daily (contact outpatient pulmonary office if you need refills)
-He is not able to tolerate nightly BiPAP therapy, also has a history of claustrophobia
Chronic Hypoxic Respiratory Failure
-Continue supplemental oxygen via nasal cannula -- patient is at baseline
Coronary Artery Disease s/p CABG and Stents
-Stable
-Continue Ezetimibe, Rosuvastatin
Paroxysmal Atrial Fibrillation
Supratherapeutic INR
-Hold Coumadin given supratherapeutic INR -- will need close outpatient follow-up of INR and Coumadin dose adjustment -- steroids can increase INR too in setting of Coumadin
-Continue Cardizem for rate control
-Monitor INR
Essential Hypertension
-Continue Cardizem
Hyperlipidemia
-Continue ezetimibe and rosuvastatin
HIV
-Continue emtricitabine/tenofovir, and Tivicay
-Continue Bactrim
-Follow-up with Dr. Fan at your next scheduled appointment
AVINASH Infection
-Continue azithromycin, ethambutol and rifabutin
Pulmonary Nodules
-Outpatient pulmonary follow-up
Underweight
DVT Prophylaxis: Supratherapeutic INR
Code Status: Full Code
More than 30 minutes spent in discharge including
Final examination of the patient
Summarizing hospital stay
Instructions for continuing care to all relevant caregivers
Preparation of discharge records, prescriptions, and referral forms
Total time spent (in minutes): 41
Anticipated Discharge: Today
Subjective/Interval History
-
Date of Service: March 16, 2025
Patient was seen and examined. He denied any new symptoms, he denied chest pain or shortness of breath.
Objective Data
-
Labs:
Laboratory Results
03/16/25
05:46
WBC 3.8 L
Hgb 10.2 L
Hct 32.3 L
Plt Count 187
PT 39.6 H
INR 4.13
Sodium 141
Potassium 4.5
Chloride 109 H
Carbon Dioxide 30
BUN 15
Creatinine 0.6 L
Glucose 115 H
Calcium 8.3 L
Vital Signs:
Vital Signs
Temp Pulse Resp BP Pulse Ox
97.5 F 80 16 106/66 100
03/16/25 07:25 03/16/25 08:36 03/16/25 07:25 03/16/25 08:36 03/16/25 07:25
I&O
03/15/25 03/16/25 03/17/25
06:59 06:59 06:59
Intake Total 75 / 75 1320 / 1320
Output Total 275 / 275 550 / 550
Balance -200 / -200 770 / 770
--- NOTE | 2025-03-16 09:52 | CM ---
Addendum entered by Swapna Espitia 03/16/25 15:09:
IMM explained & signed. In chart
Original Note:
Patient seen at bedside
per nsg patient to get chest tube removed
PT ordered-await Eval
interested in [facility]N-prefers [facility]
notified liaison referral entered
PLAN: home with [facility]
--- NOTE | 2025-03-16 10:00 | PTCARENOTE ---
order rec'd to remove chest tube, confirmed with Dr. Jennifer campa to remove with INR >4. pt to department on stretcher for removal.
--- NOTE | 2025-03-16 10:13 | PN.IRAD.UPD ---
Update Note - IRAD
- -
PATIENT CAME DOWN TO DEPARTMENT FOR LEFT CHEST TUBE REMOVAL. NO ISSUES OR COMPLAINTS FROM HIM, DRESSED WITH VASIGAUZE AND PRIMAPORE. AP
--- NOTE | 2025-03-16 11:44 | W.PN.PUL3 ---
Today's Communication / Plan
-
- Stay off BiPAP
- Resume Trelegy at discharge
- Continue treatment for MAC
- At discharge recommend prednisone 40 mg daily for 3 days followed by 30 mg for 3 days followed by 20 mg for 3 days and then continue 10 mg daily long-term which is his chronic baseline dose
- Outpatient follow-up with [facility] pulmonary clinic
Assessment
-
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
left-sided pain and shortness of breath. Imaging was suggestive of a left-sided pneumothorax. Patient had an IR guided chest tube placement and was admitted to the hospitalist service. Pulmonary consultation was requested for further input. No
reported trauma, patient reports that he first noticed pain/pressure in his left chest after he kneeled to get something from the side table. Does not recall any trauma or fall. No prior history of pneumothorax.
Of note, patient has known history of very severe COPD as well as pulmonary MAC infection for which right upper lobectomy was recommended but patient was felt to be a very high risk hence surgery was not pursued. Also patient is not interested in
pursuing any surgical interventions. Patient has been on triple therapy for MAC infection as well as triple inhaler therapy for COPD in addition to chronic steroid use as well as home oxygen and home BiPAP therapy.
#1. Pneumothorax, spontaneous secondary.
- Suspect this is in the setting of underlying severe emphysematous changes on imaging with advanced COPD
- Patient uses BiPAP at home which could also contribute
- No further air leak noted. Tolerated clamp trial well. Consulted interventional radiology service to remove chest tube today.
- Patient has very severe underlying COPD and at this point might not be a surgical candidate for mechanical pleurodesis, patient also not interested in pursuing any surgical intervention. 03/15/2025, we discussed regarding risk of recurrence
considering severe underlying emphysematous disease. We discussed the option of pursuing chemical pleurodesis, we went over the success rate with chemical produces and also updated that the process can be painful. Patient at this point wants to
hold off on pursuing chemical pleurodesis and wants to see how he does off BiPAP therapy.
(Addendum: Chest x-ray reviewed after chest tube removal, no residual pneumothorax noted.)
#2. Severe baseline COPD/emphysema with acute exacerbation
- Pulmonary function testing (10/17/2023 ): FEV1:0.93 L -31%, FVC:3.01 L-72%, FEV1/FVC ratio:�31% T.48 L-105%, RV:155%, RV/TLC ratio:58%, DLCO: 15%DLCO/VA: 20%�Summary: Very severe airflow obstruction with air trapping and hyperinflation.�
Severely decreased diffusion capacity.�
- At baseline patient is on Trelegy daily along with as needed albuterol, prednisone 10 mg daily. Has not been able to tolerate nightly BiPAP therapy.
- Continue scheduled DuoNeb, budesonide and IV steroids in view of ongoing wheezing
- Can transition to prednisone at a tapering dose when discharging home
#3. Chronic hypoxic and hypercapnic respiratory failure.
- Patient unable to tolerate nightly noninvasive ventilation. Reported history of claustrophobia. During daytime he has been able to use intermittently.
- At baseline, patient is home oxygen dependent at 2 L
- In view of pneumothorax, hold off BiPAP therapy going forward
#4. History of pulmonary MAC infection.
- Patient has followed up with [facility] and was recommended right upper lobe lobectomy, but was felt to be too high risk.
- Patient did not tolerate nebulized amikacin in the past, continue oral antibiotics, currently on azithromycin, ethambutol and Rifabutin.
#4. History of HIV
- Continue antiretroviral therapy. Also on PCP prophylaxis with Bactrim
#5. Pulmonary nodules
- Serial CT scan has shown stability, continue follow-up with [facility] pulmonary clinic
Other medical diagnoses:
- Paroxysmal atrial fibrillation. On chronic anticoagulation
- Hypertension, hyperlipidemia
- Coronary artery disease, s/p coronary artery bypass graft
Patient follows up with Dr. Garcia at [facility] pulmonary clinic and will resume follow-up as outpatient.
Total time spent on this consultation/encounter __52__ minutes which includes review of history, physical exam, medications, laboratory data, personal review of imaging, extensive review of outpatient records, discussion with care team and
respiratory therapy.
Data:
CT Chest 03/2025: 1. Re-demonstration of advanced centrilobular emphysema throughout the lungs, similar to prior. Re-demonstration of bronchiectasis, volume loss and thick-walled cystic lesions in the right upper lobe, grossly stable. Grossly stable
tiny bilateral pulmonary nodules. Findings may reflect sequelae of chronic atypical infection.
ECHO 11/2022: Normal left ventricular size, wall thickness and systolic function. No
regional wall motion abnormalities noted. LV ejection fraction is 60% by
volumetric assessment. Normal diastolic function.
Mitral valve opens normally. Thickened mitral valve leaflets. Mitral annular
calcification. No mitral stenosis. Trace mitral regurgitation is seen.
Since echocardiogram April 2022, there is no significant change.
Subjective Data
-
Date of Service:
Date of Service: March 16, 2025
Subjective:
Patient comfortably sitting in bed in no acute distress.
Review of Systems
Genitourinary: Other (All 14 systems reviewed and negative except as stated above in the history of present illness.)
Objective Data
Data Reviewed
Vital Signs / I&O / Oxygen:
Vital Signs
Temp Pulse Resp BP Pulse Ox
97.3 F 95 18 130/68 98
03/16/25 11:31 03/16/25 11:31 03/16/25 11:31 03/16/25 11:31 03/16/25 11:33
Intake and Output
03/15/25 03/16/25 03/17/25
06:59 06:59 06:59
Intake Total 75 / 75 1320 / 1320
Output Total 275 / 275 550 / 550
Balance -200 / -200 770 / 770
SaO2 98
Nasal Cannula flow liters per 2
minute
Physical Exam
General: Comfortable
HEENT: Normocephalic
Cardiovascular: S1-S2
Respiratory: Wheeze (Mild diffuse wheezing, improved since day before)
GI: Soft and Non Distended
Neurology: Awake and Alert
Skin: Warm
Labs/Micro/Reports
Lab Data
03/16/25 05:46
03/16/25 05:46
Laboratory Results
03/16/25
05:46
PT 39.6 H
INR 4.13
Microbiology
03/14/25 14:41 Nasal Swab Influenza Types A & B (MARIAH) - Final
Negative for Influenza A & B, NAAT
Negative results must be combined with clinical observations
and patient history.
Nucleic Acid Amplification test (NAAT)performed on the
[employer] platform.
--- NOTE | 2025-03-16 15:03 | W.PN.UPDATE ---
Update Note
Progress Note Update
Earlier this afternoon, after patient walked with physical therapy, he said that the pain he felt prior to coming to hospital with spontaneous pneumothorax, has returned. His chest tube was removed this morning. Patient experienced 10/10 left sided
back pain, at base of lung, and unable to take a full breath. Left lung was diminished, compared to the right base. Ordered stat chest x-ray which showed a tiny left pneumothorax at the left lateral lung base, significantly less than 5% of overall
lung volume. Case reviewed with pulmonary and radiologist.
Check lipase, EKG, troponin, and repeat CXR for 6:30 pm (4 hours after the stat CXR done now) to check whether pneumothorax is expanding. No CT/CTA for now. PE unlikely given INR supratherapeutic.
Patient later said that his pain had resolved and now he is able to take a full breath.
[2025-03-16 15:57] LABS: Troponin I < 0.012 ng/ml
[2025-03-16] MEDS: TYLENOL 650 MG PO (16:22)
[2025-03-16 16:25] LABS: Lipase 65 U/L (23-300)
[2025-03-16 22:28] LABS: Troponin I < 0.012 ng/ml
[2025-03-17 03:51] VITALS: BP 128/72
[2025-03-17 04:33] LABS: Troponin I < 0.012 ng/ml
[2025-03-17] MEDS: PULMICORT 0.5 MG INH (07:23)
[2025-03-17] MEDS: DUONEB 3 ML INH ×3 (07:23→15:16)
[2025-03-17 07:25] VITALS: BP 105/76
--- NOTE | 2025-03-17 07:46 | W.PN.HOSP.TC ---
Today's Communication/Plan
-
Discharge today
Assessment / Plan
Assessment / Plan
Physical Exam
General: Comfortable and Conversant
HEENT: Anicteric, Moist mucous membranes and Oxygen (Nasal Cannula)
Respiratory: Wheezes
Cardiac: S1/S2 and Regular Rhythm
GI: Soft and Non Tender. Positive bowel sounds.
Musculoskeletal: No Cyanosis and No Edema
Skin: Warm and Dry
Neuro: Awake, Alert, Oriented and Nonfocal/grossly intact
Psych: Calm
Assessment/Plan
79-year-old male with past medical history of HIV on HAART, COPD on 2 L baseline, CAD status post CABG, hypertension, hyperlipidemia, AVINASH/MAC infection, paroxysmal atrial fibrillation on Coumadin, anemia, leukopenia, who presented with increasing
shortness of breath with left-sided chest pain after when bending down. On the day of presentation, his oxygen requirements increased from 2 to 4 L. Vital signs normal. Bilateral wheezing on examination. Labs show stable anemia of 11.4. Chest x-ray
shows small left basilar pneumothorax. Left chest tube was placed. Patient with spontaneous small left basilar pneumothorax status post chest tube. Will need chest tube management per IR and repeat CXR. Also with concern for acute COPD
exacerbation. DuoNebs, dexamethasone.
Spontaneous Left Pneumothorax s/p Chest Tube -- likely from changes with her COPD, possibly from BiPAP as well
-Consult Interventional Radiology
-IR on 03/14/25 placed left-sided chest tube, with near complete reexpansion of left lung.
-Chest tube removed this morning -- chest x-ray after chest tube removal shows no pneumothorax
-Patient does not want chemical pleurodesis, and he is okay with being off BiPAP for now
-BIPAP is not to be used at home given risk of Pneumothorax.
-Outpatient follow-up with pulmonary.
Acute COPD Exacerbation
-Transition home inhalers to nebulizers
-Continue Pulmicort Neb and DuoNeb QID and PRN
-Continue home Trelegy at discharge
-Steroid regimen on discharge: Prednisone 40 mg daily x3 days then 30 mg daily x3 days, then 20 mg daily x3 days, then back to his baseline 10 mg daily (contact outpatient pulmonary office if you need refills)
-He is not able to tolerate nightly BiPAP therapy, also has a history of claustrophobia
Chronic Hypoxic Respiratory Failure
-Continue supplemental oxygen via nasal cannula -- patient is at baseline
Coronary Artery Disease s/p CABG and Stents
-Stable
-Continue Ezetimibe, Rosuvastatin
Paroxysmal Atrial Fibrillation
Supratherapeutic INR
-Resume Coumadin as INR now normal -- will need close outpatient follow-up of INR and Coumadin dose adjustment -- steroids can increase INR too in setting of Coumadin
-Continue Cardizem for rate control
-Monitor INR
Essential Hypertension
-Continue Cardizem
Hyperlipidemia
-Continue ezetimibe and rosuvastatin
HIV
-Continue emtricitabine/tenofovir, and Tivicay
-Continue Bactrim
-Follow-up with Dr. Fan at your next scheduled appointment
AVINASH Infection
-Continue azithromycin, ethambutol and rifabutin
Pulmonary Nodules
-Outpatient pulmonary follow-up
Underweight
DVT Prophylaxis: Supratherapeutic INR
Code Status: Full Code
More than 30 minutes spent in discharge including
Final examination of the patient
Summarizing hospital stay
Instructions for continuing care to all relevant caregivers
Preparation of discharge records, prescriptions, and referral forms
Total time spent (in minutes): 38
Anticipated Discharge: Today
Subjective/Interval History
-
Date of Service: March 17, 2025
Patient was seen and examined. He stated that his pain and shortness of breath have resolved.
Objective Data
-
Labs:
Laboratory Results
03/17/25
06:00
WBC Pending
Hgb Pending
Hct Pending
Plt Count Pending
PT Pending
INR Pending
Sodium Pending
Potassium Pending
Chloride Pending
Carbon Dioxide Pending
BUN Pending
Creatinine Pending
Glucose Pending
Calcium Pending
Vital Signs:
Vital Signs
Temp Pulse Resp BP Pulse Ox
98.2 F 89 18 128/72 97
03/17/25 03:51 03/17/25 03:51 03/17/25 07:26 03/17/25 03:51 03/17/25 07:26
I&O
03/16/25 03/17/25 03/18/25
06:59 06:59 06:59
Intake Total 1320 / 1320 480 / 480
Output Total 550 / 550 1150 / 1150
Balance 770 / 770 -670 / -670
[2025-03-17] MEDS: TIVICAY 50 MG PO (08:30)
[2025-03-17] MEDS: TRUVADA TABLET 1 TABLET PO (08:31)
[2025-03-17] MEDS: NON-FORMULARY ITEM 1 UNIT PO (08:31)
[2025-03-17] MEDS: ZITHROMAX 250 MG PO (08:31)
[2025-03-17] MEDS: ZETIA 10 MG PO (08:32)
[2025-03-17] MEDS: BACTRIM 400 MG/80 MG 1 TABLET PO (08:32)
[2025-03-17] MEDS: PROTONIX 40 MG PO (08:33)
[2025-03-17] MEDS: DELTASONE 40 MG PO (08:33)
[2025-03-17] MEDS: CRESTOR 20 MG PO (08:33)
[2025-03-17] MEDS: CARDIZEM CD PO (08:34)
[2025-03-17] MEDS: FOLVITE 1 MG PO (08:34)
[2025-03-17] MEDS: VITAMIN B-12 1000 MCG PO (08:34)
[2025-03-17] MEDS: MYAMBUTOL 400 MG PO (08:35)
[2025-03-17 09:32] LABS: Hematocrit 36.1 % (39.0-52.0); Hemoglobin 11.6 g/dL (13.0-18.0); Mean Corp Hgb Conc. 32.1 g/dL (33.0-37.0); Mean Corpuscular Volume 81.3 fL (80.0-94.0); Platelet Count 210 10^3/uL (130-400); Red Cell Dist. Width 17.2 % (11.5-14.5)
[2025-03-17 09:41] LABS: INR 2.73; PT 29.3 Sec (11.4-14.6)
--- NOTE | 2025-03-17 09:49 | CM ---
Addendum entered by Swapan Espitia 03/17/25 15:37:
Patient discharged today - notified liaison [facility]
IMM explained & signed yesterday. In chart
PLAN: Home with [facility]
family to transport
Original Note:
Patient for CXR this am
PT eval rec home Health-prefer [facility]
referral in [facility]
IMM signed yesterday & in chart.
PLAN: Home with [facility] when stable
family to transport
[2025-03-17 10:00] LABS: Troponin I < 0.012 ng/ml
[2025-03-17 11:25] LABS: Blood Urea Nitrogen 15 mg/dl (9-20); Calcium 9.0 mg/dl (8.4-10.2); Carbon Dioxide 29 mmol/L (22-30); Chloride 106 mmol/L (98-107); Estimated Creatinine Clearance 88 ml/min; Glucose 87 mg/dl (70-99); Potassium 3.9 mmol/L (3.5-5.1); Sodium 140 mmol/L (135-145); eGFR > 60.00
[2025-03-17 11:26] VITALS: BP 139/72
--- NOTE | 2025-03-17 11:57 | W.PN.PUL3 ---
Today's Communication / Plan
-
- Stay off BiPAP post discharge
- Resume Trelegy at discharge
- Continue treatment for MAC
- At discharge recommend prednisone 40 mg daily for 3 days followed by 30 mg for 3 days followed by 20 mg for 3 days and then continue 10 mg daily long-term which is his chronic baseline dose
- Outpatient follow-up with [facility] pulmonary clinic
- Patient stable to be discharged from pulmonary standpoint.
Assessment
-
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
left-sided pain and shortness of breath. Imaging was suggestive of a left-sided pneumothorax. Patient had an IR guided chest tube placement and was admitted to the hospitalist service. Pulmonary consultation was requested for further input. No
reported trauma, patient reports that he first noticed pain/pressure in his left chest after he kneeled to get something from the side table. Does not recall any trauma or fall. No prior history of pneumothorax.
Of note, patient has known history of very severe COPD as well as pulmonary MAC infection for which right upper lobectomy was recommended but patient was felt to be a very high risk hence surgery was not pursued. Also patient is not interested in
pursuing any surgical interventions. Patient has been on triple therapy for MAC infection as well as triple inhaler therapy for COPD in addition to chronic steroid use as well as home oxygen and home BiPAP therapy.
#1. Pneumothorax, spontaneous secondary.
- Suspect this was in the setting of underlying severe emphysematous changes on imaging with advanced COPD
- Patient uses BiPAP at home which could also contribute
- No further air leak noted. Tolerated clamp trial well. Consulted interventional radiology service to remove chest tube 03/16
- Post chest tube patient developed left-sided pain, follow-up chest x-ray was performed which showed only hairline questionable pneumothorax. That has stayed stable at 4-hour follow-up and subsequently morning x-ray on 03/17, without any
pneumothorax.
- Patient has very severe underlying COPD and at this point might not be a surgical candidate for mechanical pleurodesis, patient also not interested in pursuing any surgical intervention. 03/15/2025, we discussed regarding risk of recurrence
considering severe underlying emphysematous disease. We discussed the option of pursuing chemical pleurodesis, we went over the success rate with chemical produces and also updated that the process can be painful. Patient at this point wants to
hold off on pursuing chemical pleurodesis and wants to see how he does off BiPAP therapy.
- Discussed with patient regarding high risk of pneumothorax in future considering severe underlying emphysematous changes and we went over the symptoms to watch for.
#2. Severe baseline COPD/emphysema with acute exacerbation
- Pulmonary function testing (10/17/2023 ): FEV1:0.93 L -31%, FVC:3.01 L-72%, FEV1/FVC ratio:�31% T.48 L-105%, RV:155%, RV/TLC ratio:58%, DLCO: 15%DLCO/VA: 20%�Summary: Very severe airflow obstruction with air trapping and hyperinflation.�
Severely decreased diffusion capacity.�
- At baseline patient is on Trelegy daily along with as needed albuterol, prednisone 10 mg daily. Has not been able to tolerate nightly BiPAP therapy.
- Continue scheduled DuoNeb, budesonide and IV steroids in view of ongoing wheezing
- Can transition to prednisone at a tapering dose when discharging home
#3. Chronic hypoxic and hypercapnic respiratory failure.
- Patient unable to tolerate nightly noninvasive ventilation. Reported history of claustrophobia. During daytime he has been able to use intermittently.
- At baseline, patient is home oxygen dependent at 2 L
- In view of pneumothorax, hold off BiPAP therapy going forward
#4. History of pulmonary MAC infection.
- Patient has followed up with [facility] and was recommended right upper lobe lobectomy, but was felt to be too high risk.
- Patient did not tolerate nebulized amikacin in the past, continue oral antibiotics, currently on azithromycin, ethambutol and Rifabutin.
#4. History of HIV
- Continue antiretroviral therapy. Also on PCP prophylaxis with Bactrim
#5. Pulmonary nodules
- Serial CT scan has shown stability, continue follow-up with [facility] pulmonary clinic
Other medical diagnoses:
- Paroxysmal atrial fibrillation. On chronic anticoagulation
- Hypertension, hyperlipidemia
- Coronary artery disease, s/p coronary artery bypass graft
Patient follows up with Dr. Garcia at [facility] pulmonary clinic and will resume follow-up as outpatient.
Total time spent on this consultation/encounter __42__ minutes which includes review of history, physical exam, medications, laboratory data, personal review of imaging, extensive review of outpatient records, discussion with care team and
respiratory therapy.
Data:
CT Chest 03/2025: 1. Re-demonstration of advanced centrilobular emphysema throughout the lungs, similar to prior. Re-demonstration of bronchiectasis, volume loss and thick-walled cystic lesions in the right upper lobe, grossly stable. Grossly stable
tiny bilateral pulmonary nodules. Findings may reflect sequelae of chronic atypical infection.
ECHO 11/2022: Normal left ventricular size, wall thickness and systolic function. No
regional wall motion abnormalities noted. LV ejection fraction is 60% by
volumetric assessment. Normal diastolic function.
Mitral valve opens normally. Thickened mitral valve leaflets. Mitral annular
calcification. No mitral stenosis. Trace mitral regurgitation is seen.
Since echocardiogram April 2022, there is no significant change.
Subjective Data
-
Date of Service:
Date of Service: March 17, 2025
Subjective:
Patient comfortably lying in bed in no acute distress. Left-sided pleuritic discomfort resolved
Review of Systems
Genitourinary: Other (All 14 systems reviewed and negative except as stated above in the history of present illness.)
Objective Data
Data Reviewed
Vital Signs / I&O / Oxygen:
Vital Signs
Temp Pulse Resp BP Pulse Ox
97.7 F 116 18 139/72 99
03/17/25 11:26 03/17/25 11:26 03/17/25 11:26 03/17/25 11:26 03/17/25 11:26
Intake and Output
03/16/25 03/17/25 03/18/25
06:59 06:59 06:59
Intake Total 1320 / 1320 480 / 480
Output Total 550 / 550 1150 / 1150
Balance 770 / 770 -670 / -670
SaO2 99
Nasal Cannula flow liters per 2
minute
Physical Exam
General: Comfortable
HEENT: Normocephalic
Cardiovascular: S1-S2
Respiratory: Wheeze (Mild diffuse wheezing, improved since day before)
GI: Soft and Non Distended
Neurology: Awake and Alert
Skin: Warm
Labs/Micro/Reports
Lab Data
03/17/25 09:13
03/17/25 09:13
Laboratory Results
03/17/25
09:13
PT 29.3 H
INR 2.73
Microbiology
03/14/25 14:41 Nasal Swab Influenza Types A & B (MRAIAH) - Final
Negative for Influenza A & B, NAAT
Negative results must be combined with clinical observations
and patient history.
Nucleic Acid Amplification test (NAAT)performed on the
[employer] platform.
[2025-03-17] MEDS: TYLENOL 650 MG PO (14:14)
[2025-03-17 14:36] VITALS: BP 154/69; PULSE 118; PULSE 121; PULSE 152; O2SAT 98
--- NOTE | 2025-03-17 14:50 | W.DCSUMMARY ---
Discharge Summary
Discharge Data
Date of Admission: 03/14/25
Date of Discharge: 03/17/25
Total time spent discharging patient (in min): 38
-
Pending Results: No
Hospital Course
79-year-old male with past medical history of HIV on HAART, COPD on 2 L baseline, CAD status post CABG, hypertension, hyperlipidemia, MAC infection, paroxysmal atrial fibrillation Coumadin, anemia and leukopenia who presented with increasing
shortness of breath on 03/13/25 with left-sided chest pain when bending down. On the day of admission, 03/14/25, patient's oxygen requirements increased from 2 L to 4 L. Patient was found to have wheezing at the time of admission. Chest x-ray showed
a small-left sided basilar pneumothorax. Interventional radiology was consulted, and they placed a left-sided chest tube, with near complete reexpansion of left lung. Given concerns for exacerbation of patient's COPD, patient was started on Duonebs
and intravenous steroids. Pulmonary was consulted, and they recommended patient stop the use of BiPAP at home given risk of pneumothorax. Patient was doing better and later transitioned to oral steroids. Patient was initially planned for discharge
on 03/16/25, but he had the same chest pain in the same location again with difficulty breathing after working with physical therapy on 03/16/25. Repeat chest x-ray suggested a small pneumothorax; case was discussed with pulmonary who said it looked
a hairline questionable pneumothorax. There was no concern for acute coronary syndrome after electrocardiogram and troponins were done, and lipase was normal. Patient's chest pain and shortness of breath quickly resolved. Repeat chest x-rays later
on showed that the hairline questionable pneumothorax stayed stable at 4-hour follow-up and subsequently on the morning chest x-ray on 03/17/25, without any pneumothorax. Patient was stable for discharge with close outpatient follow-up with his
primary care provider and pulmonary. Patient did have supratherapetic INR (but no evidence of bleeding) during the hospitalization suspected from steroids effect with the Coumadin, Coumadin was adjusted and patient was advised to watch his INR very
closely outpatient.
Discharge Plan
-
Patient Disposition: Home with Home Care
Discharge Diagnosis/Procedures: Mild aortic arch calcification on chest x-ray report
Spontaneous Left Pneumothorax s/p Chest Tube -- likely from changes with her COPD, possibly from BiPAP as well
COPD
Acute COPD Exacerbation
Chronic Hypoxic Respiratory Failure
Coronary Artery Disease s/p CABG and Stents
Paroxysmal Atrial Fibrillation
Supratherapeutic INR
Essential Hypertension
Hyperlipidemia
HIV
History of Pulmonary MAC Infection
Pulmonary Nodules
Underweight

Initial Chest X-Ray Results (as per radiologist's report):
'COMPARISON: 12/15/2024. CT chest 02/21/2025.
FINDINGS: There is a small left pneumothorax on the lateral aspect of the left base. On the lateral projection, costophrenic sulci are excluded inferiorly. There is apparent small effusion which is probably on the left. As seen on the previous
exams, there is chronic right apical scarring/fibrosis with superior retraction of the right hilum. Superior to this, there is bullous change at the right apex. There is also some irregular opacity over the left apex is probably related to scarring,
not as clearly seen as on the previous CT. The heart is not enlarged. Mediastinal silhouette and pulmonary vasculature within normal limits. No acute osseous abnormality identified. Mild degenerative changes thoracic spine.
IMPRESSION: Small left basilar pneumothorax.'

Second Chest X-Ray Results (as per radiologist's report):
'IMPRESSION:
No pneumothorax. New left-sided chest tube.
Stable scarring/fibrosis of the right upper lobe.
Mild flattening of the diaphragms suggesting COPD. Stable'

DISCHARGE DAY (03/16/25) Chest X-Ray Results (as per radiologist's report):
'FINDINGS: Left chest tube has been removed. No pneumothorax is seen. Large bulla at the right apex as seen previously. Adjacent fibrosis/scarring with retraction of the right hilum superiorly as seen previously. No effusion. The heart is not
enlarged. Mediastinal silhouette and pulmonary vasculature are within normal limits. No acute osseous abnormality identified.
IMPRESSION: No pneumothorax.'
Condition: Good
Diet: Low Fat, Low Cholesterol and Low Sodium
Activity: As tolerated
Blood Work: INR needs to be checked tomorrow 03/18/25, as well as every 1 to 3 days after that. Discuss on 03/18/25 with your cardiology office.
CBC, BMP and Magnesium in 3 to 4 days.
Activity Restrictions/Additional Instructions:
As discussed, BIPAP is NOT to be used at home given risk of Pneumothorax
Call Dr. Jhonatan Yip regarding your chronic tachycardia (as you have discussed) -- regarding Ivabradine
INR needs to be checked tomorrow 03/18/25, as well as every 1 to 3 days after that. Discuss on 03/18/25 with your cardiology office.
CBC, BMP and Magnesium in 3 to 4 days.
Hospital Nurse/Assistant [employer] Professional can provide you with GoodRx coupons for your Prednisone
Referrals:
Juaquin Christian MD [Active, Pulmonary Medicine] - in two weeks
UNKNOWN - PT NOT,INTERVIEWE [Family Provider]
Additional Discharge Medication Instructions: Prednisone regimen: Starting on 03/18/25: 40 mg daily x2 days then 30 mg daily x3 days, then 20 mg daily x3 days, then back to your baseline 10 mg daily (contact outpatient pulmonary office if you need
refills)
Coumadin/Warfarin has been resumed since your INR is therapeutic on the day of discharge -- INR will have to be monitored very closely outpatient since prednisone can increase INR while you are taking Coumadin, so bleeding risk can be elevated if
that happens.
Prescriptions:
New
prednisone 10 mg tablet
See Rx Instructions .ROUTE .COMPLEX Qty: 60 0RF
Rx Instructions:
Starting 03/18/25: 40 mg daily x2 days; then 30 mg daily x3 days; then 20 mg daily x3 days, then 10 mg daily
Continued
ethambutol 400 MG tablet
400 mg PO BID
ezetimibe 10 MG tablet
10 mg PO DAILY
Tivicay 50 MG tablet
50 mg PO BID
emtricitabine-tenofovir (TDF) 200-300 mg tablet
1 tab PO DAILY
pantoprazole 40 mg Tablet,Delayed Release (Dr/Ec)
40 mg PO DAILY Qty: 30 0RF
rifabutin 150 mg Capsule
150 mg PO BID
albuterol sulfate 90 mcg/actuation Hfa Aerosol Inhaler
2 puff INHALATION R Q4HPRN PRN (Reason: sob)
Trelegy Ellipta 100-62.5-25 mcg Blister With Device
1 inh INHALATION R DAILY
rosuvastatin 20 mg tablet
20 mg PO DAILY
levalbuterol HCl 1.25 mg/3 mL solution for nebulization
1.25 mg inhalation R QID
acetaminophen 325 mg Tablet
650 mg PO DAILYPRN PRN (Reason: mild pain/headache)
sulfamethoxazole-trimethoprim 400-80 mg Tablet
1 tab PO DAILY
warfarin 4 mg Tablet
4 mg PO HS
diltiazem HCl 120 mg Capsule,Extended Release 24hr
120 mg PO DAILY
warfarin 1 mg Tablet
0.5 mg PO HS
cyanocobalamin (vitamin B-12) [Vitamin B-12] 1,000 mcg Tablet
1,000 mcg PO DAILY Qty: 30 0RF
folic acid 1 mg Tablet
1 mg PO DAILY Qty: 30 0RF
azithromycin 250 mg Tablet
250 mg PO DAILY Qty: 0 0RF
Discharge Orders:
Discharge Patient (As Directed); Ordered 03/17/25
Ordered By: Dima Mae
Discharge Date and Time
Discharge Date/Time: 03/17/25 16:29
Print Language: BRUNEIAN
[2025-03-17 15:41] VITALS: BP 131/70
== END 2025-03-17 16:29 | disposition home health service (06) | DRG 200 ==
LOC: 4 WEST ACU 18:20
PROVIDERS: Physician Assistant Medical; Radiology Vascular & Interventional Radiology; ADMITTING PHYSICIAN Hospitalist; ATTENDING PHYSICIAN Hospitalist; CONSULT PHYSICIAN Internal Medicine; EMERGENCY PHYSICIAN Student in an Organized Health Care Education/Training Program
PROC: 0W9B30Z Drainage of Left Pleural Cavity with Drainage Device, Percutaneous Approach (ICD-10-PCS; 2025-03-14)
DX: J93.9 Pneumothorax, unspecified (principal); A31.0 Pulmonary mycobacterial infection; J44.1 Chronic obstructive pulmonary disease with (acute) exacerbation; J96.11 Chronic respiratory failure with hypoxia; Z68.1 Body mass index [BMI] 19.9 or less, adult; J96.12 Chronic respiratory failure with hypercapnia; B20 Human immunodeficiency virus [HIV] disease; I25.10 Atherosclerotic heart disease of native coronary artery without angina pectoris; Z95.1 Presence of aortocoronary bypass graft; I48.0 Paroxysmal atrial fibrillation; R79.1 Abnormal coagulation profile; Z79.01 Long term (current) use of anticoagulants; I10 Essential (primary) hypertension; Z79.899 Other long term (current) drug therapy; R63.6 Underweight; I70.0 Atherosclerosis of aorta; D64.9 Anemia, unspecified; F40.240 Claustrophobia; E78.00 Pure hypercholesterolemia, unspecified; J43.9 Emphysema, unspecified; Z79.52 Long term (current) use of systemic steroids; Z87.891 Personal history of nicotine dependence; Z99.81 Dependence on supplemental oxygen; Z11.52 Encounter for screening for COVID-19
CPT/HCPCS: 32557; 36415; 71045; 71046; 74018; 80048; 80053; 83690; 83735; 84484; 85025; 85027; 85610; 85730; 87502; 87811; 93005; 94640; 96374; 96375; 97116; 97163; 99285; C1729; C1769

== ENCOUNTER → 2025-03-28 17:37 | Outpatient (REF) | payer MEDICARE, SELFPAY ==
[2025-03-28 18:34] LABS: Hematocrit 39.1 % (39.0-52.0); Hemoglobin 11.8 g/dL (13.0-18.0); Mean Corp Hgb Conc. 30.2 g/dL (33.0-37.0); Mean Corpuscular Volume 86.3 fL (80.0-94.0); Nucleated Red Blood Cells % 0 % (-); Platelet Count 222 10^3/uL (130-400); Red Cell Dist. Width 17.8 % (11.5-14.5)
[2025-03-28 18:50] LABS: Blood Urea Nitrogen 15 mg/dl (9-20); Calcium 8.8 mg/dl (8.4-10.2); Carbon Dioxide 29 mmol/L (22-30); Chloride 106 mmol/L (98-107); Glucose 126 mg/dl (70-99); Magnesium 2.5 mg/dl (1.6-2.3); Potassium 4.2 mmol/L (3.5-5.1); Sodium 140 mmol/L (135-145); eGFR > 60.00
== END ==
LOC: CLAB 17:37
PROVIDERS: ATTENDING PHYSICIAN Student in an Organized Health Care Education/Training Program; FAMILY PHYSICIAN Family Medicine
DX: J44.1 Chronic obstructive pulmonary disease with (acute) exacerbation (principal); J34.9 Unspecified disorder of nose and nasal sinuses; J96.12 Chronic respiratory failure with hypercapnia
CPT/HCPCS: 36415; 80048; 83735; 85025

== ENCOUNTER → 2025-07-05 10:29 | Outpatient (REF) | payer MEDICARE, SELFPAY ==
[2025-07-07 14:04] LABS: CD4 % of Cells Analyzed 17 % (35-68); CD4 Absolute Count 90 cells/uL
[2025-07-08 08:12] LABS: HIV-1 Quan NAAT Interpretation Not Detected (Not Detected); HIV-1 Quant NAAT (copies/ml) Not Detected cpy/mL; HIV-1 Quant NAAT (log copy/mL) Not Detected log cpy/mL
== END ==
LOC: REG 10:29
PROVIDERS: ATTENDING PHYSICIAN Student in an Organized Health Care Education/Training Program
DX: B20 Human immunodeficiency virus [HIV] disease (principal)
CPT/HCPCS: 36415; 86361; 87536